=== PATIENT | female | born 1940 | race Caucasian/White ===

== ENCOUNTER 2023-08-06 13:47 | Outpatient (OUT) | payer MEDICARE, OTHER, SELFPAY ==
--- NOTE | 2023-08-06 13:58 | XR_ITS ---
The [address] [address] Patient Name: DIANA PLASCENCIA MRN: [id number] date: 1940 Sex: F Assigned Patient Location: LAB Current Patient Location: Accession/Order Number: [id number] Exam Date: 08/06/2023 14:05 Report Date: 08/07/2023 07:59 At the request of: SHAIKH BEN Procedure: XR pelvis min 3V PROCEDURE: XR pelvis min 3V COMPARISON: None. HISTORY: Pelvic Pain In Female R10.2 FINDINGS: BONES:No acute fracture or dislocation. Mild bilateral hip osteoarthropathy. Sclerosis of the pubic symphysis SOFT TISSUES:Negative. No visible soft tissue swelling. EFFUSION:None visible. OTHER: Multiple pelvic calcifications, vascular phleboliths are favored. 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
== END 2023-08-06 13:48 | disposition home or self-care (01) ==
LOC: LAB 13:51
PROVIDERS: PCP Family Medicine; Visit Provider Internal Medicine
DX: R10.2 Pelvic and perineal pain (principal)
CPT/HCPCS: 72190

== ENCOUNTER 2024-08-06 12:45 | Outpatient (OUT) | payer MEDICARE, OTHER, SELFPAY ==
--- OUTSIDE RECORDS SUMMARY | 2024-08-06 12:58 | XMS_ITS | CCD ---
Author Organization [facility] Care Team Providers Care Principal Planner Name Role Phone Regino Martinez Primary Care Provider CRYSTAL, ISAK A Admitting Unavailable NADERER, ISAK A Attending Unavailable NADERER, ISAK A Primary Care Unavailable NADERER, ISAK A Consulting Unavailable NADERER, ISAK A Admitting Unavailable NADERER, ISAK A Attending Unavailable NADERER, ISAK A Primary Care Unavailable NADERER, ISAK A Consulting Unavailable NADERER, ISAK A Admitting Unavailable NADERER, ISAK A Attending Unavailable NADERER, ISAK A Primary Care Unavailable NADERER, ISAK A Consulting Unavailable NADERER, ISAK A Admitting Unavailable NADERER, ISAK A Attending Unavailable NADERER, ISAK A Primary Care Unavailable NADERER, ISAK A Consulting Unavailable NADERER, ISAK A Admitting Unavailable NADERER, ISAK A Attending Unavailable NADERER, ISAK A Primary Care Unavailable DR GILL LIRA Consulting Unavailable NADERER, ISAK A Consulting Unavailable MD Francheska Jean Attending Provider MD Isak Rojas Primary Care Provider [phone] MD Francheska Jean Primary Care Provider Jacinta Gillespie Unavailable Shaikh Jean Attending Unavailable Isak Rojas Primary Care Unavailable Shaikh Jean Admitting Unavailable Shaikh Jean Attending Unavailable Shaikh Jean Admitting Unavailable Shaikh Jean Primary Care Unavailable Naddennis, Isak Keyanna Primary Care Provider Russ Schmitt MD Unavailable REDD OBANDO Attending Unavailable ERWIN MCLEOD Attending Unavailable NADERER, ISAK Referring Unavailable NADERER, ISAK Primary Care Unavailable NADERER, ISAK Primary Care Unavailable YEN LINK Attending Unavailable ANDREA VAZQUEZ Admitting Unavailable VAZQUEZ GARIBAY Consulting Unavailable KARCHNER, MAXIMILIAN Small Attending Unavailable KARCHMAXIMILIAN ESCALANTE Referring Unavailable NADERER, ISAK Primary Care Unavailable MAYRA ELIZABETH Attending Unavailable MAYRA ELIZABETH Referring Unavailable NADERER, ISAK Primary Care Unavailable KROTZER, THANG D Referring Unavailable NADERER, ISAK Primary Care Unavailable KROTZER, THANG D Referring Unavailable NADERER, ISAK Primary Care Unavailable KROTZER, THANG D Referring Unavailable NADERER, ISAK Primary Care Unavailable KROTZER, THANG D Referring Unavailable NADERER, ISAK Primary Care Unavailable NADERER, ISAK Primary Care Unavailable YEN LINK Attending Unavailable CLARKECHBORIS, MAXIMILIAN Small Attending Unavailable KARCHNER, MAXIMILIAN D Referring Unavailable NADERER, ISAK Primary Care Unavailable NADERER, ISAK Attending Unavailable NADERER, ISAK Attending Unavailable Naderer Isak HAMILTON Primary Care Provider Allergies Allergy Classification Reported Allergen(s) Allergy Type Date of Onset Reaction(s) Facility (8 sources) Codeine; Translations: [CODEINE] Drug Allergy 7 GI Upset, Nausea Only [facility] (6 sources) Iodine Drug Allergy 7 [facility] (1 source) Codeine Drug Allergy 6 [facility] Repository (2 sources) Adhesive Tape; Translations: [adhesive tape] Allergy to substance 3 [facility] (4 sources) Adhesive agent; Translations: [adhesive] Drug allergy 3 [facility] Repository (1 source) Codeine Drug Allergy 3 [facility] Repository (1 source) Iodine Drug Allergy 3 [facility] Repository (2 sources) Codeine; Translations: [CODEINE SULFATE] Drug Allergy 7 [facility] Repository (2 sources) IODINE AND IODIDE CONTAINING PRODUCTS; Translations: [IODINE AND IODIDE CONTAINING PRODUCTS] Propensity to adverse reactions to food (disorder) 7 [facility] Repository (1 source) Lidocaine Drug Allergy 3 [facility] Medications Current Medications Medication Drug Class(es) Dates Sig (Normalized) Sig (Original) acetaminophen 325 mg oral tablet (3 sources) Start: 12-18-2022 take 2 tablets by mouth every six hours as needed acetaminophen (Tylenol) 325 MG tablet Take 650 mg by mouth every 6 (six) hours if needed. 12/18/2022 Active End: 08-07-2022 take 1 tablet by mouth once daily acetaminophen (TYLENOL) 500 mg tablet Take 500 mg by mouth once daily. 0 08/07/2022 Discontinued (Changing Therapy/Dosage Form) Comment on above: Take 500 mg by mouth once daily. acetaminophen 325 mg / butalbital 50 mg / caffeine 40 mg oral tablet (1 source) Barbiturate, Central Nervous System Stimulant, Methylxanthine Start : 06-29 take 1 tablet by mouth four times daily as needed butalbital-acetaminophen -caffeine 50-325-40 MG tablet Indications: Migraine without aura and without status migrainosus, not intractable (CMS/HCC) Take 1 tablet by mouth 4 (four) times a day as needed for migraine 30 tablet 1 06/29/2024 Active alendronic acid 70 mg oral tablet (1 source) Bisphosphonate alendronate (Fos amax) 70 MG tablet 1 tablet 30 minutes before the first food, beverage or medicine of the day with plain water Orally once a week for 90 days Active Qcnosiqji-Tvjwamtakme-Kri D (Osteo Bi-Flex One Per Day) tablet (1 source) Boswellia-Glucos amine-Vi t D (Osteo Bi-Flex One Per Day) tablet Take by mouth. Active hydroCHLOROthiazide 25 mg oral tablet (4 sources) Thiazide Diuretic End: 08-07 take 1 tablet by mouth in the morning hydroCHLOROthiazide (HYDRODiuril) 25 MG tablet Take 1 tablet by mouth in the morning. Active Comment on above: Take 25 mg by mouth once daily. ibuprofen 200 mg oral tablet (1 source) Nonsteroidal Anti-inflammatory Drug ibuprofen (Advil) 20 0 MG tablet every 6 (six) hours. Active iv contrast (will be provided with radiology test) (1 source) Start : 12-03 End: 12-04 iv contrast (will be provided with radiology test) Indications: Unruptured cerebral aneurysm MRA Brain Inject, intravenously, once for 1 dose. No IV access, insert saline lock prior to the beginning of sedation, infusion, injection of imaging exam. Discontinue saline lock post exam. If Pt. has a central line or IVAD, may access for administration according to line specific nursing protocol. Once exam is complete flush line and de-access according to line specific nursing protocol in the MR contrast administration guidelines link. 1 Each 0 12/03/2023 12/04/2023 Active Comment on above: MRA Brain Inject, in travenously, once for 1 dose. No IV access, insert saline lock prior to the beginning of sedation, infusion, injection of imaging exam. Discontinue saline lock post exam. If Pt. has a central line or IVAD, may access for administration according to line specific nursing protocol. Once exam is complete flush line and de-access according to line specific nursing protocol in the MR contrast administration guidelines link. levothyroxine sodium 0.1 mg oral tablet (7 sources) l-Thyroxine Start : 05-18 End: 07-28 take 1 tablet by mouth once daily levothyroxine (Synthroid, Levoxyl) 100 MCG tablet Indications: Adult hypothyroidism (CMS/HCC) TAKE ONE TABLET BY MOUTH DAILY 90 tablet 3 07/28/2024 Active levothyroxine (S YNTHROID) 125 mcg tablet Take 100 mcg by mouth daily before breakfast. 0 Active Levothyroxine So dium 125 MCG Oral for 90 Active Comment on above: Take 125 mcg by mout h daily before breakfast. Take 100 mcg by mout h daily before breakfast. losartan potassium 25 mg oral tablet (5 sources) Angiotensin 2 Receptor Mora Start: 02-18-2024 End: 02-17-2025 take 1 tablet by mouth once daily losartan (Cozaar) 25 MG tablet Indications: Essential hypertension, benign (CMS/HCC) Take 1 tablet (25 mg) by mouth Daily 90 tablet 3 02/18/2024 02/17/2025 Active losartan (COZAAR ) 50 mg tablet Take 25 mg by mouth once daily. 0 Active take 1 tablet by mouth once milly y losartan (COZAAR) 50 mg tablet Take 50 mg by mouth once daily. 0 Active Comment on above: Take 50 mg by mouth once daily. Take 25 mg by mouth once daily. meclizine hydrochloride 12.5 mg oral tablet (3 sources) Antiemetic End: 2 take 1 tablet by mouth three times daily as needed meclizine (Antivert) 12.5 MG tablet Take 12.5 mg by mouth 3 (three) times a day as needed. Active Comment on above: Take 12.5 mg by mout h as needed. naproxen sodium 220 mg oral tablet (3 sources) Nonsteroidal Anti-inflammatory Drug take 1 tablet by mouth every twelve hours Aleve 220 MG 1 tablet as needed Orally every 12 hrs Active End: 08-07-2022 take 1 tablet by mouth once daily naproxen sodium (ANAPROX) 220 mg tablet Take 220 mg by mouth once daily. 0 08/07/2022 Discontinued (Changing Therapy/Dosage Form) Comment on above: Take 220 mg by mouth once daily. nitrofurantoin, macrocrystals 25 mg / nitrofurantoin, monohydrate 75 mg oral capsule (1 source) Nitrofuran Antibacterial Start: 12-13-19 23 nitrofurantoin, macrocrystal-monoh ydrate, (Macrobid) 100 MG capsule 12/12/2022 Active omeprazole 10 mg delayed release oral capsule (3 sources) Proton Pump Inhibitor take 2 capsules by mouth every twenty-four hours Omeprazole 10 MG 2 capsules Orally Once a day Active End: 08-07-2022 take 1 capsule by mouth once daily omeprazole (PRILOSEC) 20 mg capsule Take 20 mg by mouth once daily. 0 08/07/2022 Discontinued (Changing Therapy/Dosage Form) Comment on above: Take 20 mg by mouth once daily. Osteo Bi-Flex Adv Joint Shield (1 source) Osteo Bi-Flex Ad v Joint Shield Active pantoprazole 40 mg delayed release oral tablet (5 sources) Proton Pump Inhibitor Start: 07-28-20 24 take 1 tablet by mouth once daily pantoprazole (ProtoNix) 40 MG EC tablet Indications: Gastroesophageal reflux disease without esophagitis TAKE ONE TABLET BY MOUTH DAILY 90 tablet 3 07/28/2024 Active Start: 12-23-2021 End: 07-28-2024 take 1 tablet by mouth once daily pantoprazole DR (PROTONIX) 40 mg tablet Take 1 tablet by mouth once daily. 0 12/23/2021 Active Comment on above: Take 1 tablet by junaid th once daily. 24 hr propranolol hydrochloride 60 mg extended release oral capsule (4 sources) beta-Adrenergic Mora proprano lol LA (Inderal LA) 60 MG 24 hr capsule 1 capsule 1 (one) time each day at the same time. Active Propranolol HCl ER 80 MG Oral for 90 Active End: 08-07-2022 take 1 tablet by mouth once daily propranolol (INDERAL) 80 mg tablet Take 80 mg by mouth once daily. Extended release 0 08/07/2022 Discontinued (Changing Therapy/Dosage Form) Comment on above: Take 80 mg by mouth once daily. Extended release tolterodine tartrate 2 mg oral tablet (4 sources) Cholinergic Muscarinic Antagonist tolterodine (Detrol) 2 MG tablet every 12 (twelve) hours. Active End: 08-07-2022 Tolterodine Tartrate 2 MG Or al for 90 Active Comment on above: Take 2 mg by mouth t wice daily. topiramate 50 mg oral tablet (4 sources) Start: 05-06-2024 take 1 tablet by mouth in the morning topiramate 50 MG tablet Indications: Migraine without aura and with status migrainosus, not intractable (CMS/HCC) Take 50 mg by mouth in the morning and 50 mg before bedtime. 60 tablet 2 05/06/2024 Active Start: 07-17-2022 topiramate (TO PAMAX) 50 mg tablet ZOLMitriptan 5 mg oral tablet (6 sources) Serotonin-1b and Serotonin-1d Receptor Agonist take 1 tablet by mouth every twenty-four hours as needed ZOLMitriptan (Zomig) 5 MG tablet TAKE ONE TABLET BY MOUTH AT ONSET OF HEADACHE NEEDED ; MAX OF TWO PER 24 HOURS. Active ZOLMitriptan prn Active Comment on above: Take 5 mg by mouth a s needed. Completed/Discontinued Medications Medication Drug Class(es) Dates Sig (Normalized) Sig (Original) [id number] 60 actuat albuterol 0.09 mg/actuat metered dose inhaler (1 source) beta2-Adrenergic Agonist Start: 07-15-2023 take 2 puff(s) by inhalation four times daily as needed Albuterol Sulfate HFA 108 (90 Base) MCG/ACT 2 puffs Inhalation 4 times a day prn Jul, Not-Taking/PRN aspirin 81 mg chewable tablet (5 sources) Platelet Aggregation Inhibitor, Nonsteroidal Anti-inflammatory Drug take 1 tablet by mouth once daily aspirin 81 mg chewable tablet Take 81 mg by mouth once daily. 0 Active Baby Aspirin Act lali Comment on above: Take 81 mg by mouth once daily. aspirin 325 mg / butalbital 50 mg / caffeine 40 mg oral capsule (3 sources) Platelet Aggregation Inhibitor, Barbiturate, Nonsteroidal Anti-inflammatory Drug, Central Nervous System Stimulant, Methylxanthine take 1 capsule by mouth every four hours as needed zwsaobk-oeacisfw-r utalbital (FIORINAL) capsule Take 1 capsule by mouth every 4 hours as needed. 0 Active Comment on above: Take 1 capsule by mo [facility] every 4 hours as needed. Chondroitin Sulfates / Glucosamine (1 source) Glucosamine Chondroitin MSM - Orally Not-Taking/PRN esomeprazole 20 mg delayed release oral capsule (1 source) Proton Pump Inhibitor take 1 capsule by mouth every twenty-four hours NexIUM 20 MG 1 capsule Orally Once a day Not-Taking/PRN GLUCOSAMINE/CHONDR PAUL A SOD (OSTEO BI-FLEX ORAL) (4 sources) GLUCOSAMINE/OLEG DR PAUL A SOD (OSTEO BI-FLEX ORAL) Take by mouth. 0 Active Comment on above: Take by mouth. methylPREDNISolone 4 mg oral tablet (1 source) Corticosteroid Medrol 4 MG as directed Orally As Directed for 6 days Not-Taking/PRN Multi Complete - (1 source) Multi Complete - Orally Not-Taking/PRN Multivitamin preparation (2 sources) End: 022 MULTIVITAMIN (MULTIPLE VITAMIN ORAL) Take by mouth once daily. 0 08/07/2022 Discontinued (Changing Therapy/Dosage Form) MULTIVITAMIN (MU LTIPLE VITAMIN ORAL) Take by mouth once daily. 0 Active Comment on above: Take by mouth once d aily. sulfamethoxazole 800 mg / trimethoprim 160 mg oral tablet (2 sources) Dihydrofolate Reductase Inhibitor Antibacterial, Sulfonamide Antimicrobial End: 08-07-20 22 take 1 tablet by mouth twice daily sulfamethoxazole-tr imethoprim (BACTRIM DS,SEPTRA DS) 800-160 mg per tablet Take 1 tablet by mouth twice daily. 0 08/07/2022 Discontinued (Course of therapy completed) Comment on above: Take 1 tablet by junaid twice daily. Problems Active Problems Problem Classification Problem Date Documented Da te Episodic/Chronic Abdominal pain (1 source) Pelvic and perineal pain; Translations: [Pelvic and perineal pain] Onset: 3 Episodic Cardiac dysrhythmias (1 source) Paroxysmal supraventricular tachycardia; Translations: [Paroxysmal supraventricular tachycardia] Onset: 4 12-17-2023 Chronic Conditions associated with dizziness or vertigo (1 source) Dizziness Onset: 4 Episodic E Codes: Fall (1 source) Fall Onset: 4 Esophageal disorders (4 sources) Gastroesophageal reflux disease; Translations: [Gastro-esophageal reflux disease without esophagitis] Onset: 4 07-28-2024 Chronic Essential hypertension (5 sources) Essential (primary) hypertension; Translations: [Benign essential hypertension] Onset: 2 Chronic Headache; including migraine (1 source) Migraine without aura, not refractory ; Translations: [Migraine without aura, not intractable, with status migrainosus] Onset: 4 12-17-2023 Chronic Malaise and fatigue (2 sources) Fatigue; Translations: [Weakness] Onset: 4 Episodic Nausea and vomiting (4 sources) Vomiting, unspecified; Translations: [VOMITING UNSPECIFIED] Onset: 3 Episodic Occlusion or stenosis of precerebral arteries (1 source) Cerebrovascular disease; Translations: [Occlusion and stenosis of basilar artery] Chronic Osteoarthritis (1 source) Lower limb joint arthritis; Translations: [Bilateral primary osteoarthritis of knee] Onset: 4 12-17-2023 Chronic Osteoporosis (1 source) Senile osteoporosis; Translations: [Age-related osteoporosis without current pathological fracture] Onset: 4 12-17-2023 Chronic Other aftercare (1 source) Other board certified orthodontist (current) drug therapy; Translations: [OTH CONTINUOUS MINING 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 MINER CURRENT DRUG THERAPY] Onset: 3 Episodic Other and ill-defined cerebrovascular disease (3 sources) Cerebral arterial aneurysm; Translations: [Cerebral aneurysm, nonruptured] Chronic Other ear and sense organ disorders (1 source) Impacted cerumen, right ear Episodic Other gastrointestinal disorders (1 source) Dysphagia; Translations: [Dysphagia, unspecified] Episodic Other nutritional; endocrine; and metabolic disorders (1 source) Obese class II; Translations: [Body mass index (BMI) 35.0-35.9, adult] Chronic Other nutritional; endocrine; and metabolic disorders (1 source) Obese class I; Translations: [Body mass index (BMI) 34.0-34.9, adult] Chronic Other screening for suspected conditions (not mental disorders or infectious disease) (5 sources) Other specified abnormal findings of blood chemistry; Translations: [OTH SPEC ABNORMAL FINDINGS BLD CHEM] Onset: 3 Episodic Other skin disorders (1 source) Scar conditions and fibrosis of skin; Translations: [Scar conditions and fibrosis of skin] Episodic Spondylosis; intervertebral disc disorders; other back problems (1 source) Degeneration of lumbar intervertebral disc; Translations: [DDD (degenerative disc disease), lumbar] Onset: 4 12-17-2023 Chronic Thyroid disorders (3 sources) Hypothyroidism, unspecified; Translations: [Hypothyroidism] Onset: 2 07-28-2024 Chronic Unclassified (1 source) Encounter for checking and testing of cardiac pacemaker pulse generator [battery]; Translations: [Encounter for checking and testing of cardiac pacemaker pulse generator [battery]] Onset: 3 Unclassified (1 source) Weakness - Generalized Onset: 4 Unclassified (1 source) ill Onset: 4 Urinary tract infections (5 sources) Urinary tract infection, site not specified; Translations: [UTI SITE NOT SPECIFIED] Onset: 3 Episodic Viral infection (1 source) COVID-19; Translations: [COVID-19] Onset: 4 Past or Other Problems Problem Classification Problem Date Documented Date Episodic/Chronic Biliary tract disease (2 sources) Calculus of gallbladder without cholecystitis without obstruction; Translations: [Biliary calculus] Onset: 02-16-2023 12-17-2023 Episodic Diabetes mellitus without complication (2 sources) Prediabetes; Translations: [Prediabetes] Onset: 07-19-2022 12-17-2023 Episodic E Codes: Fall (1 source) Unspecified fall, initial encounter; Translations: [Unspecified fall, initial encounter] Onset: 12-08-2023 Episodic Other fractures (1 source) Wedge compression fracture of second lumbar vertebra, initial encounter for closed fracture; Translations: [Wedge compression fracture of second lumbar vertebra, initial encounter for closed fracture] Onset: 12-09-2023 Episodic Spondylosis; intervertebral disc disorders; other back problems (1 source) Backache Onset: 12-08-2023 Episodic Syncope (4 sources) Syncope and collapse; Translations: [SYNCOPE AND COLLAPSE] Onset: 07-03-2022 Episodic Results Test Name Value Interpretation Reference Range Facility BLOOD CULTUREon 06-03-2024 Bacteria identified Aer cx Nom (Bld) SPECIMEN NOTES RAC CULTURE RESULTS NO GROWTH 5 DAYS Normal [facility] Bacteria identified Aer cx Nom (Bld) SPECIMEN NOTES RAC CULTURE RESULTS NO GROWTH 5 DAYS Normal [facility] CBC AND AUTO DIFFon 06-03-20 24 ABSOLUTE BASOPHIL 0.0 X10E9/L Normal 0.0-0.2 [facility] Comment on above: Performed By: #### C XI WILSON, , 01709-4 #### [facility] ([id number]) [address] [place] [address] 13024 ABSOLUTE NEUTROPHIL 5.7 X10E9/L Normal 1.5-6.6 [facility] Comment on above: Performed By: #### C KATIE CMP, , 79911-1 #### [facility] ([id number]) [address] [place] [address] 78728 Basophils/100 WBC (Bld) 0.6 % Normal [facility] Comment on above: Performed By: #### Cathy WILSON CMP, , 41423-0 #### [facility] ([id number]) [address] [place] [address] 53003 Eosinophils (Bld) [#/Vol] 0.1 10*3/uL Normal 0.0-0.[address] [facility] Comment on above: Performed By: #### C BCA CMP, , 20722-5 #### [facility] ([id number]) [address] [place] [address] 05431 Eosinophils/100 WBC (Bld) 1.0 % Normal [facility] Comment on above: Performed By: #### C BCA CMP, , 66045-9 #### [facility] ([id number]) [address] [place] [address] 04094 Erythrocyte distribution width (RBC) [Ratio] 15.2 % High 11.5-15.[address] [facility] Comment on above: Performed By: #### C BCA, CMP, , 91995-1 #### [facility] ([id number]) [address] [place] [address] 64605 Hematocrit (Bld) [Volume fraction] 35.1 % Normal 35-[address] [facility] Comment on above: Performed By: #### C KATIE, CMP, , 65300-3 #### [facility] ([id number]) [address] [place] [address] 77524 Hemoglobin (Bld) [Mass/Vol] 12.0 g/dL Normal 11.7-15.[address] [facility] Comment on above: Performed By: #### C BCA, CMP, , 54385-5 #### [facility] ([id number]) [address] [place] [address] 50929 Lymphocytes (Bld) [#/Vol] 1.4 10*3/uL Normal 1.0-3.[address] [facility] Comment on above: Performed By: #### C KATIE, CMP, , 31376-8 #### [facility] ([id number]) [address] [place] [address] 06415 Lymphocytes/100 WBC (Bld) 18.0 % Normal [facility] Comment on above: Performed By: #### C BCA, CMP, , 13326-3 #### [facility] ([id number]) [address] [place] [address] 35357 MCH (RBC) [Entitic mass] 32.5 pg Normal 27-[address] [facility] Comment on above: Performed By: #### C KATIE, CMP, , 30046-0 #### [facility] ([id number]) [address] [place] [address] 94007 MCHC (RBC) [Mass/Vol] 34.3 g/dL Normal 32-[address] [facility] Comment on above: Performed By: #### C BCA, CMP, , 26221-6 #### [facility] ([id number]) [address] [place] [address] 60639 MCV (RBC) [Entitic vol] 95 fL Normal 80-[address] [facility] Comment on above: Performed By: #### C BCA, CMP, , 11295-8 #### [facility] ([id number]) [address] [place] [address] 42235 Monocytes (Bld) [#/Vol] 0.4 10*3/uL Normal 0-0.[address] [facility] Comment on above: Performed By: #### C BCA, CMP, , 52961-6 #### [facility] ([id number]) [address] [place] [address] 56445 Monocytes/100 WBC (Bld) 5.1 % Normal [facility] Comment on above: Performed By: #### C BCA, CMP, , 66745-6 #### [facility] ([id number]) [address] [place] [address] 43919 Neutrophils/100 WBC (Bld) 75.3 % Normal [facility] Comment on above: Performed By: #### C BCA, CMP, , 09650-8 #### [facility] ([id number]) [address] [place] [address] 16270 Platelet mean volume (Bld) [Entitic vol] 7.8 fL Normal 7-[address] [facility] Comment on above: Performed By: #### C BCA, CMP, , 53758-9 #### [facility] ([id number]) [address] [place] [address] 99366 Platelets (Bld) [#/Vol] 209 10*3/uL Normal 150-[address] [facility] Comment on above: Performed By: #### C BCA, CMP, , 88302-3 #### [facility] ([id number]) [address] [place] [address] 86045 RBC COUNT 3.70 X10E12/L Low 3.80-5.[address] [facility] Comment on above: Performed By: #### C BCA, CMP, , 73976-5 #### [facility] ([id number]) [address] [place] [address] 91047 WBC (Bld) [#/Vol] 7.5 10*3/uL Normal 4.0-11.0 [facility] Comment on above: Performed By: #### C BCA, CMP, , 43002-1 #### [facility] ([id number]) [address] [place] [address] 61472 COMPREHENSIVE METABOLIC PANE Jarrod 06-03-2024 Albumin [Mass/Vol] 3.9 g/dL Normal 3.2-5.3 [facility] Comment on above: Performed By: #### C BCA, CMP, , 59199-7 #### [facility] ([id number]) [address] [place] [address] 16316 ALP [Catalytic activity/Vol] 118 U/L Normal 39-[address] [facility] Comment on above: Performed By: #### C BCA, CMP, , 51342-4 #### [facility] ([id number]) [address] [place] [address] 98566 ALT [Catalytic activity/Vol] 12 U/L Normal 0-[address] [facility] Comment on above: Performed By: #### C BCA, CMP, , 08681-5 #### [facility] ([id number]) [address] [place] [address] 20434 Anion gap [Moles/Vol] 6 mmol/L Normal 5-[address] [facility] Comment on above: Performed By: #### C BCA, CMP, , 44499-2 #### [facility] ([id number]) [address] [place] [address] [place] [address] AST [Catalytic activity/Vol] 16 U/L Normal 0-[address] [facility] Comment on above: Performed By: #### C BCA, CMP, , 91762-0 #### [facility] ([id number]) [address] [place] [address] 92283 Bilirubin [Mass/Vol] 0.6 mg/dL Normal 0.3-1.2 [facility] Comment on above: Performed By: #### C BCA, CMP, , 25262-2 #### [facility] ([id number]) [address] [place] [address] 58974 Calcium [Mass/Vol] 9.0 mg/dL Normal 8.5-10.5 [facility] Comment on above: Performed By: #### C BCA, CMP, , 19338-4 #### [facility] ([id number]) [address] [place] [address] [place] [address] Chloride [Moles/Vol] 108 mmol/L Normal 98-109 [facility] Comment on above: Performed By: #### C BCA, CMP, , 62827-3 #### [facility] ([id number]) [address] [place] [address] 37598 CO2 [Moles/Vol] 22 mmol/L Normal 22-[address] [facility] Comment on above: Performed By: #### C KATIE, CMP, , 37969-7 #### [facility] ([id number]) [address] [place] [address] 86473 Creatinine [Mass/Vol] 1.26 mg/dL High 0.40-1.[address] [facility] Comment on above: Result Comment: METH OD TRACEABLE TO IDMS STANDARD Performed By: #### C KATIE CMP, , 15083-5 #### [facility] ([id number]) [address] [place] [address] 37821 GFR/1.73 sq M.predicted among non-blacks MDRD (S/P/Bld) [Vol rate/Area] 42 mL/min/{1.73_m2} Low >[address] [facility] Comment on above: Result Comment: Reported eGFR is based on the CKD-EPI 2020 equation that does not use a race coefficient. Performed By: #### C BCA, CMP, , 62478-1 #### [facility] ([id number]) [address] [place] [address] 17136 Glucose [Mass/Vol] 105 mg/dL High 65-99 [facility] Comment on above: Performed By: #### C KATIE CMP, , 34834-0 #### [facility] ([id number]) [address] [place] [address] 72734 Potassium [Moles/Vol] 4.2 mmol/L Normal 3.5-5.[address] [facility] Comment on above: Performed By: #### C BCA, CMP, , 90549-0 #### [facility] ([id number]) [address] [place] [address] 10845 Protein [Mass/Vol] 6.8 g/dL Normal 6.0-8.0 [facility] Comment on above: Performed By: #### C BCA, CMP, , #### [facility] ([id number]) [address] [place] [address] Sodium [Moles/Vol] 136 mmol/L Normal 134-146 [facility] Comment on above: Performed By: #### C KATIE XI, , 80936-3 #### [facility] ([id number]) [address] [place] [address] 00851 Urea nitrogen [Mass/Vol] 33 mg/dL High 5-[address] [facility] Comment on above: Performed By: #### C XI WILSON, , 28792-6 #### [facility] ([id number]) [address] [place] [address] 34825 Lactate (P lisset) [Moles/Vol]o n 06-03-2024 LACTATE W/REFLEX 0.9 mmol/L Normal 0.4-2.0 [facility] Comment on above: Result Comment: Result did not trigger repeat Lactate, re-order if needed. Performed By: #### C XI WILSON, , 79505-7 #### [facility] ([id number]) [address] [place] [address] 53395 MAGNESIUMon 06-03-2024 Magnesium [Mass/Vol] 2.0 mg/dL Normal 1.8-2.6 [facility] Comment on above: Performed By: #### C KATIE, XI, , 55012-1 #### [facility] ([id number]) [address] [place] [address] 77443 SARS/FLU A+B/RSV by NAAT/Mol ecularon 06-03-2024 SARS/FLU A+B/RSV by NAAT/Molecular FLU A PCR Negative (qualifier value) FLU B PCR Negative (qualifier value) RSV by PCR Negative (qualifier value) SARS CoV 2 Not detected (qualifier value) NOTE The Xpert Xpress SARS-CoV-2/Flu/RSV Plus test is a rapid, multiplexed real-time RT-PCR test intended for the simultaneous qualitative detection and differentiation of SARS-CoV-2, influenza A, influenza B and respiratory syncytial virus (RSV) viral RNA from individuals suspected of respiratory viral infection consistent with COVID-19 by their healthcare provider. This test has not been validated in asymptomatic patients. The Xpert Xpress SARS-CoV-2 test is intended for use by qualified and trained operators who are performing tests using either [employer] or [employer] systems and is limited to laboratories that meet the CLIA requirements to perform high and moderate complexity tests. The Xpert Xpress SARS-CoV-2/Flu/RSV Plus is only for use under the Food and Drug Administration's Emergency Use Authorization. Results are for the simultaneous detection and differentiation of SARS-CoV-2, influenza A, influenza B and RSV nucleic acids in clinical specimens. SARS-CoV-2, influenza A, influenza B and RSV RNA identified by this test are generally detectable in upper respiratory samples during the acute phase of infection. Positive results are indicative of the presence of the identified virus, but do not rule out bacterial infection or co-infection with other pathogens not detected by this test. Clinical correlation with patient history and other diagnostic information is necessary to determine patient infection status. The agent detected may not be the definite cause of disease. Negative results do not preclude SARS-CoV-2, influenza A, influenza B and RSV infection and should not be used as the sole basis for treatment or other patient management decisions. Negative results must be combined with clinical observations, patient history and epidemiological information. An Invalid result may occur with specimen-associated inhibition unable to be resolved with specimen repeat. Fact Sheet for Healthcare Providers: https://www.fda.gov/me lindsay/284100/download Fact Sheet for Patients: https://www.fda.gov/me lindsay/851970/download Normal [facility] Comment on above: Performed By: #### C XI WILSON, 78938-0, 29789-6 #### [facility] ([id number]) [address] [place] [address], [place] [address] Troponin I.cardiac High sens itivity method [Mass/Vol]on 06-03-2024 1 HOUR TROP I, HIGH SENSITIVITY 3 ng/L Normal <[address] [facility] Comment on above: Performed By: #### C XI WILSON, , 70915-4 #### [facility] ([id number]) [address] [place] [address] 02440 TROPONIN I, HIGH SENSITIVITY 3 ng/L Normal <[address] [facility] Comment on above: Performed By: #### C BCA, CMP, 50414-6, 02070-4 #### [facility] ([id number]) [address] [place] [address] 49284 URINE CULTUREon 06-03-2024 Bacteria identified Cx Nom (U) CULTURE RESULTS <10,000 ORGANISMS/ML NORMAL URO GENITAL JANELL Normal [facility] Comment on above: Performed By: #### C BCA, CMP, , 98197-5 #### [facility] ([id number]) [address] [place] [address] 37238 URN MACROSCOPIC NURon 2023 BILIRUBIN GAURAV Negative Normal NEG [facility] Comment on above: Performed By: #### C BCA, CMP, , 09793-6 #### [facility] ([id number]) [address] [place] [address] 36165 BLOOD/HGB GAURAV Negative Normal NEG [facility] Comment on above: Performed By: #### C BCA, CMP, 31109-7, 46602-1 #### [facility] ([id number]) [address] [place] [address] [place] [address] GLUCOSE GAURAV Negative Normal NEG [facility] Comment on above: Performed By: #### C BCA, CMP, 88876-2, 53466-5 #### [facility] ([id number]) [address] [place] [address] [place] [address] KETONES GAURAV Negative Normal NEG [facility] Comment on above: Performed By: #### C BCA, CMP, 72780-7, 21492-7 #### [facility] ([id number]) [address] [place] [address] 49875 LEUKOCYTE ESTERASE GAURAV Trace Abnormal NEG [facility] Comment on above: Performed By: #### C KATIE CMP, , 55183-0 #### [facility] ([id number]) [address] [place] [address] 88268 NITRITE GAURAV Negative Normal NEG [facility] Comment on above: Performed By: #### C KATIE, CMP, , 30410-5 #### [facility] ([id number]) [address] [place] [address] 68585 PH GAURAV 6.0 Normal 5.0-8.[address] [facility] Comment on above: Performed By: #### C KATIE CMP, , 09594-6 #### [facility] ([id number]) [address] [place] [address] 92488 PROTEIN GAURAV Negative Normal NEG [facility] Comment on above: Performed By: #### C KATIE, CMP, , 88580-7 #### [facility] ([id number]) [address] [place] [address] 02733 SPECIFIC GRAVITY GAURAV 1.015 Normal 1.003-1.035 [facility] Comment on above: Performed By: #### C KATIE CMP, , 78392-0 #### [facility] ([id number]) [address] [place] [address] 57274 UROBILINOGEN GAURAV 0.2 eu/dL Normal <1.1 [facility] Comment on above: Performed By: #### C KATIE, CMP, , 93961-8 #### [facility] ([id number]) [address] [place] [address] 19499 XR CHEST 1 VWon 06-03-2024 XR CHEST 1 VW XR CHEST 1 VW Single view chest History: Difficulty breathing, shortness of breath Comparison: X-ray 12/08/2023 Findings: Single portable view of the chest. Cardiomediastinal silhouette and pulmonary vasculature are within normal limits. Lungs and pleural space are clear. There is no pleural effusion or pneumothorax. Left approach dual lead pacemaker, leads unchanged positioning. Impression: No acute cardiopulmonary process. Finalized by David Callaway on 06/03/2024 2:10 PM Normal [facility] DIANA FRANCO ([id number]) 1940 F Date Time Provider Department 01/06/24 CASSIDY MELENDREZ [facility] During your visit today, we recorded the following information about you: Angelique Jones RN 01/06/2024 4:56 PM Signed Called pt about f/up and she asked that her daughter be called. Spoke with daughter Virgil. She states they have imaging done at [facility] near them and asked if order can be mailed to pt's address. Offered a VV for f/up after imaging and she will try to figure that out to save a trip to [place]. Address verified. Provided her with office number for questions and scheduling number to call after MRA is completed. She appreciated the follow-up. Will mail order tomorrow 01/06. Angelique Jones RN Allergies As of Date: 01/06/2024 Noted Allergy Reaction CODEINE 06/03/2017 8 - GI Upset IODINE 06/03/2017 2 - Rash Date Reviewed: 08/07/2022 Reviewed by: Gabrielle Ram MA - Fully Assessed Reason for Visit: Follow Up [171] Prescriptions as of 01/06/2024 - topiramate (TOPAMAX) 50 mg tablet - pantoprazole DR (PROTONIX) 40 mg tablet Take 1 tablet by mouth once daily. - ttzpkby-iaqplcfb-avhnu bital (FIORINAL) capsule Take 1 capsule by mouth every 4 hours as needed. - aspirin 81 mg chewable tablet Take 81 mg by mouth once daily. - losartan (COZAAR) 50 mg tablet Take 25 mg by mouth once daily. - levothyroxine (SYNTHROID) 125 mcg tablet Take 100 mcg by mouth daily before breakfast. - ZOLMitriptan (ZOMIG) 5 mg tablet Take 5 mg by mouth as needed. - GLUCOSAMINE/CHONDR PAUL A SOD (OSTEO BI-FLEX ORAL) Take by mouth. Problem List As Of Date: 01/06/2024 (None) Encounter Status:Closed by ANGELIQUE JONES on 01/06/24 Normal [facility] CBC AND AUTO DIFFon 12-09-19 24 ABSOLUTE BASOPHIL 0.0 X10E9/L Normal 0.0-0.2 [facility] Comment on above: Performed By: #### C KATIE [facility], , 18822-3 #### [facility] ([id number]) [address] [place] [address] 99163 ABSOLUTE NEUTROPHIL 8.6 X10E9/L High 1.5-6.6 [facility] Comment on above: Performed By: #### Cathy WILSON [facility], , 18701-0 #### [facility] ([id number]) [address] [place] [address] 07982 Basophils/100 WBC (Bld) 0.4 % Normal [facility] Comment on above: Performed By: #### Cathy WILSON CMP, , 21742-6 #### [facility] ([id number]) [address] [place] [address] 79401 Eosinophils (Bld) [#/Vol] 0.0 10*3/uL Normal 0.0-0.[address] [facility] Comment on above: Performed By: #### Cathy WILSON CMP, , 23056-8 #### [facility] ([id number]) [address] [place] [address] 70592 Eosinophils/100 WBC (Bld) 0.1 % Normal [facility] Comment on above: Performed By: #### C KATIE, CMP, , 33585-0 #### [facility] ([id number]) [address] [place] [address] 03757 Erythrocyte distribution width (RBC) [Ratio] 14.6 % Normal 11.5-15.[address] [facility] Comment on above: Performed By: #### C KATIE, CMP, , #### [facility] ([id number]) [address] [place] [address] 30306 Hematocrit (Bld) [Volume fraction] 36.6 % Normal 35-[address] [facility] Comment on above: Performed By: #### Cathy WILSON, CMP, , 23611-1 #### [facility] ([id number]) [address] [place] [address] 52196 Hemoglobin (Bld) [Mass/Vol] 12.5 g/dL Normal 11.7-15.[address] [facility] Comment on above: Performed By: #### Cathy WILSON, CMP, , 49775-1 #### [facility] ([id number]) [address] [place] [address] 98933 Lymphocytes (Bld) [#/Vol] 0.8 10*3/uL Low 1.0-3.[address] [facility] Comment on above: Performed By: #### Cathy BCA, CMP, , 90034-3 #### [facility] ([id number]) [address] [place] [address] 70654 Lymphocytes/100 WBC (Bld) 7.9 % Normal [facility] Comment on above: Performed By: #### Cathy WILSON, CMP, , 96165-7 #### [facility] ([id number]) [address] [place] [address] 38013 MCH (RBC) [Entitic mass] 32.5 pg Normal 27-[address] [facility] Comment on above: Performed By: #### C BCA, CMP, , 60217-6 #### [facility] ([id number]) [address] [place] [address] 67052 MCHC (RBC) [Mass/Vol] 34.3 g/dL Normal 32-[address] [facility] Comment on above: Performed By: #### C BCA, CMP, , 50356-5 #### [facility] ([id number]) [address] [place] [address] 23625 MCV (RBC) [Entitic vol] 95 fL Normal 80-[address] [facility] Comment on above: Performed By: #### C KATIE, CMP, , 15310-6 #### [facility] ([id number]) [address] [place] [address] 14961 Monocytes (Bld) [#/Vol] 0.8 10*3/uL Normal 0-0.[address] [facility] Comment on above: Performed By: #### C BCA, CMP, , 51901-0 #### [facility] ([id number]) [address] [place] [address] 01090 Monocytes/100 WBC (Bld) 7.5 % Normal [facility] Comment on above: Performed By: #### C BCA, CMP, , 78050-8 #### [facility] ([id number]) [address] [place] [address] 82651 Neutrophils/100 WBC (Bld) 84.1 % Normal [facility] Comment on above: Performed By: #### C BCA, CMP, , 74629-8 #### [facility] ([id number]) [address] [place] [address] 14756 Platelet mean volume (Bld) [Entitic vol] 8.3 fL Normal 7-[address] [facility] Comment on above: Performed By: #### C BCA, CMP, , 67750-5 #### [facility] ([id number]) [address] [place] [address] 09785 Platelets (Bld) [#/Vol] 178 10*3/uL Normal 150-[address] [facility] Comment on above: Performed By: #### C BCA, CMP, , 14997-6 #### [facility] ([id number]) [address] [place] [address] 67341 RBC COUNT 3.86 X10E12/L Normal 3.80-5.[address] [facility] Comment on above: Performed By: #### C BCA, CMP, , 08187-2 #### [facility] ([id number]) [address] [place] [address] 52212 WBC (Bld) [#/Vol] 10.2 10*3/uL Normal 4.0-11.0 [facility] Comment on above: Performed By: #### C BCA, CMP, , 72231-6 #### [facility] ([id number]) [address] [place] [address] 82486 COMPREHENSIVE METABOLIC PANE Jarrod 12-09-2023 Albumin [Mass/Vol] 3.9 g/dL Normal 3.2-5.3 [facility] Comment on above: Performed By: #### C MP, , CBCA #### [facility] ([id number]) [address] [place] [address] 88201 ALP [Catalytic activity/Vol] 114 U/L Normal 39-[address] [facility] Comment on above: Performed By: #### C MP, , CBCA #### [facility] ([id number]) [address] [place] [address] 36678 ALT [Catalytic activity/Vol] 20 U/L Normal 0-[address] [facility] Comment on above: Performed By: #### C NOEMY, , CBCA #### [facility] ([id number]) [address] [place] [address] 29500 Anion gap [Moles/Vol] 10 mmol/L Normal 5-[address] [facility] Comment on above: Performed By: #### Cathy SALGUERO, , CBCA #### [facility] ([id number]) [address] [place] [address] 28052 AST [Catalytic activity/Vol] 22 U/L Normal 0-[address] [facility] Comment on above: Performed By: #### C NOEMY, , CBCA #### [facility] ([id number]) [address] [place] [address] 16489 Bilirubin [Mass/Vol] 0.8 mg/dL Normal 0.3-1.2 [facility] Comment on above: Performed By: #### Cathy SALGUERO, , CBCA #### [facility] ([id number]) [address] [place] [address] 25731 Calcium [Mass/Vol] 9.0 mg/dL Normal 8.5-10.5 [facility] Comment on above: Performed By: #### Cathy SALGUERO, , CBCA #### [facility] ([id number]) [address] [place] [address] 91266 Chloride [Moles/Vol] 108 mmol/L Normal 98-109 [facility] Comment on above: Performed By: #### Cathy SALGUERO, , CBCA #### [facility] ([id number]) [address] [place] [address] 16846 CO2 [Moles/Vol] 18 mmol/L Low 22-[address] [facility] Comment on above: Performed By: #### C NOEMY, , CBCA #### [facility] ([id number]) [address] [place] [address] 19380 Creatinine [Mass/Vol] 0.90 mg/dL Normal 0.40-1.[address] [facility] Comment on above: Result Comment: METH OD TRACEABLE TO IDMS STANDARD Performed By: #### C NOEMY, , CBCA #### [facility] ([id number]) [address] [place] [address] 33620 GFR/1.73 sq M.predicted among non-blacks MDRD (S/P/Bld) [Vol rate/Area] 63 mL/min/{1.73_m2} Normal >[address] [facility] Comment on above: Result Comment: Reported eGFR is based on the CKD-EPI 2020 equation that does not use a race coefficient. Performed By: #### C NOEMY, , CBCA #### [facility] ([id number]) [address] [place] [address] 96396 Glucose [Mass/Vol] 109 mg/dL High 65-99 [facility] Comment on above: Performed By: #### C NOEMY, , CBCA #### [facility] ([id number]) [address] [place] [address] 63676 Potassium [Moles/Vol] 3.8 mmol/L Normal 3.5-5.[address] [facility] Comment on above: Performed By: #### C NOEMY, , CBCA #### [facility] ([id number]) [address] [place] [address] 96536 Protein [Mass/Vol] 6.7 g/dL Normal 6.0-8.0 [facility] Comment on above: Performed By: #### C NOEMY, , CBCA #### [facility] ([id number]) [address] [place] [address] [place] [address] Sodium [Moles/Vol] 136 mmol/L Normal 134-146 [facility] Comment on above: Performed By: #### C MP, 16418-5, CBCA #### [facility] ([id number]) [address] [place] [address] Urea nitrogen [Mass/Vol] 25 mg/dL Normal 5-[address] [facility] Comment on above: Performed By: #### [place], 50363-1, CBCA #### [facility] ([id number]) [address] [place] [address] MAGNESIUMon 12-09-2023 Magnesium [Mass/Vol] 2.0 mg/dL Normal 1.8-2.6 [facility] Comment on above: Performed By: #### C NOEMY, 19176-9, CBCA #### [facility] ([id number]) [address] [place] [address] 17384 MR LUMBAR SPINE WO CONTon MR LUMBAR SPINE WO CONT MR LUMBAR SPINE WO CONT History: Compression fracture, lumbar Exam/Technique: Multiplanar multisequence images of the lumbar spine obtained without IV dye. Comparison: Lumber spine x-ray 12/08/2023 Findings: There is anterior wedging with 50% loss of vertebral body height at L2 with no gross bone marrow edema. Findings are consistent with remote traumatic injury. There are yellow marrow replacement changes. The remaining vertebral body heights are well-preserved. Conus medullaris is of adequate configuration with the tip at L1-L2 level. At T10-T11 and T11-T12, intervertebral discs are grossly preserved. There is no significant spinal canal stenosis or neural foraminal narrowing. There is 5 mm retrolisthesis of T12 on L1 with mild disc bulge. There is no significant spinal canal stenosis. There is mild bilateral neural foraminal narrowing. At L1-L2, intervertebral disc is grossly preserved. There is no significant spinal canal stenosis and no gross neural foraminal narrowing At L2-L3, intervertebral disc is grossly preserved. There is no spinal canal stenosis or neural foraminal narrowing. At L3-L4, there is mild degree of diffuse disc bulge mildly effacing the ventral nerve roots and lateral recess with mild bilateral neural foraminal narrowing. There is mild bilateral facet joint disease. At L4-L5, there are moderate disc degenerative disease changes with mild loss of disc height. There is no significant spinal canal stenosis. Neuroforamina are grossly patent. At L5-S1, there is moderate degenerative disc disease with bilateral foraminal disc protrusion. There is moderate to severe left-sided neural foraminal narrowing and mild right-sided neural foraminal narrowing. Paravertebral soft tissues grossly unremarkable. There is 3.4 cm exophytic cyst at the upper pole of the right kidney with signal intensity favoring simple cyst. IMPRESSION: There is remote compression fracture at L2. Although, it demonstrate the interval prominence in the degree of vertebral body height loss compared to 12/14/2022 CT lumbar spine, there is no gross bone marrow edema to support acute or subacute disease process. There are moderate degenerative disc disease changes at L4-L5 with significant loss of disc height. There are bilateral foraminal disc protrusion at L5-S1 with moderate to severe left-sided neural foraminal narrowing and mild right-sided neural foraminal narrowing Finalized by Leonie Wilde MD on 12/09/2023 1:00 PM [address] [facility] CBC AND AUTO DIFFon 12-08-19 24 ABSOLUTE BASOPHIL 0.1 X10E9/L Normal 0.0-0.2 [facility] Comment on above: Performed By: #### C XI WILSON, 42127-1, 11955-3 #### [facility] ([id number]) [address] [place] [address] 53917 ABSOLUTE NEUTROPHIL 10.1 X10E9/L High 1.5-6.6 [facility] Comment on above: Performed By: #### C XI WILSON, 53351-1, 97556-4 #### [facility] ([id number]) [address] [place] [address] 89085 Basophils/100 WBC (Bld) 0.5 % Normal [facility] Comment on above: Performed By: #### C XI WILSON, , 97438-6 #### [facility] ([id number]) [address] [place] [address] 27681 Eosinophils (Bld) [#/Vol] 0.0 10*3/uL Normal 0.0-0.[address] [facility] Comment on above: Performed By: #### C BCA, CMP, , 19075-7 #### [facility] ([id number]) [address] [place] [address] 25690 Eosinophils/100 WBC (Bld) 0.1 % Normal [facility] Comment on above: Performed By: #### C BCA, CMP, , 01340-5 #### [facility] ([id number]) [address] [place] [address] 06239 Erythrocyte distribution width (RBC) [Ratio] 14.0 % Normal 11.5-15.[address] [facility] Comment on above: Performed By: #### C BCA, CMP, , 36713-9 #### [facility] ([id number]) [address] [place] [address] 07881 Hematocrit (Bld) [Volume fraction] 37.9 % Normal 35-[address] [facility] Comment on above: Performed By: #### C BCA, CMP, , 16548-2 #### [facility] ([id number]) [address] [place] [address] 88405 Hemoglobin (Bld) [Mass/Vol] 12.7 g/dL Normal 11.7-15.[address] [facility] Comment on above: Performed By: #### C BCA, CMP, , 94826-6 #### [facility] ([id number]) [address] [place] [address] 97897 Lymphocytes (Bld) [#/Vol] 0.6 10*3/uL Low 1.0-3.[address] [facility] Comment on above: Performed By: #### C KATIE, CMP, , 60697-3 #### [facility] ([id number]) [address] [place] [address] 09565 Lymphocytes/100 WBC (Bld) 5.2 % Normal [facility] Comment on above: Performed By: #### Cathy WILSON, CMP, , #### [facility] ([id number]) [address] [place] [address] 09803 MCH (RBC) [Entitic mass] 31.8 pg Normal 27-[address] [facility] Comment on above: Performed By: #### Cathy WILSON, CMP, , 86502-9 #### [facility] ([id number]) [address] [place] [address] 39621 MCHC (RBC) [Mass/Vol] 33.6 g/dL Normal 32-[address] [facility] Comment on above: Performed By: #### C KATIE, CMP, , 51636-9 #### [facility] ([id number]) [address] [place] [address] 87785 MCV (RBC) [Entitic vol] 95 fL Normal 80-[address] [facility] Comment on above: Performed By: #### Cathy WILSON, CMP, , 71278-6 #### [facility] ([id number]) [address] [place] [address] 77815 Monocytes (Bld) [#/Vol] 0.8 10*3/uL Normal 0-0.[address] [facility] Comment on above: Performed By: #### Cathy BCA, CMP, , 68655-2 #### [facility] ([id number]) [address] [place] [address] 87984 Monocytes/100 WBC (Bld) 6.5 % Normal [facility] Comment on above: Performed By: #### C KATIE, CMP, , 79851-5 #### [facility] ([id number]) [address] [place] [address] 84654 Neutrophils/100 WBC (Bld) 87.7 % Normal [facility] Comment on above: Performed By: #### C BCA, CMP, , 39964-7 #### [facility] ([id number]) [address] [place] [address] 52894 Platelet mean volume (Bld) [Entitic vol] 8.0 fL Normal 7-[address] [facility] Comment on above: Performed By: #### C BCA, CMP, , 85705-8 #### [facility] ([id number]) [address] [place] [address] 21014 Platelets (Bld) [#/Vol] 183 10*3/uL Normal 150-[address] [facility] Comment on above: Performed By: #### C BCA, CMP, , 30675-2 #### [facility] ([id number]) [address] [place] [address] 08464 RBC COUNT 4.00 X10E12/L Normal 3.80-5.[address] [facility] Comment on above: Performed By: #### C BCA, CMP, , 22035-5 #### [facility] ([id number]) [address] [place] [address] 57985 WBC (Bld) [#/Vol] 11.5 10*3/uL High 4.0-11.0 [facility] Comment on above: Performed By: #### C BCA, CMP, , 46658-2 #### [facility] ([id number]) [address] [place] [address] 05897 COMPREHENSIVE METABOLIC PANE Jarrod 12-08-2023 Albumin [Mass/Vol] 4.1 g/dL Normal 3.2-5.3 [facility] Comment on above: Performed By: #### C BCA, CMP, , 48127-9 #### [facility] ([id number]) [address] [place] [address] 98723 ALP [Catalytic activity/Vol] 128 U/L Normal 39-[address] [facility] Comment on above: Performed By: #### C BCA, CMP, , 34297-8 #### [facility] ([id number]) [address] [place] [address] 96846 ALT [Catalytic activity/Vol] 22 U/L Normal 0-[address] [facility] Comment on above: Performed By: #### C BCA, CMP, , 06250-4 #### [facility] ([id number]) [address] [place] [address] 75916 Anion gap [Moles/Vol] 9 mmol/L Normal 5-[address] [facility] Comment on above: Performed By: #### C BCA, CMP, , 69055-0 #### [facility] ([id number]) [address] [place] [address] 00849 AST [Catalytic activity/Vol] 26 U/L Normal 0-[address] [facility] Comment on above: Performed By: #### C BCA, CMP, , 16528-3 #### [facility] ([id number]) [address] [place] [address] 36523 Bilirubin [Mass/Vol] 0.9 mg/dL Normal 0.3-1.2 [facility] Comment on above: Performed By: #### C BCA, CMP, , 82449-8 #### [facility] ([id number]) [address] [place] [address] 90997 Calcium [Mass/Vol] 9.2 mg/dL Normal 8.5-10.5 [facility] Comment on above: Performed By: #### C XI WILSON, , 67999-8 #### [facility] ([id number]) [address] [place] [address] 25728 Chloride [Moles/Vol] 107 mmol/L Normal 98-109 [facility] Comment on above: Performed By: #### C XI WILSON, , #### [facility] ([id number]) [address] [place] [address] 29006 CO2 [Moles/Vol] 19 mmol/L Low 22-[address] [facility] Comment on above: Performed By: #### C XI WILSON, , 35716-4 #### [facility] ([id number]) [address] [place] [address] 88009 Creatinine [Mass/Vol] 0.96 mg/dL Normal 0.40-1.[address] [facility] Comment on above: Result Comment: METH OD TRACEABLE TO IDMS STANDARD Performed By: #### C XI WILSON, , 90648-0 #### [facility] ([id number]) [address] [place] [address] 79734 GFR/1.73 sq M.predicted among non-blacks MDRD (S/P/Bld) [Vol rate/Area] 59 mL/min/{1.73_m2} Low >[address] [facility] Comment on above: Result Comment: Reported eGFR is based on the CKD-EPI 1 equation that does not use a race coefficient. Performed By: #### C XI WILSON, , 28193-0 #### [facility] ([id number]) [address] [place] [address] 98201 Glucose [Mass/Vol] 121 mg/dL High 65-99 [facility] Comment on above: Performed By: #### C BCA CMP, , #### [facility] ([id number]) [address] [place] [address] 59070 Potassium [Moles/Vol] 4.1 mmol/L Normal 3.5-5.[address] [facility] Comment on above: Performed By: #### C BCA, CMP, , 28318-6 #### [facility] ([id number]) [address] [place] [address] 90505 Protein [Mass/Vol] 7.1 g/dL Normal 6.0-8.0 [facility] Comment on above: Performed By: #### C KATIE, CMP, , 43727-6 #### [facility] ([id number]) [address] [place] [address] 49180 Sodium [Moles/Vol] 135 mmol/L Normal 134-146 [facility] Comment on above: Performed By: #### C BCA, CMP, , 45532-3 #### [facility] ([id number]) [address] [place] [address] 49173 Urea nitrogen [Mass/Vol] 24 mg/dL Normal 5-[address] [facility] Comment on above: Performed By: #### C BCA, CMP, , 73664-6 #### [facility] ([id number]) [address] [place] [address] 24543 MAGNESIUMon 12-08-2023 Magnesium [Mass/Vol] 2.0 mg/dL Normal 1.8-2.6 [facility] Comment on above: Performed By: #### C BCA, CMP, , 64381-9 #### [facility] ([id number]) [address] [place] [address] 33712 SARS/FLU A+B/RSV by NAAT/Mol ecularon 12-08-2023 SARS/FLU A+B/RSV by NAAT/Molecular FLU A PCR Negative (qualifier value) FLU B PCR Negative (qualifier value) RSV by PCR Negative (qualifier value) SARS CoV 2 Detected (qualifier value) NOTE The Xpert Xpress SARS-CoV-2/Flu/RSV Plus test is a rapid, multiplexed real-time RT-PCR test intended for the simultaneous qualitative detection and differentiation of SARS-CoV-2, influenza A, influenza B and respiratory syncytial virus (RSV) viral RNA from individuals suspected of respiratory viral infection consistent with COVID-19 by their healthcare provider. This test has not been validated in asymptomatic patients. The Xpert Xpress SARS-CoV-2 test is intended for use by qualified and trained operators who are performing tests using either [employer] or [employer] systems and is limited to laboratories that meet the CLIA requirements to perform high and moderate complexity tests. The Xpert Xpress SARS-CoV-2/Flu/RSV Plus is only for use under the Food and Drug Administration's Emergency Use Authorization. Results are for the simultaneous detection and differentiation of SARS-CoV-2, influenza A, influenza B and RSV nucleic acids in clinical specimens. SARS-CoV-2, influenza A, influenza B and RSV RNA identified by this test are generally detectable in upper respiratory samples during the acute phase of infection. Positive results are indicative of the presence of the identified virus, but do not rule out bacterial infection or co-infection with other pathogens not detected by this test. Clinical correlation with patient history and other diagnostic information is necessary to determine patient infection status. The agent detected may not be the definite cause of disease. Negative results do not preclude SARS-CoV-2, influenza A, influenza B and RSV infection and should not be used as the sole basis for treatment or other patient management decisions. Negative results must be combined with clinical observations, patient history and epidemiological information. An Invalid result may occur with specimen-associated inhibition unable to be resolved with specimen repeat. Fact Sheet for Healthcare Providers: https://www.fda.gov/me lindsay/823454/download Fact Sheet for Patients: https://www.fda.gov/me lindsay/457595/download Normal [facility] Comment on above: Performed By: #### C OVFLR #### [facility] ([id number]) [address] [place] [address], [place] [address] TROPONIN Ion 12-08-2023 Troponin I.cardiac [Mass/Vol] ng/mL Normal 0.00-0.[address] [facility] Comment on above: Performed By: #### C BCA, [facility], 50459-9, 04215-3 #### [facility] ([id number]) [address] [facility], [place] [address] XR CHEST 1 VWon 12-08-2023 XR CHEST 1 VW XR CHEST 1 VW Portable chest: HISTORY: Cough. Single view of the chest was obtained. Cardiac and mediastinal contours are unchanged. There is no pneumothorax. No focal consolidation or effusion. Pulmonary vasculature appears stable. IMPRESSION: No significant change. Finalized by Cleve Francis MD on 12/08/2023 9:04 PM Normal [facility] XR PELVIS 1 OR 2 VWSon 12-07 XR PELVIS 1 OR 2 VWS XR PELVIS 1 OR 2 VW S HISTORY: An 83-year-old female with the history of the fever and weakness. Fall. Complaining of the hip pain. TECHNIQUE: Pelvis AP view: One view COMPARISON: Comparison is made with the AP view of pelvis of 12/12/2022. FINDINGS: There is no evidence of fracture, dislocation or acute bony pathology. There are degenerative changes in the lower lumbar spine. Both sacroiliac joints are intact. Both ischio-pubic rami are intact. Both hip joints are intact with osteoarthritis in symmetrical fashion. There is no evidence of osteolytic or osteoblastic bony destructive pathology. IMPRESSION: * No evidence of fracture, bony destruction or acute bony pathology. 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 * Degenerative changes in the lower lumbar spine. Finalized by Beto Zuniga MD on 12/08/2023 9:03 PM Normal [facility] XR SPINE LUMBAR 2 OR 3 VWSon 12-08-2023 XR SPINE LUMBAR 2 OR 3 VWS XR SPINE LUMBAR 2 OR 3 VWS CLINICAL INFORMATION: fall pain TECHNIQUE: XR SPINE LUMBAR 2 OR 3 VWS 3 views the lumbar spine were obtained. There is age indeterminate L2 compression deformity. This appears new in comparison with 12/14/2022. Lower lumbar degenerative changes appreciated with disc space narrowing primarily at L4-5 and L5-S1. Sacral alar appear intact. IMPRESSION: Age indeterminate L2 compression deformity. Finalized by Cleve Francis MD on 12/08/2023 9:03 PM Normal [facility] MR head/brain wo conon 09-18 MR head/brain wo con [facility] [place] [address] [place] [address] MRI Report Signed Patient: Diana Franco I MR#: [id number] : 1940 Acct:[id number] Age/Sex: 83 / F ADM Date: 09/18/23 Loc: MR Room: Type: [facility] Attending Dr: Shaikh Miranda [place] Copies to: Shaikh Miranda MD Ordering Provider: Shaikh Miranda MD Date of Service: 09/18/23 MR/MR head/brain wo con: R09.89 MR head/brain wo con 09/18/2023 7:25 AM SIGN AND SYMPTOMS: Speech and gait difficulties, possible CVA PROTOCOL: Multiplanar multisequence MR images of the brain were obtained without IV contrast. COMPARISON: None. FINDINGS: Extra axial spaces: There is diffuse age-related cortical atrophy. Hemorrhage: None. Ventricular system: Within normal limits. Basal cisterns: Within normal limits and not effaced. Cerebral parenchyma: Periventricular and subcortical white matter T2 and T2 FLAIR hyperintense signal is noted consistent with chronic microvascular ischemic change. Midline shift: None.. Cerebellum: Within normal limits. 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 OTHER: Calvarium: Normal marrow signal. 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 Visualized Paranasal sinuses: Within normal limits. Visualized Orbits: Within normal limits. Visualized upper cervical spine: Within normal limits. Sella and skull base: Within normal limits. MR/MR head/brain wo con IMPRESSION: No acute intracranial pathology. Chronic microvascular ischemic changes noted. There is diffuse age-related cortical atrophy. 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 This is of uncertain clinical significance. Impression dictated by: Cholo Casitllo M.D.09/18/2023 11:24 AM Dictation Location: RADIO-PC-12 Transcribed By: [facility] 09/18/231123 Dictated By: Cholo Castillo II, MD 09/18/231119 Signed By: 09/18/23 112 [facility] XR pelvis 1-2Von 09-18-2023 XR pelvis 1-2V [facility] Main [place] [id number] XRay Report Signed Patient: Diana Franco I MR#: [id number] : 1940 Acct:[id number] Age/Sex: 83 / F ADM Date: 09/18/23 Loc: Room: Type: [facility] Attending Dr: Shaikh Miranda [place] Copies to: Shaikh Miranda MD Ordering Provider: Shaikh Miranda MD Date of Service: 09/18/23 XR/XR pelvis 1-2V: PELVIC PAIN Pelvis 3 views CLINICAL HISTORY: Pelvic pain. COMPARISON: None No acute bony process. Degenerative changes involving the visualized lower lumbar spine, SI joints and pubic symphysis. Mild degenerative changes of both hips. XR/XR pelvis 1-2V IMPRESSION: NO ACUTE BONY FINDINGS. Impression dictated by: Ernst Damian Jr., D.OCarolyn09/18/2023 3:15 PM Dictation Location: RADIO-PC-08 Transcribed By: [facility] 09/18/231514 Dictated By: Ernst Damian Jr, DO 09/18/231513 Signed By: 09/18/23 1515 [facility] XR chest 2V*on 08-16-2023 XR chest 2V* [facility] Main [address] [address] XRay Report Signed Patient: Lacey Franco I MR#: [id number] : 1940 Acct:[id number] Age/Sex: 82 / F ADM Date: 08/16/23 Loc: [facility] Room: Type: [facility] Attending Dr: Shaikh Miranda [place] Copies to: Shaikh Miranda MD Ordering Provider: Shaikh Miranda MD Date of Service: 08/16/23 XR/XR chest 2V*: Z45.010 Plain film chest 2 view HISTORY: Pacemaker check COMPARISON: None FINDINGS: SUPPORT DEVICES: None POSTSURGICAL CHANGES: Cardiac device intact. HEART: Within normal limits PULMONARY JUAN: Within normal limits MEDIASTINUM: Tortuous thoracic aorta. LUNGS AND PLEURA: No acute lung process, pleural effusion or pneumothorax identified. BONY STRUCTURES: Thoracic spondylosis. ADDITIONAL FINDINGS None XR/XR chest 2V* IMPRESSION: No acute process. Intact cardiac device. Impression dictated by: Yunier Ibanez M.D.08/16/2023 5:18 PM Dictation Location: [place] [address] Transcribed By: [facility] 08/16/231717 Dictated By: Yunier Ibanez DO 08/16/231716 Signed By: 08/16/231717 [facility] US SINGLE QUAD RT UPPERon US SINGLE QUAD RT UPPER EXAMINATION: US SINGLE QUAD RT UPPER HISTORY: Blood chemistry abnormal ; elevated liver function test COMPARISON: No relevant comparison available. TECHNIQUE: Transabdominal evaluation of the right upper quadrant. FINDINGS: LIVER: Normal size and echotexture. Color Doppler demonstrates patent hepatic veins. PORTAL VEIN: Duplex Doppler demonstrates normal hepatopetal flow pattern with flow velocity averaging 34 cm/s. GALLBLADDER: 3.7 cm stone within gallbladder fundus. No abnormal wall thickening of the gallbladder or free fluid. Positive sonographic Ramires's sign. BILIARY: No abnormal duct dilation. PANCREASE: No visible mass, abnormal atrophy, or duct dilation. KIDNEY: No hydronephrosis. Benign-appearing 2.5 cm cyst projecting from superior pole. No visible mass or stones. Size: 9.3 x 4.9 x 4.0 cm IMPRESSION: 1. Cholelithiasis and positive sonographic Ramires's sign. However, no wall thickening or free fluid to correspond to acute cholecystitis. 2. Unremarkable liver. Electronically authenticated by: GILL LIRA Date: 2023-02-13 09:45 Normal [facility] HEPATITIS PANEL, ACUTEon HBsAg Screen Negative Normal Negative [facility] Comment on above: Performed By: #### H EPACUT #### [facility] [address] [place] [address] Dr. Danitza Cramer HCV AB Non-Reactive Normal Non Reactive [facility] Comment on above: Performed By: #### H EPACUT #### [facility] [address] [place] [address] Dr. Danitza Cramer Hep A Ab, IgM Negative Normal Negative [facility] Comment on above: Performed By: #### H EPACUT #### [facility] [address] [place] [address] Dr. Danitza Cramer Hep B Core Ab, IgM Negative Normal Negative [facility] Comment on above: Performed By: #### H EPACUT #### [facility] [address] [place] [address] Dr. Danitza Cramer Interpretation: Comment Normal [facility] Comment on above: Result Comment: Not infected with HCV unless early or acute infection is suspected (which may be delayed in an immunocompromised individual), or other evidence exists to indicate HCV infection. Performed By: #### H EPACUT #### [facility] [address] [place] [address] Dr. Danitza Cramer CBC AUTO DIFFon 01-22-2023 BASO # 0.1 103/ul Normal 0.0-0.1 [facility] Comment on above: Performed By: #### C BC #### [facility] [address] [place] [address] Dr. Danitza Cramer Basophils/100 WBC (Bld) 0.6 % Normal 0.2-2.0 [facility] Comment on above: Performed By: #### C BC #### [facility] [address] [place] [address] Dr. Danitza Crmaer EO # 0.1 103/ul Normal 0.0-0.7 [facility] Comment on above: Performed By: #### C BC #### [facility] [address] [place] [address] Dr. Danitza Cramer Eosinophils/100 WBC (Bld) 1.0 % Normal 0.9-7.0 [facility] Comment on above: Performed By: #### C BC #### [facility] [address] [place] [address] Dr. Danitza Cramer Erythrocyte distribution width (RBC) [Ratio] 15.0 % Normal 11.0-15.0 [facility] Comment on above: Performed By: #### C BC #### [facility] [address] [place] [address] Dr. Danitza Cramer Hematocrit (Bld) [Volume fraction] 41.0 % Normal 36.0-48.0 [facility] Comment on above: Performed By: #### C BC #### [facility] [address] [place] [address] Dr. Danitza Cramer Hemoglobin (Bld) [Mass/Vol] 13.2 g/dL Normal 12.0-16.0 [facility] Comment on above: Performed By: #### C BC #### [facility] [address] [place] [address] Dr. Danitza Cramer IG # 0.04 10e3/ul Critically high 0.00-0.03 [facility] Comment on above: Performed By: #### C BC #### [facility] [address] [place] [address] Dr. Danitza Cramer IG % 0.5 % Normal 0.0-0.5 [facility] Comment on above: Performed By: #### C BC #### [facility] [address] [place] [address] Dr. Danitza Cramer LYMPH # 1.1 103/ul Critically low 1.2-3.8 [facility] Comment on above: Performed By: #### C BC #### [facility] [address] [place] [address] Dr. Danitza Cramer Lymphocytes/100 WBC (Bld) 14.7 % Critically low 20.5-60.0 [facility] Comment on above: Performed By: #### C BC #### [facility] [address] [place] [address] Dr. Danitza Cramer MANUAL DIFF REQ NO Normal [facility] Comment on above: Performed By: #### C BC #### [facility] [address] [place] [address] Dr. Danitza Cramer MCH (RBC) [Entitic mass] 30.8 pg Normal 26.7-34.0 [facility] Comment on above: Performed By: #### C BC #### [facility] [address] [place] [address] Dr. Danitza Cramer MCHC (RBC) [Mass/Vol] 32.2 g/dL Normal 29.9-35.2 [facility] Comment on above: Performed By: #### C BC #### [facility] [address] [place] [address] Dr. Danitza Cramer MCV (RBC) [Entitic vol] 95.6 fL Normal 81.0-99.0 [facility] Comment on above: Performed By: #### C BC #### [facility] [address] [place] [address] Dr. Danitza Cramer MONO # 0.5 103/ul Normal 0.3-0.8 [facility] Comment on above: Performed By: #### C BC #### [facility] [facility] [address] [place] [address] Dr. Danitza Cramer Monocytes/100 WBC (Bld) 5.8 % Normal 1.7-12.0 [facility] Comment on above: Performed By: #### C BC #### [facility] [address] [place] [address] Dr. Danitza Cramer NEUT # 6.0 103/ul Normal 1.4-6.5 [facility] Comment on above: Performed By: #### C BC #### [facility] [address] [place] [address] Dr. Danitza Cramer Neutrophils/100 WBC (Bld) 77.4 % Critically high 43.0-75.0 [facility] Comment on above: Performed By: #### C BC #### [facility] [address] [place] [address] Dr. Danitza Cramer Platelet mean volume (Bld) [Entitic vol] 9.7 fL Normal 9.5-13.5 [facility] Comment on above: Performed By: #### C BC #### [facility] [address] [place] [address] Dr. Danitza Cramer PLT 231 103/ul Normal 150-450 [facility] Comment on above: Performed By: #### C BC #### [facility] [address] [address] [address] Danitza Cramer RBC 4.29 106/ul Normal 4.20-5.40 [facility] Comment on above: Performed By: #### C BC #### [facility] [address] [place] [address] Dr. Danitza Cramer WBC 7.7 103/ul Normal 4.0-11.0 [facility] Comment on above: Performed By: #### C BC #### [facility] [address] [place] [address] Dr. Danitza Cramer LIVER PROFILEon 01-22-2023 Albumin [Mass/Vol] 4.0 g/dL Normal 3.4-5.0 [facility] Comment on above: Performed By: #### L SHAJI BMP #### [facility] [address] [place] [address] Dr. Danitza Cramer Albumin/Globulin [Mass ratio] 1.1 {ratio} Normal [facility] Comment on above: Performed By: #### L SHAJI, BMP #### [facility] [address] [place] [address] Dr. Danitza Cramer ALP [Catalytic activity/Vol] 162 U/L Critically high 46-116 [facility] Comment on above: Performed By: #### L IVARIN, BMP #### [facility] [address] [place] [address] Dr. Danitza Cramer ALT [Catalytic activity/Vol] 16 U/L Normal 14-59 [facility] Comment on above: Performed By: #### L IVER, BMP #### [facility] [address] [place] [address] Dr. Danitza Cramer AST [Catalytic activity/Vol] 11 U/L Critically low 15-37 [facility] Comment on above: Performed By: #### L IVER, BMP #### [facility] [address] [place] [address] Dr. Danitza WRIGHTI, CONJUGATED 0.2 mg/dL Normal 0.0-0.[address] [facility] Comment on above: Performed By: #### L IVER, BMP #### [facility] [address] [place] [address] Dr. Danitza Cramer Bilirubin [Mass/Vol] 0.6 mg/dL Normal 0.2-1.0 [facility] Comment on above: Performed By: #### L IVER, BMP #### [facility] [address] [place] [address] Dr. Danitza Cramer Globulin (S) [Mass/Vol] 3.6 g/dL Normal [facility] Comment on above: Performed By: #### L IVER, BMP #### [facility] [address] [place] [address] Dr. Danitza Cramer Protein [Mass/Vol] 7.6 g/dL Normal 6.4-8.2 [facility] Comment on above: Performed By: #### L IVER, BMP #### [facility] [address] [place] [address] Dr. Danitza Cramer PROF CHEM 8 (BAS METB)on Anion gap [Moles/Vol] 14.2 mmol/L Normal [facility] Comment on above: Performed By: #### L IVER, BMP #### [facility] [address] [place] [address] Dr. Danitza Cramer Calcium [Mass/Vol] 9.5 mg/dL Normal 8.5-10.1 [facility] Comment on above: Performed By: #### L IVER, BMP #### [facility] [address] [place] [address] Dr. Danitza Cramer Chloride [Moles/Vol] 109 mmol/L Critically high 98-107 [facility] Comment on above: Performed By: #### L IVER, BMP #### [facility] [address] [place] [address] Dr. Danitza Cramer CO2 [Moles/Vol] 24.0 mmol/L Normal 21.0-32.[address] [facility] Comment on above: Performed By: #### L SHAJI, BMP #### [facility] [address] [address] [address] Danitza Cramer Creatinine [Mass/Vol] 1.03 mg/dL Critically high 0.55-1.02 [facility] Comment on above: Performed By: #### Lizet GIRARD, BMP #### [facility] [address] [address] [address] Danitza Cramer EGFR-AF WELSH >60 Normal >=[address] [facility] Comment on above: Performed By: #### L SHAJI, BMP #### [facility] [address] [place] [address] Dr. Danitza Cramer EGFR-NON AF WELSH 51 mL/min/1.73m2 Critically low >=60 [facility] Comment on above: Performed By: #### Lizet GIRARD, BMP #### [facility] [address] [place] [address] Dr. Danitza Cramer Glucose [Mass/Vol] 105 mg/dL Normal 74-106 [facility] Comment on above: Performed By: #### Lizet GIRARD, BMP #### [facility] [address] [place] [address] Dr. Danitza Cramer Potassium [Moles/Vol] 4.2 mmol/L Normal 3.5-5.1 [facility] Comment on above: Performed By: #### Lizet GIRARD, BMP #### [facility] [address] [place] [address] Dr. Daintza Cramer Sodium [Moles/Vol] 143 mmol/L Normal 136-145 [facility] Comment on above: Performed By: #### L SHAJI, BMP #### [facility] [address] [address] [address] Danitza Cramer Urea nitrogen [Mass/Vol] 25.0 mg/dL Critically high 7.0-18.0 [facility] Comment on above: Performed By: #### L SHAJI, BMP #### [facility] [address] [place] [address] Dr. Danitza Cramer Urea nitrogen/Creatinine [Mass ratio] 24.3 mg/mg Normal [facility] Comment on above: Performed By: #### L SHAJI, BMP #### [facility] [address] [place] [address] Dr. Danitza Cramer CULTURE URINEon 11-14-2022 CULTURE URINE Culture Observations : LIGHT GROWTH OF MIXED GENITAL JANELL. NO POTENTIAL PATHOGENS SEEN. Normal [facility] Comment on above: Performed By: #### U RCX #### [facility] [address] [place] [address] Dr. Danitza Cramer UA RANDOM W/MICROSCOPICon BACTERIA NONE SEEN Normal NONE SEEN [facility] Comment on above: Performed By: #### F T4 #### [facility] [address] [place] [address] Dr. Danitza Cramer Bilirubin Ql (U) Negative Normal NEGATIVE [facility] Comment on above: Performed By: #### F T4 #### [facility] [address] [place] [address] Dr. Danitza Cramer CAST NONE SEEN Normal NONE SEEN [facility] Comment on above: Performed By: #### F T4 #### [facility] [address] [place] [address] Dr. Danitza Cramer Clarity (U) CLEAR Normal CLEAR [facility] Comment on above: Performed By: #### F T4 #### [facility] [address] [place] [address] Dr. Danitza Cramer Color (U) YELLOW Normal YELLOW [facility] Comment on above: Performed By: #### F T4 #### [facility] [address] [place] [address] Dr. Danitza Cramer Crystals LM Nom (Urine sed) NONE SEEN Normal NONE SEEN [facility] Comment on above: Performed By: #### F T4 #### [facility] [address] [place] [address] Dr. Danitza rCamer Epithelial cells LM Ql (Urine sed) NONE SEEN Normal NONE SEEN /RARE [facility] Comment on above: Performed By: #### F T4 #### [facility] [address] [place] [address] Dr. Danitza Cramer Glucose Ql (U) Negative Normal NEGATIVE [facility] Comment on above: Performed By: #### F T4 #### [facility] [address] [place] [address] Dr. Daintza Cramer Hemoglobin Ql (U) Negative Normal NEGATIVE [facility] Comment on above: Performed By: #### F T4 #### [facility] [address] [address] [address] Danitza Cramer Ketones Ql (U) Negative Normal NEGATIVE [facility] Comment on above: Performed By: #### F T4 #### [facility] [address] [place] [address] Dr. Danitza Cramer LEUKOCYTES SMALL Abnormal NEGATIVE [facility] Comment on above: Performed By: #### F T4 #### [facility] [address] [place] [address] Dr. Danitza Cramer MUCOUS NONE SEEN Normal NONE SEEN [facility] Comment on above: Performed By: #### F T4 #### [facility] [address] [place] [address] Dr. Danitza Cramer Nitrite Ql (U) Negative Normal NEGATIVE [facility] Comment on above: Performed By: #### F T4 #### [facility] [address] [place] [address] Dr. Danitza Cramer pH (U) 6.0 [pH] Normal 5-9 [facility] Comment on above: Performed By: #### F T4 #### [facility] [address] [place] [address] Dr. Danitza Cramer RBC 0-2 Normal 0-2 [facility] Comment on above: Performed By: #### F T4 #### [facility] [address] [place] [address] Dr. Danitza Cramer SPEC GRAVITY 1.020 Normal 1.005-<=1.025 [facility] Comment on above: Performed By: #### F T4 #### [facility] [address] [place] [address] Dr. Danitza Cramer UA PROTEIN Negative Normal NEGATIVE/ TRACE [facility] Comment on above: Performed By: #### F T4 #### [facility] [address] [place] [address] Dr. Danitza Cramer Urobilinogen Qn (U) 0.2 {Mykel'U}/dL Normal 0.2 - 1. 0 [facility] Comment on above: Performed By: #### F T4 #### [facility] [address] [place] [address] Dr. Danitza Carmer WBC 0-2 Abnormal NONE SEEN [facility] Comment on above: Performed By: #### F T4 #### [facility] [address] [place] [address] Dr. Danitza Cramer CBC AUTO DIFFon 07-17-2022 BASO # 0.0 103/ul Normal 0.0-0.1 [facility] Comment on above: Performed By: #### C BC #### [facility] [address] [place] [address] Dr. Danitza Cramer Basophils/100 WBC (Bld) 0.6 % Normal 0.2-2.0 [facility] Comment on above: Performed By: #### C BC #### [facility] [address] [place] [address] Dr. Danitza Cramer EO # 0.1 103/ul Normal 0.0-0.7 [facility] Comment on above: Performed By: #### C BC #### [facility] [address] [place] [address] Dr. Danitza Cramer Eosinophils/100 WBC (Bld) 1.3 % Normal 0.9-7.0 [facility] Comment on above: Performed By: #### C BC #### [facility] [address] [place] [address] Dr. Danitza Cramer Erythrocyte distribution width (RBC) [Ratio] 13.9 % Normal 11.0-15.0 [facility] Comment on above: Performed By: #### C BC #### [facility] [address] [place] [address] Dr. Danitza Cramer Hematocrit (Bld) [Volume fraction] 40.4 % Normal 36.0-48.0 [facility] Comment on above: Performed By: #### C BC #### [facility] [address] [address] [address] Danitza Cramer Hemoglobin (Bld) [Mass/Vol] 12.8 g/dL Normal 12.0-16.0 [facility] Comment on above: Performed By: #### C BC #### [facility] [address] [place] [address] Dr. Danitza Cramer IG # 0.04 10e3/ul Critically high 0.00-0.03 [facility] Comment on above: Performed By: #### C BC #### [facility] [address] [place] [address] Dr. Danitza Cramer IG % 0.6 % Critically high 0.0-0.5 [facility] Comment on above: Performed By: #### C BC #### [facility] [address] [place] [address] Dr. Danitza Cramer LYMPH # 1.0 103/ul Critically low 1.2-3.8 [facility] Comment on above: Performed By: #### C BC #### [facility] [address] [place] [address] Dr. Danitza Cramer Lymphocytes/100 WBC (Bld) 14.4 % Critically low 20.5-60.0 [facility] Comment on above: Performed By: #### C BC #### [facility] [address] [place] [address] Dr. Danitza Cramer MANUAL DIFF REQ NO Normal [facility] Comment on above: Performed By: #### C BC #### [facility] [address] [place] [address] Dr. Danitza Cramer MCH (RBC) [Entitic mass] 29.9 pg Normal 26.7-34.0 [facility] Comment on above: Performed By: #### C BC #### [facility] [address] [place] [address] Dr. Danitza Cramer MCHC (RBC) [Mass/Vol] 31.7 g/dL Normal 29.9-35.2 [facility] Comment on above: Performed By: #### C BC #### [facility] [address] [address] [address] Danitza Cramer MCV (RBC) [Entitic vol] 94.4 fL Normal 81.0-99.0 [facility] Comment on above: Performed By: #### C BC #### [facility] [address] [address] [address] Danitza Cramer MONO # 0.5 103/ul Normal 0.3-0.8 [facility] Comment on above: Performed By: #### C BC #### [facility] [address] [address] [address] Danitza Cramer Monocytes/100 WBC (Bld) 6.8 % Normal 1.7-12.0 [facility] Comment on above: Performed By: #### C BC #### [facility] [address] [address] [address] Danitza Cramer NEUT # 5.4 103/ul Normal 1.4-6.5 [facility] Comment on above: Performed By: #### C BC #### [facility] [address] [address] [address] Danitza Cramer Neutrophils/100 WBC (Bld) 76.3 % Critically high 43.0-75.0 [facility] Comment on above: Performed By: #### C BC #### [facility] [address] [address] [address] Danitza Cramer Platelet mean volume (Bld) [Entitic vol] 10.9 fL Normal 9.5-13.5 [facility] Comment on above: Performed By: #### C BC #### [facility] [address] [address] [address] Danitza Cramer PLT 260 103/ul Normal 150-450 [facility] Comment on above: Performed By: #### C BC #### [facility] [address] [address] [address] Danitza Cramer RBC 4.28 106/ul Normal 4.20-5.40 [facility] Comment on above: Performed By: #### C BC #### [facility] [address] [address] [address] Danitza Cramer WBC 7.1 103/ul Normal 4.0-11.0 [facility] Comment on above: Performed By: #### C BC #### [facility] [address] [place] [address] Dr. Danitza Cramer FREE T3on 07-17-2022 FREE T3 2.21 pg/mlL Normal 2.18-3.98 [facility] Comment on above: Performed By: #### F T4 #### [facility] [address] [place] [address] Dr. Danitza Cramer FREE T4on 07-17-2022 Free T4 [Mass/Vol] 1.67 ng/dL Critically high 0.76-1.46 [facility] Comment on above: Performed By: #### F T4 #### [facility] [address] [place] [address] Dr. Danitza Cramer GLYCOHEMOGLOBIN A1Con 2021 ADA RECOMMENDATION SEE BELOW Normal [facility] Comment on above: Result Comment: ADA RECOMMENDED LIMIT 4.0 - 6.0 ADA THERAPEUTIC TARGET < 7.0 ACTION SUGGESTED > 7.0 Performed By: #### A 1C #### [facility] [address] [place] [address] Dr. Danitza Cramer Glucose [Mass/Vol] 111 mg/dL Normal [facility] Comment on above: Performed By: #### A 1C #### [facility] [address] [place] [address] Dr. Danitza Cramer HbA1c (Bld) [Mass fraction] 5.5 % Normal 4.5-6.2 [facility] Comment on above: Performed By: #### A 1C #### [facility] [address] [place] [address] Dr. Danitza Cramer PROF CHEM 8 (BAS METB)on Anion gap [Moles/Vol] 16.8 mmol/L Normal [facility] Comment on above: Performed By: #### F T3, TSH, BMP #### [facility] [address] [address] [address] Danitza Cramer Calcium [Mass/Vol] 9.2 mg/dL Normal 8.5-10.1 [facility] Comment on above: Performed By: #### F T3, TSH, BMP #### [facility] [address] [address] [address] Danitza Cramer Chloride [Moles/Vol] 106 mmol/L Normal 98-107 [facility] Comment on above: Performed By: #### F T3, TSH, BMP #### [facility] [address] [place] [address] Dr. Danitza Cramer CO2 [Moles/Vol] 21.4 mmol/L Normal 21.0-32.0 [facility] Comment on above: Performed By: #### F T3, TSH, BMP #### [facility] [address] [place] [address] Dr. Danitza Cramer Creatinine [Mass/Vol] 1.13 mg/dL Critically high 0.55-1.02 [facility] Comment on above: Performed By: #### F T3, TSH, BMP #### [facility] [address] [place] [address] Dr. Danitza Cramer EGFR-AF WELSH 56 mL/min/1.73m2 Critically low >=60 [facility] Comment on above: Performed By: #### F T3, TSH, BMP #### [facility] [address] [place] [address] Dr. Danitza Cramer EGFR-NON AF WELSH 46 mL/min/1.73m2 Critically low >=60 [facility] Comment on above: Performed By: #### F T3, TSH, BMP #### [facility] [address] [place] [address] Dr. Danitza Cramer Glucose [Mass/Vol] 114 mg/dL Critically high 74-106 [facility] Comment on above: Performed By: #### F T3, TSH, BMP #### [facility] [address] [place] [address] Dr. Danitza Cramer Potassium [Moles/Vol] 4.2 mmol/L Normal 3.5-5.1 [facility] Comment on above: Performed By: #### F T3, TSH, BMP #### [facility] [address] [address] [address] Danitza Cramer Sodium [Moles/Vol] 140 mmol/L Normal 136-145 [facility] Comment on above: Performed By: #### F T3, TSH, BMP #### [facility] [address] [address] [address] Danitza Cramer Urea nitrogen [Mass/Vol] 25.0 mg/dL Critically high 7.0-18.0 [facility] Comment on above: Performed By: #### F T3, TSH, BMP #### [facility] [address] [address] [address] Danitza Cramer Urea nitrogen/Creatinine [Mass ratio] 22.1 mg/mg Normal [facility] Comment on above: Performed By: #### F T3, TSH, BMP #### [facility] [address] [address] [address] Danitza Cramer TSHon 07-17-2022 TSH 0.058 uIU/mL Critically low 0.358-3.740 [facility] Comment on above: Performed By: #### F T4 #### [facility] [address] [address] [address] Danitza Cramer Vital Signs Date Time Vital Sign Value Performing Clinician Facility 09-27-2023 17:05-0500 Body height 153.67 cm Jacinta Gillespie Other [facility] Other 09-27-2023 17:05-0500 Body mass index (BMI) [Ratio] 28.81 kg/m2 Jacinta Gillespie Other [facility] Other 09-27-2023 17:05-0500 Body temperature 98.6 [degF] Jacinta Gillespie Other [facility] Other 09-27-2023 17:05-0500 Body weight 68.04 kg Jacinta Gillespie Other [facility] Other 09-27-2023 17:05-0500 Respiratory rate 18 /min Jacinta Gillespie Other [facility] Other 09-27-2023 17:05-0500 SaO2% (BldA) [Mass fraction] 98 % Jacinta Gillespie Other [facility] Other 08-07-2022 14:14-0400 Body height 157.4 cm Van [facility]ert [facility] Work Phone: [facility] 08-07-2022 14:14-0400 Body temperature 97.2 [degF] [facility] F[facility]ert [facility] Work Phone: [facility] 08-07-2022 14:14-0400 Body weight 77.11 kg Van Fagert [facility] Work Phone: [facility] 08-07-2022 14:14-0400 Diastolic blood pressure 82 mm[Hg] Van Fagert [facility] Work Phone: [facility] 08-07-2022 14:14-0400 Heart rate 78 /min Van Fagert [facility] Work Phone: [facility] 08-07-2022 14:14-0400 Respiratory rate 14 /min Van Fagert [facility] Work Phone: [facility] 08-07-2022 14:14-0400 SaO2% (BldA) [Mass fraction] 100 % Van Fagert [facility] Work Phone: [facility] 08-07-2022 14:14-0400 Systolic blood pressure 136 mm[Hg] Van Fagert [facility] Work Phone: [facility] Encounters Encounter Date Encounter Type Care Provider Facility Start: 07-28-2024 End: 07-28-2024 Refill Isak Rojas MD Work Phone: [facility] Comment on above: Adult hypothyroidism (CMS/HCC) (Primary Dx); Gastroesophageal reflux disease without esophagitis Start: 06-09-2024 End: 06-09-2024 ambulatory ISAK ARREDONDOERER Not Available Start: 06-03-2024 End: 06-04-2024 Emergency department patient visit MAXIMILIAN [facility] Start: 03-11-2024 End: 03-11-2024 ambulatory ERWIN Gu [facility] Start: 03-10-2024 End: 04-06-[address] [facility] Start: 02-05-2024 End: 03-07-[address] [facility] Start: 01-06-2024 Telephone encounter Cassidy Melendrez MD Work Phone: [facility] Comment on above: Follow Up Start: 01-06-2024 End: 02-05-[address] [facility] Start: 12-17-2023 End: 12-17-2023 ambulatory ISAK CHRISTIANSONR Not Available Start: 12-10-2023 End: 01-06-[address] [facility] Start: 12-09-2023 End: 12-10-2023 ambulatory MAYRA Hinds [facility] Start: 12-08-2023 End: 12-10-2023 Emergency department patient visit [place] [facility] Start: 12-08-2023 End: 12-09-2023 ambulatory ISAK ROJAS [facility] Start: 12-03-2023 Patient Update Koby Juarez APR, N.CNP Work Phone: [facility] Comment on above: Orders Start: 09-27-2023 End: 09-27-2023 ambulatory Jacinta Gillespie Other [place] Other Start: 09-27-2023 Office outpatient vi sit 15 minutes Jacinta Gillespie [facility] [place] Start: 09-18-2023 End: 09-18-2023 ambulatory Shaikh Miranda Facility:[facility] Start: 09-18-2023 End: 09-18-2023 ambulatory MD Isak Rojas Work Phone: [facility] Work Phone: Start: 09-18-2023 End: 09-18-2023 Patient encounter procedure MD Isak Rojas Work Phone: [facility] [place] Work Phone: Start: 08-16-2023 End: 08-16-2023 ambulatory Shaikh Miranda Facility:[facility] Start: 08-16-2023 End: 08-16-2023 ambulatory MD Isak Rojas Work Phone: [facility] Work Phone: Start: 08-16-2023 End: 08-16-2023 Patient encounter procedure MD Isak Rojas Work Phone: [facility]-Pacemaker Check Start: 02-13-2023 End: 02-14-2023 ambulatory ISAK A NADERER Facility:[facility] Start: 01-22-2023 End: 01-23-2023 ambulatory ISAK A NADERER Facility:[facility] Start: 11-14-2022 End: 11-15-2022 ambulatory ISAK A NADERER Facility:[facility] Start: 08-23-2022 End: 08-23-2022 ambulatory [facility] Start: 08-07-2022 End: 08-07-2022 Patient encounter procedure Koby Juarez APRN.CNP Work Phone: [facility] Comment on above: Vertebrobasilar doli choectasia (Primary Dx); Unruptured cerebral aneurysm Start: 07-27-2022 Telephone encounter Cassidy Melendrez MD Work Phone: [facility] Comment on above: Appointment [place] led Start: 07-17-2022 End: 07-18-2022 ambulatory ISAK A NADERER Facility:[facility] Start: 07-03-2022 End: 07-04-2022 ambulatory ISAK A NADERER Facility:[facility] Procedures Date Procedure Procedure Detail Performing Clinician Start: 03-11-2024 Follow-up visit Follow-up ERWIN MCLEOD Start: 09-18-2023 MRI of head MD Isak gomes Work Phone: Start: 09-18-2023 Pelvis X-ray MD Isak gomes Work Phone: Start: 08-16-2023 Plain chest X-ray MD Pedro Rojas Work Phone: Plan of Treatment Date Care Activity Detail Author Start: 05-28-2025 Diabetes Screening Diabetes Screenin g [facility] Start: 12-22-2024 DIABETES SCREEN DIABETES SCREEN [facility] Start: 06-07-2024 Influenza vaccination [facility] Start: 10-07-2023 Advance Directive Discussion Advance Directive Discussion [facility] Start: 10-07-2023 Depression Assessment Depression Ass essment [facility] Start: 06-07-2023 Covid-19 Vaccine () Covid-19 Vaccine () [facility] Start: 06-07-2023 Influenza vaccination Influenza Vacc ine (#1) [facility] Start: 09-28-2022 Urine microalbumin profile DTaP,Tdap,Td Vaccine (2 - Td or Tdap) [facility] Start: 06-07-2022 Influenza vaccination INFLUENZA (#1) [facility] Start: 10-07-2021 ADVANCE DIRECTIVE DISCUSSION ADVANCE DIRECTIVE DISCUSSION [facility] Start: 10-07-2021 DEPRESSION ASSESSMENT DEPRESSION ASS ESSMENT [facility] Start: 09-23-2021 COVID-19 VACCINE (4 - Booster for Pfizer series) COVID-19 VACCINE (4 - Booster for Pfizer series) [facility] Start: 2005 BONE DENSITY BONE DENSITY [facility] Start: 2005 PNEUMOCOCCAL: 65+ (1 - PCV) PNEUMOCOCCAL: 65+ (1 - PCV) [facility] Start: 2005 Screening for osteoporosis Bone Density Screening [facility] Start: 2000 RSV Vaccine (1 - 1-d ose 60+ series) RSV Vaccine (1 - 1-dose 60+ series) [facility] Start: 1990 SHINGRIX VACCINE (1 of 2) SHINGRIX VACCINE (1 of 2) [facility] Start: 1985 DIABETES SCREEN DIABETES SCREEN [facility] Start: 1959 Urine microalbumin profile DTAP,TDAP,TD (1 - Tdap) [facility] Start: 03-13-1941 COVID-19 VACCINE (#1) COVID-19 VACCI NE (#1) [facility] Start: 1940 Medicare Annual Well ness (AWV) Medicare Annual Wellness (AWV) [facility] End: 01-01-2025 MRA Head vessels WO and W contrast IV MRA BRAIN WO/W IVCON Radiology Routine Unruptured cerebral aneurysm Nonruptured cerebral aneurysm 1 Occurrences starting 12/03/2023 until 01/01/2025 [facility] Work Phone: Comment on above: 1 Occurrences starti ng 12/03/2023 until 01/01/2025 [facility] Immunizations Immunization Date Immunization Notes Care Provider Fa cili 06-22-2023 influenza virus vacc ine, unspecified formulation Isak Rojas MD Work Phone: [facility] 09-20-2021 influenza virus vacc ine, unspecified formulation Koby Juarez APRN.CNP Work Phone: [facility] Payers Date Payer Category Payer Medicare [id number] 2023 Self-pay 2021 Private Health Insurance [employer] [id number] 2021 Unknown MMO MMO MEDICARE SUPPLEMENT [id number] 2021-Present [phone] [address] [place] [address] Indemnity [id number] 2005 Medicare [id number] 1959 Medicare [id number] 1959 Unknown [id number] 1940 Unknown [id number] 2.16.840.1.903698.3.579.2. 593 1940 Unknown [id number] 2.16.840.1.689583.3.579.2. 593 1940 Unknown [id number] 2.16.840.1.552830.3.579.2. 593 1940 Unknown [id number] 2.16.840.1.176601.3.579.2. 593 1940 Unknown [id number] 2.16.840.1.938174.3.579.2. 593 1940 Unknown [id number] 2.16.840.1.631733.3.579.2. 1286 1940 Unknown [id number] 2.16.840.1.716843.3.579.2. 1286 1940 Unknown [id number] 2.16.840.1.192891.3.579.2. 1286 1940 Unknown [id number] 2.16.840.1.535864.3.579.2. 1286 1940 Unknown [id number] 2.16.840.1.982443.3.579.2. 1286 1940 Unknown [id number] 2.16.840.1.816519.3.579.2. 1286 1940 Unknown [id number] 2.16.840.1.196920.3.579.2. 1286 1940 Unknown [id number] 2.16.840.1.753628.3.579.2. 1286 1940 Unknown [id number] 2.16.840.1.920500.3.579.2. 1286 1940 Unknown [id number] 2.16.840.1.202249.3.579.2. 1286 1940 Unknown [id number] 2.16.840.1.013819.3.579.2. 1286 1940 Unknown [id number] 2.16.840.1.809283.3.579.2. 1286 1940 Unknown [id number] 2.16.840.1.265165.3.579.2. 1259 1940 Unknown [id number] 2.16.840.1.653316.3.579.2. 1259 Private Health Insurance [facility] [facility] [id number] Unknown [id number] 2.16.840.1.906003.3.579.2. 531 Unknown [id number] 2.16.840.1.632322.3.579.2. 531 Social History Date Type Detail Facility Start: 02-24-2018 End: 05-21-2023 Tobacco smoking status NVIS Never smoked tobacco [facility] Start: 02-24-2018 End: 05-21-2023 Tobacco use and exposure Smokeless tobacco non-user [facility] Start: 1940 Sex Assigned At Not on file [facility] Start: 08-13-2022 Alcohol intake Ex-drinker (finding) [facility] Start: 07-28-2022 End: 08-07-2022 Exposure to SARS-CoV-2 (event) Not sure [facility] Start: 1940 Sex Assigned At Female F [facility] Start: 08-13-2022 End: 06-09-2024 Sex Assigned At [facility] Start: 08-13-2022 End: 06-09-2024 History of Social function [facility] Adult Depression Screening Assessment 2 [facility] Start: 06-09-2024 Alcoholic beverage intake Current drinker of alcohol (finding) [facility] Start: 05-17-2023 Alcohol Comment Alcohol: 1 or 2 drinks on a typical day/monthly or less Caffeine: 2-3 cups/day [facility] Healthcare Note 01-06-2024 Telephone Encounter - Angelique Jones RN - 01/06/2024 4:50 PM EDT Note Date & Type Note Facility 01-06-2024 Miscellaneous Notes Formattin g of this note might be different from the original. Called pt about f/up and she asked that her daughter be called. Spoke with daughter Virgil. She states they have imaging done at [facility] near them and asked if order can be mailed to pt's address. Offered a VV for f/up after imaging and she will try to figure that out to save a trip to [place]. Address verified. Provided her with office number for questions and scheduling number to call after MRA is completed. She appreciated the follow-up. Will mail order tomorrow 01/06. Angelique Jones RN documented in this encounter [facility] Evaluation note 09-27-2023 Note Date & Type Note Facility 09-27-2023 Evaluation note Encounter Date Diagnosis Assessment Notes Sep, Right ear impacted cerumen (ICD-10 - H61.21) Drink plenty fluids, get plenty of rest. Continue home medications as prescribed. Follow-up with your family physician for any further concerns [facility] Other Instructions 08-07-2022 Patient Instructions Note Date & Type Note Facility 08-07-2022 Instructions Koby Juarez APRN.CNP - 08/07/2022 3:00 PM EDT Follow-up appointment due July 2024. Our office will contact you 6-8 weeks prior to schedule. If you do not hear from us, please call [phone] or send a My Chart message to connect with one of our caregivers. Goal blood pressure is less than 140/90. Notify your PCP with any elevated blood pressure readings. 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 We recommend a low-dose beta-mora (ie propranolol) to reduce pulsations from the basilar artery on your brainstem - this may be making your symptoms worse. Please discuss with your see wheeler to decide if this is safe for someone with a low heart rate. Call 911 right away if you or someone else has any of these stroke symptoms: Sudden numbness or weakness in the face, arm, or leg, especially on one side of the body. Sudden confusion, trouble speaking, or difficulty understanding speech. Sudden trouble seeing in one or both eyes. Sudden trouble walking, dizziness, loss of balance, or lack of coordination. Sudden severe headache with no known cause. 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 PCP: Regino Martinez MD Collaborating Physician: Cassidy Melendrez MD Referring Provider: Isak Rojas MD Reason for visit: Unruptured aneurysm and Other (see comment) (vertebrobasilar dolichoectasia) History of Event: 81 yof with PMH HTN, hypothyroidism, vertebrobasilar dolichoectasia, and unruptured 3mm left A2/A3 junction aneurysm who was recently admitted for symptomatic bradycardia. Propranolol was held and imaging was obtained, which confirmed tortuous left vertebral artery and concern for enlarging CSF space vs arachnoid cyst. She was advised to follow-up with cerebrovascular center for continued care. She is here for follow-up and to revew results of imaging. Vertebrobasilar dolichoectasia first identified in 2017 when patient fell and developed facial swelling and asymmetry. Family took her to ED due to concern for stroke, symptoms were attributed to her fall. Facial symptoms improved but she has persistent symptoms of slurred speech, gait imbalance, double vision (since childhood), and occaisonally difficulty with swallowing. Dr. Melendrez recommended continuation of aspirin 81mg, B-mora to reduce pulsation effect of the dolichoectatic segment on the brainstem, and serial imaging to monitor vertebrobasilar dolichoectasia. Interval History: - KAILA 02/24/[address] Melendrez. - Since admission to OSH, feels speech is worse, coordination is worse, headaches worse. - Denies worsening dysphagia, dizziness, or hemibody weakness/numbness/tingling. - No falls. - Plans to have loop recorder implanted on Saturday. - Trying to get enrolled in PT. - Treated for HTN, medications currently being titrated. BP today 136/82. Monitoring BP TID for the last month with ~10 readings > 140, max 170. - No AP/AC use. - Accompanied by daughter. Handedness: right-handed Hypertension Y Coronary Artery Disease N Diabetes N Obesity NA Dyslipidemia N Tobacco Use (Please Update Smoking History) NA Stroke NA Intracranial Aneurysm N Past Medical History: There is no problem list on file for this patient. No past surgical history on file. Allergies: Codeine and Iodine Medications: Current Outpatient Medications Medication Sig topiramate (TOPAMAX) [address] (PROTONIX) 40 mg tablet Take 1 tablet by mouth once daily. hnonqzi-kthvkmek-kvtxqalgzo (FIORINAL) capsule Take 1 capsule by mouth every 4 hours as needed. losartan (COZAAR) 50 mg tablet Take 25 mg by mouth once daily. levothyroxine (SYNTHROID) 125 mcg tablet Take 100 mcg by mouth daily before breakfast. ZOLMitriptan (ZOMIG) 5 mg tablet Take 5 mg by mouth as needed. GLUCOSAMINE/CHONDR PAUL A SOD (OSTEO BI-FLEX ORAL) Take by mouth. aspirin 81 mg chewable tablet Take 81 mg by mouth once daily. (Patient not taking: Reported on 08/07/2022) propranolol (INDERAL) 80 mg tablet Take 80 mg by mouth once daily. Extended release (Patient not taking: Reported on 08/07/2022) hydroCHLOROthiazide (HYDRODIURIL, ESIDRIX) 25 mg tablet Take 25 mg by mouth once daily. (Patient not taking: Reported on 08/07/2022) tolterodine (DETROL) 2 mg tablet Take 2 mg by mouth twice daily. (Patient not taking: Reported on 08/07/2022) omeprazole (PRILOSEC) 20 mg capsule Take 20 mg by mouth once daily. (Patient not taking: Reported on 08/07/2022) MULTIVITAMIN (MULTIPLE VITAMIN ORAL) Take by mouth once daily. (Patient not taking: Reported on 08/07/2022) acetaminophen (TYLENOL) 500 mg tablet Take 500 mg by mouth once daily. (Patient not taking: Reported on 08/07/2022) naproxen sodium (ANAPROX) 220 mg tablet Take 220 mg by mouth once daily. (Patient not taking: Reported on 08/07/2022) meclizine (ANTIVERT) 12.5 mg tab Take 12.5 mg by mouth as needed. (Patient not taking: Reported on 08/07/2022) sulfamethoxazole-trimethoprim (BACTRIM DS,SEPTRA DS) 800-160 mg per tablet Take 1 tablet by mouth twice daily. (Patient not taking: Reported on 08/07/2022) No current facility-administered medications for this visit. Social History Tobacco Use Smoking status: Never Smokeless tobacco: Never Lives alone, daughter lives next door. Review of Systems Constitutional: Positive for fatigue. HENT: Positive for trouble swallowing. Eyes: Positive for double vision. Respiratory: Negative. Cardiovascular: Negative. Gastrointestinal: Negative. Hematologic/Lymphatic: Negative. Musculoskeletal: Positive for arthralgias. Skin: Negative. Neurological: Positive for aphasia, headaches, slurred speech and weakness. Negative for dizziness. In addition to HPI Patient Entered Questionnaires PROMIS/NeuroQoL Score Percentiles Physical Health 08/07/2022 Physical Function Percentile 18* Sleep Percentile 34 Fatigue Percentile 31 Pain Interference Percentile 12 PROMIS SOCIAL ROLE SCORE 08/07/2022 Social Role Satisfaction Percentile 50 Mental Health 08/07/2022 NeuroQol Cognitive Function Percentile 7 General Self-Efficacy Percentile 14 PROMIS Global Health Scale 08/07/2022 Physical Health Percentile 10 Mental Health Percentile 9 Percentiles provide an indication of how a patient's score ranks in relation to the [place] general population. > 31st percentile is within normal limits or better * < 31st percentile is at least SD worse than population, which may be clinically relevant < 16th percentile is at least 1 SD worse than population and warrants attention Depression Screening: PHQ-9 06/03/2017 06/24/2017 08/07/2022 Score 15 14 10 Self-Harm Response Not at all Not at all 0 PHQ-9 Scores: PHQ-9 Self-Harm (Item 9) Response: 0 - 9 No to Mild depression 0 - Not at all 10 - 14 Moderate depression 1 - Several Days > 15 Severe depression 2 - More than half the days 3 - Nearly every day PHYSICAL EXAMINATION BP 136/82 (BP Site: Left Arm, BP Position: Sitting, BP Cuff Size: Large Adult) Pulse 78 Temp 36.2 C (97.2 F) (Temporal) Resp 14 Ht 157.4 cm (5' 1.97 ) Wt 77.1 kg (170 lb) SpO2 100% BMI 31.12 kg/m General: Well-developed, well-nourished, in no acute distress. HEENT: Normocephalic, atraumatic. Sclerae anicteric. Lungs: Respirations even and unlabored, on room air. Extremities: No edema, cyanosis, or clubbing. Skin: No rash or ecchymoses. Neurological: Awake, alert, oriented to person, place, and time. Speech fluent, dysarthric. Good attention and insight into illness. Cranial Nerves: PERRL, extraocular movements intact without nystagmus. Facial sensation and movements normal and symmetric. Tongue midline. Shoulder shrug symmetric. Motor: Normal bulk and tone. Strength 5/5 throughout, pain limited right hip flexion. No pronator drift or tremor. Sensation: Grossly intact light touch. Coordination: Sqdztn-se-xqhz and kxcd-gx-mphs without dysmetria bilaterally. Gait: Arrives to office via wheelchair. IMAGING MRI head w/wo (12/21/2021): The left vertebral artery is tortuous and causes severe mass effect on the ryann and medulla. There is a large CSF space anterior to this region. There is reported history of a cyst, presumably arachnoid cyst, in this region. There appear to be vessels traversing this region which would favor an enlarged CSF space rather than arachnoid cyst. Clinical correlation. Comparison to the prior studies would be helpful. Can consider neurosurgical follow-up as indicated. MRI brain w/wo (05/29/2017): Patient demonstrates unchanged appearance to the cystic space in the prepontine and premedullary area of the posterior fossa. This does efface and compresses the brainstem. There is an adjacent tortuous posterior vascular structure consistent with dolichocephaly of the vertebral basilar system. The cystic mass is consistent with presence of a likely an arachnoid cyst. There is no evidence of restricted diffusion. DSA (03/20/2017): This study confirms presence of vertebrobasilar dolichoectatic changes. Similar fusiform aneurysmal dilatation was also noted involving bilateral, proximal cervical internal carotid arteries. Incidental note of small, broad neck 2 millimeter distal left RADHA saccular aneurysm was also made. MRI brain w/wo (01/16/2017): CSF signal structure identified anterior to the midbrain demonstrating posterior displacement of the midbrain with attenuation and narrowing at this level. There is marked fusiform dilatation or dolichoectasia of the vertebrobasilar system and involving the left vertebral artery and proximal basilar artery as above. 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 Recommend neurosurgical consultation. T2/FLAIR signal abnormalities are identified within the periventricular white matter, likely the sequela of chronic microvascular ischemia. Other findings and more details are noted as above. LABS No recent lipid panel or A1C in [facility] or Care Everywhere, last 05/2016. IMPRESSION 81 yof with PMH HTN, hypothyroidism, vertebrobasilar dolichoectasia, and unruptured 3mm left A2/A3 junction aneurysm who was recently admitted for symptomatic bradycardia for which propranolol was held, returns for follow-up due to worsening slurred speech, coordination, and headache. 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 - recommend B-mora to reduce pulsation effect of the dolichoectatic segment on the brainstem. Defer to cardiology as loop recorder planned. - recommend ASA 81m to prevent cerebrovascular event. - BP ~controlled, goal < 140/90. Appreciate PCP/cardiology management. - continue PT. - follow-up in 2 years to monitor condition and repeat MRA, reasonable to follow-up PRN given patient's age and stability of aneurysm/dolichoectasia. - reviewed S/S warranting emergent neurologic care. All questions/concerns addressed and patient is agreeable to this plan. I spent a total of 35 minutes on the date of the service which included preparing to see the patient, cvqo-yn-nder patient care, completing clinical documentation, obtaining and/or reviewing separately obtained history, performing a medically appropriate examination, counseling and educating the patient/family/caregiver, communicating with other HCPs (not separately reported), independently interpreting results (not separately reported), communicating results to the patient/family/caregiver, and care coordination (not separately reported). SIGNATURE Koby Juarez APRN.CNP August 07, 2022 documented in this encounter [facility] Note 07-27-2022 Telephone Encounter - Lia Noble ADM - 07/27/2022 4:32 PM EDT Note Date & Type Note Facility 07-27-2022 Miscellaneous Notes Formattin g of this note might be different from the original. 1st attempt: Spoke with patient and notified that our new policy for any follow up patients is they are to see ELIGIO/PNEUMATIC SYSTEMS OPERATOR instead of provider, unless absolutely necessary. Patient verified understanding that 08/07 appt would be cancelled with Dr. Melendrez. She encouraged me to call daughter, Radha instead to reschedule per her availability--rescheduled on Aug 07 with Koby at 2pm. Gave our direct office number if any future questions~ Notified Dr. Melendrez Aug 07 appointment would be cancelled too. Verifying with Carla if that needs kept for CS prior to cancelling~ Updated patient's insurance on file as well since that was coming up rejected: Medicare A&B [id number] MMO MEDICARE SUPPLEMENT Verified #'s are correct, supplement insurance name just needs updated. [id number] Group#: [id number] documented in this encounter [facility] Evaluation note Note Date & Type Note Facility Evaluation note Diagnosis Vertebrobasilar dolichoectasia- Primary Occlusion and stenosis of basilar artery without mention of cerebral infarction Unruptured cerebral aneurysm Cerebral aneurysm, nonruptured documented in this encounter [facility] Evaluation note Note Date & Type Note Facility Evaluation note No assessment information availa [facility] Work Phone: Evaluation note Note Date & Type Note Facility Evaluation note Diagnosis Unruptured cerebral aneurysm- Primary Cerebral aneurysm, nonruptured Nonruptured cerebral aneurysm Cerebral aneurysm, nonruptured documented in this encounter [facility] Evaluation note Note Date & Type Note Facility Evaluation note Diagnosis Essential hypertension, benign (CMS/HCC)- Primary Essential hypertension, benign DDD (degenerative disc disease), lumbar Degeneration of lumbar or lumbosacral intervertebral disc Migraine without aura and with status migrainosus, not intractable (CMS/HCC) Osteoarthritis of lower legs, bilateral Gastroesophageal reflux disease without esophagitis Esophageal reflux Sick sinus syndrome (I49.5) Sinoatrial node dysfunction Essential hypertension, benign (CMS/HCC)- Primary Essential hypertension, benign DDD (degenerative disc disease), lumbar Degeneration of lumbar or lumbosacral intervertebral disc Osteoarthritis of lower legs, bilateral Migraine without aura and with status migrainosus, not intractable (CMS/HCC) Adult hypothyroidism (CMS/HCC)- Primary Unspecified hypothyroidism Gastroesophageal reflux disease without esophagitis Esophageal reflux documented in this encounter [facility] History general Narrative - Reported Note Date & Type Note Facility History general Narrative - Reported Type Medical History HTN Surgical History knee replacement - Surgical History tubal ligation 1971 Surgical History eye lid lift bilateral 2011 Surgical History nose surgery 2012 Surgical History knee replacement 2014 Surgical History torn retina bilateral 2015 Hospitalization History see above [facility] Other Summary Purpose Family History No Family History Records FoundNo Family History Records FoundNo Family History Records FoundNo Family History Records FoundNo Family History Records FoundNo Family History Records FoundNo Family History Records Found Advance Directives Advance Directive Response Recorded Date/ Time Advance Directives No August 13, 2023 3:54pm Documents on File Type Date Recorded 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 Advance Directives and Living Will 01/12/2019 2019-01-12 Living Wi ll Advance Directives and Living Will 01/12/2019 2019-01-12 durable P OA Chief Complaint and Reason for Visit Chief Complaint I63.50 Z45.010 Chief Complaint I63.50 Z45.010 r09.89 Reason for Referral Specialty Diagnoses / Procedures Referred By Rupa t Referred To Contact [facility] Diagnoses Unruptured cerebral aneurysm Nonruptured cerebral aneurysm Procedures MRA BRAIN WO/W IVCON MRA; HEAD W & WO CONTRAST Mira Suarez, DIRECTOR OF [facility].BOOK OR SCRIPT EDITOR [address] [place] [address] [place] [id number] Referral ID Status Reason Start Date Expiration Date Visits Requested Visits Authorized [id number] Pending Review Auto-Generat ed Referral 12/03/2023 01/01/2025 1 1 Additional Source Comments Source Comments (unrecognize d section and content) In the event this informatio n is protected by the Federal Confidentiality of Alcohol and Drug Abuse Patient Records regulations: The Federal rules restrict any use of the information to criminally investigate or prosecute any alcohol or drug abuse patient.[facility] the event this information is protected by the Federal Confidentiality of Alcohol and Drug Abuse Patient Records regulations: The Federal rules restrict any use of the information to criminally investigate or prosecute any alcohol or drug abuse patient.[facility] the event this information is protected by the Federal Confidentiality of Alcohol and Drug Abuse Patient Records regulations: The Federal rules restrict any use of the information to criminally investigate or prosecute any alcohol or drug abuse patient.[facility] System[facility] the event this information is protected by the Federal Confidentiality of Alcohol and Drug Abuse Patient Records regulations: The Federal rules restrict any use of the information to criminally investigate or prosecute any alcohol or drug abuse patient.[facility] Reason for Visit (unrecogniz ed section and content) Reason Comments Appointment Rescheduled Reason Comments Established Patient Follow-Up Reason Comments Orders Reason Comments Follow Up Reason Comments Med Refill Care Teams (unrecognized sec tion and content) Principal Planner Relationship Specialty Start Date End Date Regino Martinez PCP - General Family Medicine 05/16/17 Principal Planner Relationship Specialty Start Date End Date Regino Martinez PCP - General Family Medicine 05/16/17 08/12/22 Team Status: Active Member Role Status Dates Isak Rojas MD Primary Care Provider Active Team Status: Inactive Member Role Status Dates Shaikh Miranda MD Attending Provider Active Isak Rojas MD Primary Care Provider Active Team Status: Active Member Role Status Dates Shaikh Miranda MD Primary Care Provider Active Team Status: Inactive Member Role Status Dates Shaikh Miranda MD Primary Care Provider, Attending Pr ovider Active Principal Planner Relationship Specialty Start Date End Date Isak Rojas PCP - General Family Medicine 08/13/22 Russ Schmitt MD [address] [place] [id number] Cardiology 08/13/22 Principal Planner Relationship Specialty Start Date End Date Isak Rojas PCP - General Family Medicine 08/13/22 Russ Schmitt MD [address] [place] [phone] Cardiology 08/13/22 Principal Planner Relationship Specialty Start Date End Date Isak Rojas MD [address] [place] [phone] PCP - General Family Medicine 11/11/23 INFORMATION SOURCE (unrecogn ized section and content) DATE CREATED AUTHOR 02/17/2023 [facility] DATE CREATED AUTHOR AUTHOR'S ORGANIZ ATION 11/15/2023 [facility] DATE CREATED AUTHOR AUTHOR'S ORGANIZ ATION 01/07/2024 [facility] DATE CREATED AUTHOR AUTHOR'S ORGANIZ ATION 02/20/2024 [facility] DATE CREATED AUTHOR AUTHOR'S ORGANIZ ATION 03/13/2024 [facility] DATE CREATED AUTHOR AUTHOR'S ORGANIZ ATION 06/08/2024 [facility] DATE CREATED AUTHOR AUTHOR'S ORGANIZ ATION 06/10/2024 [facility] EPIC Goals (unrecognized section and content) Goals may be documented in a n alternate sectionGoals may be documented in an alternate sectionNo Information FOR RECORDS PERTAINING TO PATIENTS WHO ARE OR HAVE BEEN ENROLLED IN A CHEMICAL DEPENDENCY/SUBSTANCEABUSE PROGRAM, SOME INFORMATION MAY BE OMITTED. This clinical summary was aggregated from multiple sources. Caution should be exercised in using it in the provision of clinical care. This summary normalizes information from multiple sources, and as a consequence, information in this document may materially change the coding, format and clinical context of patient data. In addition, data may be omitted in some cases. CLINICAL DECISIONS SHOULD BE BASED ON THE PRIMARY CLINICAL RECORDS. [employer] provides no warranty or guarantee of the accuracy or completeness of information in this document.
--- NOTE | 2024-08-06 13:08 | XR_ITS ---
[place] [id number] Patient Name: DIANA PLASCENCIA MRN: [id number] date: 1940 Sex: F Assigned Patient Location: LAB Current Patient Location: Accession/Order Number: [id number] Exam Date: 08/06/2024 13:15 Report Date: 08/08/2024 06:49 At the request of: RUFINA ROJAS Procedure: XR shoulder RT min 2V PROCEDURE: XR humerus RT, XR shoulder RT min 2V HISTORY: Chronic Right Shoulder Pain COMPARISON: XR shoulder right 09/28/2012 FINDINGS: BONES:Moderate-marked narrowing of the acromioclavicular joint with small undersurface osteophytes. Small degenerative ossified along the inferior articular margin of the humeral head, low riding humeral head, and suspected joint space narrowing. Narrowing. SOFT TISSUES:No visible soft tissue swelling. EFFUSION:None visible. OTHER: Negative. XR/XR shoulder RT min 2V IMPRESSION: 1. Moderate degenerative changes of the acromioclavicular joints and mild-moderate degenerative changes of the glenohumeral joint. 2. No acute bone abnormality. Electronically authenticated by: GILL LIRA Date: 08/08/2024 06:49
--- NOTE | 2024-08-06 13:08 | XR_ITS ---
[place] [id number] Patient Name: DIANA PLASCENCIA MRN: [id number] date: 1940 Sex: F Assigned Patient Location: LAB Current Patient Location: Accession/Order Number: [id number] Exam Date: 08/06/2024 13:15 Report Date: 08/08/2024 06:49 At the request of: RUFINA ROJAS Procedure: XR humerus RT PROCEDURE: XR humerus RT, XR shoulder RT min 2V HISTORY: Chronic Right Shoulder Pain COMPARISON: XR shoulder right 09/28/2012 FINDINGS: BONES:Moderate-marked narrowing of the acromioclavicular joint with small undersurface osteophytes. Small degenerative ossified along the inferior articular margin of the humeral head, low riding humeral head, and suspected joint space narrowing. Narrowing. SOFT TISSUES:No visible soft tissue swelling. EFFUSION:None visible. OTHER: Negative. XR/XR humerus RT IMPRESSION: 1. Moderate degenerative changes of the acromioclavicular joints and mild-moderate degenerative changes of the glenohumeral joint. 2. No acute bone abnormality. Electronically authenticated by: GILL LIRA Date: 08/08/2024 06:49
[2024-08-06 13:14] LABS: Basophils Percent Auto 0.5 % (0.2-2.0); Eosinophils Absolute Auto 0.1 10^3/uL (0.0-0.7); Eosinophils Percent Auto 1.6 % (0.9-7.0); Hematocrit 39.6 % (36.0-48.0); Hemoglobin 12.9 g/dL (12.0-16.0); Immature Granulocytes Abs Auto 0.05 10^3/uL (0.00-0.03); Immature Granulocytes Pct Auto 0.6 % (0.0-0.5); Lymphocytes Absolute Auto 1.8 10^3/uL (1.2-3.8); Lymphocytes Percent Auto 22.2 % (20.5-60.0); Mean Corpuscular HGB Conc 32.6 g/dL (29.9-35.2); Mean Corpuscular Hemoglobin 32.1 pg (26.7-34.0); Mean Corpuscular Volume 98.5 fL (81.0-99.0); Mean Platelet Volume 9.6 fL (9.5-13.5); Monocytes Absolute Auto 0.5 10^3/uL (0.3-0.8); Monocytes Percent Auto 6.1 % (1.7-12.0); Neutrophils Absolute Auto 5.7 10^3/uL (1.4-6.5); Platelet Count 207 10^3/uL (150-450); Red Blood Count 4.02 10^6/uL (4.20-5.40); Red Cell Distribution Width 13.3 % (11.0-15.0); White Blood Count 8.3 10^3/uL (4.0-11.0)
[2024-08-06 13:36] LABS: Estimated Average Glucose 94 mg/dL; Glycohemoglobin A1C 4.9 % (4.5-6.2)
[2024-08-06 13:39] LABS: Free T4 0.99 ng/dL (0.76-1.46)
[2024-08-06 13:43] LABS: Alanine Aminotransferase 16 U/L (14-59); Albumin Globulin Ratio 1.1; Albumin Level 3.7 g/dL (3.4-5.0); Alkaline Phosphatase 152 U/L (46-116); Anion Gap 14.3; Aspartate Amino Transferase 10 U/L (15-37); BUN Creatinine Ratio 20.1; Bilirubin Direct 0.1 mg/dL (0.0-0.2); Bilirubin Total 0.4 mg/dL (0.2-1.0); Calcium 8.9 mg/dL (8.5-10.1); Carbon Dioxide 25.3 mmol/L (21.0-32.0); Chloride 109 mmol/L (98-107); Chol HDL Ratio 4.5; Cholesterol 218 mg/dL (<=200); Estimated GFR (African America 42 (>=60 mL/min/1.73m^2); Estimated GFR (Non-African Ame 35 (>=60 mL/min/1.73m^2); Globulin 3.5 g/dL; Glucose 119 mg/dL (74-106); HDL Cholesterol 48 mg/dL (40-60); Potassium 3.6 mmol/L (3.5-5.1); Sodium 145 mmol/L (136-145); Thyroid Stimulating Hormone 2.474 uIU/mL (0.358-3.740); Total Protein 7.2 g/dL (6.4-8.2); Triglycerides 250 mg/dL (<=150)
== END 2024-08-06 12:46 | disposition home or self-care (01) ==
LOC: LAB 12:48
PROVIDERS: PCP Family Medicine; Visit Provider Family Medicine
DX: M25.511 Pain in right shoulder (principal); G89.29 Other chronic pain; R73.03 Prediabetes; I10 Essential (primary) hypertension; Z79.899 Other long term (current) drug therapy; E66.811 Obesity, class 1; Z68.30 Body mass index [BMI] 30.0-30.9, adult; E03.9 Hypothyroidism, unspecified
CPT/HCPCS: 36415; 73030; 73060; 80048; 80061; 80076; 83036; 84439; 84443; 85025

== ENCOUNTER 2024-09-28 19:06 | Observation (INO) | payer MEDICARE, OTHER, SELFPAY ==
[2024-09-28 19:11] VITALS: BP 144/92; PULSE 67; TEMP 36.7; O2SAT 100; BMI 28.9
--- OUTSIDE RECORDS SUMMARY | 2024-09-28 19:13 | XMS_ITS | CCD ---
Author Organization [facility] Care Team Providers Care [employer] Superintendent Name Role Phone Regino Martinez Primary Care [...] Provider MD Isak Rojas Primary Care Provider [phone] MD Francheska Jean Primary Care Provider Jacinta Gillespie Unavailable Shaikh Jean Attending Unavailable Isak Rojas Primary Care Unavailable Shaikh Jean Admitting Unavailable Shaikh Jean Attending Unavailable Shaikh Jean Admitting Unavailable Shaikh Jean Primary Care Unavailable Naddennis, Isak Keyanna Primary Care Provider [phone] Russ Schmitt MD Unavailable REDD OBANDO Attending Unavailable ERWIN MCLEOD Attending Unavailable NADERER, ISAK Referring Unavailable NADERER, ISAK Primary Care Unavailable NADERER, ISAK Primary Care Unavailable YEN LINK Attending Unavailable ANDREA VAZQUEZ Admitting Unavailable VAZQUEZ GARIBAY Consulting Unavailable KARCHNER, MAXIMILIAN Staci Attending Unavailable KARCHBORIS, MAXIMILIAN Staci Referring Unavailable NADERER, ISAK Primary Care Unavailable [...] Primary Care Unavailable YEN LINK Attending Unavailable KARCHNER, MAXIMILIAN D Attending Unavailable KARCHNER, MAXIMILIAN D Referring Unavailable NADERER, ISAK Primary Care Unavailable Isak Rojas MD Primary Care Provider MEGHANR, ISAK Attending Unavailable NADERER, ISAK Attending Unavailable NADERER, ISAK Attending Unavailable Allergies Allergy Classification Reported Allergen(s) Allergy Type Date of Onset Reaction(s) Facility (16 sources) Codeine; Translations: [CODEINE] Drug Allergy 7 GI Upset, Nausea Only [facility] (14 sources) Iodine Drug Allergy 7 [facility] (1 source) Codeine Drug Allergy 6 [facility] Repository (2 sources) Adhesive Tape; Translations: [adhesive tape] Allergy to substance 3 [facility] (4 sources) Adhesive agent; Translations: [adhesive] Drug allergy [address] [facility] Repository (1 source) Codeine Drug Allergy 3 [facility] Repository (1 source) Iodine Drug Allergy 3 [facility] Repository (2 sources) Codeine; Translations: [CODEINE SULFATE] Drug Allergy 7 [facility] Repository (2 sources) IODINE AND IODIDE CONTAINING PRODUCTS; Translations: [IODINE AND IODIDE CONTAINING PRODUCTS] Propensity to adverse reactions to food (disorder) 7 [facility]ository (9 sources) Lidocaine Drug Allergy 3 [facility] Medications Current Medications Medication Drug Class(es) Dates Sig (Normalized) Sig (Original) acetaminophen 325 mg oral tablet (11 sources) Start: 12-18-2022 take 2 tablets by [...] mg / caffeine 40 mg oral tablet (6 sources) Barbiturate, Central Nervous System Stimulant, Methylxanthine Start: 06-29-20 take 1 tablet by mouth four times daily as needed butalbital-acetamin ophen-caffeine 50-325-40 MG tablet Indications: Migraine without aura and without status migrainosus, not intractable (CMS/HCC) Take 1 tablet by mouth 4 (four) times a day as needed for migraine 30 tablet 1 06/29/2024 Active alendronic acid 70 mg oral tablet (11 sources) Bisphosphonate Start: 08-06-20 take 1 tablet by mouth in the morning alendronate (Fosamax) 70 MG tablet Indications: Age-related osteoporosis without current pathological fracture (CMS/HCC) Take 1 tablet (70 mg) by mouth every 7 (seven) days Take in the morning with a full glass of water, on an empty stomach, and do not take anything else by mouth or lie down for the next 30 min. 12 tablet 3 08/06/2024 Active Start: 08-06-2024 take 1 tablet by junaid th in the morning alendronate (Fosamax) 70 MG tablet Indications: Age-related osteoporosis without current pathological fracture (CMS/HCC) Take 1 tablet (70 mg) by mouth every 7 (seven) days Take in the morning with a full glass of water, on an empty stomach, and do not take anything else by mouth or lie down for the next 30 min. 12 tablet 3 08/06/2024 Active Start: 08-06-2024 take 1 tablet by junaid th in the morning alendronate (Fosamax) 70 MG tablet Indications: Age-related osteoporosis without current pathological fracture (CMS/HCC) Take 1 tablet (70 mg) by mouth every 7 (seven) days Take in the morning with a full glass of water, on an empty stomach, and do not take anything else by mouth or lie down for the next 30 min. 12 tablet 3 08/06/2024 Active End: 08-06-2024 alendronate (Fosamax) 70 MG tablet 1 tablet 30 minutes before the first food, beverage or medicine of the day with plain water Orally once a week for 90 days 08/06/2024 Discontinued (Reorder) aspirin 81 mg delayed release oral tablet (8 sources) Platelet Aggregation Inhibitor, Nonsteroidal Anti-inflammatory Drug take 1 tablet by mouth once daily aspirin 81 MG EC tablet Take 81 mg by mouth Daily Active take 1 tablet by mouth once milly y aspirin 81 mg chewable tablet Take 81 mg by mouth once daily. 0 Active Baby Aspirin Act lali Comment on above: Take 81 mg by mouth once daily. Boswellia-Glucosamine- Vit D (Osteo Bi-Flex One Per Day) tablet (8 sources) End: 08-06-2024 Pcgjncths-Ioqylbixxhv-Tee D (Osteo Bi-Flex One Per Day) tablet Take by mouth. 08/06/2024 Discontinued Boswellia-Glucos amine-Vit D (Osteo Bi-Flex One Per Day) tablet Take by mouth. Active hydroCHLOROthiazide 25 mg oral tablet (11 sources) Thiazide Diuretic End: 08-06-2024 take 1 tablet by mouth in the morning hydroCHLOROthiazide (HYDRODiuril) 25 MG tablet Take 1 tablet by mouth in the morning. 08/06/2024 Discontinued Comment on above: Take 25 mg by mouth once daily. ibuprofen 200 mg oral tablet (8 sources) Nonsteroidal Anti-inflammatory Drug End: 08-06-2024 ibuprofen (Advil) 200 MG tablet every 6 (six) hours. 08/06/2024 Discontinued iv contrast (will be provided with radiology test) (1 source) Start: 12-03-2023 End: 12-04-2023 iv contrast (will be provided with radiology [...] link. levothyroxine sodium 0.1 mg oral tablet (15 sources) l-Thyroxine Start: 05-18-2023 End: 07-28-2024 take 1 tablet by mouth [...] breakfast. losartan potassium 25 mg oral tablet (13 sources) Angiotensin 2 Receptor Michelle Start: 02-18-2024 End: 02-17-2025 take 1 tablet [...] daily. meclizine hydrochloride 12.5 mg oral tablet (10 sources) Antiemetic End: 08-06-20 take 1 tablet by mouth three times daily as needed meclizine (Antivert) 12.5 MG tablet Take 12.5 mg by mouth 3 (three) times a day as needed. 08/06/2024 Discontinued Comment on above: Take 12.5 mg by [...] / nitrofurantoin, monohydrate 75 mg oral capsule (8 sources) Nitrofuran Antibacterial Start: 12-13-19 End: 08-06-20 24 nitrofurantoin, macrocrystal-monohy drate, (Macrobid) 100 MG capsule 12/12/2022 08/06/2024 Discontinued omeprazole 10 mg delayed release oral capsule [...] pantoprazole 40 mg delayed release oral tablet (13 sources) Proton Pump Inhibitor Start: 12-24-19 End: 07-28-20 24 take 1 tablet by mouth once daily pantoprazole (ProtoNix) 40 MG EC tablet Indications: Gastroesophageal reflux disease without esophagitis TAKE ONE TABLET BY MOUTH DAILY 90 tablet 3 07/28/2024 Active Comment on above: Take 1 tablet by junaid th once daily. 24 hr propranolol hydrochloride 60 mg extended release oral capsule (11 sources) beta-Adrenergic Michelle End: 08-06-20 24 propranolol LA (Inderal LA) 60 MG 24 hr capsule 1 capsule 1 (one) time each day at the same time. 08/06/2024 Discontinued Propranolol HCl ER 80 MG Oral for 90 Active End: 08-07-2022 take 1 tablet by mouth once daily propranolol (INDERAL) 80 mg tablet Take 80 mg by mouth once daily. Extended release 0 08/07/2022 Discontinued (Changing Therapy/Dosage Form) Comment on above: Take 80 mg by mouth once daily. Extended release tolterodine tartrate 2 mg oral tablet (11 sources) Cholinergic Muscarinic Antagonist End: 08-06-2024 tolterodine (Detrol) 2 MG tablet every 12 (twelve) hours. 08/06/2024 Discontinued End: 08-07-2022 Tolterodine Tartrate 2 MG Or al for 90 Active Comment on above: Take 2 mg by mouth t wice daily. topiramate 50 mg oral tablet (12 sources) Start: 07-30-2024 take 1 tablet by mouth in the morning topiramate 50 MG tablet Indications: Migraine without aura and with status migrainosus, not intractable (CMS/HCC) Take 50 mg by mouth in the morning and 50 mg before bedtime. 60 tablet 2 07/30/2024 Active Start: 05-06-2024 take 1 tablet by junaid th in the morning topiramate 50 MG tablet Indications: Migraine without aura and with status migrainosus, not intractable (CMS/HCC) Take 50 mg by mouth in the morning and 50 mg before bedtime. 60 tablet 2 05/06/2024 Active Start: 07-17-2022 topiramate (TO PAMAX) 50 mg tablet ZOLMitriptan 5 mg oral tablet (13 sources) Serotonin-1b and Serotonin-1d Receptor Agonist End: 08-06-2024 take 1 tablet by mouth every twenty-four hours as needed ZOLMitriptan (Zomig) 5 MG tablet TAKE ONE TABLET BY MOUTH AT ONSET OF HEADACHE NEEDED ; MAX OF TWO PER 24 HOURS. 08/06/2024 Discontinued ZOLMitriptan prn Active Comment on above: Take 5 mg by mouth a s needed. Completed/Discontinued Medications Medication Drug Class(es) Dates Sig (Normalized) Sig (Original) [id number] 60 actuat albuterol 0.09 mg/actuat metered dose inhaler (1 source) beta2-Adrenergic Agonist Start: 07-15-2023 take 2 puff(s) by inhalation four times daily as needed Albuterol Sulfate HFA 108 (90 Base) MCG/ACT 2 puffs Inhalation 4 times a day prn Jul, Not-Taking/PRN aspirin 325 mg / butalbital 50 mg / caffeine 40 mg oral capsule (3 sources) Platelet Aggregation Inhibitor, Barbiturate, Nonsteroidal Anti-inflammatory Drug, Central Nervous System Stimulant, Methylxanthine take 1 capsule by mouth every four hours as needed aspirin-caffeine -butalbital (FIORINAL) capsule Take 1 capsule by mouth every 4 hours as needed. 0 Active Comment on above: Take 1 capsule by mo ut every 4 hours as needed. Chondroitin Sulfates [...] Orally Not-Taking/PRN Multivitamin preparation (2 sources) End: 08-07-2022 MULTIVITAMIN (MULTIPLE VITAMIN ORAL) Take by mouth once daily. 0 08/07/2022 Discontinued (Changing Therapy/Dosage Form) MULTIVITAMIN (MU LTIPLE VITAMIN ORAL) Take by mouth once daily. 0 Active Comment on above: Take by mouth once d aily. sulfamethoxazole 800 mg / trimethoprim 160 mg oral tablet (2 sources) Dihydrofolate Reductase Inhibitor Antibacterial, Sulfonamide Antimicrobial End: 08-07-20 take 1 tablet by mouth twice daily sulfamethoxazole-tr imethoprim (BACTRIM DS,SEPTRA DS) 800-160 mg per tablet Take 1 tablet by mouth twice daily. 0 08/07/2022 Discontinued (Course of therapy completed) Comment on above: Take 1 tablet by junaid th twice daily. Problems Active Problems Problem Classification Problem Date Documented Da te Episodic/Chronic Abdominal pain (1 source) Pelvic and perineal pain; Translations: [Pelvic and perineal pain] Onset: 3 Episodic Cardiac dysrhythmias (9 sources) Paroxysmal supraventricular tachycardia; Translations: [Paroxysmal supraventricular tachycardia] Onset: 4 12-17-2023 Chronic Conditions associated with dizziness or vertigo (1 source) Dizziness Onset: 4 Episodic E Codes: Fall (1 source) Fall Onset: 4 Esophageal disorders (12 sources) Gastroesophageal reflux disease; Translations: [Gastro-esophageal reflux disease without esophagitis] Onset: 4 07-28-2024 Chronic Essential hypertension (17 sources) Essential (primary) hypertension; Translations: [Benign essential hypertension] Onset: 2 Chronic Headache; including migraine (12 sources) Migraine without aura, not refractory ; Translations: [Migraine without aura, not intractable, with status migrainosus] Onset: 4 12-17-2023 Chronic Immunizations and screening for infectious disease (2 sources) Needs influenza immunization; Translations: [Encounter for immunization] 08-06-2024 Episodic Malaise and fatigue (2 sources) Fatigue; Translations: [Weakness] Onset: 4 Episodic Nausea and vomiting (4 sources) Vomiting, unspecified; Translations: [VOMITING UNSPECIFIED] Onset: 3 Episodic Occlusion or stenosis of precerebral arteries (1 source) Cerebrovascular disease; Translations: [Occlusion and stenosis of basilar artery] Chronic Osteoarthritis (11 sources) Lower limb joint arthritis; Translations: [Bilateral primary osteoarthritis of knee] Onset: 4 12-17-2023 Chronic Osteoporosis (11 sources) Senile osteoporosis; Translations: [Age-related osteoporosis without current pathological fracture] Onset: 4 12-17-2023 Chronic Other aftercare (1 source) 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; Translations: [OTH INGOT SUPERVISOR CURRENT DRUG THERAPY] Onset: 3 Episodic Other aftercare (5 sources) Long-term current use of drug therapy; Translations: [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] Onset: 4 08-06-2024 Episodic Other and ill-defined cerebrovascular disease (3 sources) Cerebral arterial aneurysm; Translations: [Cerebral aneurysm, nonruptured] Chronic Other ear and sense organ disorders (1 source) Impacted cerumen, right ear Episodic Other gastrointestinal disorders (1 source) Dysphagia; Translations: [Dysphagia, unspecified] Episodic Other non-traumatic joint disorders (4 sources) Chronic pain of right upper limb; Translations: [Pain in right shoulder] Onset: 4 07-30-2024 Episodic Other nutritional; endocrine; and metabolic disorders (1 source) Obese class II; Translations: [Body mass index (BMI) 35.0-35.9, adult] Chronic Other nutritional; endocrine; and metabolic disorders (1 source) Obese class I; Translations: [Body mass index (BMI) 34.0-34.9, adult] Chronic Other nutritional; endocrine; and metabolic disorders (5 sources) Obesity caused by energy imbalance; Translations: [Class 1 obesity due to excess calories with serious comorbidity and body mass index (BMI) of 30.0 to 30.9 in adult] Onset: 4 08-06-2024 Chronic Other screening for suspected conditions (not mental disorders or infectious disease) (5 sources) Other specified abnormal findings of blood chemistry; Translations: [OTH SPEC ABNORMAL FINDINGS BLD CHEM] Onset: 3 Episodic Other skin disorders (1 source) Scar conditions and fibrosis of skin; Translations: [Scar conditions and fibrosis of skin] Episodic Spondylosis; intervertebral disc disorders; other back problems (11 sources) Degeneration of lumbar intervertebral disc; Translations: [DDD (degenerative disc disease), lumbar] Onset: 4 12-17-2023 Chronic Thyroid disorders (13 sources) Hypothyroidism, unspecified; Translations: [Hypothyroidism] Onset: 2 [...] Date Documented Date Episodic/Chronic Biliary tract disease (10 sources) Calculus of gallbladder without cholecystitis without obstruction; Translations: [Biliary calculus] Onset: 02-16-2023 12-17-2023 Episodic Diabetes mellitus without complication (12 sources) Prediabetes; Translations: [Prediabetes] Onset: 07-19-2022 12-17-2023 Episodic E Codes: Fall (1 source) Unspecified fall, initial encounter; Translations: [Unspecified fall, initial encounter] Onset: 12-08-2023 Episodic Mood disorders (3 sources) Mood disorders Onset: 08-06-2024 08-06-2024 Other fractures (1 source) Wedge compression fracture [...] Test Name Value Interpretation Reference Range Facility ALL CBC WITH AUTO DIFFon BASOPHILS ABSOLUTE AUTO 0 [facility] Basophils/100 WBC (Bld) 0.5 % 0.2 - 2.0 % [facility] Eosinophils/100 WBC (Bld) 1.6 % 0.9 - 7.0 % [facility] Erythrocyte distribution width (RBC) [Ratio] 13.3 % 11.0 - 15.0 % [facility] Hematocrit (Bld) [Volume fraction] 39.6 % 36.0 - 48.0 % [facility] Hemoglobin (Bld) [Mass/Vol] 12.9 g/dL 12.0 - 16.0 g/dL [facility] IMMATURE GRANULOCYTES ABS AUTO 0.05 High [facility] Immature granulocytes/100 WBC (Bld) 0.6 % High 0.0 - 0.5 % [facility] Interpretation and review of laboratory results Abnormal [facility] LYMPHOCYTES ABSOLUTE AUTO 1.8 [facility] Lymphocytes/100 WBC (Bld) 22.2 % 20.5 - 60.0 % [facility] MCH (RBC) [Entitic mass] 32.1 pg 26.7 - 34.0 pg [facility] MCHC (RBC) [Mass/Vol] 32.6 g/dL 29.9 - 35.2 g/dL [facility] MCV (RBC) [Entitic vol] 98.5 fL 81.0 - 99.0 fL [facility] MONOCYTES ABSOLUTE AUTO 0.5 [facility] Monocytes/100 WBC (Bld) 6.1 % 1.7 - 12.0 % [facility] NEUTROPHILS ABSOLUTE AUTO 5.7 [facility] Neutrophils/100 WBC (Bld) 69 % 43.0 - 75.0 % [facility] Platelet mean volume (Bld) [Entitic vol] 9.6 fL 9.5 - 13.5 fL [facility] TBH EO # 0.1 [facility] TB PLT 207 [facility] RBC 4.02 Low [facility] WBC 8.3 [facility] BLOOD CULTUREon 06-03-2024 Bacteria identified Aer cx Nom (Bld) SPECIMEN NOTES RAC CULTURE RESULTS NO GROWTH 5 DAYS Normal [facility] Bacteria identified Aer cx Nom (Bld) SPECIMEN NOTES RAC CULTURE RESULTS NO GROWTH 5 DAYS Normal [facility] CBC AND AUTO DIFFon 06-03-20 ABSOLUTE BASOPHIL 0.0 X10E9/L Normal 0.0-0.2 [facility] Comment on above: Performed By: #### C BCA, CMP, , 47421-8 #### [facility] ([id number]) [address] [place] [address] 55040 ABSOLUTE NEUTROPHIL 5.7 X10E9/L Normal 1.5-6.6 [facility] Comment on above: Performed By: #### C BCA, CMP, , 01315-9 #### [facility] ([id number]) [address] [place] [address] 08654 Basophils/100 WBC (Bld) 0.6 % Normal [facility] Comment on above: Performed By: #### C BCA, CMP, , 35517-9 #### [facility] ([id number]) [address] [place] [address] 37779 Eosinophils (Bld) [#/Vol] 0.1 10*3/uL Normal 0.0-0.4 [facility] Comment on above: Performed By: #### C KATIE, CMP, , 88498-7 #### [facility] ([id number]) [address] [place] [address] 09834 Eosinophils/100 WBC (Bld) 1.0 % Normal [facility] Comment on above: Performed By: #### C KATIE, CMP, , 80495-6 #### [facility] ([id number]) [address] [place] [address] 61238 Erythrocyte distribution width (RBC) [Ratio] 15.2 % High 11.5-15.0 [facility] Comment on above: Performed By: #### C KATIE, CMP, , 36043-9 #### [facility] ([id number]) [address] [place] [address] 82838 Hematocrit (Bld) [Volume fraction] 35.1 % Normal 35-47 [facility] Comment on above: Performed By: #### C KATIE, CMP, , 41570-2 #### [facility] ([id number]) [address] [place] [address] 90529 Hemoglobin (Bld) [Mass/Vol] 12.0 g/dL Normal 11.7-15.5 [facility] Comment on above: Performed By: #### C BCA, CMP, , 56318-3 #### [facility] ([id number]) [address] [place] [address] 09893 Lymphocytes (Bld) [#/Vol] 1.4 10*3/uL Normal 1.0-3.5 [facility] Comment on above: Performed By: #### C KATIE, CMP, , 93008-3 #### [facility] ([id number]) [address] [place] [address] 23312 Lymphocytes/100 WBC (Bld) 18.0 % Normal [facility] Comment on above: Performed By: #### C BCA, CMP, , 37179-8 #### [facility] ([id number]) [address] [place] [address] 95497 MCH (RBC) [Entitic mass] 32.5 pg Normal 27-34 [facility] Comment on above: Performed By: #### C BCA, CMP, , 72921-0 #### [facility] ([id number]) [address] [place] [address] 71730 MCHC (RBC) [Mass/Vol] 34.3 g/dL Normal 32-36 [facility] Comment on above: Performed By: #### C BCA, CMP, , 20816-4 #### [facility] ([id number]) [address] [place] [address] 22896 MCV (RBC) [Entitic vol] 95 fL Normal 80-100 [facility] Comment on above: Performed By: #### Cathy BCA, CMP, , 75085-9 #### [facility] ([id number]) [address] [place] [address] 09261 Monocytes (Bld) [#/Vol] 0.4 10*3/uL Normal 0-0.9 [facility] Comment on above: Performed By: #### C BCA, CMP, , 54750-5 #### [facility] ([id number]) [address] [place] [address] 22344 Monocytes/100 WBC (Bld) 5.1 % Normal [facility] Comment on above: Performed By: #### C BCA, CMP, , 62861-8 #### [facility] ([id number]) [address] [place] [address] 25414 Neutrophils/100 WBC (Bld) 75.3 % Normal [facility] Comment on above: Performed By: #### C BCA, CMP, , 87941-4 #### [facility] ([id number]) [address] [place] [address] 31723 Platelet mean volume (Bld) [Entitic vol] 7.8 fL Normal 7-12 [facility] Comment on above: Performed By: #### C BCA, CMP, , 56103-5 #### [facility] ([id number]) [address] [place] [address] 30773 Platelets (Bld) [#/Vol] 209 10*3/uL Normal 150-450 [facility] Comment on above: Performed By: #### C BCA, CMP, , 61619-7 #### [facility] ([id number]) [address] [place] [address] 82311 RBC COUNT 3.70 X10E12/L Low 3.80-5.20 [facility] Comment on above: Performed By: #### C BCA, CMP, , 88615-8 #### [facility] ([id number]) [address] [place] [address] 20959 WBC (Bld) [#/Vol] 7.5 10*3/uL Normal 4.0-11.0 [facility] Comment on above: Performed By: #### C BCA, CMP, , 85559-5 #### [facility] ([id number]) [address] [place] [address] 90150 COMPREHENSIVE METABOLIC PANE Jarrod 06-03-2024 Albumin [Mass/Vol] 3.9 g/dL Normal 3.2-5.3 [facility] Comment on above: Performed By: #### C BCA, CMP, , 07643-8 #### [facility] ([id number]) [address] [place] [address] 62897 ALP [Catalytic activity/Vol] 118 U/L Normal 39-130 [facility] Comment on above: Performed By: #### C BCA, CMP, , 16031-6 #### [facility] ([id number]) [address] [place] [address] 31826 ALT [Catalytic activity/Vol] 12 U/L Normal 0-31 [facility] Comment on above: Performed By: #### C BCA, CMP, , 25455-8 #### [facility] ([id number]) [address] [place] [address] 73580 Anion gap [Moles/Vol] 6 mmol/L Normal 5-15 [facility] Comment on above: Performed By: #### C BCA, CMP, , 01848-3 #### [facility] ([id number]) [address] [place] [address] 22293 AST [Catalytic activity/Vol] 16 U/L Normal 0-41 [facility] Comment on above: Performed By: #### C BCA, CMP, , 83495-8 #### [facility] ([id number]) [address] [place] [address] 20304 Bilirubin [Mass/Vol] 0.6 mg/dL Normal 0.3-1.2 [facility] Comment on above: Performed By: #### C BCA, CMP, , 76100-0 #### [facility] ([id number]) [address] [place] [address] 18718 Calcium [Mass/Vol] 9.0 mg/dL Normal 8.5-10.5 [facility] Comment on above: Performed By: #### C BCA, CMP, , 54510-9 #### [facility] ([id number]) [address] [place] [address] 85075 Chloride [Moles/Vol] 108 mmol/L Normal 98-109 [facility] Comment on above: Performed By: #### C XI WILSON, , 29476-1 #### [facility] ([id number]) [address] [place] [address] 31463 CO2 [Moles/Vol] 22 mmol/L Normal 22-32 [facility] Comment on above: Performed By: #### C XI WILSON, , 56475-7 #### [facility] ([id number]) [address] [place] [address] 40017 Creatinine [Mass/Vol] 1.26 mg/dL High 0.40-1.00 [facility] Comment on above: Result Comment: METH OD TRACEABLE TO IDMS STANDARD Performed By: #### C XI WILSON, , 79503-8 #### [facility] ([id number]) [address] [place] [address] 00870 GFR/1.73 sq M.predicted among non-blacks MDRD (S/P/Bld) [Vol rate/Area] 42 mL/min/{1.73_m2} Low >59 [facility] Comment on above: Result Comment: Reported eGFR is based on the CKD-EPI 2020 equation that does not use a race coefficient. Performed By: #### C XI WILSON, , 98447-0 #### [facility] ([id number]) [address] [place] [address] 03052 Glucose [Mass/Vol] 105 mg/dL High 65-99 [facility] Comment on above: Performed By: #### C XI WILSON, , 78546-5 #### [facility] ([id number]) [address] [place] [address] 27076 Potassium [Moles/Vol] 4.2 mmol/L Normal 3.5-5.0 [facility] Comment on above: Performed By: #### C BCA, CMP, , 49942-4 #### [facility] ([id number]) [address] [place] [address] 86194 Protein [Mass/Vol] 6.8 g/dL Normal 6.0-8.0 [facility] Comment on above: Performed By: #### C BCA, CMP, , 22211-9 #### [facility] ([id number]) [address] [place] [address] 50792 Sodium [Moles/Vol] 136 mmol/L Normal 134-146 [facility] Comment on above: Performed By: #### C BCA, CMP, , 67171-4 #### [facility] ([id number]) [address] [place] [address] 52576 Urea nitrogen [Mass/Vol] 33 mg/dL High 5-27 [facility] Comment on above: Performed By: #### C BCA, CMP, , 92000-8 #### [facility] ([id number]) [address] [place] [address] 31845 Lactate (P lisset) [Moles/Vol]o n 06-03-2024 LACTATE W/REFLEX 0.9 mmol/L Normal 0.4-2.0 [facility] Comment on above: Result Comment: Result did not trigger repeat Lactate, re-order if needed. Performed By: #### C BCA, CMP, , 71903-0 #### [facility] ([id number]) [address] [place] [address] 65601 MAGNESIUMon 06-03-2024 Magnesium [Mass/Vol] 2.0 mg/dL Normal 1.8-2.6 [facility] Comment on above: Performed By: #### C BCA, CMP, , 34416-8 #### [facility] ([id number]) [address] [facility], [place] [address] SARS/FLU A+B/RSV by NAAT/Mol ianon 06-03-2024 SARS/FLU A+B/RSV by NAAT/Molecular FLU A [...] operators who are performing tests using either [employer] or [employer] systems and is limited to laboratories that [...] repeat. Fact Sheet for Healthcare Providers: https://www.fda.gov/me lindsay/076209/download Fact Sheet for Patients: https://www.fda.gov/me lindsay/310551/download Normal [facility] Comment on above: Performed By: #### C BCA, CMP, , 24764-6 #### [facility] ([id number]) [address] [place] [address] 37133 Troponin I.cardiac High sens itivity method [Mass/Vol]on 06-03-2024 1 HOUR TROP I, HIGH SENSITIVITY 3 ng/L Normal <16 [facility] Comment on above: Performed By: #### C BCA, CMP, , 67415-4 #### [facility] ([id number]) [address] [place] [address] 51125 TROPONIN I, HIGH SENSITIVITY 3 ng/L Normal <16 [facility] Comment on above: Performed By: #### Cathy WILSON, CMP, , 17767-3 #### [facility] ([id number]) [address] [place] [address] 76688 URINE CULTUREon 06-03-2024 Bacteria identified Cx Nom (U) CULTURE RESULTS <10,000 ORGANISMS/ML NORMAL URO GENITAL JANELL Normal [facility] Comment on above: Performed By: #### C KATIE, CMP, , 22014-1 #### [facility] ([id number]) [address] [place] [address] 89533 URN MACROSCOPIC NURon 2023 BILIRUBIN GAURAV Negative Normal NEG [facility] Comment on above: Performed By: #### C BCA, CMP, , 97263-2 #### [facility] ([id number]) [address] [place] [address] 48042 BLOOD/HGB GAURAV Negative Normal NEG [facility] Comment on above: Performed By: #### C BCA, CMP, , 90592-3 #### [facility] ([id number]) [address] [place] [address] 92540 GLUCOSE GAURAV Negative Normal NEG [facility] Comment on above: Performed By: #### C BCA, CMP, , 02337-8 #### [facility] ([id number]) [address] [place] [address] 97034 KETONES GAURAV Negative Normal NEG [facility] Comment on above: Performed By: #### C BCA, CMP, , 63730-0 #### [facility] ([id number]) [address] [place] [address] 57829 LEUKOCYTE ESTERASE GAURAV Trace Abnormal NEG [facility] Comment on above: Performed By: #### C BCA, CMP, , 80650-4 #### [facility] ([id number]) [address] [place] [address] 72061 NITRITE GAURAV Negative Normal NEG [facility] Comment on above: Performed By: #### C BCA, CMP, , 43319-4 #### [facility] ([id number]) [address] [place] [address] 65086 PH GAURAV 6.0 Normal 5.0-8.5 [facility] Comment on above: Performed By: #### C BCA, CMP, , 72478-1 #### [facility] ([id number]) [address] [place] [address] 80272 PROTEIN GAURAV Negative Normal NEG [facility] Comment on above: Performed By: #### C BCA, CMP, , 88925-0 #### [facility] ([id number]) [address] [place] [address] 81456 SPECIFIC GRAVITY GAURAV 1.015 Normal 1.003-1.035 [facility] Comment on above: Performed By: #### C BCA, CMP, , 78740-7 #### [facility] ([id number]) [address] [place] [address] 30580 UROBILINOGEN GAURAV 0.2 eu/dL Normal <1.1 [facility] Comment on above: Performed By: #### C KATIE, [facility], 76201-2, 48096-6 #### [facility] ([id number]) [address] [facility], [place] [address] XR CHEST 1 VWon 06-03-2024 XR CHEST [...] David Callaway on 06/03/2024 2:10 PM Normal [facility] Mal 01-06-2024 [facility] DIANA FRANCO ([id number]) 1940 F Date Time Provider Department 01/06/24 WERNER MELENDREZ [facility] During your visit today, we recorded the following information about you: Angelique Jones RN 01/06/2024 4:56 PM Signed Called pt about f/up and she asked that her daughter be called. Spoke with daughter Virgil. She states they have imaging done at [facility] near them and asked if order can be mailed to pt's address. Offered a VV for f/up after imaging and she will try to figure that out to save a trip to [place]. Address verified. Provided her with office number for questions and scheduling number to call after MRA is completed. She appreciated the follow-up. Will mail order tomorrow 01/06. Angelique Guippone, RN Allergies As of Date: 01/06/2024 Noted Allergy Reaction CODEINE 06/03/2017 8 - GI Upset IODINE 06/03/2017 2 - Rash Date Reviewed: 08/07/2022 Reviewed by: Gabrielle Ram MA - Fully Assessed Reason for Visit: Follow Up [171] Prescriptions as of 01/06/2024 - topiramate (TOPAMAX) 50 mg tablet - pantoprazole DR (PROTONIX) 40 mg tablet Take 1 tablet by mouth once daily. - fdtabmc-hdlyqoxf-vxkep bital (FIORINAL) capsule Take 1 capsule by [...] Status:Closed by ANGELIQUE JONES on 01/06/24 Normal [facility] CBC AND AUTO DIFFon 12-09-19 24 ABSOLUTE BASOPHIL 0.0 X10E9/L Normal 0.0-0.2 [facility] Comment on above: Performed By: #### C KATIE CMP, , 46199-7 #### [facility] ([id number]) [address] [place] [address] 69267 ABSOLUTE NEUTROPHIL 8.6 X10E9/L High 1.5-6.6 [facility] Comment on above: Performed By: #### C KATIE CMP, , 91056-9 #### [facility] ([id number]) [address] [place] [address] 71927 Basophils/100 WBC (Bld) 0.4 % Normal [facility] Comment on above: Performed By: #### C KATIE CMP, , 66320-6 #### [facility] ([id number]) [address] [place] [address] 54537 Eosinophils (Bld) [#/Vol] 0.0 10*3/uL Normal 0.0-0.4 [facility] Comment on above: Performed By: #### C BCA, CMP, , 61777-8 #### [facility] ([id number]) [address] [place] [address] 20278 Eosinophils/100 WBC (Bld) 0.1 % Normal [facility] Comment on above: Performed By: #### C BCA, CMP, , 13401-0 #### [facility] ([id number]) [address] [place] [address] 64090 Erythrocyte distribution width (RBC) [Ratio] 14.6 % Normal 11.5-15.0 [facility] Comment on above: Performed By: #### C BCA, CMP, , 68602-8 #### [facility] ([id number]) [address] [place] [address] 03002 Hematocrit (Bld) [Volume fraction] 36.6 % Normal 35-47 [facility] Comment on above: Performed By: #### C BCA, CMP, , 65741-6 #### [facility] ([id number]) [address] [place] [address] 06441 Hemoglobin (Bld) [Mass/Vol] 12.5 g/dL Normal 11.7-15.5 [facility] Comment on above: Performed By: #### C BCA, CMP, , 13237-2 #### [facility] ([id number]) [address] [place] [address] 47566 Lymphocytes (Bld) [#/Vol] 0.8 10*3/uL Low 1.0-3.5 [facility] Comment on above: Performed By: #### C BCA, CMP, , 39234-9 #### [facility] ([id number]) [address] [place] [address] 65867 Lymphocytes/100 WBC (Bld) 7.9 % Normal [facility] Comment on above: Performed By: #### C BCA, CMP, , 65189-1 #### [facility] ([id number]) [address] [place] [address] 05420 MCH (RBC) [Entitic mass] 32.5 pg Normal 27-34 [facility] Comment on above: Performed By: #### C BCA, CMP, , 22619-9 #### [facility] ([id number]) [address] [place] [address] 83859 MCHC (RBC) [Mass/Vol] 34.3 g/dL Normal 32-36 [facility] Comment on above: Performed By: #### C BCA, CMP, , 73303-6 #### [facility] ([id number]) [address] [place] [address] 80576 MCV (RBC) [Entitic vol] 95 fL Normal 80-100 [facility] Comment on above: Performed By: #### C BCA, CMP, , 44178-1 #### [facility] ([id number]) [address] [place] [address] 53783 Monocytes (Bld) [#/Vol] 0.8 10*3/uL Normal 0-0.9 [facility] Comment on above: Performed By: #### C BCA, CMP, , 71129-4 #### [facility] ([id number]) [address] [place] [address] 40752 Monocytes/100 WBC (Bld) 7.5 % Normal [facility] Comment on above: Performed By: #### C BCA, CMP, , 81527-0 #### [facility] ([id number]) [address] [place] [address] 17780 Neutrophils/100 WBC (Bld) 84.1 % Normal [facility] Comment on above: Performed By: #### C BCA, CMP, , 89378-3 #### [facility] ([id number]) [address] [place] [address] 22005 Platelet mean volume (Bld) [Entitic vol] 8.3 fL Normal 7-12 [facility] Comment on above: Performed By: #### C KATIE, CMP, , 89476-8 #### [facility] ([id number]) [address] [place] [address] 21439 Platelets (Bld) [#/Vol] 178 10*3/uL Normal 150-450 [facility] Comment on above: Performed By: #### Cathy BCA, CMP, , 50351-3 #### [facility] ([id number]) [address] [place] [address] 09838 RBC COUNT 3.86 X10E12/L Normal 3.80-5.20 [facility] Comment on above: Performed By: #### Cathy WILSON, CMP, , 12683-5 #### [facility] ([id number]) [address] [place] [address] 42492 WBC (Bld) [#/Vol] 10.2 10*3/uL Normal 4.0-11.0 [facility] Comment on above: Performed By: #### Cathy BCA, CMP, , 16051-6 #### [facility] ([id number]) [address] [place] [address] 94798 COMPREHENSIVE METABOLIC PANE Jarrod 12-09-2023 Albumin [Mass/Vol] 3.9 g/dL Normal 3.2-5.3 [facility] Comment on above: Performed By: #### C NOEMY, , CBCA #### [facility] ([id number]) [address] [place] [address] 19073 ALP [Catalytic activity/Vol] 114 U/L Normal 39-130 [facility] Comment on above: Performed By: #### C NOEMY, , CBCA #### [facility] ([id number]) [address] [place] [address] 78372 ALT [Catalytic activity/Vol] 20 U/L Normal 0-31 [facility] Comment on above: Performed By: #### Cathy SALGUERO, , CBCA #### [facility] ([id number]) [address] [place] [address] 13089 Anion gap [Moles/Vol] 10 mmol/L Normal 5-15 [facility] Comment on above: Performed By: #### Cathy SALGUERO, , CBCA #### [facility] ([id number]) [address] [place] [address] 66008 AST [Catalytic activity/Vol] 22 U/L Normal 0-41 [facility] Comment on above: Performed By: #### Cathy SALGUERO, , CBCA #### [facility] ([id number]) [address] [place] [address] 25169 Bilirubin [Mass/Vol] 0.8 mg/dL Normal 0.3-1.2 [facility] Comment on above: Performed By: #### C NOEMY, , CBCA #### [facility] ([id number]) [address] [place] [address] 06681 Calcium [Mass/Vol] 9.0 mg/dL Normal 8.5-10.5 [facility] Comment on above: Performed By: #### Cathy SALGUERO, , CBCA #### [facility] ([id number]) [address] [place] [address] 72897 Chloride [Moles/Vol] 108 mmol/L Normal 98-109 [facility] Comment on above: Performed By: #### C NOEMY, , CBCA #### [facility] ([id number]) [address] [place] [address] 94459 CO2 [Moles/Vol] 18 mmol/L Low 22-32 [facility] Comment on above: Performed By: #### C NOEMY, , CBCA #### [facility] ([id number]) [address] [place] [address] 78206 Creatinine [Mass/Vol] 0.90 mg/dL Normal 0.40-1.00 [facility] Comment on above: Result Comment: METH OD TRACEABLE TO IDMS STANDARD Performed By: #### C NOEMY, , CBCA #### [facility] ([id number]) [address] [place] [address] 68394 GFR/1.73 sq M.predicted among non-blacks MDRD (S/P/Bld) [Vol rate/Area] 63 mL/min/{1.73_m2} Normal >59 [facility] Comment on above: Result Comment: Reported eGFR is based on the CKD-EPI 2020 equation that does not use a race coefficient. Performed By: #### C NOEMY, , CBCA #### [facility] ([id number]) [address] [place] [address] 84492 Glucose [Mass/Vol] 109 mg/dL High 65-99 [facility] Comment on above: Performed By: #### Cathy SALGUERO, , CBCA #### [facility] ([id number]) [address] [place] [address] 23509 Potassium [Moles/Vol] 3.8 mmol/L Normal 3.5-5.0 [facility] Comment on above: Performed By: #### C NOEMY, , CBCA #### [facility] ([id number]) [address] [place] [address] 73217 Protein [Mass/Vol] 6.7 g/dL Normal 6.0-8.0 [facility] Comment on above: Performed By: #### C NOEMY, , CBCA #### [facility] ([id number]) [address] [place] [address] 26121 Sodium [Moles/Vol] 136 mmol/L Normal 134-146 [facility] Comment on above: Performed By: #### C NOEMY, , CBCA #### [facility] ([id number]) [address] [place] [address] 60646 Urea nitrogen [Mass/Vol] 25 mg/dL Normal 5-27 [facility] Comment on above: Performed By: #### C NOEMY, , CBCA #### [facility] ([id number]) [address] [place] [address] 68427 MAGNESIUMon 12-09-2023 Magnesium [Mass/Vol] 2.0 mg/dL Normal 1.8-2.6 [facility] Comment on above: Performed By: #### C NOEMY, , CBCA #### [facility] ([id number]) [address] [place] [address] 88397 MR LUMBAR SPINE WO CONTon MR LUMBAR [...] Wilde MD on 12/09/2023 1:00 PM Normal [facility] CBC AND AUTO DIFFon 12-08-19 24 ABSOLUTE BASOPHIL 0.1 X10E9/L Normal 0.0-0.2 [facility] Comment on above: Performed By: #### C BCA, CMP, 50529-9, 89061-5 #### [facility] ([id number]) [address] [place] [address] [place] [address] ABSOLUTE NEUTROPHIL 10.1 X10E9/L High 1.5-6.6 [facility] Comment on above: Performed By: #### C BCA, CMP, , 47647-9 #### [facility] ([id number]) [address] [place] [address] 48009 Basophils/100 WBC (Bld) 0.5 % Normal [facility] Comment on above: Performed By: #### C BCA, CMP, , 89835-7 #### [facility] ([id number]) [address] [place] [address] 34515 Eosinophils (Bld) [#/Vol] 0.0 10*3/uL Normal 0.0-0.4 [facility] Comment on above: Performed By: #### C BCA, CMP, , #### [facility] ([id number]) [address] [place] [address] 67931 Eosinophils/100 WBC (Bld) 0.1 % Normal [facility] Comment on above: Performed By: #### Cathy BCA, CMP, , 13860-4 #### [facility] ([id number]) [address] [place] [address] 71244 Erythrocyte distribution width (RBC) [Ratio] 14.0 % Normal 11.5-15.0 [facility] Comment on above: Performed By: #### C BCA, CMP, , 53239-9 #### [facility] ([id number]) [address] [place] [address] 54894 Hematocrit (Bld) [Volume fraction] 37.9 % Normal 35-47 [facility] Comment on above: Performed By: #### C BCA, CMP, , 86455-4 #### [facility] ([id number]) [address] [place] [address] 99419 Hemoglobin (Bld) [Mass/Vol] 12.7 g/dL Normal 11.7-15.5 [facility] Comment on above: Performed By: #### C XI WILSON, , 94119-9 #### [facility] ([id number]) [address] [place] [address] 36738 Lymphocytes (Bld) [#/Vol] 0.6 10*3/uL Low 1.0-3.5 [facility] Comment on above: Performed By: #### Cathy WILSON CMP, , 49022-9 #### [facility] ([id number]) [address] [place] [address] 69709 Lymphocytes/100 WBC (Bld) 5.2 % Normal [facility] Comment on above: Performed By: #### Cathy WILSON CMP, , 35842-1 #### [facility] ([id number]) [address] [place] [address] 48918 MCH (RBC) [Entitic mass] 31.8 pg Normal 27-34 [facility] Comment on above: Performed By: #### Cathy WILSON CMP, , 11009-9 #### [facility] ([id number]) [address] [place] [address] 67301 MCHC (RBC) [Mass/Vol] 33.6 g/dL Normal 32-36 [facility] Comment on above: Performed By: #### Cathy WILSON CMP, , 86752-1 #### [facility] ([id number]) [address] [place] [address] 73045 MCV (RBC) [Entitic vol] 95 fL Normal 80-100 [facility] Comment on above: Performed By: #### Cathy WILSON CMP, , 76272-1 #### [facility] ([id number]) [address] [place] [address] 59317 Monocytes (Bld) [#/Vol] 0.8 10*3/uL Normal 0-0.9 [facility] Comment on above: Performed By: #### C BCA, CMP, , 84099-9 #### [facility] ([id number]) [address] [place] [address] 49562 Monocytes/100 WBC (Bld) 6.5 % Normal [facility] Comment on above: Performed By: #### C BCA, CMP, , 34762-8 #### [facility] ([id number]) [address] [place] [address] 36869 Neutrophils/100 WBC (Bld) 87.7 % Normal [facility] Comment on above: Performed By: #### Cathy BCA, CMP, , 66984-8 #### [facility] ([id number]) [address] [place] [address] 01980 Platelet mean volume (Bld) [Entitic vol] 8.0 fL Normal 7-12 [facility] Comment on above: Performed By: #### Cathy BCA, CMP, , 47439-3 #### [facility] ([id number]) [address] [place] [address] 07720 Platelets (Bld) [#/Vol] 183 10*3/uL Normal 150-450 [facility] Comment on above: Performed By: #### C BCA, CMP, , 20353-8 #### [facility] ([id number]) [address] [place] [address] 77478 RBC COUNT 4.00 X10E12/L Normal 3.80-5.20 [facility] Comment on above: Performed By: #### C BCA, CMP, , 92074-8 #### [facility] ([id number]) [address] [place] [address] 49613 WBC (Bld) [#/Vol] 11.5 10*3/uL High 4.0-11.0 [facility] Comment on above: Performed By: #### C BCA, CMP, , 57348-5 #### [facility] ([id number]) [address] [place] [address] 12880 COMPREHENSIVE METABOLIC PANE Jarrod 12-08-2023 Albumin [Mass/Vol] 4.1 g/dL Normal 3.2-5.3 [facility] Comment on above: Performed By: #### C BCA, CMP, , 20086-5 #### [facility] ([id number]) [address] [place] [address] 00032 ALP [Catalytic activity/Vol] 128 U/L Normal 39-130 [facility] Comment on above: Performed By: #### C BCA, CMP, , 82905-3 #### [facility] ([id number]) [address] [place] [address] 30459 ALT [Catalytic activity/Vol] 22 U/L Normal 0-31 [facility] Comment on above: Performed By: #### C BCA, CMP, , 18098-2 #### [facility] ([id number]) [address] [place] [address] 52401 Anion gap [Moles/Vol] 9 mmol/L Normal 5-15 [facility] Comment on above: Performed By: #### C BCA, CMP, , 35796-3 #### [facility] ([id number]) [address] [place] [address] 28235 AST [Catalytic activity/Vol] 26 U/L Normal 0-41 [facility] Comment on above: Performed By: #### C BCA, CMP, , 39215-9 #### [facility] ([id number]) [address] [place] [address] 92411 Bilirubin [Mass/Vol] 0.9 mg/dL Normal 0.3-1.2 [facility] Comment on above: Performed By: #### C BCA, CMP, , 95049-8 #### [facility] ([id number]) [address] [place] [address] 89634 Calcium [Mass/Vol] 9.2 mg/dL Normal 8.5-10.5 [facility] Comment on above: Performed By: #### C BCA, CMP, , 07361-0 #### [facility] ([id number]) [address] [place] [address] 04766 Chloride [Moles/Vol] 107 mmol/L Normal 98-109 [facility] Comment on above: Performed By: #### C BCA, CMP, , 34758-2 #### [facility] ([id number]) [address] [place] [address] 79293 CO2 [Moles/Vol] 19 mmol/L Low 22-32 [facility] Comment on above: Performed By: #### C BCA, CMP, , 84107-6 #### [facility] ([id number]) [address] [place] [address] 42054 Creatinine [Mass/Vol] 0.96 mg/dL Normal 0.40-1.00 [facility] Comment on above: Result Comment: METH OD TRACEABLE TO IDMS STANDARD Performed By: #### C BCA, CMP, , 30552-7 #### [facility] ([id number]) [address] [place] [address]36 GFR/1.73 sq M.predicted among non-blacks MDRD (S/P/Bld) [Vol rate/Area] 59 mL/min/{1.73_m2} Low >59 [facility] Comment on above: Result Comment: Reported eGFR is based on the CKD-EPI 2020 equation that does not use a race coefficient. Performed By: #### C XI WILSON, , 44238-2 #### [facility] ([id number]) [address] [place] [address] 51250 Glucose [Mass/Vol] 121 mg/dL High 65-99 [facility] Comment on above: Performed By: #### C XI WILSON, , 23432-1 #### [facility] ([id number]) [address] [place] [address] 18808 Potassium [Moles/Vol] 4.1 mmol/L Normal 3.5-5.0 [facility] Comment on above: Performed By: #### C XI WILSON, , 41131-2 #### [facility] ([id number]) [address] [place] [place] [address] Protein [Mass/Vol] 7.1 g/dL Normal 6.0-8.0 [facility] Comment on above: Performed By: #### C XI WIL[place], , [address]-7 #### [facility] ([id number]) [address] [place] [address] Sodium [Moles/Vol] 135 mmol/L Normal 134-146 [facility] Comment on above: Performed By: #### C XI WILSON, , 846[address]-6 #### [facility] ([id number]) [address] [place] [address] Urea nitrogen [Mass/Vol] 24 mg/dL Normal 5-27 [facility] Comment on above: Performed By: #### C XI [place], , [address]-9 #### [facility] ([id number]) [address] [place] [address] MAGNESIUMon 03-03-2024 Magnesium [Mass/Vol] 2.0 mg/dL Normal 1.8-2.6 [facility] Comment on above: Performed By: #### C KATIE, [facility], 10662-7, 66624-0 #### [facility] ([id number]) [address] [facility], [place] [address] SARS/FLU A+B/RSV by NAAT/Mol ecularon 12-08-2023 SARS/FLU [...] operators who are performing tests using either [employer] or [employer] systems and is limited to laboratories that [...] repeat. Fact Sheet for Healthcare Providers: https://www.fda.gov/me lindsay/198718/download Fact Sheet for Patients: https://www.fda.gov/wi lindsay/146434/download Normal [facility] Comment on above: Performed By: #### C OVFLR #### [facility] ([id number]) [address] [place] [address] TROPONIN Ion 12-08-2023 Troponin I.cardiac [Mass/Vol] ng/mL Normal 0.00-0.04 [facility] Comment on above: Performed By: #### C BCA, CMP, 88863-4, 21256-4 #### [facility] ([id number]) [address] [place] [address]110[address] XR CHEST 1 VWon 12-08-2023 XR CHEST 1 VW XR CHEST 1 VW Portable chest: HISTORY: Cough. Single view of the chest was obtained. Cardiac and mediastinal contours are unchanged. There is no pneumothorax. No focal consolidation or effusion. Pulmonary vasculature appears stable. IMPRESSION: No significant change. Finalized by Cleve Francis MD on 12/08/2023 9:04 PM Normal [facility] XR PELVIS 1 OR 2 VWSon 12-07 [...] Zuniga MD on 12/08/2023 9:03 PM Normal [facility] XR SPINE LUMBAR 2 OR 3 VWSon [...] Francis MD on 12/08/2023 9:03 PM Normal [facility] MR head/brain wo conon 09-18 MR head/brain wo con [facility] [place] [address] [place] [address] MRI Report Signed Patient: Diana Franco I MR#: [id number] : 1940 Acct:[id number] Age/Sex: 83 / F ADM Date: 09/18/23 Loc: MR Room: Type: [facility] Attending Dr: Shaikh Miranda [place] Copies to: [...] uncertain clinical significance. Impression dictated by: Cholo Castillo M.D.09/18/2023 11:24 AM Dictation Location: [facility]12 Transcribed By: [facility] 09/18/23 1124 Dictated By: Cholo Castillo II, MD 09/18/23 112 Signed By: 09/18/23 1124 Normal [facility] XR pelvis 1-2Von 09-18-2023 XR pelvis 1-2V [facility] [place] [address] XRay Report Signed Patient: Diana Franco I MR#: [id number] : 1940 Acct:[id number] Age/Sex: 83 / F ADM Date: 09/18/23 Loc: Room: Type: [facility] Attending Dr: Shaikh Miranda [place] Copies to: [...] Damian Jr., D.OCarolyn09/18/2023 3:15 PM Dictation Location: [facility]08 Transcribed By: [facility] 09/18/23 2815 Dictated By: Ernst Damian Jr, DO 09/18/23 1514 Signed By: 09/18/23 1515 [facility] XR chest 2V*on 08-16-2023 XR chest 2V* [facility] [place] [address] [place] [address] XRay Report Signed Patient: Lacey Franco I MR#: [id number] : 1940 Acct:[id number] Age/Sex: 82 / F ADM Date: 08/16/23 Loc: [facility] Room: Type: [facility] Attending Dr: Shaikh Miranda [place] Copies to: [...] Yunier Ibanez M.D.08/16/2023 5:18 PM Dictation Location: [place] [address] Transcribed By: [facility] 08/16/231717 Dictated By: Yunier Ibanez DO 08/16/231716 Signed By: 08/16/231717 [facility] US SINGLE QUAD RT UPPERon US SINGLE [...] GILL LIRA Date: 2023-02-13 09:45 Normal [facility] HEPATITIS PANEL, ACUTEon HBsAg Screen Negative Normal Negative [facility] Comment on above: Performed By: #### H EPACUT #### [facility] [address] [place] [address] Dr. Danitza Cramer HCV AB Non-Reactive Normal Non Reactive [facility] Comment on above: Performed By: #### H EPACUT #### [facility] [address] [address] [address] Danitza Cramer Hep A Ab, IgM Negative Normal Negative [facility] Comment on above: Performed By: #### H EPACUT #### [facility] [address] [address] [address] Danitza Cramer Hep B Core Ab, IgM Negative Normal Negative [facility] Comment on above: Performed By: #### H EPACUT #### [facility] [address] [address] [address] Danitza Cramer Interpretation: Comment Normal [facility] Comment on above: Result Comment: Not infected with HCV unless early or acute infection is suspected (which may be delayed in an immunocompromised individual), or other evidence exists to indicate HCV infection. Performed By: #### H EPACUT #### [facility] [address] [address] [address] Danitza Cramer CBC AUTO DIFFon 01-22-2023 BASO # 0.1 103/ul Normal 0.0-0.1 [facility] Comment on above: Performed By: #### C BC #### [facility] [address] [address] [address] Danitza Cramer Basophils/100 WBC (Bld) 0.6 % Normal 0.2-2.0 [facility] Comment on above: Performed By: #### C BC #### [facility] [address] [place] [address] Dr. Danitza Cramer EO # 0.1 103/ul Normal 0.0-0.7 [facility] Comment on above: Performed By: #### C BC #### [facility] [address] [place] [address] Dr. Danitza Cramer Eosinophils/100 WBC (Bld) 1.0 % Normal 0.9-7.0 [facility] Comment on above: Performed By: #### C BC #### [facility] [address] [place] [address] Dr. Danitza Cramer Erythrocyte distribution width (RBC) [Ratio] 15.0 % Normal 11.0-15.0 [facility] Comment on above: Performed By: #### C BC #### [facility] [address] [place] [address] Dr. Danitza Cramer Hematocrit (Bld) [Volume fraction] 41.0 % Normal 36.0-48.0 [facility] Comment on above: Performed By: #### C BC #### [facility] [address] [place] [address] Dr. Danitza Cramer Hemoglobin (Bld) [Mass/Vol] 13.2 g/dL Normal 12.0-16.0 [facility] Comment on above: Performed By: #### C BC #### [facility] [address] [place] [address] Dr. Danitza Cramer IG # 0.04 10e3/ul Critically high 0.00-0.03 [facility] Comment on above: Performed By: #### C BC #### [facility] [address] [place] [address] Dr. Danitza Cramer IG % 0.5 % Normal 0.0-0.5 [facility] Comment on above: Performed By: #### C BC #### [facility] [address] [place] [address] Dr. Danitza Cramer LYMPH # 1.1 103/ul Critically low 1.2-3.8 [facility] Comment on above: Performed By: #### C BC #### [facility] [address] [place] [address] Dr. Danitza Cramer Lymphocytes/100 WBC (Bld) 14.7 % Critically low 20.5-60.0 [facility] Comment on above: Performed By: #### C BC #### [facility] [address] [place] [address] Dr. Danitza Cramer MANUAL DIFF REQ NO Normal [facility] Comment on above: Performed By: #### C BC #### [facility] [address] [place] [address] Dr. Danitza Cramer MCH (RBC) [Entitic mass] 30.8 pg Normal 26.7-34.0 [facility] Comment on above: Performed By: #### C BC #### [facility] [address] [place] [address] Dr. Danitza Cramer MCHC (RBC) [Mass/Vol] 32.2 g/dL Normal 29.9-35.2 [facility] Comment on above: Performed By: #### C BC #### [facility] [address] [place] [address] Dr. Danitza Cramer MCV (RBC) [Entitic vol] 95.6 fL Normal 81.0-99.0 [facility] Comment on above: Performed By: #### C BC #### [facility] [address] [place] [address] Dr. Danitza Cramer MONO # 0.5 103/ul Normal 0.3-0.8 [facility] Comment on above: Performed By: #### C BC #### [facility] [address] [place] [address] Dr. Danitza Cramer Monocytes/100 WBC (Bld) 5.8 % Normal 1.7-12.0 [facility] Comment on above: Performed By: #### C BC #### [facility] [address] [place] [address] Dr. Danitza Cramer NEUT # 6.0 103/ul Normal 1.4-6.5 [facility] Comment on above: Performed By: #### C BC #### [facility] [address] [address] [address] Danitza Cramer Neutrophils/100 WBC (Bld) 77.4 % Critically high 43.0-75.0 [facility] Comment on above: Performed By: #### C BC #### [facility] [address] [address] [address] Danitza Cramer Platelet mean volume (Bld) [Entitic vol] 9.7 fL Normal 9.5-13.5 [facility] Comment on above: Performed By: #### C BC #### [facility] [address] [place] [address] Dr. Danitza Cramer PLT 231 103/ul Normal 150-450 [facility] Comment on above: Performed By: #### C BC #### [facility] [address] [place] [address] Dr. Danitza Cramer RBC 4.29 106/ul Normal 4.20-5.40 [facility] Comment on above: Performed By: #### C BC #### [facility] [address] [place] [address] Dr. Danitza Cramer WBC 7.7 103/ul Normal 4.0-11.0 [facility] Comment on above: Performed By: #### C BC #### [facility] [address] [place] [address] Dr. Danitza Cramer LIVER PROFILEon 01-22-2023 Albumin [Mass/Vol] 4.0 g/dL Normal 3.4-5.0 [facility] Comment on above: Performed By: #### L SHAJI BMP #### [facility] [address] [place] [address] Dr. Danitza Cramer Albumin/Globulin [Mass ratio] 1.1 {ratio} Normal [facility] Comment on above: Performed By: #### L SHAJI, BMP #### [facility] [address] [address] [address] Danitza Cramer ALP [Catalytic activity/Vol] 162 U/L Critically high 46-116 [facility] Comment on above: Performed By: #### L IVER, BMP #### [facility] [address] [address] [address] Danitza Cramer ALT [Catalytic activity/Vol] 16 U/L Normal 14-59 [facility] Comment on above: Performed By: #### L IVER, BMP #### [facility] [address] [address] [address] Danitza Cramer AST [Catalytic activity/Vol] 11 U/L Critically low 15-37 [facility] Comment on above: Performed By: #### L IVER, BMP #### [facility] [address] [place] [address] Dr. Danitza Cramer BILI, CONJUGATED 0.2 mg/dL Normal 0.0-0.2 [facility] Comment on above: Performed By: #### L IVER, BMP #### [facility] [address] [place] [address] Dr. Danitza Cramer Bilirubin [Mass/Vol] 0.6 mg/dL Normal 0.2-1.0 [facility] Comment on above: Performed By: #### L IVER, BMP #### [facility] [address] [address] [address] Danitza Cramer Globulin (S) [Mass/Vol] 3.6 g/dL Normal [facility] Comment on above: Performed By: #### L IVER, BMP #### [facility] [address] [address] [address] Danitza Cramer Protein [Mass/Vol] 7.6 g/dL Normal 6.4-8.2 [facility] Comment on above: Performed By: #### L IVER, BMP #### [facility] [address] [address] [address] Danitza Cramer PROF CHEM 8 (BAS METB)on Anion gap [Moles/Vol] 14.2 mmol/L Normal [facility] Comment on above: Performed By: #### L IVER, BMP #### [facility] [address] [place] [address] Dr. Danitza Cramer Calcium [Mass/Vol] 9.5 mg/dL Normal 8.5-10.1 [facility] Comment on above: Performed By: #### L SHAJI, BMP #### [facility] [address] [address] [address] Danitza Cramer Chloride [Moles/Vol] 109 mmol/L Critically high 98-107 [facility] Comment on above: Performed By: #### L SHAJI, BMP #### [facility] [address] [address] [address] Danitza Cramer CO2 [Moles/Vol] 24.0 mmol/L Normal 21.0-32.0 [facility] Comment on above: Performed By: #### Lizet GIRARD, BMP #### [facility] [address] [place] [address] Dr. Danitza Cramer Creatinine [Mass/Vol] 1.03 mg/dL Critically high 0.55-1.02 [facility] Comment on above: Performed By: #### Lizet GIRARD, BMP #### [facility] [address] [place] [address] Dr. Danitza Cramer EGFR-AF CHILEAN >60 Normal >=60 [facility] Comment on above: Performed By: #### Lizet GIRARD, BMP #### [facility] [address] [place] [address] Dr. Danitza Cramer EGFR-NON AF CHILEAN 51 mL/min/1.73m2 Critically low >=60 [facility] Comment on above: Performed By: #### Lizet GIRARD, BMP #### [facility] [address] [place] [address] Dr. Danitza Cramer Glucose [Mass/Vol] 105 mg/dL Normal 74-106 [facility] Comment on above: Performed By: #### L SHAJI, BMP #### [facility] [address] [place] [address] Dr. Danitza Cramer Potassium [Moles/Vol] 4.2 mmol/L Normal 3.5-5.1 [facility] Comment on above: Performed By: #### L SHAJI, BMP #### [facility] [address] [place] [address] Dr. Danitza Cramer Sodium [Moles/Vol] 143 mmol/L Normal 136-145 [facility] Comment on above: Performed By: #### L SHAJI, BMP #### [facility] [address] [place] [address] Dr. Danitza Cramer Urea nitrogen [Mass/Vol] 25.0 mg/dL Critically high 7.0-18.0 [facility] Comment on above: Performed By: #### L SHAJI, BMP #### [facility] [address] [place] [address] Dr. Danitza Cramer Urea nitrogen/Creatinine [Mass ratio] 24.3 mg/mg Normal [facility] Comment on above: Performed By: #### L SHAJI BMP #### [facility] [address] [place] [address] Dr. Danitza Cramer CULTURE URINEon 11-14-2022 CULTURE URINE Culture Observations : LIGHT GROWTH OF MIXED GENITAL JANELL. NO POTENTIAL PATHOGENS SEEN. Normal [facility] Comment on above: Performed By: #### U RCX #### [facility] [address] [place] [address] Dr. Danitza Cramer UA RANDOM W/MICROSCOPICon BACTERIA NONE SEEN Normal NONE SEEN [facility] Comment on above: Performed By: #### F T4 #### [facility] [address] [place] [address] Dr. Danitza Cramer Bilirubin Ql (U) Negative Normal NEGATIVE [facility] Comment on above: Performed By: #### F T4 #### [facility] [address] [place] [address] Dr. Danitza Cramer CAST NONE SEEN Normal NONE SEEN [facility] Comment on above: Performed By: #### F T4 #### [facility] [address] [place] [address] Dr. Danitza Cramer Clarity (U) CLEAR Normal CLEAR [facility] Comment on above: Performed By: #### F T4 #### [facility] [address] [place] [address] Dr. Danitza Cramer Color (U) YELLOW Normal YELLOW [facility] Comment on above: Performed By: #### F T4 #### [facility] [address] [place] [address] Dr. Danitza Cramer Crystals LM Nom (Urine sed) NONE SEEN Normal NONE SEEN [facility] Comment on above: Performed By: #### F T4 #### [facility] [address] [address] [address] Danitza Cramer Epithelial cells LM Ql (Urine sed) NONE SEEN Normal NONE SEEN /RARE [facility] Comment on above: Performed By: #### F T4 #### [facility] [address] [place] [address] Dr. Danitza Cramer Glucose Ql (U) Negative Normal NEGATIVE [facility] Comment on above: Performed By: #### F T4 #### [facility] [address] [place] [address] Dr. Danitza Cramer Hemoglobin Ql (U) Negative Normal NEGATIVE [facility] Comment on above: Performed By: #### F T4 #### [facility] [address] [place] [address] Dr. Danitza Cramer Ketones Ql (U) Negative Normal NEGATIVE [facility] Comment on above: Performed By: #### F T4 #### [facility] [address] [place] [address] Dr. Danitza Cramer LEUKOCYTES SMALL Abnormal NEGATIVE [facility] Comment on above: Performed By: #### F T4 #### [facility] [address] [place] [address] Dr. Danitza Cramer MUCOUS NONE SEEN Normal NONE SEEN [facility] Comment on above: Performed By: #### F T4 #### [facility] [address] [place] [address] Dr. Danitza Cramer Nitrite Ql (U) Negative Normal NEGATIVE [facility] Comment on above: Performed By: #### F T4 #### [facility] [address] [place] [address] Dr. Danitza Cramer pH (U) 6.0 [pH] Normal 5-9 [facility] Comment on above: Performed By: #### F T4 #### [facility] [address] [place] [address] Dr. Danitza Cramer RBC 0-2 Normal 0-2 [facility] Comment on above: Performed By: #### F T4 #### [facility] [address] [place] [address] Dr. Danitza Cramer SPEC GRAVITY 1.020 Normal 1.005-<=1.025 [facility] Comment on above: Performed By: #### F T4 #### [facility] [address] [place] [address] Dr. Danitza Cramer UA PROTEIN Negative Normal NEGATIVE/ TRACE [facility] Comment on above: Performed By: #### F T4 #### [facility] [address] [place] [address] Dr. Danitza Cramer Urobilinogen Qn (U) 0.2 {Mykel'U}/dL Normal 0.2 - 1. 0 [facility] Comment on above: Performed By: #### F T4 #### [facility] [address] [place] [address] Dr. Danitza Cramer WBC 0-2 Abnormal NONE SEEN [facility] Comment on above: Performed By: #### F T4 #### [facility] [address] [place] [address] Dr. Danitza Cramer CBC AUTO DIFFon 07-17-2022 BASO # 0.0 103/ul Normal 0.0-0.1 [facility] Comment on above: Performed By: #### C BC #### [facility] [address] [place] [address] Dr. Danitza Cramer Basophils/100 WBC (Bld) 0.6 % Normal 0.2-2.0 [facility] Comment on above: Performed By: #### C BC #### [facility] [address] [place] [address] Dr. Danitza Cramer EO # 0.1 103/ul Normal 0.0-0.7 [facility] Comment on above: Performed By: #### C BC #### [facility] [address] [place] [address] Dr. Danitza Cramer Eosinophils/100 WBC (Bld) 1.3 % Normal 0.9-7.0 [facility] Comment on above: Performed By: #### C BC #### [facility] [address] [address] [address] Danitza Cramer Erythrocyte distribution width (RBC) [Ratio] 13.9 % Normal 11.0-15.0 [facility] Comment on above: Performed By: #### C BC #### [facility] [address] [place] [address] Dr. Danitza Cramer Hematocrit (Bld) [Volume fraction] 40.4 % Normal 36.0-48.0 [facility] Comment on above: Performed By: #### C BC #### [facility] [address] [place] [address] Dr. Danitza Cramer Hemoglobin (Bld) [Mass/Vol] 12.8 g/dL Normal 12.0-16.0 [facility] Comment on above: Performed By: #### C BC #### [facility] [address] [place] [address] Dr. Danitza Cramer IG # 0.04 10e3/ul Critically high 0.00-0.03 [facility] Comment on above: Performed By: #### C BC #### [facility] [address] [place] [address] Dr. Danitza Cramer IG % 0.6 % Critically high 0.0-0.5 [facility] Comment on above: Performed By: #### C BC #### [facility] [address] [place] [address] Dr. Danitza Cramer LYMPH # 1.0 103/ul Critically low 1.2-3.8 [facility] Comment on above: Performed By: #### C BC #### [facility] [address] [place] [address] Dr. Danitza Cramer Lymphocytes/100 WBC (Bld) 14.4 % Critically low 20.5-60.0 [facility] Comment on above: Performed By: #### C BC #### [facility] [address] [place] [address] Dr. Danitza Cramer MANUAL DIFF REQ NO Normal [facility] Comment on above: Performed By: #### C BC #### [facility] [address] [address] [address] Danitza Cramer MCH (RBC) [Entitic mass] 29.9 pg Normal 26.7-34.0 [facility] Comment on above: Performed By: #### C BC #### [facility] [address] [place] [address] Dr. Danitza Cramer MCHC (RBC) [Mass/Vol] 31.7 g/dL Normal 29.9-35.2 [facility] Comment on above: Performed By: #### C BC #### [facility] [address] [place] [address] Dr. Danitza Cramer MCV (RBC) [Entitic vol] 94.4 fL Normal 81.0-99.0 [facility] Comment on above: Performed By: #### C BC #### [facility] [address] [place] [address] Dr. Danitza Cramer MONO # 0.5 103/ul Normal 0.3-0.8 [facility] Comment on above: Performed By: #### C BC #### [facility] [address] [place] [address] Dr. Danitza Cramer Monocytes/100 WBC (Bld) 6.8 % Normal 1.7-12.0 [facility] Comment on above: Performed By: #### C BC #### [facility] [address] [place] [address] Dr. Danitza Cramer NEUT # 5.4 103/ul Normal 1.4-6.5 [facility] Comment on above: Performed By: #### C BC #### [facility] [address] [place] [address] Dr. Danitza Cramer Neutrophils/100 WBC (Bld) 76.3 % Critically high 43.0-75.0 [facility] Comment on above: Performed By: #### C BC #### [facility] [address] [place] [address] Dr. Danitza Cramer Platelet mean volume (Bld) [Entitic vol] 10.9 fL Normal 9.5-13.5 [facility] Comment on above: Performed By: #### C BC #### [facility] [address] [address] [address] Danitza Cramer PLT 260 103/ul Normal 150-450 [facility] Comment on above: Performed By: #### C BC #### [facility] [address] [address] [address] Danitza Cramer RBC 4.28 106/ul Normal 4.20-5.40 [facility] Comment on above: Performed By: #### C BC #### [facility] [address] [place] [address] Dr. Danitza Cramer WBC 7.1 103/ul Normal 4.0-11.0 [facility] Comment on above: Performed By: #### C BC #### [facility] [address] [place] [address] Dr. Danitza Cramer FREE T3on 07-17-2022 FREE T3 2.21 pg/mlL Normal 2.18-3.98 [facility] Comment on above: Performed By: #### F T4 #### [facility] [address] [place] [address] Dr. Danitza Cramer FREE T4on 07-17-2022 Free T4 [Mass/Vol] 1.67 ng/dL Critically high 0.76-1.46 [facility] Comment on above: Performed By: #### F T4 #### [facility] [address] [place] [address] Dr. Danitza Cramer GLYCOHEMOGLOBIN A1Con 2021 ADA RECOMMENDATION SEE BELOW Normal [facility] Comment on above: Result Comment: ADA RECOMMENDED LIMIT 4.0 - 6.0 ADA THERAPEUTIC TARGET < 7.0 ACTION SUGGESTED > 7.0 Performed By: #### A 1C #### [facility] [address] [place] [address] Dr. Danitza Cramer Glucose [Mass/Vol] 111 mg/dL Normal [facility] Comment on above: Performed By: #### A 1C #### [facility] [address] [place] [address] Dr. Danitza Cramer HbA1c (Bld) [Mass fraction] 5.5 % Normal 4.5-6.2 [facility] Comment on above: Performed By: #### A 1C #### [facility] [address] [place] [address] Dr. Danitza Cramer PROF CHEM 8 (BAS METB)on Anion gap [Moles/Vol] 16.8 mmol/L Normal [facility] Comment on above: Performed By: #### F T3, TSH, BMP #### [facility] [address] [place] [address] Dr. Danitza Cramer Calcium [Mass/Vol] 9.2 mg/dL Normal 8.5-10.1 [facility] Comment on above: Performed By: #### F T3, TSH, BMP #### [facility] [address] [place] [address] Dr. Danitza Cramer Chloride [Moles/Vol] 106 mmol/L Normal 98-107 [facility] Comment on above: Performed By: #### F T3, TSH, BMP #### [facility] [address] [place] [address] Dr. Danitza Cramer CO2 [Moles/Vol] 21.4 mmol/L Normal 21.0-32.0 [facility] Comment on above: Performed By: #### F T3, TSH, BMP #### [facility] [address] [place] [address] Dr. Danitza Cramer Creatinine [Mass/Vol] 1.13 mg/dL Critically high 0.55-1.02 [facility] Comment on above: Performed By: #### F T3, TSH, BMP #### [facility] [address] [place] [address] Dr. Danitza Cramer EGFR-AF CHILEAN 56 mL/min/1.73m2 Critically low >=60 [facility] Comment on above: Performed By: #### F T3, TSH, BMP #### [facility] [address] [place] [address] Dr. Danitza Cramer EGFR-NON AF CHILEAN 46 mL/min/1.73m2 Critically low >=60 [facility] Comment on above: Performed By: #### F T3, TSH, BMP #### [facility] [address] [address] [address] Danitza Cramer Glucose [Mass/Vol] 114 mg/dL Critically high 74-106 [facility] Comment on above: Performed By: #### F T3, TSH, BMP #### [facility] [address] [address] [address] Danitza Cramer Potassium [Moles/Vol] 4.2 mmol/L Normal 3.5-5.1 [facility] Comment on above: Performed By: #### F T3, TSH, BMP #### [facility] [address] [address] [address] Danitza Cramer Sodium [Moles/Vol] 140 mmol/L Normal 136-145 [facility] Comment on above: Performed By: #### F T3, TSH, BMP #### [facility] [address] [address] [address] Danitza Cramer Urea nitrogen [Mass/Vol] 25.0 mg/dL Critically high 7.0-18.0 [facility] Comment on above: Performed By: #### F T3, TSH, BMP #### [facility] [address] [address] [address] Danitza Cramer Urea nitrogen/Creatinine [Mass ratio] 22.1 mg/mg Normal [facility] Comment on above: Performed By: #### F T3, TSH, BMP #### [facility] [address] [address] [address] Danitza Cramer TSHon 07-17-2022 TSH 0.058 uIU/mL Critically low 0.358-3.740 [facility] Comment on above: Performed By: #### F T4 #### [facility] [address] [place] [address] Dr. Danitza Cramer Vital Signs Date Time Vital Sign Value Performing Clinician Facility 08-06-2024 11:42-0400 Body height 154.9 cm Isak Rojas MD Work Phone: [facility] 08-06-2024 11:42-0400 Body mass index (BMI) [Ratio] 30.04 kg/m2 Isak Rojas MD Work Phone: [facility] 08-06-2024 11:42-0400 Body temperature 97.11 [degF] Isak Rojas MD Work Phone: [facility] 08-06-2024 11:42-0400 Body weight 72.12 kg Isak Rojas MD Work Phone: [facility] 08-06-2024 11:42-0400 Diastolic blood pressure 52 mm[Hg] Isak Rojas MD Work Phone: [facility] 08-06-2024 11:42-0400 Heart rate 71 /min Isak Rojas MD Work Phone: [facility] 08-06-2024 11:42-0400 Respiratory rate 20 /min Isak Rojas MD Work Phone: [facility] 08-06-2024 11:42-0400 SaO2% (BldA) [Mass fraction] 99 % Isak Rojas MD Work Phone: [facility] 08-06-2024 11:42-0400 Systolic blood pressure 108 mm[Hg] Isak Rojas MD Work Phone: [facility] 06-09-2024 10:59-0400 Body height 154.9 cm Isak Rojas MD Work Phone: [facility] 06-09-2024 10:59-0400 Body mass index (BMI) [Ratio] 29.66 kg/m2 Isak Rojas MD Work Phone: [facility] 06-09-2024 10:59-0400 Body temperature 97.81 [degF] Isak Rojas MD Work Phone: [facility] 06-09-2024 10:59-0400 Body weight 71.22 kg Isak Rojas MD Work Phone: [facility] 06-09-2024 10:59-0400 Diastolic blood pressure 74 mm[Hg] Isak Rojas MD Work Phone: [facility] 06-09-2024 10:59-0400 Heart rate 66 /min Isak Rojas MD Work Phone: [facility] 06-09-2024 10:59-0400 Respiratory rate 20 /min Isak Rojas MD Work Phone: [facility] 06-09-2024 10:59-0400 SaO2% (BldA) [Mass fraction] 97 % Isak Rojas MD Work Phone: [facility] 06-09-2024 10:59-0400 Systolic blood pressure 140 mm[Hg] Isak Rojas MD Work Phone: [facility] 09-27-2023 17:05-0500 Body height 153.67 cm Jacinta Verna Other [facility] Other 09-27-2023 17:05-0500 Body mass index (BMI) [Ratio] 28.81 kg/m2 Jacinta Castelanmond Other [facility] Other 09-27-2023 17:05-0500 Body temperature 98.6 [degF] Jacinta Castelanmond Other [facility] Other 09-27-2023 17:05-0500 Body weight 68.04 kg Jacinta Verna Other [facility] Other 09-27-2023 17:05-0500 Respiratory rate 18 /min Jacinta Castelanmond Other [facility] Other 09-27-2023 17:05-0500 SaO2% (BldA) [Mass fraction] 98 % Jacinta Verna Other [facility] Other 08-07-2022 14:14-0400 Body height 157.4 cm Koby Juarez APRN.CNP Work Phone: [facility] 08-07-2022 14:14-0400 Body temperature 97.2 [degF] [employer] Work Phone: [facility] 08-07-2022 14:14-0400 Body weight 77.11 kg Van Fagert [employer] Work Phone: [facility] 08-07-2022 14:14-0400 Diastolic blood pressure 82 mm[Hg] Van F[employer]ert [employer] Work Phone: [facility] 08-07-2022 14:14-0400 Heart rate 78 /min Van Fagert [employer] Work Phone: [facility] 08-07-2022 14:14-0400 Respiratory rate 14 /min Van [employer]ert [employer] Work Phone: [facility] 08-07-2022 14:14-0400 SaO2% (BldA) [Mass fraction] 100 % Van Fagert [employer] Work Phone: [facility] 08-07-2022 14:14-0400 Systolic blood pressure 136 mm[Hg] Van F[employer]ert [employer] Work Phone: [facility] Encounters Encounter Date Encounter Type Care Provider Facility Start: 08-06-2024 End: 08-06-2024 Bamboo flowsheet Isak Rojas MD Work Phone: [facility] Start: 08-06-2024 End: 08-06-2024 Bamboo flowsheet Isak Rojas MD Work Phone: [facility] Start: 08-06-2024 End: 08-06-2024 Clinisync Result Encounter Isak Rojas MD Work Phone: [facility] Unsolicited Start: 08-06-2024 End: 08-06-2024 Patient encounter procedure Isak Rojas MD Work Phone: [facility] Work Phone: Start: 08-06-2024 End: 08-06-2024 Postop follow up visit related to original px Isak Rojas MD Work Phone: [facility] Comment on above: Medicare annual well ness visit, subsequent (Primary Dx); Essential hypertension, benign (CMS/HCC); Prediabetes; Adult hypothyroidism (CMS/HCC); Encounter for long-term (current) use of medications; Class 1 obesity due to excess calories with serious comorbidity and body mass index (BMI) of 30.0 to 30.9 in adult; Need for immunization against influenza; Age-related osteoporosis without current pathological fracture (CMS/HCC) Start: 08-06-2024 End: 08-06-2024 ambulatory ISAK ROJAS Not Available Start: 07-28-2024 End: 07-28-2024 Refill Isak Rojas MD Work Phone: [facility] Comment on above: Adult hypothyroidism (CMS/HCC) (Primary Dx); Gastroesophageal reflux disease without esophagitis Start: 06-29-2024 End: 06-29-2024 Refill Isak Rojas MD Work Phone: [facility] Comment on above: Migraine without aur a and without status migrainosus, not intractable (CMS/HCC) Start: 06-09-2024 End: 06-09-2024 Bamjulietteo frank Rojas MD Work Phone: [facility] Start: 06-09-2024 End: 06-09-2024 Bamrao flowsely Rojas MD Work Phone: [facility] Start: 06-09-2024 End: 06-09-2024 ambulatory ISAK ROJAS Not Available Start: 06-09-2024 End: 06-09-2024 Office outpatient visit 25 minutes Isak Rojas MD Work Phone: [facility] Comment on above: Essential hypertensi on, benign (CMS/HCC) (Primary Dx); DDD (degenerative disc disease), lumbar; Osteoarthritis of lower legs, bilateral; Migraine without aura and with status migrainosus, not intractable (CMS/HCC) Start: 06-03-2024 End: 06-04-2024 Emergency department patient visit MAXIMILIAN MIRBORIS [facility] Start: 03-11-2024 End: 03-11-2024 ambulatory ERWIN Gu MCLEOD [facility] Start: 03-10-2024 End: 04-06-2024 ambulatory THANG Small [facility] Start: 02-05-2024 End: 03-07-2024 [facility] Start: 01-06-2024 Telephone encounter Werner Melendrez MD Work Phone: [facility] Comment on above: Follow Up Start: 01-06-2024 End: 02-05-2024 ambulatory THANG Small [facility] Start: 12-17-2023 End: 12-17-2023 ambulatory ISAK ROJAS Not Available Start: 12-10-2023 End: 01-06-2024 ambulatory THANG Staci [facility] Start: 12-09-2023 End: 12-10-2023 [facility] Start: 12-08-2023 End: 12-10-2023 Emergency department patient visit MAXIMILIAN D [facility] Start: 12-08-2023 End: 12-09-2023 [facility] Start: 12-03-2023 Patient Update Koby Juarez APR, N.CNP Work Phone: [facility] Comment on above: Orders Start: 09-27-2023 End: 09-27-2023 ambulatory Jacinta Gillespie Other [facility] Other Start: 09-27-2023 Office outpatient vi sit 15 minutes Jacinta Gillespie [facility] Start: 09-18-2023 End: 09-18-2023 ambulatory Shaikh Miranda Facility:[facility] Start: 09-18-2023 End: 09-18-2023 ambulatory MD Isak Rojas Work Phone: [facility] Work Phone: Start: 09-18-2023 End: 09-18-2023 Patient encounter procedure MD Isak Rojas Work Phone: [facility] [place] Work Phone: Start: 08-16-2023 End: 08-16-2023 ambulatory Shaikh Miranda Facility:[facility] Start: 08-16-2023 End: 08-16-2023 ambulatory MD Isak Rojas Work Phone: [facility] Work Phone: Start: 08-16-2023 End: 08-16-2023 Patient encounter procedure MD Isak Rojas Work Phone: [facility] Start: 02-13-2023 End: 02-14-2023 ambulatory ISAK ROJAS Facility:[facility] Start: 01-22-2023 End: 01-23-2023 ambulatory ISAK ROJAS Facility:[facility] Start: 11-14-2022 End: 11-15-2022 ambulatory ISAK A MEGHANR Facility:[facility] Start: 08-23-2022 End: 08-23-2022 ambulatory [facility] Start: 08-07-2022 End: 08-07-2022 Patient encounter procedure Koby Jagdeepkatie WHARTON Work Phone: [facility] Comment on above: Vertebrobasilar doli choectasia (Primary Dx); Unruptured cerebral aneurysm Start: 07-27-2022 Telephone encounter Werner Melendrez MD Work Phone: [facility] Comment on above: Appointment Reschedu led Start: 07-17-2022 End: 07-18-2022 ambulatory ISAK CHRISTIANSONR Facility:[facility] Start: 07-03-2022 End: 07-04-2022 ambulatory ISAK A MEGHANR Facility:[facility] Procedures Date Procedure Procedure Detail Performing Clinician Start: 08-06-2024 ALL CBC WITH AUTO DIFF Isak Rojas MD Work Phone: Start: 03-11-2024 Follow-up visit Follow-up ERWIN MCLEOD Start: 09-18-2023 MRI of head MD Isak gomes Work Phone: Start: 09-18-2023 Pelvis X-ray MD Isak gomes Work Phone: Start: 08-16-2023 Plain chest X-ray MD Pedro Rojas Work Phone: Plan of Treatment Date Care Activity Detail Author Start: 05-28-2025 Diabetes Screening Diabetes Screenchar g [facility] Start: 02-01-2025 End: 02-01-2025 Patient encounter procedure 02/01/2025 10:30 AM EDT Office Visit [facility] [address] [place] [phone] Isak Rojas MD [address] [place] [phone] [facility] Start: 12-22-2024 DIABETES SCREEN DIABETES SCREEN [facility] Start: 08-11-2024 End: 08-11-2024 Patient encounter procedure 08/11/2024 2:00 PM EST Office Visit [facility] [address] [place] [phone] Isak Rojas MD [address] [place] [phone] [facility] Start: 08-06-2024 End: 08-06-2025 Basic metabolic 1998 panel - Serum or Plasma Basic metabolic panel Lab Routine Essential hypertension, benign (CMS/HCC) Expected: 08/06/2024 (Approximate), Expires: 08/06/2025 [facility] Comment on above: Expected: 08/06/2024 (Approximate), Expires: 08/06/2025 Start: 08-06-2024 End: 08-06-2025 CBC W Auto Differential panel - Blood CBC and differential Lab Routine Encounter for long-term (current) use of medications Expected: 08/06/2024 (Approximate), Expires: 08/06/2025 [facility] Comment on above: Expected: 08/06/2024 (Approximate), Expires: 08/06/2025 Start: 08-06-2024 End: 08-06-2025 Hemoglobin A1c/Hemoglobin.total in Blood Hemoglobin A1c Lab Routine Prediabetes Expected: 08/06/2024 (Approximate), Expires: 08/06/2025 [facility] Work Phone: Comment on above: Expected: 08/06/2024 (Approximate), Expires: 08/06/2025 Start: 08-06-2024 End: 08-06-2025 Hepatic function 2000 panel - Serum or Plasma Hepatic function panel Lab Routine Encounter for long-term (current) use of medications Expected: 08/06/2024 (Approximate), Expires: 08/06/2025 [facility] Comment on above: Expected: 08/06/2024 (Approximate), Expires: 08/06/2025 Start: 08-06-2024 End: 08-06-2025 Lipid 1996 panel - Serum or Plasma Lipid panel Lab Routine Class 1 obesity due to excess calories with serious comorbidity and body mass index (BMI) of 30.0 to 30.9 in adult Expected: 08/06/2024 (Approximate), Expires: 08/06/2025 [facility] Comment on above: Expected: 08/06/2024 (Approximate), Expires: 08/06/2025 Start: 08-06-2024 End: 08-06-2025 Thyrotropin [Units/volume] in Serum or Plasma TSH Lab Routine Adult hypothyroidism (CMS/HCC) Expected: 08/06/2024 (Approximate), Expires: 08/06/2025 [facility] Comment on above: Expected: 08/06/2024 (Approximate), Expires: 08/06/2025 Start: 08-06-2024 End: 08-06-2025 Thyroxine (T4) free [Mass/volume] in Serum or Plasma T4, free Lab Routine Adult hypothyroidism (CMS/HCC) Expected: 08/06/2024 (Approximate), Expires: 08/06/2025 [facility] Comment on above: Expected: 08/06/2024 (Approximate), Expires: 08/06/2025 Start: 08-06-2024 End: 08-06-2024 Patient encounter procedure 08/06/2024 11:30 AM EDT Office Visit [facility] [address] [place] [phone] Isak Rojas MD [address] [place] [phone] Arrived [facility] Comment on above: Arrived Start: 06-07-2024 Influenza vaccination C [facility] Start: 10-07-2023 Advance Directive Discussion Advance Directive Discussion [facility] Start: 10-07-2023 Depression Assessment Depression Ass essment [facility] Start: 06-07-2023 Covid-19 Vaccine () Covid-19 Vaccine ( season) [facility] Start: 06-07-2023 Influenza vaccination Influenza Vacc ine (#1) [facility] Start: 09-28-2022 Urine microalbumin profile DTaP,Tdap,Td Vaccine (2 - Td or Tdap) [facility] Start: 06-07-2022 Influenza vaccination INFLUENZA (#1) [facility] Start: 10-07-2021 ADVANCE DIRECTIVE DISCUSSION ADVANCE DIRECTIVE DISCUSSION [facility] Start: 10-07-2021 DEPRESSION ASSESSMENT DEPRESSION ASS ESSMENT [facility] Start: 09-23-2021 COVID-19 VACCINE (4 - Booster for Pfizer series) COVID-19 VACCINE (4 - Booster for Pfizer series) [facility] Start: 2005 BONE DENSITY BONE DENSITY [facility] Start: 2005 PNEUMOCOCCAL: 65+ (1 - PCV) PNEUMOCOCCAL: 65+ (1 - PCV) [facility] Start: 2005 Screening for osteoporosis Bone Density Screening [facility] Start: 2000 RSV Vaccine (1 - 1-d ose 60+ series) RSV Vaccine (1 - 1-dose 60+ series) [facility] Start: 1990 SHINGRIX VACCINE (1 of 2) SHINGRIX VACCINE (1 of 2) [facility] Start: 1985 DIABETES SCREEN DIABETES SCREEN [facility] Start: 1959 Urine microalbumin profile DTAP,TDAP,TD (1 - Tdap) [facility] Start: 03-13-1941 COVID-19 VACCINE (#1) COVID-19 VACCI NE (#1) [facility] Start: 1940 Medicare Annual Wellness (AWV) Medicare Annual Wellness (AWV) [facility] End: 01-01-2025 MRA Head vessels WO and W contrast IV MRA BRAIN WO/W IVCON Radiology Routine Unruptured cerebral aneurysm Nonruptured cerebral aneurysm 1 Occurrences starting 12/03/2023 until 01/01/2025 [facility] Work Phone: Comment on above: 1 Occurrences starti ng 12/03/2023 until 01/01/2025 [facility] Immun[facility] Immunization Date Immunization Notes Care Provider Fa cili 08-06-2024 influenza, seasonal, injectable, preservative free Isak Rojas MD Work Phone: [facility] 06-22-2023 influenza virus vacc ine, unspecified formulation Isak Rojas MD Work Phone: [facility] 09-20-2021 influenza virus vacc ine, unspecified formulation Koby Juarez APRN.CNP Work Phone: [facility] Payers Date Payer Category Payer Medicare [id number] 2023 Self-pay 2021 Private Health Insurance [employer] [id number] 2021 Unknown MMO MMO MEDICARE SUPPLEMENT [id number] 2021-Present [phone] [address] [place] [address] Indemnity [id number] 2005 Medicare [id number] 1959 Medicare [id number] 1959 Unknown [id number] 1940 Unknown [id number] 2.16.840.1.958531.3.579.2. 593 1940 Unknown [id number] 2.16.840.1.321433.3.579.2. 593 1940 Unknown [id number] 2.16.840.1.494509.3.579.2. 593 1940 Unknown [id number] 2.16.840.1.462432.3.579.2. 593 1940 Unknown [id number] 2.16.840.1.725046.3.579.2. 593 1940 Unknown [id number] 2.16.840.1.283811.3.579.2. 1286 1940 Unknown [id number] 2.16.840.1.177103.3.579.2. 1286 1940 Unknown [id number] 2.16.840.1.127043.3.579.2. 1286 1940 Unknown [id number] 2.16.840.1.188446.3.579.2. 1286 1940 Unknown [id number] 2.16.840.1.399902.3.579.2. 1286 1940 Unknown [id number] 2.16.840.1.127555.3.579.2. 1286 1940 Unknown [id number] 2.16.840.1.682439.3.579.2. 1286 1940 Unknown [id number] 2.16.840.1.338727.3.579.2. 1286 1940 Unknown [id number] 2.16.840.1.999056.3.579.2. 1286 1940 Unknown [id number] 2.16.840.1.064557.3.579.2. 1286 1940 Unknown [id number] 2.16.840.1.346672.3.579.2. 1286 1940 Unknown [id number] 2.16.840.1.986648.3.579.2. 1286 1940 Unknown [id number] 2.16.840.1.485400.3.579.2. 1259 1940 Unknown [id number] 2.16.840.1.501125.3.579.2. 1259 1940 Unknown [id number] 2.16.840.1.898514.3.579.2. 1259 [facility] Health [facility] [id number] Unknown [id number] 2.16.840.1.076852.3.579.2. 531 Unknown [id number] 2.16.840.1.106078.3.579.2. 531 Social History Date Type Detail Facility Start: 02-24-2018 End: 05-21-2023 Tobacco smoking status [facility] Never smoked tobacco [facility] Start: 02-24-2018 End: 05-21-2023 Tobacco use and exposure Smokeless tobacco non-user [facility] Start: 1940 Sex Assigned At Not on file C [facility] Start: 08-13-2022 Alcohol intake Ex-drinker (finding) [facility] Start: 07-28-2022 End: 08-07-2022 Exposure to SARS-CoV-2 (event) Not sure [facility] Start: 1940 Sex Assigned At Female [facility] Start: 08-13-2022 End: 06-09-2024 Sex Assigned At [facility] Start: 08-13-2022 End: 06-09-2024 History of Social function [facility] Adult Depression Screening Assessment 2 [facility] Start: 12-17-2023 End: 06-09-2024 Alcoholic beverage intake Current drinker of alcohol (finding) [facility] Start: 05-17-2023 Alcohol Comment Alcohol: 1 or 2 drinks on a typical day/monthly or less Caffeine: 2-3 cups/day [facility] Clinical Notes 07-27-2022 to 08-06-2024 Isak Rojas MD - 08/06/2024 12:17 PM Nadia Rojas MD - 08/06/2024 11:30 AM Nadia Rojas MD - 06/09/2024 11:24 AM Nadia Rojas MD - 06/09/2024 11:24 AM EDT Note Date & Type Note Facility 08-06-2024 History of Presen t illness Narrative Associated Problem(s): Medicare annual wellness visit, subsequent Due for labs. Discussed proper diet and regular aerobic exercise. Need aerobic exercise 5-6 days a week for 30 minutes at a time. Smaller portions and limit total calories. Tetanus every 10 years. Advised not to smoke. Images from the original note were not included. Subjective Patient ID: Diana Franco is a 83 y.o. female who presents for Medicare Annual Wellness Visit Subsequent (Wellness/). Presents for medicare annual wellness visit. Patient feels well today. Weight up 5 pounds over the past year. Not as active and uses a walker. No regular exercise. Tries to watch diet and eat healthy. Increased fruits and vegetables. Smaller portions and limits snacking. Tries to limit total daily calories. Due for labs. Review of Systems Respiratory: Negative for cough, shortness of breath and wheezing. Cardiovascular: Negative for chest pain and palpitations. Gastrointestinal: Negative for abdominal pain, diarrhea, nausea and vomiting. Genitourinary: Negative for dysuria. Objective Physical Exam Constitutional: General: She is not in acute distress. Appearance: Normal appearance. HENT: Head: Normocephalic. Right Ear: Tympanic membrane normal. Left Ear: Tympanic membrane normal. Eyes: Extraocular Movements: Extraocular movements intact. Pupils: Pupils are equal, round, and reactive to light. Cardiovascular: Rate and Rhythm: Normal rate and regular rhythm. Heart sounds: No murmur heard. No friction rub. No gallop. Pulmonary: Effort: Pulmonary effort is normal. Breath sounds: Normal breath sounds. No wheezing, rhonchi or rales. Abdominal: General: Bowel sounds are normal. There is no distension. Palpations: Abdomen is soft. Tenderness: There is no abdominal tenderness. There is no guarding or rebound. Musculoskeletal: General: No swelling or tenderness. Cervical back: Neck supple. Right lower leg: No edema. Left lower leg: No edema. Skin: Findings: No erythema or rash. Neurological: General: No focal deficit present. Mental Status: She is alert and oriented to person, place, and time. Cranial Nerves: No cranial nerve deficit. Motor: No weakness. Gait: Gait normal. Assessment/Plan Problem List Items Addressed This Visit Essential hypertension, benign (CMS/HCC) Relevant Orders Basic metabolic panel Adult hypothyroidism (CMS/HCC) Relevant Orders TSH T4, free Prediabetes Relevant Orders Hemoglobin A1c Medicare annual wellness visit, subsequent - Primary Due for labs. Discussed proper diet and regular aerobic exercise. Need aerobic exercise 5-6 days a week for 30 minutes at a time. Smaller portions and limit total calories. Tetanus every 10 years. Advised not to smoke. Encounter for long-term (current) use of medications Relevant Orders CBC and differential Hepatic function panel Class 1 obesity due to excess calories with serious comorbidity and body mass index (BMI) of 30.0 to 30.9 in adult Relevant Orders Lipid panel Other Visit Diagnoses Need for immunization against influenza Relevant Orders Flu vaccine greater than or equal to 3 years old, preservative free IM (Completed) documented in this encounter [facility] 06-09-2024 History of Presen t illness Narrative Associated Problem(s): Osteoarthritis of lower legs, bilateral Pain tolerable with OTC and use PRN. Continue PT exercises. Associated Problem(s): Migraine without aura and with status migrainosus, not intractable (CMS/HCC) STEWART stable and continue topamax and inderal. Use zomig PRN. Associated Problem(s): Essential hypertension, benign (CMS/HCC) BP controlled and monitor PRN. Associated Problem(s): DDD (degenerative disc disease), lumbar Pain stable and need to perform home PT exercises. Use OTC PRN. If worsens may need injections. Images from the original note were not included. Subjective Patient ID: Diana Franco is a 83 y.o. female who presents for Follow-up (6m ). Follow up HTN, migraines, back pain, OA knee, and GERD. Patient to ER for weakness. No specific complaints but weakness and BP elevated. Labs normal and BP improved in ER. Stable today. Checking BP PRN and typically controlled. BP normal today. Taking medication daily and tolerating without side effects. Back pain stable. Mild pain in low back and across top hips. No radiation into gluteal region or down legs. At times unsteady when up and moving. Not performing home PT exercises. Using walker for ambulation. Using tylenol or motrin PRN and helps. Migraines improved. STEWART 2-4 times a month. Throbbing pain in entire head associated with photophobia, phonophobia and nausea. Using Zomig PRN which helps. Not having severe migraines. OA knee stable. Using wrap and performing PT exercises. Not unsteady or giving out. OTC helps with pain. Review of Systems Respiratory: Negative for cough, shortness of breath and wheezing. Cardiovascular: Negative for chest pain and palpitations. Gastrointestinal: Negative for abdominal pain, diarrhea, nausea and vomiting. Genitourinary: Negative for dysuria. Objective Physical Exam Constitutional: General: She is not in acute distress. Appearance: Normal appearance. HENT: Head: Normocephalic. Right Ear: Tympanic membrane normal. Left Ear: Tympanic membrane normal. Eyes: Extraocular Movements: Extraocular movements intact. Pupils: Pupils are equal, round, and reactive to light. Cardiovascular: Rate and Rhythm: Normal rate and regular rhythm. Heart sounds: No murmur heard. No friction rub. No gallop. Pulmonary: Effort: Pulmonary effort is normal. Breath sounds: Normal breath sounds. No wheezing, rhonchi or rales. Abdominal: General: Bowel sounds are normal. There is no distension. Palpations: Abdomen is soft. Tenderness: There is no abdominal tenderness. There is no guarding or rebound. Musculoskeletal: Cervical back: Neck supple. Right lower leg: No edema. Left lower leg: No edema. Neurological: Mental Status: She is alert. Assessment/Plan Problem List Items Addressed This Visit Essential hypertension, benign (CMS/HCC) - Primary BP controlled and monitor PRN. Osteoarthritis of lower legs, bilateral Pain tolerable with OTC and use PRN. Continue PT exercises. Migraine without aura and with status migrainosus, not intractable (CMS/HCC) STEWART stable and continue topamax and inderal. Use zomig PRN. DDD (degenerative disc disease), lumbar Pain stable and need to perform home PT exercises. Use OTC PRN. If worsens may need injections. documented in this encounter [facility] 01-06-2024 Miscellaneous Notes Formattin g of this note might be different from the original. Called pt about f/up and she asked that her daughter be called. Spoke with daughter Virgil. She states they have imaging done at [facility] near them and asked if order can be mailed to pt's address. Offered a VV for f/up after imaging and she will try to figure that out to save a trip to [place]. Address verified. Provided her with office number for questions and scheduling number to call after MRA is completed. She appreciated the follow-up. Will mail order tomorrow 01/06. Angelique Jones RN documented in this encounter [facility] 09-27-2023 Evaluation note Encounter Date Diagnosis Assessment Notes Sep, Right ear impacted cerumen (ICD-10 - H61.21) Drink plenty fluids, get plenty of rest. Continue home medications as prescribed. Follow-up with your family physician for any further concerns [facility] Other 11-01-2022 Instructions* Patient Instructions* Koby Juarez APRN.CNP - 08/07/2022 3:00 PM EDT Follow-up appointment due July 2024. Our office will contact you 6-8 weeks prior to schedule. Ifyou do not hear from us, please call [phone] or send a [employer] message to connect with one ofour caregivers. Goal blood pressure is less than 140/90. Notify your PCP with any elevated blood pressure readings. 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 We recommend a low-dose beta-michelle (ie propranolol) to reduce pulsations from the basilar artery on your brainstem - this may be making your symptoms worse. Please discuss with your home help aide todecide if this is safe for someone with [...] with no known cause. 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 PCP: Regino Martinez MD Collaborating Physician: Werner Melendrez MD Referring Provider: Isak Rojas MD [...] concern for stroke, symptoms were attributed to herfall. Facial symptoms improved but she has persistent symptoms of slurred speech, gait imbalance, double vision (since childhood), and occaisonally difficulty with swallowing. Dr. Melendrez recommended continuation of aspirin 81mg, B-michelle to reduce pulsation effect of the dolichoectatic [...] BP today 136/82. Monitoring BP TID for thelast month with ~10 readings > 140, max [...] Take 1 tablet by mouth once daily. rddibtl-reiptgun-vvcastceyl (FIORINAL) capsule Take 1 capsule by mouth [...] tremor. Sensation: Grossly intact light touch. Coordination: Pbeshm-vz-ynza and iick-go-hmrr without dysmetria bilaterally. Gait: Arrives to office [...] and narrowing at this level. There is markedfusiform dilatation or dolichoectasia of the vertebrobasilar system and involving the left vertebral artery and proximal basilar artery as above. 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 Recommend neurosurgical consultation. T2/FLAIR signal abnormalities are identi fied within the periventricular white matter, likely the sequela of chronic microvascular ischemia.Other findings and more details are noted as above. LABS No recent lipid panel or A1C in [facility] or Care Everywhere, last 05/2016. IMPRESSION 81 yof with PMH HTN, hypothyroidism, vertebrobasilar dolichoectasia, and unruptured 3mm left A2/A3 junction aneurysm who was recently admitted for symptomatic bradycardia for which propranolol was held, returns for follow-up due to worsening slurred speech, coordination, and headache. 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 - recommend B-michelle to reduce pulsation effect of the dolichoectatic [...] which included preparing to see the patient, lodp-je-lfnn patient care, completing clinical documentation, obtaining and/or reviewing separately obtained history, performing a medically appropriate examination, counseling and educating the pat ient/family/caregiver, communicating with other HCPs (not separately reported), independently interpreting results (not separately reported), communicating results to the patient/family/caregiver, and care coordination (not separately reported). SIGNATURE Koby Juarez APRN.CNP August 07, 2022 [facility] Miscellaneous Notes* Telephone Encounter - Lia Lagose ADM - 07/27/2022 4:32 PM EDT 1st attempt: Spoke with patient and notified that our new policy for any follow up patients is theyare to see ELIGIO/LIVESTOCK FARM MANAGER instead of provider, unless absolutely necessary. Patient verified understanding that 08/07 appt would be cancelled with Dr. Melendrez. She encouraged me to call daughter, Radha instead to reschedule per her availability--rescheduled on Aug 07 with Koby at 2pm. Gave our direct officenumber if any future questions~ Notified Dr. Melendrez Aug 07 appointment would be cancelled too. Verifying with Carla if that needs kept for CS prior to cancelling~ Updated patient's insurance on file as well since that was coming up rejected: Medicare A&B [id number] MMO MEDICARE SUPPLEMENT Verified #'s are correct, supplement insurance name just needs updated. [id number] Group#: [id number] [facility] Diagnosis Vertebrobasilar dolichoectasia- Primary Occlusion and stenosis of basilar artery without mention of cerebral infarction Unruptured cerebral aneurysm Cerebral aneurysm, nonruptured documented in this encounter [facility] noteNo assessment information availableC[facility]innati [facility] Work Phone: Evaluation note* Diagnosis Unruptured cerebral aneurysm- Primary Cerebral aneurysm, nonruptured Nonruptured cerebral aneurysm Cerebral aneurysm, nonruptured documented in this encounter [facility]* Diagnosis Essential hypertension, benign (CMS/HCC)- Primary Essential [...] esophagitis Esophageal reflux [facility] Diagnosis Essential hypertension, benign (CMS/HCC)- Primary Essential [...] aura and with status migrainosus, not intractable ([facility]/HCC) Medicare annual wellness visit, subsequent- Primary Essential hypertension, benign ([facility]/HCC) Essential hypertension, benign Prediabetes Other abnormal glucose Adult hypothyroidism ([facility]) Unspecified hypothyroidism Encounter for long-term (current) use of medications Encounter for long-term (current) use of other medications Class 1 obesity due to excess calories with serious comorbidity and body mass index (BMI) of 30.0 to 30.9 in adult Need for immunization against influenza Need for prophylactic vaccination and inoculation against influenza Age-related osteoporosis without current pathological fracture ([facility]) [facility]* Diagnosis Essential hypertension, benign ([facility]/HCC)- Primary Essential hypertension, benign DDD (degenerative disc disease), lumbar Degeneration of lumbar or lumbosacral intervertebral disc Osteoarthritis of lower legs, bilateral Migraine without aura and with status migrainosus, not intractable ([facility]/HCC) [facility] in [facility] encounter [facility]* Diagnosis Migraine without aura and without status migrainosus, not intractable ([facility]/HCC) [facility] HealthcareHistory general Narrative - Reported* Type Description Date Medical History HTN Surgical History knee replacement - Surgical History tubal ligation 1971 Surgical History eye lid lift bilateral 2011 Surgical History nose surgery 2012 Surgical History knee replacement 2014 Surgical History torn retina bilateral 2014 Hospitalization History see above [facility] Other Summary Purpose Family History No Family History Records FoundNo Family History Records FoundNo Family History Records FoundNo Family History Records FoundNo Family History Records FoundNo Family History Records FoundNo Family History Records Found Advance Directives Advance Directive Response Recorded Date/ Time Advance Directives No August 13, 2023 3:54pm Documents on File Type Date Recorded 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 Advance Directives and Living Will [...] HEAD W & WO CONTRAST Mira Suarez, CAR CLERK PULLMAN.WOOD GRINDER [address] [place] [address] [place] [id number] Referral ID Status Reason Start Date Expiration Date Visits Requested Visits Authorized [id number] Pending Review Auto-Generat ed Referral 12/03/2023 01/01/2025 1 1 Additional Source Comments Source Comments (unrecognize d section and content) In the event this informatio n is protected by the Federal Confidentiality of Alcohol and Drug Abuse Patient Records regulations: The Federal rules restrict any use of the information to criminally investigate or prosecute any alcohol or drug abuse patient.[facility] Hospital[facility] the event this information is protected by the Federal Confidentiality of Alcohol and Drug Abuse Patient Records regulations: The Federal rules restrict any use of the information to criminally investigate or prosecute any alcohol or drug abuse patient.[facility] HospitalIn the event this information is protected by the Federal Confidentiality of Alcohol and Drug Abuse Patient Records regulations: The Federal rules restrict any use of the information to criminally investigate or prosecute any alcohol or drug abuse patient.[facility] HospitalIn the event this information is protected by the Federal Confidentiality of Alcohol and Drug Abuse Patient Records regulations: The Federal rules restrict any use of the information to criminally investigate or prosecute any alcohol or drug abuse patient.[facility] Reason for Visit (unrecogniz ed section and content) Reason Comments Appointment Rescheduled Reason Comments Established Patient Follow-Up Reason Comments Orders Reason Comments Follow Up Reason Comments Med Refill Reason Comments Medicare Annual Wellness Visit Subsequen t Wellness Reason Comments Follow-up 6m Reason Onset Date Comments Med Refill 06/29/2024 Care Teams (unrecognized sec tion and content) [employer] Superintendent Relationship Specialty Start Date End Date Regino Martinez PCP - General Family Medicine 05/16/17 [employer] Superintendent Relationship Specialty Start Date End Date Regino [...] Primary Care Provider, Attending Pr ovider Active [employer] Superintendent Relationship Specialty Start Date End Date Isak Rojas PCP - General Family Medicine 08/13/22 Russ Schmitt MD [address] [place] [phone] Cardiology 08/13/22 [employer] Superintendent Relationship Specialty Start Date End Date Isak Rojas PCP - General Family Medicine 08/13/22 Russ Schmitt MD [address] [place] [address] Cardiology 08/13/22 [employer] Superintendent Relationship Specialty Start Date End Date Isak Rojas MD [address] [place] [phone] PCP - General Family Medicine 11/11/23 [employer] Superintendent Relationship Specialty Start Date End Date Isak Rojas MD [address] [place] [phone] PCP - General Family Medicine 11/11/23 [employer] Superintendent Relationship Specialty Start Date End Date Isak Rojas MD [address] [place] [phone] PCP - General Family Medicine 11/11/23 [employer] Superintendent Relationship Specialty Start Date End Date Isak Rojas MD [address] [place] [phone] PCP - General Family Medicine 11/11/23 [employer] Superintendent Relationship Specialty Start Date End Date Isak Rojas MD [address] [place] [address] PCP - General Family Medicine 11/11/23 [employer] Superintendent Relationship Specialty Start Date End Date Isak Rojas MD [address] [place] [address] PCP - General Family Medicine 11/11/23 [employer] Superintendent Relationship Specialty Start Date End Date Isak Rojas MD [address] [place] [address] PCP - General Family Medicine 11/11/23 INFORMATION SOURCE (unrecogn ized section and content) DATE CREATED AUTHOR 02/17/2023 [facility] DATE CREATED AUTHOR AUTHOR'S ORGANIZ ATION 11/15/2023 [facility] DATE CREATED AUTHOR AUTHOR'S ORGANIZ ATION 01/07/2024 [facility] DATE CREATED AUTHOR AUTHOR'S ORGANIZ ATION 02/20/2024 [facility] DATE CREATED AUTHOR AUTHOR'S ORGANIZ ATION [facility]/13/2024 [facility] DATE CREATED AUTHOR AUTHOR'S ORGANIZ ATION 06/08/2024 [facility] DATE CREATED AUTHOR AUTHOR'S ORGANIZ ATION 08/08/2024 [facility] EPIC Goals (unrecognized section and [...] BE BASED ON THE PRIMARY CLINICAL RECORDS. [employer] provides no warranty or guarantee of the accuracy or completeness of information in this document.
--- NOTE | 2024-09-28 19:23 | CT_ITS ---
The [address] [address] Patient Name: DIANA PLASCENCIA MRN: [facility]:[id number] date: 1940 Sex: F Assigned Patient Location: ER Current Patient Location: ER Accession/Order Number: [id number] Exam Date: 09/28/2024 19:30 Report Date: 09/28/2024 20:00 At the request of: KEIRY ROSA Procedure: CT stroke head/brain wo con EXAM: CT stroke head/brain wo con HISTORY: Change in speech, generalized weakness COMPARISON: CT sinus including portions of brain 12/09/2012. TECHNIQUE: CT head without contrast. Axial scans with reformatted coronal and sagittal images. Individualized radiation dose reduction used for this exam. FINDINGS: No evidence of hemorrhage, mass lesion or findings suggesting acute cortical edema. Ventricles sulci are prominent increased from previous consistent with atrophy. Areas of deep white matter low-attenuation consistent with chronic small vessel ischemic change noted. There is a calcification basal ganglia. High density material along the right lateral ventricle probably calcification. No extra-axial or subdural collection or hematoma. No mass effect or midline shift. Dominant left vertebral artery posterior fossa with moderate calcification. No suspicious bone lesion. No fracture. Visualized mastoid, middle ear cavities and sinuses clear. CT/CT stroke head/brain wo con IMPRESSION: No hemorrhage or cortical edema or other findings suggesting acute stroke. Atrophy and deep white matter low-attenuation likely age-related chronic. . Electronically authenticated by: BABITA YANG Date: 09/28/2024 20:00
--- NOTE | 2024-09-28 19:25 | XR_ITS ---
The [address] [address] Patient Name: DIANA PLASCENCIA MRN: [id number] date: 1940 Sex: F Assigned Patient Location: ER Current Patient Location: ER Accession/Order Number: [id number] Exam Date: 09/28/2024 19:37 Report Date: 09/28/2024 20:24 At the request of: KEIRY ROSA Procedure: XR chest 1V EXAM: XR chest 1V at 1930 hours HISTORY: Altered mental status COMPARISON: None TECHNIQUE: AP upright portable chest x-ray FINDINGS: The heart is not enlarged and the vasculature is not distended. No acute infiltrate, effusion or pneumothorax is identified. 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 The osseous structures are grossly intact. XR/XR chest 1V IMPRESSION: No acute infiltrate or evidence of cardiac decompensation. Electronically authenticated by: SKYE FONTENOT Date: 09/28/2024 20:24
--- NOTE | 2024-09-28 19:25 | ECG_ITS ---
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
--- NOTE | 2024-09-28 19:29 | ED_ITS ---
HPI HPI - General Adult General Chief complaint: Weakness Stated complaint: weak Time Seen by Provider: 09/28/24 19:08 Source: patient and family Mode of arrival: Wheelchair Limitations: no limitations History of Present Illness HPI narrative: 84-year-old female presents for generalized weakness. Symptoms began yesterday and seem to be worse this morning. A caregiver had a hard time getting her into the shower and then back out of the shower. The patient's daughter went to pick her up for dinner tonight and the patient had trouble getting to a standing position from a seated position. She did not fall and there is no history of any trauma. She is not complaining of a headache. Her speech is slurred but it has been slurred for about 2 years. Family states that it is a bit worse than it has been in the past. The patient does not seem to have any complaints of any localized weakness but rather complains of generalized weakness. Related Data Home Medications ?Medication ?Instructions ?Recorded ?Confirmed aspirin 81 mg capsule 81 mg PO DAILY 09/28/24 09/28/24 levothyroxine 100 mcg tablet mcg 09/28/24 losartan 25 mg tablet mg 09/28/24 pantoprazole 40 mg tablet,delayed mg PO 09/28/24 release topiramate 50 mg tablet mg 09/28/24 zinc 50 mg capsule 50 mg PO DAILY 09/28/24 09/28/24 Allergies Allergy/AdvReac Type Severity Reaction Status Date / Time codeine Allergy Intermediate Vomiting Verified 09/28/24 19:17 Opioid HPI Opioid Management Most Recent Opioid Data: No Data to Display Review of Systems ROS Narrative A ten point review of systems is negative except as noted above. Exam Narrative Exam Narrative: Nurses note and vital signs reviewed and patient is not hypoxic. General: The patient appears well and in no apparent distress. Patient is resting comfortably on cart. Skin: Warm, dry, no pallor noted. There is no rash noted. Head: Normocephalic, atraumatic Eye: Normal conjunctiva, no drainage, EOMI. PERRL Ears, Nose, Mouth, and Throat: oral mucosa is moist. Nares patent. Cardiovascular: Regular Rate and Rhythm Respiratory: Patient is in no distress, no accessory muscle use, lungs are clear to auscultation, no wheezing, rales or rhonchi Back: non-tender GI: no tenderness to palpation, no masses appreciated. No rebound, guarding, or rigidity noted. Musculoskeletal: The patient has no evidence of calf tenderness, no pitting edema, symmetrical pulses noted bilaterally Neurological: A&O x4, her speech is slurred but readily understandable. Cranial nerves II through XII are intact. Upper and lower extremity strength is 5 out of 5 in all muscle groups and is symmetric. No pronator drift. Finger- nose testing is normal. She does not have aphasia but has mild dysarthria. Psychiatric: Cooperative Constitutional Vital Signs, click to edit/add: Last Vital Signs Temp 98.0 F 09/28/24 19:11 Pulse 67 09/28/24 19:11 Resp 18 09/28/24 19:11 BP 144/92 H 09/28/24 19:11 Pulse Ox 100 09/28/24 19:11 O2 Del Method Room Air 09/28/24 19:11 Course Vital Signs Vital signs: Vital Signs Temperature 98.0 F 09/28/24 19:11 Pulse Rate 67 09/28/24 19:11 Respiratory Rate 18 09/28/24 19:11 Blood Pressure 144/92 H 09/28/24 19:11 Pulse Oximetry 100 09/28/24 19:11 Oxygen Delivery Method Room Air 09/28/24 19:11 Temperature 98.0 F 09/28/24 19:11 Pulse Rate 67 09/28/24 19:11 Respiratory Rate 18 09/28/24 19:11 Blood Pressure 144/92 H 09/28/24 19:11 Pulse Oximetry 100 09/28/24 19:11 Oxygen Delivery Method Room Air 09/28/24 19:11 Medical Decision Making [facility] Narrative Medical decision making narrative: CT shows no acute stroke and CTA findings were discussed with the neurology interventionalist at [facility]. He recommends admitting the patient here and obtaining an MRI tomorrow. He recommends maintaining the aspirin that she is on and does not recommend Plavix at this point. Findings are discussed with the patient and the family and she will be admitted here. NIH score is 1. Differential Diagnosis Differential Diagnosis: Stroke, intracranial hemorrhage Lab Data Lab results reviewed: Yes I reviewed the patient's lab results Labs: Lab Results 09/28/24 09/28/24 Range/Units 19:30 19:58 WBC 10.0 (4.0-11.0) 10^3/uL RBC 3.99 L (4.20-5.40) 10^6/uL Hgb 12.5 (12.0-16.0) g/dL Hct 39.1 (36.0-48.0) % MCV 98.0 (81.0-99.0) fL MCH 31.3 (26.7-34.0) pg MCHC 32.0 (29.9-35.2) g/dL RDW 13.7 (11.0-15.0) % Plt Count 259 (150-450) 10^3/uL MPV 9.5 (9.5-13.5) fL Neut % (Auto) 72.2 (43.0-75.0) % Lymph % (Auto) 20.5 (20.5-60.0) % [place] % (Auto) 5.1 (1.7-12.0) % Eos % (Auto) 1.0 (0.9-7.0) % Baso % (Auto) 0.5 (0.2-2.0) % Neut # (Auto) 7.2 H (1.4-6.5) 10^3/uL Lymph # (Auto) 2.0 (1.2-3.8) 10^3/uL [place] # (Auto) 0.5 (0.3-0.8) 10^3/uL Eos # (Auto) 0.1 (0.0-0.7) 10^3/uL Baso # (Auto) 0.1 (0.0-0.1) 10^3/uL Abs Immat Gran (auto) 0.07 H (0.00-0.03) 10^3/uL Imm/Tot Granulo (auto) 0.7 H (0.0-0.5) % Sodium 140 (136-145) mmol/L Potassium 3.6 (3.5-5.1) mmol/L Chloride 108 H (98-107) mmol/L Carbon Dioxide 21.6 (21.0-32.0) mmol/L Anion Gap 14.0 BUN 22.0 H (7.0-18.0) mg/dL Creatinine 1.28 H (0.55-1.02) mg/dL Est GFR ( Amer) 48 L (>=60 mL/min/1.73m^2) Est GFR (Non-Af Amer) 40 L (>=60 mL/min/1.73m^2) BUN/Creatinine Ratio 17.2 Glucose 130 H (74-106) mg/dL Calcium 8.9 (8.5-10.1) mg/dL Urine Color Yellow (YELLOW) Urine Clarity Clear (CLEAR) Urine pH 6.0 (5.0-9.0) Ur Specific [place] 1.020 (1.005-1.025) Urine Protein Trace (NEG/TRACE) mg/dL Urine Glucose (UA) Negative (NEGATIVE) mg/dL Urine Ketones Negative (NEGATIVE) mg/dL Urine Occult Blood Negative (NEGATIVE) Urine Nitrite Negative (NEGATIVE) Urine Bilirubin Negative (NEGATIVE) Urine Urobilinogen 2.0 A (0.2-1.0) EU/dL Ur Leukocyte Esterase Negative (NEGATIVE) Urine RBC 5-10 A (0-2) #/HPF Urine WBC None seen (NONE SEEN) #/HPF Ur Squamous Epith Cells Rare (NONE/RARE) #/LPF Urine Crystals None seen (None Seen) #/HPF Urine Bacteria None seen (NONE SEEN) #/HPF Urine Casts None seen (NONE SEEN) #/LPF Urine Mucus None seen (NONE SEEN) Ur Culture Indicated? No Imaging Data CT scan - head: Radiologist's impression: ITS Impressions Brain CT 09/28/24 19:23 IMPRESSION: No hemorrhage or cortical edema or other findings suggesting acute stroke. Atrophy and deep white matter low-attenuation likely age-related chronic. . Electronically authenticated by: BABITA YANG Date: 09/28/2024 20:00 Chest X-Ray 09/28/24 19:25 IMPRESSION: No acute infiltrate or evidence of cardiac decompensation. Electronically authenticated by: SKYE FONTENOT Date: 09/28/2024 20:24 Head CTA 09/28/24 20:06 IMPRESSION: 1. No large vessel occlusions throughout the anterior, middle, or posterior cerebral arteries 2. 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 3. 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 No significant stenoses or occlusions of these arteries. 4. There is loss of the nondominant right vertebral artery as it enters the foramen magnum. This may be due to its developmentally small size. Chronic occlusion of the artery cannot be excluded. Electronically authenticated by: VAZQUEZ TEJADA Date: 09/28/2024 22:41 Neck CTA 09/28/24 20:06 IMPRESSION: 1. Multilobulated appearance of the cervical ICAs, right greater than left. This can be seen with fibromuscular dysplasia. 2. There is a short intimal flap extending across the anterior aspect of the mid cervical right ICA which may be due to a short segment dissection and/or pseudoaneurysm. No high-grade stenosis or occlusion of the artery. 3. There is a linear band extending across the lumen of the mid left cervical ICA which may represent an old dissection flap. No high-grade stenoses or occlusions. 4. There is loss of the nondominant right vertebral artery as it enters the foramen magnum. This may be due to a developmentally small artery or chronic occlusion of the distal right vertebral artery. The left vertebral artery is patent. Electronically authenticated by: VAZQUEZ TEJADA Date: 09/28/2024 22:22 ECG Data Attestation: I personally reviewed and interpreted this ECG as follows: (EKG on my interpretation shows normal sinus rhythm with a rate of 68. Flipped T waves present in V3 and V4) Discharge Plan Discharge Chief Complaint: Weakness Clinical Impression: Dysarthria Patient Disposition: Admitted as Observation Time of Disposition Decision: 22:47 Condition: Fair Prescriptions / Home Meds: No Action levothyroxine 100 mcg tablet pantoprazole 40 mg tablet,delayed release (DR/EC) PO losartan 25 mg tablet topiramate 50 mg tablet zinc 50 mg capsule 50 mg PO DAILY aspirin 81 mg capsule 81 mg PO DAILY Print Language: Canadian Referrals: Isak Sears MD [Primary Care Provider] - 1 week
[2024-09-28 19:36] LABS: Basophils Absolute Auto 0.1 10^3/uL (0.0-0.1); Basophils Percent Auto 0.5 % (0.2-2.0); Eosinophils Absolute Auto 0.1 10^3/uL (0.0-0.7); Hematocrit 39.1 % (36.0-48.0); Hemoglobin 12.5 g/dL (12.0-16.0); Immature Granulocytes Abs Auto 0.07 10^3/uL (0.00-0.03); Immature Granulocytes Pct Auto 0.7 % (0.0-0.5); Lymphocytes Percent Auto 20.5 % (20.5-60.0); Mean Corpuscular Hemoglobin 31.3 pg (26.7-34.0); Mean Platelet Volume 9.5 fL (9.5-13.5); Monocytes Absolute Auto 0.5 10^3/uL (0.3-0.8); Monocytes Percent Auto 5.1 % (1.7-12.0); Neutrophils Absolute Auto 7.2 10^3/uL (1.4-6.5); Neutrophils Percent Auto 72.2 % (43.0-75.0); Platelet Count 259 10^3/uL (150-450); Red Blood Count 3.99 10^6/uL (4.20-5.40); Red Cell Distribution Width 13.7 % (11.0-15.0)
[2024-09-28 19:45] LABS: BUN Creatinine Ratio 17.2; Calcium 8.9 mg/dL (8.5-10.1); Carbon Dioxide 21.6 mmol/L (21.0-32.0); Chloride 108 mmol/L (98-107); Estimated GFR (African America 48 (>=60 mL/min/1.73m^2); Estimated GFR (Non-African Ame 40 (>=60 mL/min/1.73m^2); Glucose 130 mg/dL (74-106); Potassium 3.6 mmol/L (3.5-5.1); Sodium 140 mmol/L (136-145)
[2024-09-28 20:03] LABS: Bilirubin Urine NEGATIVE (NEGATIVE); Blood Urine NEGATIVE (NEGATIVE); Clarity Urine CLEAR (CLEAR); Color Urine YELLOW (YELLOW); Glucose Urine UA NEGATIVE (NEGATIVE); Ketones Urine NEGATIVE (NEGATIVE); Leukocyte Esterase Urine NEGATIVE (NEGATIVE); Nitrite Urine NEGATIVE (NEGATIVE); Protein Urine TRACE mg/dL (NEG/TRACE)
--- NOTE | 2024-09-28 20:06 | CT_ITS ---
The [address] [address] Patient Name: DIANA PLASCENCIA MRN: [id number] date: 1940 Sex: F Assigned Patient Location: ER Current Patient Location: Accession/Order Number: [id number] Exam Date: 09/28/2024 20:18 Report Date: 09/28/2024 22:22 At the request of: KEIRY ROSA Procedure: CT angio neck EXAMINATION: CT Angiogram Neck TECHNIQUE: Multiple axial images of the neck were obtained during the dynamic intravenous administration of contrast material according to the standard protocol. 3-D volume rendered reformations were created on an independent work station. The amount and type of contrast are recorded in the medical record. QPP DOCUMENTATION: All internal carotid artery percent stenoses are calculated using the distal internal carotid artery diameter as the denominator (NASCET criteria). At least one of the following dose reduction techniques was utilized: Iterative reconstruction, and/or Automatic Exposure Control, and/or mA/kV adjustment based on body size. INDICATION: Slurred speech, generalized weakness COMPARISON: None ENCOUNTER: Not applicable FINDINGS: Aortic Arch/Great Vessels: No aneurysmal dilation or dissection of the aortic arch. The brachiocephalic and subclavian arteries are patent. Right Carotid: There is a multilobulated appearance of the cervical ICA which can be seen with fibromuscular dysplasia. There is a short intimal flap noted along the anterior aspect of the artery which may be due to a short segment dissection and/or pseudoaneurysm. 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 No high-grade stenoses or occlusions of the common carotid or cervical internal carotid arteries. Left Carotid: There is a mild lobulated appearance of the cervical ICA which can be seen with fibromuscular dysplasia. There is a linear low-density lesion structure extending across the lumen of the mid cervical ICA which may represent an old short segment dissection. No high-grade stenoses or occlusions of the common carotid or cervical internal carotid arteries. Right Vertebral: Nondominant. There is loss of the artery as it enters the foramen magnum. This may be due to a developmentally small artery or occlusion of the artery as it enters the foramen magnum. Left Vertebral: Dominant. No flow-limiting stenoses or occlusions throughout the cervical segments. Additional Findings: There are degenerative changes throughout cervical spine. CT/CT angio neck IMPRESSION: 1. Multilobulated appearance of the cervical ICAs, right greater than left. This can be seen with fibromuscular dysplasia. 2. There is a short intimal flap extending across the anterior aspect of the mid cervical right ICA which may be due to a short segment dissection and/or pseudoaneurysm. No high-grade stenosis or occlusion of the artery. 3. There is a linear band extending across the lumen of the mid left cervical ICA which may represent an old dissection flap. No high-grade stenoses or occlusions. 4. There is loss of the nondominant right vertebral artery as it enters the foramen magnum. This may be due to a developmentally small artery or chronic occlusion of the distal right vertebral artery. The left vertebral artery is patent. Electronically authenticated by: VAZQUEZ TEJADA Date: 09/28/2024 22:22
--- NOTE | 2024-09-28 20:06 | CT_ITS ---
The [address] [address] Patient Name: DIANA PLASCENCIA MRN: [id number] date: 1940 Sex: F Assigned Patient Location: ER Current Patient Location: Accession/Order Number: [id number] Exam Date: 09/28/2024 20:18 Report Date: 09/28/2024 22:41 At the request of: KEIRY ROSA Procedure: CT angio head EXAMINATION: CT Angiogram Head TECHNIQUE: Multiple axial images of the head were obtained during the dynamic intravenous administration of contrast material according to the standard protocol. 3-D volume rendered reformations were created on an independent workstation. The amount and type of contrast are recorded in the medical record. QPP DOCUMENTATION: Abbe At least one of the following dose reduction techniques was utilized: Iterative reconstruction, and/or Automatic Exposure Control, and/or mA/kV adjustment based on body size. INDICATION: Slurred speech, generalized weakness COMPARISON: None FINDINGS: ICAs: The petrous, cavernous, and supraclinoid segments are patent. There is mild atherosclerotic plaque along the siphons. ACAs: There is an azygos A2 segment. There is a small irregular saccular aneurysm noted along the distal azygous segment anterior to the genu of the corpus callosum that measures approximately 2.5 mm in diameter. This is best visualized on series 5, image 255 and sagittal series 8, image 104. No large vessel occlusions. MCAs: No large vessel occlusions or high-grade stenoses. animal husbandry worker: No large vessel occlusions or high-grade stenoses. Basilar: Mild dolichoectasia of the basilar artery. No occlusions of the artery. Vertebral Arteries: There is mild dolichoectasia of the dominant left vertebral artery. There is calcified atherosclerotic plaque extending along this segment of the artery. There is loss of the nondominant right vertebral artery as it enters the foramen magnum. This may be due to its developmentally small size. Occlusion of the intracranial segment cannot be excluded. Dural Venous Sinuses: Limited assessment of the dural venous sinuses demonstrates no evidence of thrombosis. Additional Findings: None CT/CT angio head IMPRESSION: 1. No large vessel occlusions throughout the anterior, middle, or posterior cerebral arteries 2. 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 3. 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 No significant stenoses or occlusions of these arteries. 4. There is loss of the nondominant right vertebral artery as it enters the foramen magnum. This may be due to its developmentally small size. Chronic occlusion of the artery cannot be excluded. Electronically authenticated by: VAZQUEZ TEJADA Date: 09/28/2024 22:41
[2024-09-28 20:09] LABS: Bacteria Urine NONE SEEN #/HPF (NONE SEEN); Cast Seen? NONE SEEN #/LPF (NONE SEEN); Crystals Seen? None Seen #/HPF (None Seen); Mucus Urine NONE SEEN (NONE SEEN); Squamous Epithelial Cell Urine RARE #/LPF (NONE/RARE); Urine Culture Indicated NO; WBC Urine NONE SEEN #/HPF (NONE SEEN)
--- OUTSIDE RECORDS SUMMARY | 2024-09-28 23:41 | XMS_ITS | CCD ---
Author Organization [facility] Care Team Providers Care Parachute Accessories Attacher Name Role Phone Regino Martinez Primary Care Provider [phone] CRYSTAL, ISAK A Admitting Unavailable NADERER, ISAK A Attending Unavailable NADERER, ISAK A Primary Care Unavailable NADERER, ISAK A Consulting Unavailable NADERER, ISAK A Admitting Unavailable NADERER, ISAK A Attending Unavailable NADERER, ISAK A Primary Care Unavailable NADERER, ISKA A Consulting Unavailable NADERER, ISAK A Admitting [...] Provider MD Isak Rojas Primary Care Provider [phone] MD Francheska Jean Primary Care Provider Jacinta Gillespie Unavailable Shaikh Jean Attending Unavailable Isak Rojas Primary Care Unavailable Shaikh Jean Admitting Unavailable Shaikh Jean Attending Unavailable Shaikh Jean Admitting Unavailable Shaikh Jean Primary Care Unavailable Naddennis, Isak Keyanna Primary Care Provider [phone] Russ Schmitt MD Unavailable REDD OBANDO Attending [...] Drug Allergy 7 GI Upset, Nausea Only [facility] (14 sources) Iodine Drug Allergy 7 [facility] (1 source) Codeine Drug Allergy 6 [facility] Repository (2 sources) Adhesive Tape; Translations: [adhesive tape] Allergy to substance 3 [facility] (4 sources) Adhesive agent; Translations: [adhesive] Drug allergy 3 [facility] Repository (1 source) Codeine Drug Allergy 3 [facility] Repository (1 source) Iodine Drug Allergy 3 [facility] Repository (2 sources) Codeine; Translations: [CODEINE [...] Per Day) tablet (8 sources) End: 08-06-2024 Uoxdhaoan-Nmediqecxyh-Uur D (Osteo Bi-Flex One Per Day) tablet [...] Drug Class(es) Dates Sig (Normalized) Sig (Original) [id number] actuat albuterol 0.09 mg/actuat metered dose [...] 12-17-2023 Chronic Other aftercare (1 source) Other superintendent terminal (current) drug therapy; Translations: [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 THERAPY] Onset: 3 Episodic Other aftercare (5 sources) Long-term current use of drug therapy; Translations: [Other superintendent terminal (current) drug therapy] Onset: 4 08-06-2024 Episodic [...] WITH AUTO DIFFon BASOPHILS ABSOLUTE AUTO 0 [facility] Basophils/100 WBC (Bld) 0.5 % 0.2 - 2.0 % [facility] Eosinophils/100 WBC (Bld) 1.6 % 0.9 - 7.0 % [facility] Erythrocyte distribution width (RBC) [Ratio] 13.3 % 11.0 - 15.0 % [facility] Hematocrit (Bld) [Volume fraction] 39.6 % 36.0 - 48.0 % [facility] Hemoglobin (Bld) [Mass/Vol] 12.9 g/dL 12.0 - 16.0 g/dL [facility] IMMATURE GRANULOCYTES ABS AUTO 0.05 High [facility] Immature granulocytes/100 WBC (Bld) 0.6 % High 0.0 - 0.5 % [facility] Interpretation and review of laboratory results Abnormal [facility] LYMPHOCYTES ABSOLUTE AUTO 1.8 [facility] Lymphocytes/100 WBC (Bld) 22.2 % 20.5 - 60.0 % [facility] MCH (RBC) [Entitic mass] 32.1 pg 26.7 - 34.0 pg [facility] MCHC (RBC) [Mass/Vol] 32.6 g/dL 29.9 - 35.2 g/dL [facility] MCV (RBC) [Entitic vol] 98.5 fL 81.0 - 99.0 fL [facility] MONOCYTES ABSOLUTE AUTO 0.5 [facility] Monocytes/100 WBC (Bld) 6.1 % 1.7 - 12.0 % [facility] NEUTROPHILS ABSOLUTE AUTO 5.7 [facility] Neutrophils/100 WBC (Bld) 69 % 43.0 - 75.0 % [facility] Platelet mean volume (Bld) [Entitic vol] 9.6 fL 9.5 - 13.5 fL [facility] TBH EO # 0.1 [facility] TB PLT 207 [facility] RBC 4.02 Low [facility] WBC 8.3 [facility] BLOOD CULTUREon 06-03-2024 Bacteria identified Aer cx Nom (Bld) SPECIMEN NOTES RAC CULTURE RESULTS NO GROWTH 5 DAYS Normal [facility] Bacteria identified Aer cx Nom (Bld) SPECIMEN NOTES RAC CULTURE RESULTS NO GROWTH 5 DAYS Normal [facility] CBC AND AUTO DIFFon 06-03-20 ABSOLUTE BASOPHIL 0.0 X10E9/L Normal 0.0-0.2 [facility] Comment on above: Performed By: #### C BCA, CMP, , 90011-3 #### [facility] ([id number]) [address] [place] [address] 31248 ABSOLUTE NEUTROPHIL 5.7 X10E9/L Normal 1.5-6.6 [facility] Comment on above: Performed By: #### C BCA, CMP, , 59723-8 #### [facility] ([id number]) [address] [place] [address] 04247 Basophils/100 WBC (Bld) 0.6 % Normal [facility] Comment on above: Performed By: #### C BCA, CMP, , 39336-6 #### [facility] ([id number]) [address] [place] [address] 23066 Eosinophils (Bld) [#/Vol] 0.1 10*3/uL Normal 0.0-0.4 [facility] Comment on above: Performed By: #### C KATIE, CMP, , 10822-8 #### [facility] ([id number]) [address] [place] [address] 02160 Eosinophils/100 WBC (Bld) 1.0 % Normal [facility] Comment on above: Performed By: #### C KATIE, CMP, , 40848-4 #### [facility] ([id number]) [address] [place] [address] 30402 Erythrocyte distribution width (RBC) [Ratio] 15.2 % High 11.5-15.0 [facility] Comment on above: Performed By: #### C KATIE, CMP, , 66596-6 #### [facility] ([id number]) [address] [place] [address] 53904 Hematocrit (Bld) [Volume fraction] 35.1 % Normal 35-47 [facility] Comment on above: Performed By: #### C KATIE, CMP, , 49205-4 #### [facility] ([id number]) [address] [place] [address] 64095 Hemoglobin (Bld) [Mass/Vol] 12.0 g/dL Normal 11.7-15.5 [facility] Comment on above: Performed By: #### C BCA, CMP, , 73220-5 #### [facility] ([id number]) [address] [place] [address] 91472 Lymphocytes (Bld) [#/Vol] 1.4 10*3/uL Normal 1.0-3.5 [facility] Comment on above: Performed By: #### C KATIE, CMP, , 10653-7 #### [facility] ([id number]) [address] [place] [address] 57360 Lymphocytes/100 WBC (Bld) 18.0 % Normal [facility] Comment on above: Performed By: #### C BCA, CMP, , 96996-8 #### [facility] ([id number]) [address] [place] [address] 03050 MCH (RBC) [Entitic mass] 32.5 pg Normal 27-34 [facility] Comment on above: Performed By: #### C BCA, CMP, , 72142-3 #### [facility] ([id number]) [address] [place] [address] 64935 MCHC (RBC) [Mass/Vol] 34.3 g/dL Normal 32-36 [facility] Comment on above: Performed By: #### C BCA, CMP, , 68307-9 #### [facility] ([id number]) [address] [place] [address] 81963 MCV (RBC) [Entitic vol] 95 fL Normal 80-100 [facility] Comment on above: Performed By: #### Cathy BCA, CMP, , 36904-4 #### [facility] ([id number]) [address] [place] [address] 93517 Monocytes (Bld) [#/Vol] 0.4 10*3/uL Normal 0-0.9 [facility] Comment on above: Performed By: #### C BCA, CMP, , 88103-1 #### [facility] ([id number]) [address] [place] [address] 19551 Monocytes/100 WBC (Bld) 5.1 % Normal [facility] Comment on above: Performed By: #### C BCA, CMP, , 06896-3 #### [facility] ([id number]) [address] [place] [address] 64433 Neutrophils/100 WBC (Bld) 75.3 % Normal [facility] Comment on above: Performed By: #### C BCA, CMP, , 85041-9 #### [facility] ([id number]) [address] [place] [address] 52875 Platelet mean volume (Bld) [Entitic vol] 7.8 fL Normal 7-12 [facility] Comment on above: Performed By: #### C BCA, CMP, , 90948-8 #### [facility] ([id number]) [address] [place] [address] 11071 Platelets (Bld) [#/Vol] 209 10*3/uL Normal 150-450 [facility] Comment on above: Performed By: #### C BCA, CMP, , 91895-5 #### [facility] ([id number]) [address] [place] [address] 43988 RBC COUNT 3.70 X10E12/L Low 3.80-5.20 [facility] Comment on above: Performed By: #### C BCA, CMP, , 47762-1 #### [facility] ([id number]) [address] [place] [address] 46422 WBC (Bld) [#/Vol] 7.5 10*3/uL Normal 4.0-11.0 [facility] Comment on above: Performed By: #### C BCA, CMP, , 61546-1 #### [facility] ([id number]) [address] [place] [address] 47994 COMPREHENSIVE METABOLIC PANE Jarrod 06-03-2024 Albumin [Mass/Vol] 3.9 g/dL Normal 3.2-5.3 [facility] Comment on above: Performed By: #### C BCA, CMP, , 50556-9 #### [facility] ([id number]) [address] [place] [address] 15573 ALP [Catalytic activity/Vol] 118 U/L Normal 39-130 [facility] Comment on above: Performed By: #### C BCA, CMP, , 30651-9 #### [facility] ([id number]) [address] [place] [address] 82886 ALT [Catalytic activity/Vol] 12 U/L Normal 0-31 [facility] Comment on above: Performed By: #### C BCA, CMP, , 33428-3 #### [facility] ([id number]) [address] [place] [address] 11065 Anion gap [Moles/Vol] 6 mmol/L Normal 5-15 [facility] Comment on above: Performed By: #### C BCA, CMP, , 27271-1 #### [facility] ([id number]) [address] [place] [address] 58516 AST [Catalytic activity/Vol] 16 U/L Normal 0-41 [facility] Comment on above: Performed By: #### C BCA, CMP, , 56078-3 #### [facility] ([id number]) [address] [place] [address] 73174 Bilirubin [Mass/Vol] 0.6 mg/dL Normal 0.3-1.2 [facility] Comment on above: Performed By: #### C BCA, CMP, , 74713-8 #### [facility] ([id number]) [address] [place] [address] 93223 Calcium [Mass/Vol] 9.0 mg/dL Normal 8.5-10.5 [facility] Comment on above: Performed By: #### C BCA, CMP, , 46195-1 #### [facility] ([id number]) [address] [place] [address] 01318 Chloride [Moles/Vol] 108 mmol/L Normal 98-109 [facility] Comment on above: Performed By: #### C XI WILSON, , 94794-7 #### [facility] ([id number]) [address] [place] [address] 49874 CO2 [Moles/Vol] 22 mmol/L Normal 22-32 [facility] Comment on above: Performed By: #### C XI WILSON, , 68158-4 #### [facility] ([id number]) [address] [place] [address] 12033 Creatinine [Mass/Vol] 1.26 mg/dL High 0.40-1.00 [facility] Comment on above: Result Comment: METH OD TRACEABLE TO IDMS STANDARD Performed By: #### C XI WILSON, , 64712-1 #### [facility] ([id number]) [address] [place] [address] 24201 GFR/1.73 sq M.predicted among non-blacks MDRD (S/P/Bld) [Vol rate/Area] 42 mL/min/{1.73_m2} Low >59 [facility] Comment on above: Result Comment: Reported eGFR is based on the CKD-EPI 2020 equation that does not use a race coefficient. Performed By: #### C XI WILSON, , 68188-5 #### [facility] ([id number]) [address] [place] [address] 04421 Glucose [Mass/Vol] 105 mg/dL High 65-99 [facility] Comment on above: Performed By: #### C XI WILSON, , 84008-6 #### [facility] ([id number]) [address] [place] [address] 40068 Potassium [Moles/Vol] 4.2 mmol/L Normal 3.5-5.0 [facility] Comment on above: Performed By: #### C BCA, CMP, , 32732-9 #### [facility] ([id number]) [address] [place] [address] 61394 Protein [Mass/Vol] 6.8 g/dL Normal 6.0-8.0 [facility] Comment on above: Performed By: #### C BCA, CMP, , 76121-1 #### [facility] ([id number]) [address] [place] [address] 36616 Sodium [Moles/Vol] 136 mmol/L Normal 134-146 [facility] Comment on above: Performed By: #### C BCA, CMP, , 44769-9 #### [facility] ([id number]) [address] [place] [address] 94245 Urea nitrogen [Mass/Vol] 33 mg/dL High 5-27 [facility] Comment on above: Performed By: #### C BCA, CMP, , 91108-4 #### [facility] ([id number]) [address] [place] [address] 07669 Lactate (P lisset) [Moles/Vol]o n 06-03-2024 LACTATE W/REFLEX 0.9 mmol/L Normal 0.4-2.0 [facility] Comment on above: Result Comment: Result did not trigger repeat Lactate, re-order if needed. Performed By: #### C BCA, CMP, , 72956-8 #### [facility] ([id number]) [address] [place] [address] 59224 MAGNESIUMon 06-03-2024 Magnesium [Mass/Vol] 2.0 mg/dL Normal 1.8-2.6 [facility] Comment on above: Performed By: #### C BCA, CMP, , 91330-9 #### [facility] ([id number]) [address] [facility] [place] [address] SARS/FLU A+B/RSV by NAAT/Mol ianon 06-03-2024 SARS/FLU [...] operators who are performing tests using either [employer] or [employer] systems and is limited to laboratories that [...] repeat. Fact Sheet for Healthcare Providers: https://www.fda.gov/me lindsay/459336/download Fact Sheet for Patients: https://www.fda.gov/me lindsay/831080/download Normal [facility] Comment on above: Performed By: #### C BCA, CMP, , 22899-0 #### [facility] ([id number]) [address] [place] [address] 30987 Troponin I.cardiac High sens itivity method [Mass/Vol]on 06-03-2024 1 HOUR TROP I, HIGH SENSITIVITY 3 ng/L Normal <16 [facility] Comment on above: Performed By: #### C BCA, CMP, , 65416-4 #### [facility] ([id number]) [address] [place] [address] 63132 TROPONIN I, HIGH SENSITIVITY 3 ng/L Normal <16 [facility] Comment on above: Performed By: #### Cathy WILSON, CMP, , 05386-0 #### [facility] ([id number]) [address] [place] [address] 32782 URINE CULTUREon 06-03-2024 Bacteria identified Cx Nom (U) CULTURE RESULTS <10,000 ORGANISMS/ML NORMAL URO GENITAL JANELL Normal [facility] Comment on above: Performed By: #### C KATIE, CMP, , 97134-6 #### [facility] ([id number]) [address] [place] [address] 71013 URN MACROSCOPIC NURon 2023 BILIRUBIN GAURAV Negative Normal NEG [facility] Comment on above: Performed By: #### C BCA, CMP, , 82478-3 #### [facility] ([id number]) [address] [place] [address] 03863 BLOOD/HGB GAURAV Negative Normal NEG [facility] Comment on above: Performed By: #### C BCA, CMP, , 12877-5 #### [facility] ([id number]) [address] [place] [address] 64997 GLUCOSE GAURAV Negative Normal NEG [facility] Comment on above: Performed By: #### C BCA, CMP, , 01314-9 #### [facility] ([id number]) [address] [place] [address] 33894 KETONES GAURAV Negative Normal NEG [facility] Comment on above: Performed By: #### C BCA, CMP, , 27271-6 #### [facility] ([id number]) [address] [place] [address] 23609 LEUKOCYTE ESTERASE GAURAV Trace Abnormal NEG [facility] Comment on above: Performed By: #### C BCA, CMP, , 82079-6 #### [facility] ([id number]) [address] [place] [address] 20071 NITRITE GAURAV Negative Normal NEG [facility] Comment on above: Performed By: #### C BCA, CMP, , 55591-1 #### [facility] ([id number]) [address] [place] [address] 17242 PH GAURAV 6.0 Normal 5.0-8.5 [facility] Comment on above: Performed By: #### C BCA, CMP, , 53416-4 #### [facility] ([id number]) [address] [place] [address] 27145 PROTEIN GAURAV Negative Normal NEG [facility] Comment on above: Performed By: #### C BCA, CMP, , 10408-9 #### [facility] ([id number]) [address] [place] [address] 67907 SPECIFIC GRAVITY GAURAV 1.015 Normal 1.003-1.035 [facility] Comment on above: Performed By: #### C BCA, CMP, , 19948-2 #### [facility] ([id number]) [address] [place] [address] 96710 UROBILINOGEN GAURAV 0.2 eu/dL Normal <1.1 [facility] Comment on above: Performed By: #### C KATIE, [facility], 86147-4, 62006-1 #### [facility] ([id number]) [address] [facility], [place] [address] XR CHEST 1 VWon 06-03-2024 XR CHEST [...] David Callaway on 06/03/2024 2:10 PM Normal [facility] Mal 01-06-2024 [facility] Telephone ([facility]) DIANA FRANCO ([id number]) 1940 F Date Time Provider Department 01/06/24 WERNER MELENDREZ [facility] During your visit today, we recorded the following information about you: Angelique Jones RN 01/06/2024 4:56 PM Signed Called pt about f/up and she asked that her daughter be called. Spoke with daughter Virgil. She states they have imaging done at [facility] near them and asked if order can be mailed to pt's address. Offered a VV for f/up after imaging and she will try to figure that out to save a trip to [place]. Address verified. Provided her with office number [...] 1 tablet by mouth once daily. - vbmyees-mzlhojuv-suhei bital (FIORINAL) capsule Take 1 capsule by [...] by ANGELIQUE JONES on 01/06/24 Normal [facility] CBC AND AUTO DIFFon 12-09-19 24 ABSOLUTE BASOPHIL 0.0 X10E9/L Normal 0.0-0.2 [facility] Comment on above: Performed By: #### C KATIE CMP, , 70274-7 #### [facility] ([id number]) [address] [place] [address] 37212 ABSOLUTE NEUTROPHIL 8.6 X10E9/L High 1.5-6.6 [facility] Comment on above: Performed By: #### C KATIE CMP, , 21218-5 #### [facility] ([id number]) [address] [place] [address] 12804 Basophils/100 WBC (Bld) 0.4 % Normal [facility] Comment on above: Performed By: #### C KATIE CMP, , 61660-3 #### [facility] ([id number]) [address] [place] [address] 35824 Eosinophils (Bld) [#/Vol] 0.0 10*3/uL Normal 0.0-0.4 [facility] Comment on above: Performed By: #### C BCA, CMP, , 35267-2 #### [facility] ([id number]) [address] [place] [address] 54928 Eosinophils/100 WBC (Bld) 0.1 % Normal [facility] Comment on above: Performed By: #### C BCA, CMP, , 75559-8 #### [facility] ([id number]) [address] [place] [address] 91082 Erythrocyte distribution width (RBC) [Ratio] 14.6 % Normal 11.5-15.0 [facility] Comment on above: Performed By: #### C BCA, CMP, , 43230-5 #### [facility] ([id number]) [address] [place] [address] 80888 Hematocrit (Bld) [Volume fraction] 36.6 % Normal 35-47 [facility] Comment on above: Performed By: #### C BCA, CMP, , 12798-5 #### [facility] ([id number]) [address] [place] [address] 14091 Hemoglobin (Bld) [Mass/Vol] 12.5 g/dL Normal 11.7-15.5 [facility] Comment on above: Performed By: #### C BCA, CMP, , 90884-2 #### [facility] ([id number]) [address] [place] [address] 46556 Lymphocytes (Bld) [#/Vol] 0.8 10*3/uL Low 1.0-3.5 [facility] Comment on above: Performed By: #### C BCA, CMP, , 53917-4 #### [facility] ([id number]) [address] [place] [address] 33591 Lymphocytes/100 WBC (Bld) 7.9 % Normal [facility] Comment on above: Performed By: #### C BCA, CMP, , 45686-7 #### [facility] ([id number]) [address] [place] [address] 65619 MCH (RBC) [Entitic mass] 32.5 pg Normal 27-34 [facility] Comment on above: Performed By: #### C BCA, CMP, , 15488-6 #### [facility] ([id number]) [address] [place] [address] 42102 MCHC (RBC) [Mass/Vol] 34.3 g/dL Normal 32-36 [facility] Comment on above: Performed By: #### C BCA, CMP, , 42492-2 #### [facility] ([id number]) [address] [place] [address] 66091 MCV (RBC) [Entitic vol] 95 fL Normal 80-100 [facility] Comment on above: Performed By: #### C BCA, CMP, , 70040-0 #### [facility] ([id number]) [address] [place] [address] 73472 Monocytes (Bld) [#/Vol] 0.8 10*3/uL Normal 0-0.9 [facility] Comment on above: Performed By: #### C BCA, CMP, , 01762-8 #### [facility] ([id number]) [address] [place] [address] 81875 Monocytes/100 WBC (Bld) 7.5 % Normal [facility] Comment on above: Performed By: #### C BCA, CMP, , 19401-5 #### [facility] ([id number]) [address] [place] [address] 52736 Neutrophils/100 WBC (Bld) 84.1 % Normal [facility] Comment on above: Performed By: #### C BCA, CMP, , 66667-6 #### [facility] ([id number]) [address] [place] [address] 31853 Platelet mean volume (Bld) [Entitic vol] 8.3 fL Normal 7-12 [facility] Comment on above: Performed By: #### C KATIE, CMP, , 65779-1 #### [facility] ([id number]) [address] [place] [address] 50761 Platelets (Bld) [#/Vol] 178 10*3/uL Normal 150-450 [facility] Comment on above: Performed By: #### Cathy BCA, CMP, , 64375-9 #### [facility] ([id number]) [address] [place] [address] 37806 RBC COUNT 3.86 X10E12/L Normal 3.80-5.20 [facility] Comment on above: Performed By: #### Cathy WILSON, CMP, , 05125-4 #### [facility] ([id number]) [address] [place] [address] 71376 WBC (Bld) [#/Vol] 10.2 10*3/uL Normal 4.0-11.0 [facility] Comment on above: Performed By: #### Cathy BCA, CMP, , 35836-8 #### [facility] ([id number]) [address] [place] [address] 62824 COMPREHENSIVE METABOLIC PANE Jarrod 12-09-2023 Albumin [Mass/Vol] 3.9 g/dL Normal 3.2-5.3 [facility] Comment on above: Performed By: #### C NOEMY, , CBCA #### [facility] ([id number]) [address] [place] [address] [id number] ALP [Catalytic activity/Vol] 114 U/L Normal 39-130 [facility] Comment on above: Performed By: #### C NOEMY, , CBCA #### [facility] ([id number]) [address] [place] [address] [id number] ALT [Catalytic activity/Vol] 20 U/L Normal 0-31 [facility] Comment on above: Performed By: #### Cathy SALGUERO, , CBCA #### [facility] ([id number]) [address] [place] [address] [id number] Anion gap [Moles/Vol] 10 mmol/L Normal 5-15 [facility] Comment on above: Performed By: #### Cathy SALGUERO, , CBCA #### [facility] ([id number]) [address] [place] [address] [id number] AST [Catalytic activity/Vol] 22 U/L Normal 0-41 [facility] Comment on above: Performed By: #### Cathy SALGUERO, , CBCA #### [facility] ([id number]) [address] [place] [address] [id number] Bilirubin [Mass/Vol] 0.8 mg/dL Normal 0.3-1.2 [facility] Comment on above: Performed By: #### C NOEMY, , CBCA #### [facility] ([id number]) [address] [place] [address] 21094 Calcium [Mass/Vol] 9.0 mg/dL Normal 8.5-10.5 [facility] Comment on above: Performed By: #### Cathy SALGUERO, , CBCA #### [facility] ([id number]) [address] [place] [address] 00036 Chloride [Moles/Vol] 108 mmol/L Normal 98-109 [facility] Comment on above: Performed By: #### C NOEMY, , CBCA #### [facility] ([id number]) [address] [place] [address] 33620 CO2 [Moles/Vol] 18 mmol/L Low 22-32 [facility] Comment on above: Performed By: #### C NOEMY, , CBCA #### [facility] ([id number]) [address] [place] [address] 97518 Creatinine [Mass/Vol] 0.90 mg/dL Normal 0.40-1.00 [facility] Comment on above: Result Comment: METH OD TRACEABLE TO IDMS STANDARD Performed By: #### C NOEMY, , CBCA #### [facility] ([id number]) [address] [place] [address] 76577 GFR/1.73 sq M.predicted among non-blacks MDRD (S/P/Bld) [Vol rate/Area] 63 mL/min/{1.73_m2} Normal >59 [facility] Comment on above: Result Comment: Reported eGFR is based on the CKD-EPI 2020 equation that does not use a race coefficient. Performed By: #### C NOEMY, , CBCA #### [facility] ([id number]) [address] [place] [address] 10629 Glucose [Mass/Vol] 109 mg/dL High 65-99 [facility] Comment on above: Performed By: #### Cathy SALGUERO, , CBCA #### [facility] ([id number]) [address] [place] [address] 72520 Potassium [Moles/Vol] 3.8 mmol/L Normal 3.5-5.0 [facility] Comment on above: Performed By: #### C NOEMY, , CBCA #### [facility] ([id number]) [address] [place] [address] 06687 Protein [Mass/Vol] 6.7 g/dL Normal 6.0-8.0 [facility] Comment on above: Performed By: #### C NOEMY, , CBCA #### [facility] ([id number]) [address] [place] [address] 31527 Sodium [Moles/Vol] 136 mmol/L Normal 134-146 [facility] Comment on above: Performed By: #### C NOEMY, , CBCA #### [facility] ([id number]) [address] [place] [address] 57603 Urea nitrogen [Mass/Vol] 25 mg/dL Normal 5-27 [facility] Comment on above: Performed By: #### C NOEMY, , CBCA #### [facility] ([id number]) [address] [place] [address] 99558 MAGNESIUMon 12-09-2023 Magnesium [Mass/Vol] 2.0 mg/dL Normal 1.8-2.6 [facility] Comment on above: Performed By: #### C NOEMY, , CBCA #### [facility] ([id number]) [address] [place] [address] 88525 MR LUMBAR SPINE WO CONTon MR LUMBAR [...] Wilde MD on 12/09/2023 1:00 PM Normal [facility] CBC AND AUTO DIFFon 12-08-19 24 ABSOLUTE BASOPHIL 0.1 X10E9/L Normal 0.0-0.2 [facility] Comment on above: Performed By: #### C BCA, CMP, 99248-7, 00748-0 #### [facility] ([id number]) [address] [place] [address] [place] [address] ABSOLUTE NEUTROPHIL 10.1 X10E9/L High 1.5-6.6 [facility] Comment on above: Performed By: #### C BCA, CMP, , 11944-5 #### [facility] ([id number]) [address] [place] [address] 96781 Basophils/100 WBC (Bld) 0.5 % Normal [facility] Comment on above: Performed By: #### C BCA, CMP, , 40042-2 #### [facility] ([id number]) [address] [place] [address] 15152 Eosinophils (Bld) [#/Vol] 0.0 10*3/uL Normal 0.0-0.4 [facility] Comment on above: Performed By: #### C BCA, CMP, , #### [facility] ([id number]) [address] [place] [address] 99415 Eosinophils/100 WBC (Bld) 0.1 % Normal [facility] Comment on above: Performed By: #### Cathy BCA, CMP, , 23473-4 #### [facility] ([id number]) [address] [place] [address] 07715 Erythrocyte distribution width (RBC) [Ratio] 14.0 % Normal 11.5-15.0 [facility] Comment on above: Performed By: #### C BCA, CMP, , 23982-2 #### [facility] ([id number]) [address] [place] [address] 55416 Hematocrit (Bld) [Volume fraction] 37.9 % Normal 35-47 [facility] Comment on above: Performed By: #### C BCA, CMP, , 84729-9 #### [facility] ([id number]) [address] [place] [address] 31109 Hemoglobin (Bld) [Mass/Vol] 12.7 g/dL Normal 11.7-15.5 [facility] Comment on above: Performed By: #### C XI WILSON, , 81106-9 #### [facility] ([id number]) [address] [place] [address] 49652 Lymphocytes (Bld) [#/Vol] 0.6 10*3/uL Low 1.0-3.5 [facility] Comment on above: Performed By: #### Cathy WILSON CMP, , 71147-0 #### [facility] ([id number]) [address] [place] [address] 84721 Lymphocytes/100 WBC (Bld) 5.2 % Normal [facility] Comment on above: Performed By: #### Cathy WILSON CMP, , 58267-1 #### [facility] ([id number]) [address] [place] [address] 96074 MCH (RBC) [Entitic mass] 31.8 pg Normal 27-34 [facility] Comment on above: Performed By: #### Cathy WILSON CMP, , 66345-0 #### [facility] ([id number]) [address] [place] [address] 05800 MCHC (RBC) [Mass/Vol] 33.6 g/dL Normal 32-36 [facility] Comment on above: Performed By: #### Cathy WILSON CMP, , 36139-3 #### [facility] ([id number]) [address] [place] [address] 79070 MCV (RBC) [Entitic vol] 95 fL Normal 80-100 [facility] Comment on above: Performed By: #### Cathy WILSON CMP, , 77877-6 #### [facility] ([id number]) [address] [place] [address] 86127 Monocytes (Bld) [#/Vol] 0.8 10*3/uL Normal 0-0.9 [facility] Comment on above: Performed By: #### C BCA, CMP, , 61081-3 #### [facility] ([id number]) [address] [place] [address] 07030 Monocytes/100 WBC (Bld) 6.5 % Normal [facility] Comment on above: Performed By: #### C BCA, CMP, , 35913-0 #### [facility] ([id number]) [address] [place] [address] 99981 Neutrophils/100 WBC (Bld) 87.7 % Normal [facility] Comment on above: Performed By: #### Cathy BCA, CMP, , 12954-8 #### [facility] ([id number]) [address] [place] [address] 28603 Platelet mean volume (Bld) [Entitic vol] 8.0 fL Normal 7-12 [facility] Comment on above: Performed By: #### Cathy BCA, CMP, , 06762-4 #### [facility] ([id number]) [address] [place] [address] 35175 Platelets (Bld) [#/Vol] 183 10*3/uL Normal 150-450 [facility] Comment on above: Performed By: #### C BCA, CMP, , 16425-2 #### [facility] ([id number]) [address] [place] [address] 44033 RBC COUNT 4.00 X10E12/L Normal 3.80-5.20 [facility] Comment on above: Performed By: #### C BCA, CMP, , 24338-8 #### [facility] ([id number]) [address] [place] [address] 55043 WBC (Bld) [#/Vol] 11.5 10*3/uL High 4.0-11.0 [facility] Comment on above: Performed By: #### C BCA, CMP, , 19186-3 #### [facility] ([id number]) [address] [place] [address] 15026 COMPREHENSIVE METABOLIC PANE Jarrod 12-08-2023 Albumin [Mass/Vol] 4.1 g/dL Normal 3.2-5.3 [facility] Comment on above: Performed By: #### C BCA, CMP, , 31592-4 #### [facility] ([id number]) [address] [place] [address] 02002 ALP [Catalytic activity/Vol] 128 U/L Normal 39-130 [facility] Comment on above: Performed By: #### C BCA, CMP, , 01789-8 #### [facility] ([id number]) [address] [place] [address] 86380 ALT [Catalytic activity/Vol] 22 U/L Normal 0-31 [facility] Comment on above: Performed By: #### C BCA, CMP, , 30724-4 #### [facility] ([id number]) [address] [place] [address] 80005 Anion gap [Moles/Vol] 9 mmol/L Normal 5-15 [facility] Comment on above: Performed By: #### C BCA, CMP, , 77193-4 #### [facility] ([id number]) [address] [place] [address] 41381 AST [Catalytic activity/Vol] 26 U/L Normal 0-41 [facility] Comment on above: Performed By: #### C BCA, CMP, , 06025-0 #### [facility] ([id number]) [address] [place] [address] 23561 Bilirubin [Mass/Vol] 0.9 mg/dL Normal 0.3-1.2 [facility] Comment on above: Performed By: #### C BCA, CMP, , 26624-0 #### [facility] ([id number]) [address] [place] [address] 08652 Calcium [Mass/Vol] 9.2 mg/dL Normal 8.5-10.5 [facility] Comment on above: Performed By: #### C BCA, CMP, , 31029-6 #### [facility] ([id number]) [address] [place] [address] 81394 Chloride [Moles/Vol] 107 mmol/L Normal 98-109 [facility] Comment on above: Performed By: #### C BCA, CMP, , 81292-8 #### [facility] ([id number]) [address] [place] [address] 84455 CO2 [Moles/Vol] 19 mmol/L Low 22-32 [facility] Comment on above: Performed By: #### C BCA, CMP, , 27439-0 #### [facility] ([id number]) [address] [place] [address] 27177 Creatinine [Mass/Vol] 0.96 mg/dL Normal 0.40-1.00 [facility] Comment on above: Result Comment: METH OD TRACEABLE TO IDMS STANDARD Performed By: #### C BCA, CMP, , 33870-4 #### [facility] ([id number]) [address] [place] [address] 67156 GFR/1.73 sq M.predicted among non-blacks MDRD (S/P/Bld) [Vol rate/Area] 59 mL/min/{1.73_m2} Low >59 [facility] Comment on above: Result Comment: Reported eGFR is based on the CKD-EPI 2020 equation that does not use a race coefficient. Performed By: #### C XI WILSON, , 55477-5 #### [facility] ([id number]) [address] [place] [address] 89855 Glucose [Mass/Vol] 121 mg/dL High 65-99 [facility] Comment on above: Performed By: #### C XI WILSON, , 95584-9 #### [facility] ([id number]) [address] [place] [address] 57493 Potassium [Moles/Vol] 4.1 mmol/L Normal 3.5-5.0 [facility] Comment on above: Performed By: #### C XI WILSON, , 32389-5 #### [facility] ([id number]) [address] [place] [address] 58558 Protein [Mass/Vol] 7.1 g/dL Normal 6.0-8.0 [facility] Comment on above: Performed By: #### C XI WILSON, , 70987-7 #### [facility] ([id number]) [address] [place] [address] 19441 Sodium [Moles/Vol] 135 mmol/L Normal 134-146 [facility] Comment on above: Performed By: #### C XI WILSON, , 61266-5 #### [facility] ([id number]) [address] [place] [address] 97668 Urea nitrogen [Mass/Vol] 24 mg/dL Normal 5-27 [facility] Comment on above: Performed By: #### C XI WILSON, , 10868-0 #### [facility] ([id number]) [address] [place] [address] 31293 MAGNESIUMon 03-03-2024 Magnesium [Mass/Vol] 2.0 mg/dL Normal 1.8-2.6 [facility] Comment on above: Performed By: #### C KATIE, [facility], 06265-7, 72226-4 #### [facility] ([id number]) [address] [facility], [place] [address] SARS/FLU A+B/RSV by NAAT/Mol ecularon 12-08-2023 SARS/FLU [...] operators who are performing tests using either [facility] or [employer] systems and is limited to laboratories that [...] repeat. Fact Sheet for Healthcare Providers: https://www.fda.gov/me lindsay/035642/download Fact Sheet for Patients: https://www.fda.gov/wa lindsay/284671/download Normal [facility] Comment on above: Performed By: #### C OVFLR #### [facility] ([id number]) [address] [place] [address] 98166 TROPONIN Ion 12-08-2023 Troponin I.cardiac [Mass/Vol] ng/mL Normal 0.00-0.04 [facility] Comment on above: Performed By: #### C BCA, CMP, 60221-9, 69284-4 #### [facility] ([id number]) [address] [place] [address] 93249 XR CHEST 1 VWon 12-08-2023 XR CHEST 1 VW XR CHEST 1 VW Portable chest: HISTORY: Cough. Single view of the chest was obtained. Cardiac and mediastinal contours are unchanged. There is no pneumothorax. No focal consolidation or effusion. Pulmonary vasculature appears stable. IMPRESSION: No significant change. Finalized by Cleve Francis MD on 12/08/2023 9:04 PM Normal [facility] XR PELVIS 1 OR 2 [...] Zuniga MD on 12/08/2023 9:03 PM Normal [facility] XR SPINE LUMBAR 2 OR [...] indeterminate L2 compression deformity. Finalized by Cleve Franics MD on 12/08/2023 9:03 PM Normal [facility] MR head/brain wo conon 09-18 MR head/brain wo con [facility] [place] [address] [place] [address] MRI Report Signed Patient: Diana Franco I MR#: [id number] : 1940 Acct:[id number] Age/Sex: 83 / F ADM Date: 09/18/23 Loc: MR Room: Type: [facility] Attending Dr: Shaikh Miranda [place] Copies to: [...] Cholo Castillo M.D.09/18/2023 11:24 AM Dictation Location: [facility] Transcribed By: [facility] 09/18/23 1124 Dictated By: Cholo Castillo II, MD 09/18/23 112 Signed By: 09/18/23 1124 Normal [facility] XR pelvis 1-2Von 09-18-2023 XR pelvis 1-2V [facility] [place] [address] XRay Report Signed Patient: Diana Franco I MR#: [id number] : 1940 Acct:[id number] Age/Sex: 83 / F ADM Date: 09/18/23 Loc: Room: Type: [facility] Attending Dr: Shaikh Miranda [place] Copies to: [...] Damian Jr., D.OCarolyn09/18/2023 3:15 PM Dictation Location: [facility]08 Transcribed By: [facility] 09/18/23 3605 Dictated By: Ernst Damian Jr, DO 09/18/23 1514 Signed By: 09/18/23 1515 [facility] XR chest 2V*on 08-16-2023 XR chest 2V* [facility] [place] [address] [place] [address] XRay Report Signed Patient: Lacey Franco I MR#: [id number] : 1940 Acct:[id number] Age/Sex: 82 / F ADM Date: 08/16/23 Loc: [facility] Room: Type: [facility] Attending Dr: Shaikh Miranda [place] Copies to: [...] Yunier Ibanez M.D.08/16/2023 5:18 PM Dictation Location: [place] [address] Transcribed By: [facility] 08/16/231717 Dictated By: Yunier Ibanez DO 08/16/231716 Signed By: 08/16/231717 [facility] US SINGLE QUAD RT UPPERon US [...] GILL LIRA Date: 2023-02-13 09:45 Normal [facility] HEPATITIS PANEL, ACUTEon HBsAg Screen Negative Normal Negative [facility] Comment on above: Performed By: #### H EPACUT #### [facility] [address] [place] [address] Dr. Danitza Cramer HCV AB Non-Reactive Normal Non Reactive [facility] Comment on above: Performed By: #### H EPACUT #### [facility] [address] [address] [address] Danitza Cramer Hep A Ab, IgM Negative Normal Negative [facility] Comment on above: Performed By: #### H EPACUT #### [facility] [address] [address] [address] Danitza Cramer Hep B Core Ab, IgM Negative Normal Negative [facility] Comment on above: Performed By: #### H EPACUT #### [facility] [address] [address] [address] Danitza Cramer Interpretation: Comment Normal [facility] Comment on above: Result Comment: Not infected with HCV unless early or acute infection is suspected (which may be delayed in an immunocompromised individual), or other evidence exists to indicate HCV infection. Performed By: #### H EPACUT #### [facility] [address] [address] [address] Danitza Cramer CBC AUTO DIFFon 01-22-2023 BASO # 0.1 103/ul Normal 0.0-0.1 [facility] Comment on above: Performed By: #### C BC #### [facility] [address] [address] [address] Danitza Cramer Basophils/100 WBC (Bld) 0.6 % Normal 0.2-2.0 [facility] Comment on above: Performed By: #### C BC #### [facility] [address] [place] [address] Dr. Danitza Cramer EO # 0.1 103/ul Normal 0.0-0.7 [facility] Comment on above: Performed By: #### C BC #### [facility] [address] [place] [address] Dr. Danitza Cramer Eosinophils/100 WBC (Bld) 1.0 % Normal 0.9-7.0 [facility] Comment on above: Performed By: #### C BC #### [facility] [address] [place] [address] Dr. Danitza Cramer Erythrocyte distribution width (RBC) [Ratio] 15.0 % Normal 11.0-15.0 [facility] Comment on above: Performed By: #### C BC #### [facility] [address] [place] [address] Dr. Danitza Cramer Hematocrit (Bld) [Volume fraction] 41.0 % Normal 36.0-48.0 [facility] Comment on above: Performed By: #### C BC #### [facility] [address] [place] [address] Dr. Danitza Cramer Hemoglobin (Bld) [Mass/Vol] 13.2 g/dL Normal 12.0-16.0 [facility] Comment on above: Performed By: #### C BC #### [facility] [address] [place] [address] Dr. Danitza Cramer IG # 0.04 10e3/ul Critically high 0.00-0.03 [facility] Comment on above: Performed By: #### C BC #### [facility] [address] [place] [address] Dr. Danitza Cramer IG % 0.5 % Normal 0.0-0.5 [facility] Comment on above: Performed By: #### C BC #### [facility] [address] [place] [address] Dr. Danitza Cramer LYMPH # 1.1 103/ul Critically low 1.2-3.8 [facility] Comment on above: Performed By: #### C BC #### [facility] [address] [place] [address] Dr. Danitza Cramer Lymphocytes/100 WBC (Bld) 14.7 % Critically low 20.5-60.0 [facility] Comment on above: Performed By: #### C BC #### [facility] [address] [place] [address] Dr. Danitza Cramer MANUAL DIFF REQ NO Normal [facility] Comment on above: Performed By: #### C BC #### [facility] [address] [place] [address] Dr. Danitza Cramer MCH (RBC) [Entitic mass] 30.8 pg Normal 26.7-34.0 [facility] Comment on above: Performed By: #### C BC #### [facility] [address] [place] [address] Dr. Danitza Cramer MCHC (RBC) [Mass/Vol] 32.2 g/dL Normal 29.9-35.2 [facility] Comment on above: Performed By: #### C BC #### [facility] [address] [place] [address] Dr. Danitza Cramer MCV (RBC) [Entitic vol] 95.6 fL Normal 81.0-99.0 [facility] Comment on above: Performed By: #### C BC #### [facility] [address] [place] [address] Dr. Danitza Cramer MONO # 0.5 103/ul Normal 0.3-0.8 [facility] Comment on above: Performed By: #### C BC #### [facility] [address] [place] [address] Dr. Danitza Cramer Monocytes/100 WBC (Bld) 5.8 % Normal 1.7-12.0 [facility] Comment on above: Performed By: #### C BC #### [facility] [address] [place] [address] Dr. Danitza Cramer NEUT # 6.0 103/ul Normal 1.4-6.5 [facility] Comment on above: Performed By: #### C BC #### [facility] [address] [address] [address] Danitza Cramer Neutrophils/100 WBC (Bld) 77.4 % Critically high 43.0-75.0 [facility] Comment on above: Performed By: #### C BC #### [facility] [address] [address] [address] Danitza Cramer Platelet mean volume (Bld) [Entitic vol] 9.7 fL Normal 9.5-13.5 [facility] Comment on above: Performed By: #### C BC #### [facility] [address] [place] [address] Dr. Danitza Cramer PLT 231 103/ul Normal 150-450 [facility] Comment on above: Performed By: #### C BC #### [facility] [address] [place] [address] Dr. Danitza Cramer RBC 4.29 106/ul Normal 4.20-5.40 [facility] Comment on above: Performed By: #### C BC #### [facility] [address] [place] [address] Dr. Danitza Cramer WBC 7.7 103/ul Normal 4.0-11.0 [facility] Comment on above: Performed By: #### C BC #### [facility] [address] [place] [address] Dr. Danitza Cramer LIVER PROFILEon 01-22-2023 Albumin [Mass/Vol] 4.0 g/dL Normal 3.4-5.0 [facility] Comment on above: Performed By: #### L SHAJI BMP #### [facility] [address] [place] [address] Dr. Danitza Cramer Albumin/Globulin [Mass ratio] 1.1 {ratio} Normal [facility] Comment on above: Performed By: #### L SHAJI, BMP #### [facility] [address] [address] [address] Danitza Cramer ALP [Catalytic activity/Vol] 162 U/L Critically high 46-116 [facility] Comment on above: Performed By: #### L IVER, BMP #### [facility] [address] [address] [address] Danitza Cramer ALT [Catalytic activity/Vol] 16 U/L Normal 14-59 [facility] Comment on above: Performed By: #### L IVER, BMP #### [facility] [address] [address] [address] Danitza Cramer AST [Catalytic activity/Vol] 11 U/L Critically low 15-37 [facility] Comment on above: Performed By: #### L IVER, BMP #### [facility] [address] [place] [address] Dr. Danitza Cramer BILI, CONJUGATED 0.2 mg/dL Normal 0.0-0.2 [facility] Comment on above: Performed By: #### L IVER, BMP #### [facility] [address] [place] [address] Dr. Danitza Cramer Bilirubin [Mass/Vol] 0.6 mg/dL Normal 0.2-1.0 [facility] Comment on above: Performed By: #### L IVER, BMP #### [facility] [address] [address] [address] Danitza Cramer Globulin (S) [Mass/Vol] 3.6 g/dL Normal [facility] Comment on above: Performed By: #### L IVER, BMP #### [facility] [address] [address] [address] Danitza Cramer Protein [Mass/Vol] 7.6 g/dL Normal 6.4-8.2 [facility] Comment on above: Performed By: #### L IVER, BMP #### [facility] [address] [address] [address] Danitza Cramer PROF CHEM 8 (BAS METB)on Anion gap [Moles/Vol] 14.2 mmol/L Normal [facility] Comment on above: Performed By: #### L IVER, BMP #### [facility] [facility] [address] [place] [address] Dr. Danitza Cramer Calcium [Mass/Vol] 9.5 mg/dL Normal 8.5-10.1 [facility] Comment on above: Performed By: #### L SHAJI, BMP #### [facility] [address] [address] [address] Danitza Cramer Chloride [Moles/Vol] 109 mmol/L Critically high 98-107 [facility] Comment on above: Performed By: #### L SHAJI, BMP #### [facility] [address] [address] [address] Danitza Cramer CO2 [Moles/Vol] 24.0 mmol/L Normal 21.0-32.0 [facility] Comment on above: Performed By: #### Lizet GIRARD, BMP #### [facility] [address] [place] [address] Dr. Danitza Cramer Creatinine [Mass/Vol] 1.03 mg/dL Critically high 0.55-1.02 [facility] Comment on above: Performed By: #### Lizet GIRARD, BMP #### [facility] [address] [place] [address] Dr. Danitza Cramer EGFR-AF TOGOLESE >60 Normal >=60 [facility] Comment on above: Performed By: #### Lizet GIRARD, BMP #### [facility] [address] [place] [address] Dr. Danitza Cramer EGFR-NON AF TOGOLESE 51 mL/min/1.73m2 Critically low >=60 [facility] Comment on above: Performed By: #### Lizet GIRARD, BMP #### [facility] [address] [place] [address] Dr. Danitza Cramer Glucose [Mass/Vol] 105 mg/dL Normal 74-106 [facility] Comment on above: Performed By: #### L SHAJI, BMP #### [facility] [address] [place] [address] Dr. Danitza Cramer Potassium [Moles/Vol] 4.2 mmol/L Normal 3.5-5.1 [facility] Comment on above: Performed By: #### L SHAJI, BMP #### [facility] [address] [place] [address] Dr. Danitza Cramer Sodium [Moles/Vol] 143 mmol/L Normal 136-145 [facility] Comment on above: Performed By: #### L SHAJI, BMP #### [facility] [address] [place] [address] Dr. Danitza Cramer Urea nitrogen [Mass/Vol] 25.0 mg/dL Critically high 7.0-18.0 [facility] Comment on above: Performed By: #### L SHAJI, BMP #### [facility] [address] [place] [address] Dr. Danitza Cramer Urea nitrogen/Creatinine [Mass ratio] 24.3 mg/mg Normal [facility] Comment on above: Performed By: #### L SHAJI BMP #### [facility] [address] [place] [address] Dr. Danitza Cramer CULTURE URINEon 11-14-2022 CULTURE URINE Culture Observations : LIGHT GROWTH OF MIXED GENITAL JANELL. NO POTENTIAL PATHOGENS SEEN. Normal [facility] Comment on above: Performed By: #### U RCX #### [facility] [address] [place] [address] Dr. Danitza Cramer UA RANDOM W/MICROSCOPICon BACTERIA NONE SEEN Normal NONE SEEN [facility] Comment on above: Performed By: #### F T4 #### [facility] [address] [place] [address] Dr. Danitza Cramer Bilirubin Ql (U) Negative Normal NEGATIVE [facility] Comment on above: Performed By: #### F T4 #### [facility] [address] [place] [address] Dr. Danitza Cramer CAST NONE SEEN Normal NONE SEEN [facility] Comment on above: Performed By: #### F T4 #### [facility] [address] [place] [address] Dr. Danitza Cramer Clarity (U) CLEAR Normal CLEAR [facility] Comment on above: Performed By: #### F T4 #### [facility] [address] [place] [address] Dr. Danitza Cramer Color (U) YELLOW Normal YELLOW [facility] Comment on above: Performed By: #### F T4 #### [facility] [address] [place] [address] Dr. Danitza Cramer Crystals LM Nom (Urine sed) NONE SEEN Normal NONE SEEN [facility] Comment on above: Performed By: #### F T4 #### [facility] [address] [address] [address] Danitza Cramer Epithelial cells LM Ql (Urine sed) NONE SEEN Normal NONE SEEN /RARE [facility] Comment on above: Performed By: #### F T4 #### [facility] [address] [place] [address] Dr. Danitza Cramer Glucose Ql (U) Negative Normal NEGATIVE [facility] Comment on above: Performed By: #### F T4 #### [facility] [address] [place] [address] Dr. Danitza Cramer Hemoglobin Ql (U) Negative Normal NEGATIVE [facility] Comment on above: Performed By: #### F T4 #### [facility] [address] [place] [address] Dr. Danitza Cramer Ketones Ql (U) Negative Normal NEGATIVE [facility] Comment on above: Performed By: #### F T4 #### [facility] [address] [place] [address] Dr. Danitza Cramer LEUKOCYTES SMALL Abnormal NEGATIVE [facility] Comment on above: Performed By: #### F T4 #### [facility] [address] [place] [address] Dr. Danitza Cramer MUCOUS NONE SEEN Normal NONE SEEN [facility] Comment on above: Performed By: #### F T4 #### [facility] [address] [place] [address] Dr. Danitza Cramer Nitrite Ql (U) Negative Normal NEGATIVE [facility] Comment on above: Performed By: #### F T4 #### [facility] [address] [place] [address] Dr. Danitza Cramer pH (U) 6.0 [pH] Normal 5-9 [facility] Comment on above: Performed By: #### F T4 #### [facility] [address] [place] [address] Dr. Danitza Cramer RBC 0-2 Normal 0-2 [facility] Comment on above: Performed By: #### F T4 #### [facility] [address] [place] [address] Dr. Danitza Cramer SPEC GRAVITY 1.020 Normal 1.005-<=1.025 [facility] Comment on above: Performed By: #### F T4 #### [facility] [address] [place] [address] Dr. Danizta Cramer UA PROTEIN Negative Normal NEGATIVE/ TRACE [facility] Comment on above: Performed By: #### F T4 #### [facility] [address] [place] [address] Dr. Danitza Cramer Urobilinogen Qn (U) 0.2 {Mykel'U}/dL Normal 0.2 - 1. 0 [facility] Comment on above: Performed By: #### F T4 #### [facility] [address] [place] [address] Dr. Danitza Cramer WBC 0-2 Abnormal NONE SEEN [facility] Comment on above: Performed By: #### F T4 #### [facility] [address] [place] [address] Dr. Danitza Cramer CBC AUTO DIFFon 07-17-2022 BASO # 0.0 103/ul Normal 0.0-0.1 [facility] Comment on above: Performed By: #### C BC #### [facility] [address] [place] [address] Dr. Danitza Cramer Basophils/100 WBC (Bld) 0.6 % Normal 0.2-2.0 [facility] Comment on above: Performed By: #### C BC #### [facility] [address] [place] [address] Dr. Danitza Cramer EO # 0.1 103/ul Normal 0.0-0.7 [facility] Comment on above: Performed By: #### C BC #### [facility] [address] [place] [address] Dr. Danitza Cramer Eosinophils/100 WBC (Bld) 1.3 % Normal 0.9-7.0 [facility] Comment on above: Performed By: #### C BC #### [facility] [address] [address] [address] Danitza Cramer Erythrocyte distribution width (RBC) [Ratio] 13.9 % Normal 11.0-15.0 [facility] Comment on above: Performed By: #### C BC #### [facility] [address] [place] [address] Dr. Danitza Cramer Hematocrit (Bld) [Volume fraction] 40.4 % Normal 36.0-48.0 [facility] Comment on above: Performed By: #### C BC #### [facility] [address] [place] [address] Dr. Danitza Cramer Hemoglobin (Bld) [Mass/Vol] 12.8 g/dL Normal 12.0-16.0 [facility] Comment on above: Performed By: #### C BC #### [facility] [address] [place] [address] Dr. Danitza Cramer IG # 0.04 10e3/ul Critically high 0.00-0.03 [facility] Comment on above: Performed By: #### C BC #### [facility] [address] [place] [address] Dr. Danitza Cramer IG % 0.6 % Critically high 0.0-0.5 [facility] Comment on above: Performed By: #### C BC #### [facility] [address] [place] [address] Dr. Danitza Cramer LYMPH # 1.0 103/ul Critically low 1.2-3.8 [facility] Comment on above: Performed By: #### C BC #### [facility] [address] [place] [address] Dr. Danitza Cramer Lymphocytes/100 WBC (Bld) 14.4 % Critically low 20.5-60.0 [facility] Comment on above: Performed By: #### C BC #### [facility] [address] [place] [address] Dr. Danitza Cramer MANUAL DIFF REQ NO Normal [facility] Comment on above: Performed By: #### C BC #### [facility] [address] [address] [address] Danitza Cramer MCH (RBC) [Entitic mass] 29.9 pg Normal 26.7-34.0 [facility] Comment on above: Performed By: #### C BC #### [facility] [address] [place] [address] Dr. Danitza Cramer MCHC (RBC) [Mass/Vol] 31.7 g/dL Normal 29.9-35.2 [facility] Comment on above: Performed By: #### C BC #### [facility] [address] [place] [address] Dr. Danitza Cramer MCV (RBC) [Entitic vol] 94.4 fL Normal 81.0-99.0 [facility] Comment on above: Performed By: #### C BC #### [facility] [address] [place] [address] Dr. Danitza Cramer MONO # 0.5 103/ul Normal 0.3-0.8 [facility] Comment on above: Performed By: #### C BC #### [facility] [address] [place] [address] Dr. Danitza Cramer Monocytes/100 WBC (Bld) 6.8 % Normal 1.7-12.0 [facility] Comment on above: Performed By: #### C BC #### [facility] [address] [place] [address] Dr. Danitza Cramer NEUT # 5.4 103/ul Normal 1.4-6.5 [facility] Comment on above: Performed By: #### C BC #### [facility] [address] [place] [address] Dr. Danitza Cramer Neutrophils/100 WBC (Bld) 76.3 % Critically high 43.0-75.0 [facility] Comment on above: Performed By: #### C BC #### [facility] [address] [place] [address] Dr. Danitza Cramer Platelet mean volume (Bld) [Entitic vol] 10.9 fL Normal 9.5-13.5 [facility] Comment on above: Performed By: #### C BC #### [facility] [address] [address] [address] Danitza Cramer PLT 260 103/ul Normal 150-450 [facility] Comment on above: Performed By: #### C BC #### [facility] [address] [address] [address] Danitza Cramer RBC 4.28 106/ul Normal 4.20-5.40 [facility] Comment on above: Performed By: #### C BC #### [facility] [address] [place] [address] Dr. Danitza Cramer WBC 7.1 103/ul Normal 4.0-11.0 [facility] Comment on above: Performed By: #### C BC #### [facility] [address] [place] [address] Dr. Danitza Cramer FREE T3on 07-17-2022 FREE T3 2.21 pg/mlL Normal 2.18-3.98 [facility] Comment on above: Performed By: #### F T4 #### [facility] [address] [place] [address] Dr. Danitza Cramer FREE T4on 07-17-2022 Free T4 [Mass/Vol] 1.67 ng/dL Critically high 0.76-1.46 [facility] Comment on above: Performed By: #### F T4 #### [facility] [address] [place] [address] Dr. Danitza Cramer GLYCOHEMOGLOBIN A1Con 2021 ADA RECOMMENDATION SEE BELOW Normal [facility] Comment on above: Result Comment: ADA RECOMMENDED LIMIT 4.0 - 6.0 ADA THERAPEUTIC TARGET < 7.0 ACTION SUGGESTED > 7.0 Performed By: #### A 1C #### [facility] [address] [place] [address] Dr. Danitza Cramer Glucose [Mass/Vol] 111 mg/dL Normal [facility] Comment on above: Performed By: #### A 1C #### [facility] [address] [place] [address] Dr. Danitza Cramer HbA1c (Bld) [Mass fraction] 5.5 % Normal 4.5-6.2 [facility] Comment on above: Performed By: #### A 1C #### [facility] [address] [place] [address] Dr. Danitza Cramer PROF CHEM 8 (BAS METB)on Anion gap [Moles/Vol] 16.8 mmol/L Normal [facility] Comment on above: Performed By: #### F T3, TSH, BMP #### [facility] [address] [place] [address] Dr. Danitza Cramer Calcium [Mass/Vol] 9.2 mg/dL Normal 8.5-10.1 [facility] Comment on above: Performed By: #### F T3, TSH, BMP #### [facility] [address] [place] [address] Dr. Danitza Cramer Chloride [Moles/Vol] 106 mmol/L Normal 98-107 [facility] Comment on above: Performed By: #### F T3, TSH, BMP #### [facility] [address] [place] [address] Dr. Danitza Cramer CO2 [Moles/Vol] 21.4 mmol/L Normal 21.0-32.0 [facility] Comment on above: Performed By: #### F T3, TSH, BMP #### [facility] [address] [place] [address] Dr. Danitza Cramer Creatinine [Mass/Vol] 1.13 mg/dL Critically high 0.55-1.02 [facility] Comment on above: Performed By: #### F T3, TSH, BMP #### [facility] [address] [place] [address] Dr. Danitza Cramer EGFR-AF TOGOLESE 56 mL/min/1.73m2 Critically low >=60 [facility] Comment on above: Performed By: #### F T3, TSH, BMP #### [facility] [address] [place] [address] Dr. Danitza Cramer EGFR-NON AF TOGOLESE 46 mL/min/1.73m2 Critically low >=60 [facility] Comment on above: Performed By: #### F T3, TSH, BMP #### [facility] [address] [address] [address] Danitza Cramer Glucose [Mass/Vol] 114 mg/dL Critically high 74-106 [facility] Comment on above: Performed By: #### F T3, TSH, BMP #### [facility] [address] [address] [address] Danitza Cramer Potassium [Moles/Vol] 4.2 mmol/L Normal 3.5-5.1 [facility] Comment on above: Performed By: #### F T3, TSH, BMP #### [facility] [address] [address] [address] Danitza Cramer Sodium [Moles/Vol] 140 mmol/L Normal 136-145 [facility] Comment on above: Performed By: #### F T3, TSH, BMP #### [facility] [address] [address] [address] Danitza Cramer Urea nitrogen [Mass/Vol] 25.0 mg/dL Critically high 7.0-18.0 [facility] Comment on above: Performed By: #### F T3, TSH, BMP #### [facility] [address] [address] [address] Danitza Cramer Urea nitrogen/Creatinine [Mass ratio] 22.1 mg/mg Normal [facility] Comment on above: Performed By: #### F T3, TSH, BMP #### [facility] [address] [address] [address] Danitza Cramer TSHon 07-17-2022 TSH 0.058 uIU/mL Critically low 0.358-3.740 [facility] Comment on above: Performed By: #### F T4 #### [facility] [address] [place] [address] Dr. Danitza Cramer Vital Signs Date Time Vital Sign Value Performing Clinician Facility 08-06-2024 11:42-0400 Body height 154.9 cm Isak Rojas MD Work Phone: [facility] 08-06-2024 11:42-0400 Body mass index (BMI) [Ratio] 30.04 kg/m2 Isak Rojas MD Work Phone: [facility] 08-06-2024 11:42-0400 Body temperature 97.11 [degF] Isak Rojas MD Work Phone: [facility] 08-06-2024 11:42-0400 Body weight 72.12 kg Isak Rojas MD Work Phone: [facility] 08-06-2024 11:42-0400 Diastolic blood pressure 52 mm[Hg] Isak Rojas MD Work Phone: [facility] 08-06-2024 11:42-0400 Heart rate 71 /min Isak Rojas MD Work Phone: [facility] 08-06-2024 11:42-0400 Respiratory rate 20 /min Isak Rojas MD Work Phone: [facility] 08-06-2024 11:42-0400 SaO2% (BldA) [Mass fraction] 99 % Isak Rojas MD Work Phone: [facility] 08-06-2024 11:42-0400 Systolic blood pressure 108 mm[Hg] Isak Rojas MD Work Phone: [facility] 06-09-2024 10:59-0400 Body height 154.9 cm Isak Rojas MD Work Phone: [facility] 06-09-2024 10:59-0400 Body mass index (BMI) [Ratio] 29.66 kg/m2 Isak Rojas MD Work Phone: [facility] 06-09-2024 10:59-0400 Body temperature 97.81 [degF] Isak Rojas MD Work Phone: [facility] 06-09-2024 10:59-0400 Body weight 71.22 kg Isak Rojas MD Work Phone: [facility] 06-09-2024 10:59-0400 Diastolic blood pressure 74 mm[Hg] Isak Rojas MD Work Phone: [facility] 06-09-2024 10:59-0400 Heart rate 66 /min Isak Rojas MD Work Phone: [facility] 06-09-2024 10:59-0400 Respiratory rate 20 /min Isak Rojas MD Work Phone: [facility] 06-09-2024 10:59-0400 SaO2% (BldA) [Mass fraction] 97 % Isak Rojas MD Work Phone: [facility] 06-09-2024 10:59-0400 Systolic blood pressure 140 mm[Hg] Isak Rojas MD Work Phone: [facility] 09-27-2023 17:05-0500 Body height 153.67 cm Jacinta Verna Other [facility] Other 09-27-2023 17:05-0500 Body mass index (BMI) [Ratio] 28.81 kg/m2 Jacinta Castelanmond Other [facility] Other 09-27-2023 17:05-0500 Body temperature 98.6 [degF] Jacinta Castelanmond Other [facility] Other 09-27-2023 17:05-0500 Body weight 68.04 kg Jacinta Verna Other [facility] Other 09-27-2023 17:05-0500 Respiratory rate 18 /min Jacinta Castelanmond Other [facility] Other 09-27-2023 17:05-0500 SaO2% (BldA) [Mass fraction] 98 % Jacinta Verna Other [facility] Other 08-07-2022 14:14-0400 Body height 157.4 cm Koby Juarez APRN.CNP Work Phone: [facility] 08-07-2022 14:14-0400 Body temperature 97.2 [degF] Van Fagert DOCK OPERATOR.MARINE SURVEYOR Work Phone: [facility] 08-07-2022 14:14-0400 Body weight 77.11 kg Van Fagert DOCK OPERATOR.MARINE SURVEYOR Work Phone: [facility] 08-07-2022 14:14-0400 Diastolic blood pressure 82 mm[Hg] Van Fagert DOCK OPERATOR.MARINE SURVEYOR Work Phone: [facility] 08-07-2022 14:14-0400 Heart rate 78 /min Van Fagert DOCK OPERATOR.MARINE SURVEYOR Work Phone: [facility] 08-07-2022 14:14-0400 Respiratory rate 14 /min Van Fagert DOCK OPERATOR.MARINE SURVEYOR Work Phone: [facility] 08-07-2022 14:14-0400 SaO2% (BldA) [Mass fraction] 100 % Van Fagert DOCK OPERATOR.MARINE SURVEYOR Work Phone: [facility] 08-07-2022 14:14-0400 Systolic blood pressure 136 mm[Hg] Van Fagert DOCK OPERATOR.MARINE SURVEYOR Work Phone: [facility] Encounters Encounter Date Encounter Type Care [...] original px Isak Rojas MD Work Phone: [facility] Comment on above: Medicare annual well [...] 07-28-2024 Refill Isak Rojas MD Work Phone: [facility] Comment on above: Adult hypothyroidism (CMS/HCC) (Primary Dx); Gastroesophageal reflux disease without esophagitis Start: 06-29-2024 End: 06-29-2024 Refill Isak Rojas MD Work Phone: [facility] Comment on above: Migraine without aur a and without status migrainosus, not intractable (CMS/HCC) Start: 06-09-2024 End: 06-09-2024 Bamjulietteo frank Rojas MD Work Phone: [facility] Start: 06-09-2024 End: 06-09-2024 Bamrao flowsely Rojas MD Work Phone: [facility] Start: 06-09-2024 End: 06-09-2024 ambulatory ISAK ROJAS Not Available Start: 06-09-2024 End: 06-09-2024 Office outpatient visit 25 minutes Isak Rojas MD Work Phone: [facility] Comment on above: Essential hypertensi on, benign (CMS/HCC) (Primary Dx); DDD (degenerative disc disease), lumbar; Osteoarthritis of lower legs, bilateral; Migraine without aura and with status migrainosus, not intractable (CMS/HCC) Start: 06-03-2024 End: 06-04-2024 Emergency department patient visit MAXIMILIAN MIRBORIS [facility] Start: 03-11-2024 End: 03-11-2024 ambulatory ERWIN Gu MCLEOD [facility] Start: 03-10-2024 End: 04-06-2024 ambulatory THANG [facility] Start: 02-05-2024 End: [facility]07[facility] Start[facility] 01-06-[facility]24 Telephone encounter Werner Melendrez MD Work Phone: [facility] Comment on above: Follow Up Start: 01-06-2024 End: 02-05-2024 ambulatory THANG [facility] Start: 12-17-2023 End: 12-17-2023 ambulatory ISAK ROJAS Not Available Start: 12-10-2023 End: 01-06-2024 ambulatory THANG St[facility] Start: 12-09-2023 End: 12-10-2023 [facility] Start: 12-08-2023 End: 12-10-2023 Emergency department patient visit MAXIMILIAN D [facility] Start: 12-08-2023 End: 12-09-2023 [facility] Start: 12-03-2023 Patient Update Koby Juarez APR, N.CNP Work Phone: [facility] Comment on above: Orders Start: 09-27-2023 End: 09-27-2023 ambulatory Jacinta Gillespie Other [employer] Other Start: 09-27-2023 Office outpatient vi sit 15 minutes Jacinta Gillespie [facility] Start: 09-18-2023 End: 09-18-2023 ambulatory Shaikh Miranda Facility:[facility] Start: 09-18-2023 End: 09-18-2023 ambulatory MD Isak Rojas Work Phone: [facility] Work Phone: Start: 09-18-2023 End: 09-18-2023 Patient encounter procedure MD Isak Rojas Work Phone: [facility] [place] Work Phone: Start: 08-16-2023 End: 08-16-2023 ambulatory Shaikh Miranda Facility:[facility] Start: 08-16-2023 End: 08-16-2023 ambulatory MD Isak Rojas Work Phone: [facility] Work Phone: Start: 08-16-2023 End: 08-16-2023 Patient encounter procedure MD Isak Rojas Work Phone: [facility] Start: 02-13-2023 End: 02-14-2023 ambulatory ISAK ROJAS Facility:[facility] Start: 01-22-2023 End: 01-23-2023 ambulatory ISAK ROJAS Facility:[facility] Start: 11-14-2022 End: 11-15-2022 ambulatory ISAK A MEGHANR Facility:[facility] Start: 08-23-2022 End: 08-23-2022 ambulatory [facility] Start: 08-07-2022 End: 08-07-2022 Patient encounter [...] Start: 05-28-2025 Diabetes Screening Diabetes Screenchar g [facility] Start: 02-01-2025 End: 02-01-2025 Patient encounter procedure 02/01/2025 10:30 AM EDT Office Visit [facility] [address] [place] [phone] Isak Rojas MD [address] [place] [phone] [facility] Start: 12-22-2024 DIABETES SCREEN DIABETES SCREEN [facility] Start: 08-11-2024 End: 08-11-2024 Patient encounter procedure 08/11/2024 2:00 PM EST Office Visit [facility] [address] [place] [phone] Isak Rojas MD [address] [place] [phone] [facility] Start: 08-06-2024 End: 08-06-2025 Basic metabolic 1998 panel - Serum or Plasma Basic metabolic panel Lab Routine Essential hypertension, benign (CMS/HCC) Expected: 08/06/2024 (Approximate), Expires: 08/06/2025 [facility] Comment on above: Expected: 08/06/2024 (Approximate), [...] Routine Prediabetes Expected: 08/06/2024 (Approximate), Expires: 08/06/2025 [facility] Work Phone: Comment on above: Expected: 08/06/2024 (Approximate), Expires: 08/06/2025 Start: 08-06-2024 End: 08-06-2025 Hepatic function 2000 panel - Serum or Plasma Hepatic function panel Lab Routine Encounter for long-term (current) use of medications Expected: 08/06/2024 (Approximate), Expires: 08/06/2025 [facility] Comment on above: Expected: 08/06/2024 (Approximate), Expires: 08/06/2025 Start: 08-06-2024 End: 08-06-2025 Lipid 1996 panel - Serum or Plasma Lipid panel Lab Routine Class 1 obesity due to excess calories with serious comorbidity and body mass index (BMI) of 30.0 to 30.9 in adult Expected: 08/06/2024 (Approximate), Expires: 08/06/2025 [facility] Comment on above: Expected: 08/06/2024 (Approximate), Expires: 08/06/2025 Start: 08-06-2024 End: 08-06-2025 Thyrotropin [Units/volume] in Serum or Plasma TSH Lab Routine Adult hypothyroidism (CMS/HCC) Expected: 08/06/2024 (Approximate), Expires: 08/06/2025 [facility] Comment on above: Expected: 08/06/2024 (Approximate), Expires: 08/06/2025 Start: 08-06-2024 End: 08-06-2025 Thyroxine (T4) free [Mass/volume] in Serum or Plasma T4, free Lab Routine Adult hypothyroidism (CMS/HCC) Expected: 08/06/2024 (Approximate), Expires: 08/06/2025 [facility] Comment on above: Expected: 08/06/2024 (Approximate), Expires: 08/06/2025 Start: 08-06-2024 End: 08-06-2024 Patient encounter procedure 08/06/2024 11:30 AM EDT Office Visit [facility] [address] [place] [phone] Isak Rojas MD [address] [place] [phone] Arrived [facility] Comment on above: Arrived Start: 06-07-2024 Influenza vaccination [facility] Start: 10-07-2023 Advance Directive Discussion Advance Directive Discussion [facility] Start: 10-07-2023 Depression Assessment Depression Ass essment [facility] Start: 06-07-2023 Covid-19 Vaccine () Covid-19 Vaccine ( season) [facility] Start: 06-07-2023 Influenza vaccination Influenza Vacc ine (#1) [facility] Start: 09-28-2022 Urine microalbumin profile DTaP,Tdap,Td Vaccine (2 - Td or Tdap) [facility] Start: 06-07-2022 Influenza vaccination INFLUENZA (#1) [facility] Start: 10-07-2021 ADVANCE DIRECTIVE DISCUSSION ADVANCE DIRECTIVE DISCUSSION [facility] Start: 10-07-2021 DEPRESSION ASSESSMENT DEPRESSION ASS ESSMENT [facility] Start: 09-23-2021 COVID-19 VACCINE (4 - Booster for Pfizer series) COVID-19 VACCINE (4 - Booster for Pfizer series) [facility] Start: 2005 BONE DENSITY BONE DENSITY [facility] Start: 2005 PNEUMOCOCCAL: 65+ (1 - PCV) PNEUMOCOCCAL: 65+ (1 - PCV) [facility] Start: 2005 Screening for osteoporosis Bone Density Screening [facility] Start: 2000 RSV Vaccine (1 - 1-d ose 60+ series) RSV Vaccine (1 - 1-dose 60+ series) [facility] Start: 1990 SHINGRIX VACCINE (1 of 2) SHINGRIX VACCINE (1 of 2) [facility] Start: 1985 DIABETES SCREEN DIABETES SCREEN [facility] Start: 1959 Urine microalbumin profile DTAP,TDAP,TD (1 - Tdap) [facility] Start: 03-13-1941 COVID-19 VACCINE (#1) COVID-19 VACCI NE (#1) [facility] Start: 1940 Medicare Annual Wellness (AWV) Medicare Annual Wellness (AWV) [facility] End: 01-01-2025 MRA Head vessels WO and W contrast IV MRA BRAIN WO/W IVCON Radiology Routine Unruptured cerebral aneurysm Nonruptured cerebral aneurysm 1 Occurrences starting 12/03/2023 until 01/01/2025 [facility] Work Phone: Comment on above: 1 Occurrences starti ng 12/03/2023 until 01/01/2025 [facility] Immunizations Immunization Date Immunization Notes Care Provider Fa cili 08-06-2024 influenza, seasonal, injectable, preservative free Isak Rojas MD Work Phone: [facility] 06-22-2023 influenza virus vacc ine, unspecified formulation Isak Rojas MD Work Phone: [facility] 09-20-2021 influenza virus vacc ine, unspecified formulation Koby Juarez APRN.CNP Work Phone: [facility] Payers Date Payer Category Payer Medicare [id number] 2023 Self-pay 2021 Private Health Insurance [employer] [id number] 2021 Unknown MMO MMO MEDICARE SUPPLEMENT [id number] 2021-Present [phone] [address] [place] [address] Indemnity [id number] 2005 Medicare [id number] 1959 Medicare [id number] 1959 Unknown [id number] 1940 Unknown [id number] 2.16.840.1.688542.3.579.2. 593 1940 Unknown [id number] 2.16.840.1.082021.3.579.2. 593 1940 Unknown [id number] 2.16.840.1.798371.3.579.2. 593 1940 Unknown [id number] 2.16.840.1.261092.3.579.2. 593 1940 Unknown [id number] 2.16.840.1.015581.3.579.2. 593 1940 Unknown [id number] 2.16.840.1.324720.3.579.2. 1286 1940 Unknown [id number] 2.16.840.1.488095.3.579.2. 1286 1940 Unknown [id number] 2.16.840.1.049906.3.579.2. 1286 1940 Unknown [id number] 2.16.840.1.182557.3.579.2. 1286 1940 Unknown [id number] 2.16.840.1.902380.3.579.2. 1286 1940 Unknown [id number] 2.16.840.1.511154.3.579.2. 1286 1940 Unknown [id number] 2.16.840.1.725550.3.579.2. 1286 1940 Unknown [id number] 2.16.840.1.252793.3.579.2. 1286 1940 Unknown [id number] 2.16.840.1.483795.3.579.2. 1286 1940 Unknown [id number] 2.16.840.1.780123.3.579.2. 1286 1940 Unknown [id number] 2.16.840.1.959448.3.579.2. 1286 1940 Unknown [id number] 2.16.840.1.483568.3.579.2. 1286 1940 Unknown [id number] 2.16.840.1.248943.3.579.2. 1259 1940 Unknown [id number] 2.16.840.1.639690.3.579.2. 1259 1940 Unknown [id number] 2.16.840.1.069523.3.579.2. 1259 [facility] [id number] Unknown [id number] 2.16.840.1.005964.3.579.2. 531 Unknown [id number] 2.16.840.1.310829.3.579.2. 531 Social History Date Type Detail Facility Start: 02-24-2018 End: 05-21-2023 Tobacco smoking status [facility] Never smoked tobacco [facility] Start: 02-24-2018 End: 05-21-2023 Tobacco use and exposure Smokeless tobacco non-user [facility] Start: 1940 Sex Assigned At Not on file [facility] Start: 08-13-2022 Alcohol intake Ex-drinker (finding) [facility] Start: 07-28-2022 End: 08-07-2022 Exposure to SARS-CoV-2 (event) Not sure [facility] Start: 1940 Sex Assigned At Female [facility] Start: 08-13-2022 End: 06-09-2024 Sex Assigned At [facility] Start: 08-13-2022 End: 06-09-2024 History of Social function [facility] Adult Depression Screening Assessment 2 [facility] Start: 12-17-2023 End: 06-09-2024 Alcoholic beverage intake Current drinker of alcohol (finding) [facility] Start: 05-17-2023 Alcohol Comment Alcohol: 1 or 2 drinks on a typical day/monthly or less Caffeine: 2-3 cups/day [facility] Clinical Notes 07-27-2022 to 08-06-2024 Isak Rojas [...] free IM (Completed) documented in this encounter [facility] 06-09-2024 History of Presen t illness Narrative [...] may need injections. documented in this encounter [facility] 01-06-2024 Miscellaneous Notes Formattin g of this note might be different from the original. Called pt about f/up and she asked that her daughter be called. Spoke with daughter Virgil. She states they have imaging done at [facility] near them and asked if order can be mailed to pt's address. Offered a VV for f/up after imaging and she will try to figure that out to save a trip to [place]. Address verified. Provided her with office number for questions and scheduling number to call after MRA is completed. She appreciated the follow-up. Will mail order tomorrow 01/06. Angelique Jones RN documented in this encounter [facility] 09-27-2023 Evaluation note Encounter Date Diagnosis Assessment Notes Sep, Right ear impacted cerumen (ICD-10 - H61.21) Drink plenty fluids, get plenty of rest. Continue home medications as prescribed. Follow-up with your family physician for any further concerns [facility] Other 11-01-2022 Instructions* Patient Instructions* Koby Juarez APRN.CNP - 08/07/2022 3:00 PM EDT Follow-up appointment due July 2024. Our office will contact you 6-8 weeks prior to schedule. Ifyou do not hear from us, please call [phone] or send a [place] message to connect with one ofour caregivers. Goal blood pressure is less than 140/90. Notify your PCP with any elevated blood pressure readings. 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 We recommend a low-dose beta-michelle (ie propranolol) to reduce pulsations from the basilar artery on your brainstem - this may be making your symptoms worse. Please discuss with your welt trimming machine operator todecide if this is safe for someone [...] with no known cause. [facility] History of Present illness Narrative* Koby Juarez APRN.CNP - 08/07/2022 1:14 PM EDT [facility] Established Visit Diana Franco [facility]#: [id number] Date of Service: 08/07/2022 Primary Care Provider: [...] Take 1 tablet by mouth once daily. xjjlmqs-aidhwwkc-bxkpligtuw (FIORINAL) capsule Take 1 capsule by mouth [...] tremor. Sensation: Grossly intact light touch. Coordination: Ujvanm-bt-datl and pybu-zm-ewml without dysmetria bilaterally. Gait: Arrives to office [...] No recent lipid panel or A1C in [facility] or Care Everywhere, last 05/2016. IMPRESSION 81 [...] which included preparing to see the patient, npbw-ao-eyuf patient care, completing clinical documentation, obtaining and/or reviewing separately obtained history, performing a medically appropriate examination, counseling and educating the pat ient/family/caregiver, communicating with other HCPs (not separately reported), independently interpreting results (not separately reported), communicating results to the patient/family/caregiver, and care coordination (not separately reported). SIGNATURE Koby Juarez APRN.CNP August 07, 2022 [facility] Miscellaneous Notes* Telephone Encounter - Lia Lagose ADM - 07/27/2022 4:32 PM EDT 1st attempt: Spoke with patient and notified that our new policy for any follow up patients is theyare to see ELIGIO/SET UP MECHANIC AUTOMATIC LINE instead of provider, unless absolutely necessary. Patient [...] that was coming up rejected: Medicare A&B [id number] MMO MEDICARE SUPPLEMENT Verified #'s are correct, supplement insurance name just needs updated. 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 Cerebral aneurysm, nonruptured documented [facility] noteNo assessment information availableAcmc [facility] Work Phone: Evaluation note* Diagnosis Unruptured cerebral aneurysm- Primary Cerebral aneurysm, nonruptured Nonruptured cerebral aneurysm Cerebral aneurysm, nonruptured documented [facility]* Diagnosis Essential hypertension, benign (CMS/HCC)- Primary [...] esophagitis Esophageal reflux [facility] Essential hypertension, benign (CMS/HCC)- Primary [...] aura and with status migrainosus, not intractable ([facility]) Medicare annual wellness visit, subsequent- Primary Essential hypertension, benign ([facility]/HCC) Essential hypertension, benign Prediabetes Other abnormal glucose Adult hypothyroidism ([facility]) Unspecified hypothyroidism Encounter for long-term (current) use of medications Encounter for long-term (current) use of other medications Class 1 obesity due to excess calories with serious comorbidity and body mass index (BMI) of 30.0 to 30.9 in adult Need for immunization against influenza Need for prophylactic vaccination and inoculation against influenza Age-related osteoporosis without current pathological fracture ([facility]) [facility]* Diagnosis Essential hypertension, benign ([facility]/HCC)- Primary Essential hypertension, benign DDD (degenerative disc disease), lumbar Degeneration of lumbar or lumbosacral intervertebral disc Osteoarthritis of lower legs, bilateral Migraine without aura and with status migrainosus, not intractable ([facility]/HCC) documented in this encounter [facility]* Diagnosis Migraine without aura and without status migrainosus, not intractable ([facility]/HCC) documented in this encounter [facility] Healthcare[facility] general Narrative - Reported* Type Description Date Medical History HTN Surgical History knee replacement - Surgical History tubal ligation 1971 Surgical History eye lid lift bilateral 2011 Surgical History nose surgery 2012 Surgical History knee replacement 2014 Surgical History torn retina bilateral 2014 Hospitalization History see above [facility] Other Summary Purpose Family History No Family History Records FoundNo Family History Records FoundNo Family History Records FoundNo Family History Records FoundNo Family History Records FoundNo Family History Records FoundNo Family History Records Found Advance Directives Advance Directive Response Recorded Date/ Time Advance Directives No August 13, 2023 3:54pm Documents on File Type Date Recorded 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 Advance Directives and Living Will [...] HEAD W & WO CONTRAST Mira Suarez, DOCK OPERATOR.MARINE SURVEYOR [address] [place] [address] [place] [address] Referral ID Status Reason Start Date Expiration Date Visits Requested Visits Authorized [id number] Pending Review Auto-Generat ed Referral 12/03/2023 01/01/2025 1 1 Additional Source Comments Source Comments (unrecognize d section and content) In the event this informatio n is protected by the Federal Confidentiality of Alcohol and Drug Abuse Patient Records regulations: The Federal rules restrict any use of the information to criminally investigate or prosecute any alcohol or drug abuse patient.[facility] the event this information is protected by the Federal Confidentiality of Alcohol and Drug Abuse Patient Records regulations: The Federal rules restrict any use of the information to criminally investigate or prosecute any alcohol or drug abuse patient.[facility] the event this information is protected by the Federal Confidentiality of Alcohol and Drug Abuse Patient Records regulations: The Federal rules restrict any use of the information to criminally investigate or prosecute any alcohol or drug abuse patient.[facility] Hospital[facility] the event this information is protected by the Federal Confidentiality of Alcohol and Drug Abuse Patient Records regulations: The Federal rules restrict any use of the information to criminally investigate or prosecute any alcohol or drug abuse patient.[facility] Reason for Visit (unrecogniz ed section and content) Reason Comments Appointment Rescheduled Reason Comments Established Patient Follow-Up Reason Comments Orders Reason Comments Follow Up Reason Comments Med Refill Reason Comments Medicare Annual Wellness Visit Subsequen t Wellness Reason Comments Follow-up 6m Reason Onset Date Comments Med Refill 06/29/2024 Care Teams (unrecognized sec tion and content) Parachute Accessories Attacher Relationship Specialty Start Date End Date Regino Martinez PCP - General Family Medicine 05/16/17 Parachute Accessories Attacher Relationship Specialty Start Date End Date Regino [...] Primary Care Provider, Attending Pr ovider Active Parachute Accessories Attacher Relationship Specialty Start Date End Date Isak Rojas PCP - General Family Medicine 08/13/22 Russ Schmitt MD [address] [place] [phone] Cardiology 08/13/22 Parachute Accessories Attacher Relationship Specialty Start Date End Date Isak Rojas PCP - General Family Medicine 08/13/22 Russ Schmitt MD [address] [place] [address] Cardiology 08/13/22 Parachute Accessories Attacher Relationship Specialty Start Date End Date Isak Rojas MD [address] [place] [phone] PCP - General Family Medicine 11/11/23 Parachute Accessories Attacher Relationship Specialty Start Date End Date Isak Rojas MD [address] [place] [phone] PCP - General Family Medicine 11/11/23 Parachute Accessories Attacher Relationship Specialty Start Date End Date Isak Rojas MD [address] [place] [phone] PCP - General Family Medicine 11/11/23 Parachute Accessories Attacher Relationship Specialty Start Date End Date Isak Rojas MD [address] [place] [phone] PCP - General Family Medicine 11/11/23 Parachute Accessories Attacher Relationship Specialty Start Date End Date Isak Rojas MD [address] [place] [address] PCP - General Family Medicine 11/11/23 Parachute Accessories Attacher Relationship Specialty Start Date End Date Isak Rojas MD [address] [place] [address] PCP - General Family Medicine 11/11/23 Parachute Accessories Attacher Relationship Specialty Start Date End Date Isak Rojas MD [address] [place] [address] PCP - General Family Medicine 11/11/23 INFORMATION SOURCE (unrecogn ized section and content) DATE CREATED AUTHOR 02/17/2023 [facility] DATE CREATED AUTHOR AUTHOR'S ORGANIZ ATION 11/15/2023 [facility] DATE CREATED AUTHOR AUTHOR'S ORGANIZ ATION 01/07/2024 [facility] DATE CREATED AUTHOR AUTHOR'S ORGANIZ ATION 02/20/2024 [facility] DATE CREATED AUTHOR AUTHOR'S ORGANIZ ATION 03/13/2024 [facility] DATE CREATED AUTHOR AUTHOR'S ORGANIZ ATION 06/08/2024 [facility] DATE CREATED AUTHOR AUTHOR'S ORGANIZ ATION 08/08/2024 [facility] EPIC Goals (unrecognized section and [...] BE BASED ON THE PRIMARY CLINICAL RECORDS. [employer] provides no warranty or guarantee of the accuracy or completeness of information in this document.
[2024-09-29] VITALS (13 sets, daily range): BP systolic 106–156; BP diastolic 65–94; PULSE 52–74; TEMP 36.4–37.2; O2SAT 95–100; BMI 30.1
--- OUTSIDE RECORDS SUMMARY | 2024-09-29 00:04 | XMS_ITS | CCD ---
Author Organization [facility] Care Team Providers Care Senior Etl Developer Name Role Phone Regino Martinez Primary Care [...] Provider MD Isak Rojas Primary Care Provider MD Francheska Jean Primary Care Provider [phone] Jacinta Gillespie Unavailable Shaikh Jean Attending Unavailable Isak Rojas Primary Care Unavailable Shaikh Jean Admitting Unavailable Shaikh Jean Attending Unavailable Shaikh Jean Admitting Unavailable Shaikh Jean Primary Care Unavailable Naddennis, Isak Keyanna Primary Care Provider [phone] Russ Schmitt MD Unavailable REDD OBANDO Attending [...] Unavailable Isak Rojas MD Primary Care Provider [phone] MEGHANR, ISAK Attending Unavailable NADERER, ISAK Attending Unavailable NADERER, ISAK Attending Unavailable Allergies Allergy Classification Reported Allergen(s) Allergy Type Date of Onset Reaction(s) Facility (16 sources) Codeine; Translations: [CODEINE] Drug Allergy 7 GI Upset, Nausea Only [facility] (14 sources) Iodine Drug Allergy 7 [facility] [place] (1 source) Codeine Drug Allergy 6 [facility] Repository (2 sources) Adhesive Tape; Translations: [adhesive tape] Allergy to substance 3 [facility] (4 sources) Adhesive agent; Translations: [adhesive] Drug allergy 3 [facility] Repository (1 source) Codeine Drug Allergy 3 [facility] Repository (1 source) Iodine Drug Allergy 3 [facility] Repository (2 sources) Codeine; Translations: [CODEINE SULFATE] [...] Per Day) tablet (8 sources) End: 08-06-2024 Dffpnanxs-Netzgucioho-Amf D (Osteo Bi-Flex One Per Day) tablet [...] Drug Class(es) Dates Sig (Normalized) Sig (Original) [id number] actuat albuterol 0.09 mg/actuat metered dose [...] 12-17-2023 Chronic Other aftercare (1 source) 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; 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] Onset: 3 Episodic Other aftercare (5 sources) Long-term current use of drug therapy; Translations: [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] Onset: 4 08-06-2024 Episodic [...] WITH AUTO DIFFon BASOPHILS ABSOLUTE AUTO 0 [facility] Basophils/100 WBC (Bld) 0.5 % 0.2 - 2.0 % [facility] Eosinophils/100 WBC (Bld) 1.6 % 0.9 - 7.0 % [facility] Erythrocyte distribution width (RBC) [Ratio] 13.3 % 11.0 - 15.0 % [facility] Hematocrit (Bld) [Volume fraction] 39.6 % 36.0 - 48.0 % [facility] Hemoglobin (Bld) [Mass/Vol] 12.9 g/dL 12.0 - 16.0 g/dL [facility] IMMATURE GRANULOCYTES ABS AUTO 0.05 High [facility] Immature granulocytes/100 WBC (Bld) 0.6 % High 0.0 - 0.5 % [facility] Interpretation and review of laboratory results Abnormal [facility] LYMPHOCYTES ABSOLUTE AUTO 1.8 [facility] Lymphocytes/100 WBC (Bld) 22.2 % 20.5 - 60.0 % [facility] MCH (RBC) [Entitic mass] 32.1 pg 26.7 - 34.0 pg [facility] MCHC (RBC) [Mass/Vol] 32.6 g/dL 29.9 - 35.2 g/dL [facility] MCV (RBC) [Entitic vol] 98.5 fL 81.0 - 99.0 fL [facility] MONOCYTES ABSOLUTE AUTO 0.5 [facility] Monocytes/100 WBC (Bld) 6.1 % 1.7 - 12.0 % [facility] NEUTROPHILS ABSOLUTE AUTO 5.7 [facility] Neutrophils/100 WBC (Bld) 69 % 43.0 - 75.0 % [facility] Platelet mean volume (Bld) [Entitic vol] 9.6 fL 9.5 - 13.5 fL [facility] TBH EO # 0.1 [facility] TB PLT 207 [facility] RBC 4.02 Low [facility] WBC 8.3 [facility] BLOOD CULTUREon 06-03-2024 Bacteria identified Aer cx Nom (Bld) SPECIMEN NOTES RAC CULTURE RESULTS NO GROWTH 5 DAYS Normal [facility] Bacteria identified Aer cx Nom (Bld) SPECIMEN NOTES RAC CULTURE RESULTS NO GROWTH 5 DAYS Normal [facility] CBC AND AUTO DIFFon 06-03-20 ABSOLUTE BASOPHIL 0.0 X10E9/L Normal 0.0-0.2 [facility] Comment on above: Performed By: #### C BCA, CMP, , 38977-3 #### [facility] ([id number]) [address] [place] [address] 41966 ABSOLUTE NEUTROPHIL 5.7 X10E9/L Normal 1.5-6.6 [facility] Comment on above: Performed By: #### C BCA, CMP, , 28155-8 #### [facility] ([id number]) [address] [place] [address] 54696 Basophils/100 WBC (Bld) 0.6 % Normal [facility] Comment on above: Performed By: #### C BCA, CMP, , 67107-0 #### [facility] ([id number]) [address] [place] [address] 15888 Eosinophils (Bld) [#/Vol] 0.1 10*3/uL Normal 0.0-0.4 [facility] Comment on above: Performed By: #### C KATIE, CMP, , 63857-2 #### [facility] ([id number]) [address] [place] [address] 82926 Eosinophils/100 WBC (Bld) 1.0 % Normal [facility] Comment on above: Performed By: #### C KATIE, CMP, , 75664-3 #### [facility] ([id number]) [address] [place] [address] 71430 Erythrocyte distribution width (RBC) [Ratio] 15.2 % High 11.5-15.0 [facility] Comment on above: Performed By: #### C KATIE, CMP, , 76037-1 #### [facility] ([id number]) [address] [place] [address] 84335 Hematocrit (Bld) [Volume fraction] 35.1 % Normal 35-47 [facility] Comment on above: Performed By: #### C KATIE, CMP, , 87797-9 #### [facility] ([id number]) [address] [place] [address] 69126 Hemoglobin (Bld) [Mass/Vol] 12.0 g/dL Normal 11.7-15.5 [facility] Comment on above: Performed By: #### C BCA, CMP, , 21470-8 #### [facility] ([id number]) [address] [place] [address] 55419 Lymphocytes (Bld) [#/Vol] 1.4 10*3/uL Normal 1.0-3.5 [facility] Comment on above: Performed By: #### C KATIE, CMP, , 27919-7 #### [facility] ([id number]) [address] [place] [address] 82303 Lymphocytes/100 WBC (Bld) 18.0 % Normal [facility] Comment on above: Performed By: #### C BCA, CMP, , 98490-6 #### [facility] ([id number]) [address] [place] [address] 49653 MCH (RBC) [Entitic mass] 32.5 pg Normal 27-34 [facility] Comment on above: Performed By: #### C BCA, CMP, , 73918-0 #### [facility] ([id number]) [address] [place] [address] 88235 MCHC (RBC) [Mass/Vol] 34.3 g/dL Normal 32-36 [facility] Comment on above: Performed By: #### C BCA, CMP, , 06778-9 #### [facility] ([id number]) [address] [place] [address] 38628 MCV (RBC) [Entitic vol] 95 fL Normal 80-100 [facility] Comment on above: Performed By: #### Cathy BCA, CMP, , 85852-1 #### [facility] ([id number]) [address] [place] [address] 44827 Monocytes (Bld) [#/Vol] 0.4 10*3/uL Normal 0-0.9 [facility] Comment on above: Performed By: #### C BCA, CMP, , 06222-1 #### [facility] ([id number]) [address] [place] [address] 22131 Monocytes/100 WBC (Bld) 5.1 % Normal [facility] Comment on above: Performed By: #### C BCA, CMP, , 09977-8 #### [facility] ([id number]) [address] [place] [address] 59900 Neutrophils/100 WBC (Bld) 75.3 % Normal [facility] Comment on above: Performed By: #### C BCA, CMP, , 87080-7 #### [facility] ([id number]) [address] [place] [address] 07301 Platelet mean volume (Bld) [Entitic vol] 7.8 fL Normal 7-12 [facility] Comment on above: Performed By: #### C BCA, CMP, , 07260-8 #### [facility] ([id number]) [address] [place] [address] 57474 Platelets (Bld) [#/Vol] 209 10*3/uL Normal 150-450 [facility] Comment on above: Performed By: #### C BCA, CMP, , 81025-2 #### [facility] ([id number]) [address] [place] [address] 97273 RBC COUNT 3.70 X10E12/L Low 3.80-5.20 [facility] Comment on above: Performed By: #### C BCA, CMP, , 75801-7 #### [facility] ([id number]) [address] [place] [address] 96901 WBC (Bld) [#/Vol] 7.5 10*3/uL Normal 4.0-11.0 [facility] Comment on above: Performed By: #### C BCA, CMP, , 99008-7 #### [facility] ([id number]) [address] [place] [address] 34927 COMPREHENSIVE METABOLIC PANE Jarrod 06-03-2024 Albumin [Mass/Vol] 3.9 g/dL Normal 3.2-5.3 [facility] Comment on above: Performed By: #### C BCA, CMP, , 78992-0 #### [facility] ([id number]) [address] [place] [address] 51642 ALP [Catalytic activity/Vol] 118 U/L Normal 39-130 [facility] Comment on above: Performed By: #### C BCA, CMP, , 18132-0 #### [facility] ([id number]) [address] [place] [address] 15475 ALT [Catalytic activity/Vol] 12 U/L Normal 0-31 [facility] Comment on above: Performed By: #### C BCA, CMP, , 02445-9 #### [facility] ([id number]) [address] [place] [address] 09772 Anion gap [Moles/Vol] 6 mmol/L Normal 5-15 [facility] Comment on above: Performed By: #### C BCA, CMP, , 44746-3 #### [facility] ([id number]) [address] [place] [address] 97559 AST [Catalytic activity/Vol] 16 U/L Normal 0-41 [facility] Comment on above: Performed By: #### C BCA, CMP, , 01247-1 #### [facility] ([id number]) [address] [place] [address] 36028 Bilirubin [Mass/Vol] 0.6 mg/dL Normal 0.3-1.2 [facility] Comment on above: Performed By: #### C BCA, CMP, , 69298-2 #### [facility] ([id number]) [address] [place] [address] 40359 Calcium [Mass/Vol] 9.0 mg/dL Normal 8.5-10.5 [facility] Comment on above: Performed By: #### C BCA, CMP, , 46679-3 #### [facility] ([id number]) [address] [place] [address] 36569 Chloride [Moles/Vol] 108 mmol/L Normal 98-109 [facility] Comment on above: Performed By: #### C XI WILSON, , 97356-2 #### [facility] ([id number]) [address] [place] [address] 17101 CO2 [Moles/Vol] 22 mmol/L Normal 22-32 [facility] Comment on above: Performed By: #### C XI WILSON, , 42437-7 #### [facility] ([id number]) [address] [place] [address] 87602 Creatinine [Mass/Vol] 1.26 mg/dL High 0.40-1.00 [facility] Comment on above: Result Comment: METH OD TRACEABLE TO IDMS STANDARD Performed By: #### C XI WILSON, , 28047-7 #### [facility] ([id number]) [address] [place] [address] 79749 GFR/1.73 sq M.predicted among non-blacks MDRD (S/P/Bld) [Vol rate/Area] 42 mL/min/{1.73_m2} Low >59 [facility] Comment on above: Result Comment: Reported eGFR is based on the CKD-EPI 2020 equation that does not use a race coefficient. Performed By: #### C XI WILSON, , 06149-6 #### [facility] ([id number]) [address] [place] [address] 30241 Glucose [Mass/Vol] 105 mg/dL High 65-99 [facility] Comment on above: Performed By: #### C XI WILSON, , 76945-3 #### [facility] ([id number]) [address] [place] [address] 33467 Potassium [Moles/Vol] 4.2 mmol/L Normal 3.5-5.0 [facility] Comment on above: Performed By: #### C BCA, CMP, , 03532-4 #### [facility] ([id number]) [address] [place] [address] 96404 Protein [Mass/Vol] 6.8 g/dL Normal 6.0-8.0 [facility] Comment on above: Performed By: #### C BCA, CMP, , 11813-6 #### [facility] ([id number]) [address] [place] [address] 91433 Sodium [Moles/Vol] 136 mmol/L Normal 134-146 [facility] Comment on above: Performed By: #### C BCA, CMP, , 58885-5 #### [facility] ([id number]) [address] [place] [address] 82100 Urea nitrogen [Mass/Vol] 33 mg/dL High 5-27 [facility] Comment on above: Performed By: #### C BCA, CMP, , 57006-5 #### [facility] ([id number]) [address] [place] [address] 65842 Lactate (P lisset) [Moles/Vol]o n 06-03-2024 LACTATE W/REFLEX 0.9 mmol/L Normal 0.4-2.0 [facility] Comment on above: Result Comment: Result did not trigger repeat Lactate, re-order if needed. Performed By: #### C BCA, CMP, , 79469-3 #### [facility] ([id number]) [address] [place] [address] 07134 MAGNESIUMon 06-03-2024 Magnesium [Mass/Vol] 2.0 mg/dL Normal 1.8-2.6 [facility] Comment on above: Performed By: #### C BCA, CMP, , 04877-9 #### [facility] ([id number]) [address] [facility] [place] [address] SARS/FLU A+B/RSV by NAAT/Mol ianon 06-03-2024 SARS/FLU [...] operators who are performing tests using either [employer] or [employer] systems and is limited to laboratories that [...] repeat. Fact Sheet for Healthcare Providers: https://www.fda.gov/me lindsay/888975/download Fact Sheet for Patients: https://www.fda.gov/me lindsay/957845/download Normal [facility] Comment on above: Performed By: #### C BCA, CMP, , 36237-4 #### [facility] ([id number]) [address] [place] [address] 26214 Troponin I.cardiac High sens itivity method [Mass/Vol]on 06-03-2024 1 HOUR TROP I, HIGH SENSITIVITY 3 ng/L Normal <16 [facility] Comment on above: Performed By: #### C BCA, CMP, , 92341-1 #### [facility] ([id number]) [address] [place] [address] 45448 TROPONIN I, HIGH SENSITIVITY 3 ng/L Normal <16 [facility] Comment on above: Performed By: #### Cathy WILSON, CMP, , 75371-8 #### [facility] ([id number]) [address] [place] [address] 58154 URINE CULTUREon 06-03-2024 Bacteria identified Cx Nom (U) CULTURE RESULTS <10,000 ORGANISMS/ML NORMAL URO GENITAL JANELL Normal [facility] Comment on above: Performed By: #### C KATIE, CMP, , 68186-9 #### [facility] ([id number]) [address] [place] [address] 53055 URN MACROSCOPIC NURon 2023 BILIRUBIN GAURAV Negative Normal NEG [facility] Comment on above: Performed By: #### C BCA, CMP, , 76117-7 #### [facility] ([id number]) [address] [place] [address] 66590 BLOOD/HGB GAURAV Negative Normal NEG [facility] Comment on above: Performed By: #### C BCA, CMP, , 51878-6 #### [facility] ([id number]) [address] [place] [address] 56404 GLUCOSE GAURAV Negative Normal NEG [facility] Comment on above: Performed By: #### C BCA, CMP, , 35221-2 #### [facility] ([id number]) [address] [place] [address] 42557 KETONES GAURAV Negative Normal NEG [facility] Comment on above: Performed By: #### C BCA, CMP, , 30420-3 #### [facility] ([id number]) [address] [place] [address] 69398 LEUKOCYTE ESTERASE GAURAV Trace Abnormal NEG [facility] Comment on above: Performed By: #### C BCA, CMP, , 80211-5 #### [facility] ([id number]) [address] [place] [address] 13688 NITRITE GAURAV Negative Normal NEG [facility] Comment on above: Performed By: #### C BCA, CMP, , 34732-8 #### [facility] ([id number]) [address] [place] [address] 07403 PH GAURAV 6.0 Normal 5.0-8.5 [facility] Comment on above: Performed By: #### C BCA, CMP, , 49695-0 #### [facility] ([id number]) [address] [place] [address] 31958 PROTEIN GAURAV Negative Normal NEG [facility] Comment on above: Performed By: #### C BCA, CMP, , 06259-1 #### [facility] ([id number]) [address] [place] [address] 66161 SPECIFIC GRAVITY GAURAV 1.015 Normal 1.003-1.035 [facility] Comment on above: Performed By: #### C BCA, CMP, , 90999-1 #### [facility] ([id number]) [address] [place] [address] 38716 UROBILINOGEN GAURAV 0.2 eu/dL Normal <1.1 [facility] Comment on above: Performed By: #### C KATIE, [facility], 73920-2, 55633-6 #### [facility] ([id number]) [address] [facility] [place] [address] XR CHEST 1 VWon 06-03-2024 XR CHEST [...] David Callaway on 06/03/2024 2:10 PM Normal [facility] Mal 01-06-2024 [facility] DIANA FRANCO ([id number]) 1940 F Date Time Provider Department 01/06/24 WERNER MELENDREZ [facility] During your visit today, we recorded the following information about you: Angelique Jones RN 01/06/2024 4:56 PM Signed Called pt about f/up and she asked that her daughter be called. Spoke with daughter Virgil. She states they have imaging done at [facility] [place] them and asked if order can be mailed to pt's address. Offered a VV for f/up after imaging and she will try to figure that out to save a trip to [place]. Address verified. Provided her with office number [...] 1 tablet by mouth once daily. - mvipklb-tutqbovw-yuqsc bital (FIORINAL) capsule Take 1 capsule by [...] Status:Closed by ANGELIQUE JONES on 01/06/24 Normal [facility] CBC AND AUTO DIFFon 12-09-19 24 ABSOLUTE BASOPHIL 0.0 X10E9/L Normal 0.0-0.2 [facility] Comment on above: Performed By: #### C KATIE CMP, , 39631-0 #### [facility] ([id number]) [address] [place] [address] 92144 ABSOLUTE NEUTROPHIL 8.6 X10E9/L High 1.5-6.6 [facility] Comment on above: Performed By: #### C KATIE CMP, , 91048-4 #### [facility] ([id number]) [address] [place] [address] 87996 Basophils/100 WBC (Bld) 0.4 % Normal [facility] Comment on above: Performed By: #### C KATIE CMP, , 85184-2 #### [facility] ([id number]) [address] [place] [address] 83349 Eosinophils (Bld) [#/Vol] 0.0 10*3/uL Normal 0.0-0.4 [facility] Comment on above: Performed By: #### C BCA, CMP, , 43085-2 #### [facility] ([id number]) [address] [place] [address] 41773 Eosinophils/100 WBC (Bld) 0.1 % Normal [facility] Comment on above: Performed By: #### C BCA, CMP, , 22567-4 #### [facility] ([id number]) [address] [place] [address] 92596 Erythrocyte distribution width (RBC) [Ratio] 14.6 % Normal 11.5-15.0 [facility] Comment on above: Performed By: #### C BCA, CMP, , 29858-1 #### [facility] ([id number]) [address] [place] [address] 86457 Hematocrit (Bld) [Volume fraction] 36.6 % Normal 35-47 [facility] Comment on above: Performed By: #### C BCA, CMP, , 36052-2 #### [facility] ([id number]) [address] [place] [address] 13530 Hemoglobin (Bld) [Mass/Vol] 12.5 g/dL Normal 11.7-15.5 [facility] Comment on above: Performed By: #### C BCA, CMP, , 46663-2 #### [facility] ([id number]) [address] [place] [address] 53632 Lymphocytes (Bld) [#/Vol] 0.8 10*3/uL Low 1.0-3.5 [facility] Comment on above: Performed By: #### C BCA, CMP, , 38363-4 #### [facility] ([id number]) [address] [place] [address] 33989 Lymphocytes/100 WBC (Bld) 7.9 % Normal [facility] Comment on above: Performed By: #### C BCA, CMP, , 64696-1 #### [facility] ([id number]) [address] [place] [address] 09444 MCH (RBC) [Entitic mass] 32.5 pg Normal 27-34 [facility] Comment on above: Performed By: #### C BCA, CMP, , 77479-2 #### [facility] ([id number]) [address] [place] [address] 07600 MCHC (RBC) [Mass/Vol] 34.3 g/dL Normal 32-36 [facility] Comment on above: Performed By: #### C BCA, CMP, , 97425-0 #### [facility] ([id number]) [address] [place] [address] 69861 MCV (RBC) [Entitic vol] 95 fL Normal 80-100 [facility] Comment on above: Performed By: #### C BCA, CMP, , 60705-3 #### [facility] ([id number]) [address] [place] [address] 91373 Monocytes (Bld) [#/Vol] 0.8 10*3/uL Normal 0-0.9 [facility] Comment on above: Performed By: #### C BCA, CMP, , 47873-2 #### [facility] ([id number]) [address] [place] [address] 74693 Monocytes/100 WBC (Bld) 7.5 % Normal [facility] Comment on above: Performed By: #### C BCA, CMP, , 33004-0 #### [facility] ([id number]) [address] [place] [address] 09346 Neutrophils/100 WBC (Bld) 84.1 % Normal [facility] Comment on above: Performed By: #### C BCA, CMP, , 83517-0 #### [facility] ([id number]) [address] [place] [address] 01843 Platelet mean volume (Bld) [Entitic vol] 8.3 fL Normal 7-12 [facility] Comment on above: Performed By: #### C KATIE, CMP, , 41842-5 #### [facility] ([id number]) [address] [place] [address] 66659 Platelets (Bld) [#/Vol] 178 10*3/uL Normal 150-450 [facility] Comment on above: Performed By: #### Cathy BCA, CMP, , 42371-9 #### [facility] ([id number]) [address] [place] [address] 55538 RBC COUNT 3.86 X10E12/L Normal 3.80-5.20 [facility] Comment on above: Performed By: #### Cathy WILSON, CMP, , 59832-8 #### [facility] ([id number]) [address] [place] [address] 88618 WBC (Bld) [#/Vol] 10.2 10*3/uL Normal 4.0-11.0 [facility] Comment on above: Performed By: #### Cathy BCA, CMP, , 30480-4 #### [facility] ([id number]) [address] [place] [address] 09830 COMPREHENSIVE METABOLIC PANE Jarrod 12-09-2023 Albumin [Mass/Vol] 3.9 g/dL Normal 3.2-5.3 [facility] Comment on above: Performed By: #### C NOEMY, , CBCA #### [facility] ([id number]) [address] [place] [address] 40148 ALP [Catalytic activity/Vol] 114 U/L Normal 39-130 [facility] Comment on above: Performed By: #### C NOEMY, , CBCA #### [facility] ([id number]) [address] [place] [address] 53703 ALT [Catalytic activity/Vol] 20 U/L Normal 0-31 [facility] Comment on above: Performed By: #### Cathy SALGUERO, , CBCA #### [facility] ([id number]) [address] [place] [address] 55560 Anion gap [Moles/Vol] 10 mmol/L Normal 5-15 [facility] Comment on above: Performed By: #### Cathy SALGUERO, , CBCA #### [facility] ([id number]) [address] [place] [address] 37610 AST [Catalytic activity/Vol] 22 U/L Normal 0-41 [facility] Comment on above: Performed By: #### Cathy SALGUERO, , CBCA #### [facility] ([id number]) [address] [place] [address] 59817 Bilirubin [Mass/Vol] 0.8 mg/dL Normal 0.3-1.2 [facility] Comment on above: Performed By: #### C NOEMY, , CBCA #### [facility] ([id number]) [address] [place] [address] 36141 Calcium [Mass/Vol] 9.0 mg/dL Normal 8.5-10.5 [facility] Comment on above: Performed By: #### Cathy SALGUERO, , CBCA #### [facility] ([id number]) [address] [place] [address] 03998 Chloride [Moles/Vol] 108 mmol/L Normal 98-109 [facility] Comment on above: Performed By: #### C NOEMY, , CBCA #### [facility] ([id number]) [address] [place] [address] 34974 CO2 [Moles/Vol] 18 mmol/L Low 22-32 [facility] Comment on above: Performed By: #### C NOEMY, , CBCA #### [facility] ([id number]) [address] [place] [address] 14832 Creatinine [Mass/Vol] 0.90 mg/dL Normal 0.40-1.00 [facility] Comment on above: Result Comment: METH OD TRACEABLE TO IDMS STANDARD Performed By: #### C NOEMY, , CBCA #### [facility] ([id number]) [address] [place] [address] 13383 GFR/1.73 sq M.predicted among non-blacks MDRD (S/P/Bld) [Vol rate/Area] 63 mL/min/{1.73_m2} Normal >59 [facility] Comment on above: Result Comment: Reported eGFR is based on the CKD-EPI 2020 equation that does not use a race coefficient. Performed By: #### C NOEMY, , CBCA #### [facility] ([id number]) [address] [place] [address] 36898 Glucose [Mass/Vol] 109 mg/dL High 65-99 [facility] Comment on above: Performed By: #### Cathy SALGUERO, , CBCA #### [facility] ([id number]) [address] [place] [address] 54559 Potassium [Moles/Vol] 3.8 mmol/L Normal 3.5-5.0 [facility] Comment on above: Performed By: #### C NOEMY, , CBCA #### [facility] ([id number]) [address] [place] [address] 79026 Protein [Mass/Vol] 6.7 g/dL Normal 6.0-8.0 [facility] Comment on above: Performed By: #### C NOEMY, , CBCA #### [facility] ([id number]) [address] [place] [address] 65400 Sodium [Moles/Vol] 136 mmol/L Normal 134-146 [facility] Comment on above: Performed By: #### C NOEMY, , CBCA #### [facility] ([id number]) [address] [place] [address] 43368 Urea nitrogen [Mass/Vol] 25 mg/dL Normal 5-27 [facility] Comment on above: Performed By: #### C NOEMY, , CBCA #### [facility] ([id number]) [address] [place] [address] 70668 MAGNESIUMon 12-09-2023 Magnesium [Mass/Vol] 2.0 mg/dL Normal 1.8-2.6 [facility] Comment on above: Performed By: #### C NOEMY, , CBCA #### [facility] ([id number]) [address] [place] [address] 18301 MR LUMBAR SPINE WO CONTon MR LUMBAR [...] Wilde MD on 12/09/2023 1:00 PM Normal [facility] CBC AND AUTO DIFFon 12-08-19 24 ABSOLUTE BASOPHIL 0.1 X10E9/L Normal 0.0-0.2 [facility] Comment on above: Performed By: #### C BCA, CMP, 04722-9, 93870-6 #### [facility] ([id number]) [address] [place] [address] [place] [address] ABSOLUTE NEUTROPHIL 10.1 X10E9/L High 1.5-6.6 [facility] Comment on above: Performed By: #### C BCA, CMP, , 38977-8 #### [facility] ([id number]) [address] [place] [address] 78339 Basophils/100 WBC (Bld) 0.5 % Normal [facility] Comment on above: Performed By: #### C BCA, CMP, , 63909-3 #### [facility] ([id number]) [address] [place] [address] 62183 Eosinophils (Bld) [#/Vol] 0.0 10*3/uL Normal 0.0-0.4 [facility] Comment on above: Performed By: #### C BCA, CMP, , #### [facility] ([id number]) [address] [place] [address] 61224 Eosinophils/100 WBC (Bld) 0.1 % Normal [facility] Comment on above: Performed By: #### Cathy BCA, CMP, , 57607-7 #### [facility] ([id number]) [address] [place] [address] 86350 Erythrocyte distribution width (RBC) [Ratio] 14.0 % Normal 11.5-15.0 [facility] Comment on above: Performed By: #### C BCA, CMP, , 90583-8 #### [facility] ([id number]) [address] [place] [address] 25715 Hematocrit (Bld) [Volume fraction] 37.9 % Normal 35-47 [facility] Comment on above: Performed By: #### C BCA, CMP, , 42387-6 #### [facility] ([id number]) [address] [place] [address] 57843 Hemoglobin (Bld) [Mass/Vol] 12.7 g/dL Normal 11.7-15.5 [facility] Comment on above: Performed By: #### C XI WILSON, , 89706-6 #### [facility] ([id number]) [address] [place] [address] 28590 Lymphocytes (Bld) [#/Vol] 0.6 10*3/uL Low 1.0-3.5 [facility] Comment on above: Performed By: #### Cathy WILSON CMP, , 41235-5 #### [facility] ([id number]) [address] [place] [address] 42697 Lymphocytes/100 WBC (Bld) 5.2 % Normal [facility] Comment on above: Performed By: #### Cathy WILSON CMP, , 06127-8 #### [facility] ([id number]) [address] [place] [address] 00221 MCH (RBC) [Entitic mass] 31.8 pg Normal 27-34 [facility] Comment on above: Performed By: #### Cathy WILSON CMP, , 98477-7 #### [facility] ([id number]) [address] [place] [address] 42551 MCHC (RBC) [Mass/Vol] 33.6 g/dL Normal 32-36 [facility] Comment on above: Performed By: #### Cathy WILSON CMP, , 77742-3 #### [facility] ([id number]) [address] [place] [address] 02503 MCV (RBC) [Entitic vol] 95 fL Normal 80-100 [facility] Comment on above: Performed By: #### Cathy WILSON CMP, , 32406-9 #### [facility] ([id number]) [address] [place] [address] 89324 Monocytes (Bld) [#/Vol] 0.8 10*3/uL Normal 0-0.9 [facility] Comment on above: Performed By: #### C BCA, CMP, , 25421-9 #### [facility] ([id number]) [address] [place] [address] 81406 Monocytes/100 WBC (Bld) 6.5 % Normal [facility] Comment on above: Performed By: #### C BCA, CMP, , 13431-8 #### [facility] ([id number]) [address] [place] [address] 91803 Neutrophils/100 WBC (Bld) 87.7 % Normal [facility] Comment on above: Performed By: #### Cathy BCA, CMP, , 44172-0 #### [facility] ([id number]) [address] [place] [address] 34416 Platelet mean volume (Bld) [Entitic vol] 8.0 fL Normal 7-12 [facility] Comment on above: Performed By: #### Cathy BCA, CMP, , 87439-3 #### [facility] ([id number]) [address] [place] [address] 30581 Platelets (Bld) [#/Vol] 183 10*3/uL Normal 150-450 [facility] Comment on above: Performed By: #### C BCA, CMP, , 51351-1 #### [facility] ([id number]) [address] [place] [address] 38463 RBC COUNT 4.00 X10E12/L Normal 3.80-5.20 [facility] Comment on above: Performed By: #### C BCA, CMP, , 02583-9 #### [facility] ([id number]) [address] [place] [address] 04662 WBC (Bld) [#/Vol] 11.5 10*3/uL High 4.0-11.0 [facility] Comment on above: Performed By: #### C BCA, CMP, , 77995-2 #### [facility] ([id number]) [address] [place] [address] 07486 COMPREHENSIVE METABOLIC PANE Jarrod 12-08-2023 Albumin [Mass/Vol] 4.1 g/dL Normal 3.2-5.3 [facility] Comment on above: Performed By: #### C BCA, CMP, , 81994-9 #### [facility] ([id number]) [address] [place] [address] 71898 ALP [Catalytic activity/Vol] 128 U/L Normal 39-130 [facility] Comment on above: Performed By: #### C BCA, CMP, , 00255-7 #### [facility] ([id number]) [address] [place] [address] 49192 ALT [Catalytic activity/Vol] 22 U/L Normal 0-31 [facility] Comment on above: Performed By: #### C BCA, CMP, , 32777-4 #### [facility] ([id number]) [address] [place] [address] 25156 Anion gap [Moles/Vol] 9 mmol/L Normal 5-15 [facility] Comment on above: Performed By: #### C BCA, CMP, , 23363-3 #### [facility] ([id number]) [address] [place] [address] 83702 AST [Catalytic activity/Vol] 26 U/L Normal 0-41 [facility] Comment on above: Performed By: #### C BCA, CMP, , 32469-9 #### [facility] ([id number]) [address] [place] [address] 76808 Bilirubin [Mass/Vol] 0.9 mg/dL Normal 0.3-1.2 [facility] Comment on above: Performed By: #### C BCA, CMP, , 85634-2 #### [facility] ([id number]) [address] [place] [address] 88644 Calcium [Mass/Vol] 9.2 mg/dL Normal 8.5-10.5 [facility] Comment on above: Performed By: #### C BCA, CMP, , 12674-9 #### [facility] ([id number]) [address] [place] [address] 28660 Chloride [Moles/Vol] 107 mmol/L Normal 98-109 [facility] Comment on above: Performed By: #### C BCA, CMP, , 07519-9 #### [facility] ([id number]) [address] [place] [address] 05369 CO2 [Moles/Vol] 19 mmol/L Low 22-32 [facility] Comment on above: Performed By: #### C BCA, CMP, , 82636-4 #### [facility] ([id number]) [address] [place] [address] 25025 Creatinine [Mass/Vol] 0.96 mg/dL Normal 0.40-1.00 [facility] Comment on above: Result Comment: METH OD TRACEABLE TO IDMS STANDARD Performed By: #### C BCA, CMP, , 24158-0 #### [facility] ([id number]) [address] [place] [address] 41849 GFR/1.73 sq M.predicted among non-blacks MDRD (S/P/Bld) [Vol rate/Area] 59 mL/min/{1.73_m2} Low >59 [facility] Comment on above: Result Comment: Reported eGFR is based on the CKD-EPI 2020 equation that does not use a race coefficient. Performed By: #### C XI WILSON, , 83114-2 #### [facility] ([id number]) [address] [place] [address] 70120 Glucose [Mass/Vol] 121 mg/dL High 65-99 [facility] Comment on above: Performed By: #### C XI WILSON, , 29622-7 #### [facility] ([id number]) [address] [place] [address] 36298 Potassium [Moles/Vol] 4.1 mmol/L Normal 3.5-5.0 [facility] Comment on above: Performed By: #### C XI WILSON, , 97190-5 #### [facility] ([id number]) [address] [place] [address] 87916 Protein [Mass/Vol] 7.1 g/dL Normal 6.0-8.0 [facility] Comment on above: Performed By: #### C XI WILSON, , 73130-2 #### [facility] ([id number]) [address] [place] [address] 91387 Sodium [Moles/Vol] 135 mmol/L Normal 134-146 [facility] Comment on above: Performed By: #### C XI WILSON, , 43748-4 #### [facility] ([id number]) [address] [place] [address] 29766 Urea nitrogen [Mass/Vol] 24 mg/dL Normal 5-27 [facility] Comment on above: Performed By: #### C XI WILSON, , 66899-6 #### [facility] ([id number]) [address] [place] [address] 51115 MAGNESIUMon 03-03-2024 Magnesium [Mass/Vol] 2.0 mg/dL Normal 1.8-2.6 [facility] Comment on above: Performed By: #### C KATIE, [facility], 44896-0, 76686-9 #### [facility] ([id number]) [address] [facility], [place] [address] SARS/FLU A+B/RSV by NAAT/Mol ecularon 12-08-2023 SARS/FLU [...] operators who are performing tests using either Sajan DX or Biomoti systems and is limited to laboratories that [...] repeat. Fact Sheet for Healthcare Providers: https://www.fda.gov/me linsday/884192/download Fact Sheet for Patients: https://www.fda.gov/ny lindsay/496878/download Normal [facility] Comment on above: Performed By: #### C OVFLR #### [facility] ([id number]) [address] [place] [address] 41788 TROPONIN Ion 12-08-2023 Troponin I.cardiac [Mass/Vol] ng/mL Normal 0.00-0.04 [facility] Comment on above: Performed By: #### C BCA, CMP, 59445-4, 97418-4 #### [facility] ([id number]) [address] [place] [address] 21218 XR CHEST 1 VWon 12-08-2023 XR CHEST 1 VW XR CHEST 1 VW Portable chest: HISTORY: Cough. Single view of the chest was obtained. Cardiac and mediastinal contours are unchanged. There is no pneumothorax. No focal consolidation or effusion. Pulmonary vasculature appears stable. IMPRESSION: No significant change. Finalized by Cleve Francis MD on 12/08/2023 9:04 PM Normal [facility] XR PELVIS 1 OR 2 [...] Zuniga MD on 12/08/2023 9:03 PM Normal [facility] XR SPINE LUMBAR 2 OR [...] Francis MD on 12/08/2023 9:03 PM Normal [facility] MR head/brain wo conon 09-18 MR head/brain wo con [facility] [place] [address] [place] [address] MRI Report Signed Patient: Diana Franco I MR#: [id number] : 1940 Acct:[id number] Age/Sex: 83 / F ADM Date: 09/18/23 Loc: MR Room: Type: [facility] Attending Dr: Shaikh Miranda [place] Copies [...] Cholo Castillo M.D.09/18/2023 11:24 AM Dictation Location: [facility] Transcribed By: [facility] 09/18/23 1124 Dictated By: Cholo Castillo II, MD 09/18/23 112 Signed By: 09/18/23 1124 Normal [facility] XR pelvis 1-2Von 09-18-2023 XR pelvis 1-2V [facility] [place] [address] XRay Report Signed Patient: Diana Franco I MR#: [id number] : 1940 Acct:[id number] Age/Sex: 83 / F ADM Date: 09/18/23 Loc: Room: Type: [facility] Attending Dr: Shaikh Miranda [place] Copies [...] Damian Jr., D.OCarolyn09/18/2023 3:15 PM Dictation Location: [facility]08 Transcribed By: [facility] 09/18/23 1365 Dictated By: Ernst Damian Jr, DO 09/18/23 1514 Signed By: 09/18/23 1515 [facility] XR chest 2V*on 08-16-2023 XR chest 2V* [facility] [place] [address] [place] [address] XRay Report Signed Patient: Lacey Franco I MR#: [id number] : 1940 Acct:[id number] Age/Sex: 82 / F ADM Date: 08/16/23 Loc: [facility] Room: Type: [facility] Attending Dr: Shaikh Miranda [place] Copies [...] Yunier Ibanez M.D.08/16/2023 5:18 PM Dictation Location: [place] [address] Transcribed By: [facility] 08/16/231717 Dictated By: Yunier Ibanez DO 08/16/231716 Signed By: 08/16/231717 [facility] US SINGLE QUAD RT UPPERon US [...] GILL LIRA Date: 2023-02-13 09:45 Normal [facility] HEPATITIS PANEL, ACUTEon HBsAg Screen Negative Normal Negative [facility] Comment on above: Performed By: #### H EPACUT #### [facility] [address] [place] [address] Dr. Danitza Cramer HCV AB Non-Reactive Normal Non Reactive [facility] Comment on above: Performed By: #### H EPACUT #### [facility] [address] [address] [address] Danitza Cramer Hep A Ab, IgM Negative Normal Negative [facility] Comment on above: Performed By: #### H EPACUT #### [facility] [address] [address] [address] Danitza Cramer Hep B Core Ab, IgM Negative Normal Negative [facility] Comment on above: Performed By: #### H EPACUT #### [facility] [address] [address] [address] Danitza Cramer Interpretation: Comment Normal [facility] Comment on above: Result Comment: Not infected with HCV unless early or acute infection is suspected (which may be delayed in an immunocompromised individual), or other evidence exists to indicate HCV infection. Performed By: #### H EPACUT #### [facility] [address] [address] [address] Danitza Cramer CBC AUTO DIFFon 01-22-2023 BASO # 0.1 103/ul Normal 0.0-0.1 [facility] Comment on above: Performed By: #### C BC #### [facility] [address] [address] [address] Danitza Cramer Basophils/100 WBC (Bld) 0.6 % Normal 0.2-2.0 [facility] Comment on above: Performed By: #### C BC #### [facility] [address] [place] [address] Dr. Danitza Cramer EO # 0.1 103/ul Normal 0.0-0.7 [facility] Comment on above: Performed By: #### C BC #### [facility] [address] [place] [address] Dr. Danitza Cramer Eosinophils/100 WBC (Bld) 1.0 % Normal 0.9-7.0 [facility] Comment on above: Performed By: #### C BC #### [facility] [address] [place] [address] Dr. Danitza Cramer Erythrocyte distribution width (RBC) [Ratio] 15.0 % Normal 11.0-15.0 [facility] Comment on above: Performed By: #### C BC #### [facility] [address] [place] [address] Dr. Danitza Cramer Hematocrit (Bld) [Volume fraction] 41.0 % Normal 36.0-48.0 [facility] Comment on above: Performed By: #### C BC #### [facility] [address] [place] [address] Dr. Danitza Cramer Hemoglobin (Bld) [Mass/Vol] 13.2 g/dL Normal 12.0-16.0 [facility] Comment on above: Performed By: #### C BC #### [facility] [address] [place] [address] Dr. Danitza Cramer IG # 0.04 10e3/ul Critically high 0.00-0.03 [facility] Comment on above: Performed By: #### C BC #### [facility] [address] [place] [address] Dr. Danitza Cramer IG % 0.5 % Normal 0.0-0.5 [facility] Comment on above: Performed By: #### C BC #### [facility] [address] [place] [address] Dr. Danitza Cramer LYMPH # 1.1 103/ul Critically low 1.2-3.8 [facility] Comment on above: Performed By: #### C BC #### [facility] [address] [place] [address] Dr. Danitza Cramer Lymphocytes/100 WBC (Bld) 14.7 % Critically low 20.5-60.0 [facility] Comment on above: Performed By: #### C BC #### [facility] [address] [place] [address] Dr. Danitza Cramer MANUAL DIFF REQ NO Normal [facility] Comment on above: Performed By: #### C BC #### [facility] [address] [place] [address] Dr. Danitza Cramer MCH (RBC) [Entitic mass] 30.8 pg Normal 26.7-34.0 [facility] Comment on above: Performed By: #### C BC #### [facility] [address] [place] [address] Dr. Danitza Cramer MCHC (RBC) [Mass/Vol] 32.2 g/dL Normal 29.9-35.2 [facility] Comment on above: Performed By: #### C BC #### [facility] [address] [place] [address] Dr. Danitza Cramer MCV (RBC) [Entitic vol] 95.6 fL Normal 81.0-99.0 [facility] Comment on above: Performed By: #### C BC #### [facility] [address] [place] [address] Dr. Danitza Cramer MONO # 0.5 103/ul Normal 0.3-0.8 [facility] Comment on above: Performed By: #### C BC #### [facility] [address] [place] [address] Dr. Danitza Cramer Monocytes/100 WBC (Bld) 5.8 % Normal 1.7-12.0 [facility] Comment on above: Performed By: #### C BC #### [facility] [address] [place] [address] Dr. Danitza Cramer NEUT # 6.0 103/ul Normal 1.4-6.5 [facility] Comment on above: Performed By: #### C BC #### [facility] [address] [address] [address] Danitza Cramer Neutrophils/100 WBC (Bld) 77.4 % Critically high 43.0-75.0 [facility] Comment on above: Performed By: #### C BC #### [facility] [address] [address] [address] Danitza Cramer Platelet mean volume (Bld) [Entitic vol] 9.7 fL Normal 9.5-13.5 [facility] Comment on above: Performed By: #### C BC #### [facility] [address] [place] [address] Dr. Danitza Cramer PLT 231 103/ul Normal 150-450 [facility] Comment on above: Performed By: #### C BC #### [facility] [address] [place] [address] Dr. Danitza Cramer RBC 4.29 106/ul Normal 4.20-5.40 [facility] Comment on above: Performed By: #### C BC #### [facility] [address] [place] [address] Dr. Danitza Cramer WBC 7.7 103/ul Normal 4.0-11.0 [facility] Comment on above: Performed By: #### C BC #### [facility] [address] [place] [address] Dr. Danitza Cramer LIVER PROFILEon 01-22-2023 Albumin [Mass/Vol] 4.0 g/dL Normal 3.4-5.0 [facility] Comment on above: Performed By: #### L SHAJI BMP #### [facility] [address] [place] [address] Dr. Danitza Cramer Albumin/Globulin [Mass ratio] 1.1 {ratio} Normal [facility] Comment on above: Performed By: #### L SHAJI, BMP #### [facility] [address] [address] [address] Danitza Cramer ALP [Catalytic activity/Vol] 162 U/L Critically high 46-116 [facility] Comment on above: Performed By: #### L IVER, BMP #### [facility] [address] [address] [address] Danitza Cramer ALT [Catalytic activity/Vol] 16 U/L Normal 14-59 [facility] Comment on above: Performed By: #### L IVER, BMP #### [facility] [address] [address] [address] Danitza Cramer AST [Catalytic activity/Vol] 11 U/L Critically low 15-37 [facility] Comment on above: Performed By: #### L IVER, BMP #### [facility] [address] [place] [address] Dr. Danitza Cramer BILI, CONJUGATED 0.2 mg/dL Normal 0.0-0.2 [facility] Comment on above: Performed By: #### L IVER, BMP #### [facility] [address] [place] [address] Dr. Danitza Cramer Bilirubin [Mass/Vol] 0.6 mg/dL Normal 0.2-1.0 [facility] Comment on above: Performed By: #### L IVER, BMP #### [facility] [address] [address] [address] Danitza Cramer Globulin (S) [Mass/Vol] 3.6 g/dL Normal [facility] Comment on above: Performed By: #### L IVER, BMP #### [facility] [address] [address] [address] Danitza Cramer Protein [Mass/Vol] 7.6 g/dL Normal 6.4-8.2 [facility] Comment on above: Performed By: #### L IVER, BMP #### [facility] [address] [address] [address] Danitza Cramer PROF CHEM 8 (BAS METB)on Anion gap [Moles/Vol] 14.2 mmol/L Normal [facility] Comment on above: Performed By: #### L IVER, BMP #### [facility] [address] [place] [address] Dr. Danitza Cramer Calcium [Mass/Vol] 9.5 mg/dL Normal 8.5-10.1 [facility] Comment on above: Performed By: #### L SHAJI, BMP #### [facility] [address] [address] [address] Danitza Cramer Chloride [Moles/Vol] 109 mmol/L Critically high 98-107 [facility] Comment on above: Performed By: #### L SHAJI, BMP #### [facility] [address] [address] [address] Danitza Cramer CO2 [Moles/Vol] 24.0 mmol/L Normal 21.0-32.0 [facility] Comment on above: Performed By: #### Lizet GIRARD, BMP #### [facility] [address] [place] [address] Dr. Danitza Cramer Creatinine [Mass/Vol] 1.03 mg/dL Critically high 0.55-1.02 [facility] Comment on above: Performed By: #### Lizet GIRARD, BMP #### [facility] [address] [place] [address] Dr. Danitza Cramer EGFR-AF CROATIAN >60 Normal >=60 [facility] Comment on above: Performed By: #### Lizet GIRARD, BMP #### [facility] [address] [place] [address] Dr. Danitza Cramer EGFR-NON AF CROATIAN 51 mL/min/1.73m2 Critically low >=60 [facility] Comment on above: Performed By: #### Lizet GIRARD, BMP #### [facility] [address] [place] [address] Dr. Danitza Cramer Glucose [Mass/Vol] 105 mg/dL Normal 74-106 [facility] Comment on above: Performed By: #### L SHAJI, BMP #### [facility] [address] [place] [address] Dr. Danitza Cramer Potassium [Moles/Vol] 4.2 mmol/L Normal 3.5-5.1 [facility] Comment on above: Performed By: #### L SHAJI, BMP #### [facility] [address] [place] [address] Dr. Danitza Cramer Sodium [Moles/Vol] 143 mmol/L Normal 136-145 [facility] Comment on above: Performed By: #### L SHAJI, BMP #### [facility] [address] [place] [address] Dr. Danitza Cramer Urea nitrogen [Mass/Vol] 25.0 mg/dL Critically high 7.0-18.0 [facility] Comment on above: Performed By: #### L SHAJI, BMP #### [facility] [address] [place] [address] Dr. Danitza Cramer Urea nitrogen/Creatinine [Mass ratio] 24.3 mg/mg Normal [facility] Comment on above: Performed By: #### L SHAJI BMP #### [facility] [address] [place] [address] Dr. Danitza Cramer CULTURE URINEon 11-14-2022 CULTURE URINE Culture Observations : LIGHT GROWTH OF MIXED GENITAL JANELL. NO POTENTIAL PATHOGENS SEEN. Normal [facility] Comment on above: Performed By: #### U RCX #### [facility] [address] [place] [address] Dr. Danitza Cramer UA RANDOM W/MICROSCOPICon BACTERIA NONE SEEN Normal NONE SEEN [facility] Comment on above: Performed By: #### F T4 #### [facility] [address] [place] [address] Dr. Danitza Cramer Bilirubin Ql (U) Negative Normal NEGATIVE [facility] Comment on above: Performed By: #### F T4 #### [facility] [address] [place] [address] Dr. Danitza Cramer CAST NONE SEEN Normal NONE SEEN [facility] Comment on above: Performed By: #### F T4 #### [facility] [address] [place] [address] Dr. Danitza Cramer Clarity (U) CLEAR Normal CLEAR [facility] Comment on above: Performed By: #### F T4 #### [facility] [address] [place] [address] Dr. Danitza Cramer Color (U) YELLOW Normal YELLOW [facility] Comment on above: Performed By: #### F T4 #### [facility] [address] [place] [address] Dr. Danitza Cramer Crystals LM Nom (Urine sed) NONE SEEN Normal NONE SEEN [facility] Comment on above: Performed By: #### F T4 #### [facility] [address] [address] [address] Danitza Cramer Epithelial cells LM Ql (Urine sed) NONE SEEN Normal NONE SEEN /RARE [facility] Comment on above: Performed By: #### F T4 #### [facility] [address] [place] [address] Dr. Danitza Cramer Glucose Ql (U) Negative Normal NEGATIVE [facility] Comment on above: Performed By: #### F T4 #### [facility] [address] [place] [address] Dr. Danitza Cramer Hemoglobin Ql (U) Negative Normal NEGATIVE [facility] Comment on above: Performed By: #### F T4 #### [facility] [address] [place] [address] Dr. Danitza Cramer Ketones Ql (U) Negative Normal NEGATIVE [facility] Comment on above: Performed By: #### F T4 #### [facility] [address] [place] [address] Dr. Danitza Cramer LEUKOCYTES SMALL Abnormal NEGATIVE [facility] Comment on above: Performed By: #### F T4 #### [facility] [address] [place] [address] Dr. Danitza Cramer MUCOUS NONE SEEN Normal NONE SEEN [facility] Comment on above: Performed By: #### F T4 #### [facility] [address] [place] [address] Dr. Danitza Cramer Nitrite Ql (U) Negative Normal NEGATIVE [facility] Comment on above: Performed By: #### F T4 #### [facility] [address] [place] [address] Dr. Danitza Cramer pH (U) 6.0 [pH] Normal 5-9 [facility] Comment on above: Performed By: #### F T4 #### [facility] [address] [place] [address] Dr. Danitza Cramer RBC 0-2 Normal 0-2 [facility] Comment on above: Performed By: #### F T4 #### [facility] [address] [place] [address] Dr. Danitza Cramer SPEC GRAVITY 1.020 Normal 1.005-<=1.025 [facility] Comment on above: Performed By: #### F T4 #### [facility] [address] [place] [address] Dr. Danitza Cramer UA PROTEIN Negative Normal NEGATIVE/ TRACE [facility] Comment on above: Performed By: #### F T4 #### [facility] [address] [place] [address] Dr. Danitza Cramer Urobilinogen Qn (U) 0.2 {Mykel'U}/dL Normal 0.2 - 1. 0 [facility] Comment on above: Performed By: #### F T4 #### [facility] [address] [place] [address] Dr. Danitza Cramer WBC 0-2 Abnormal NONE SEEN [facility] Comment on above: Performed By: #### F T4 #### [facility] [address] [place] [address] Dr. Danitza Cramer CBC AUTO DIFFon 07-17-2022 BASO # 0.0 103/ul Normal 0.0-0.1 [facility] Comment on above: Performed By: #### C BC #### [facility] [address] [place] [address] Dr. Danitza Cramer Basophils/100 WBC (Bld) 0.6 % Normal 0.2-2.0 [facility] Comment on above: Performed By: #### C BC #### [facility] [address] [place] [address] Dr. Danitza Cramer EO # 0.1 103/ul Normal 0.0-0.7 [facility] Comment on above: Performed By: #### C BC #### [facility] [address] [place] [address] Dr. Danitza Cramer Eosinophils/100 WBC (Bld) 1.3 % Normal 0.9-7.0 [facility] Comment on above: Performed By: #### C BC #### [facility] [address] [address] [address] Danitza Cramer Erythrocyte distribution width (RBC) [Ratio] 13.9 % Normal 11.0-15.0 [facility] Comment on above: Performed By: #### C BC #### [facility] [address] [place] [address] Dr. Danitza Cramer Hematocrit (Bld) [Volume fraction] 40.4 % Normal 36.0-48.0 [facility] Comment on above: Performed By: #### C BC #### [facility] [address] [place] [address] Dr. Danitza Cramer Hemoglobin (Bld) [Mass/Vol] 12.8 g/dL Normal 12.0-16.0 [facility] Comment on above: Performed By: #### C BC #### [facility] [address] [place] [address] Dr. Danitza Cramer IG # 0.04 10e3/ul Critically high 0.00-0.03 [facility] Comment on above: Performed By: #### C BC #### [facility] [address] [place] [address] Dr. Danitza Cramer IG % 0.6 % Critically high 0.0-0.5 [facility] Comment on above: Performed By: #### C BC #### [facility] [address] [place] [address] Dr. Danitza Cramer LYMPH # 1.0 103/ul Critically low 1.2-3.8 [facility] Comment on above: Performed By: #### C BC #### [facility] [address] [place] [address] Dr. Danitza Cramer Lymphocytes/100 WBC (Bld) 14.4 % Critically low 20.5-60.0 [facility] Comment on above: Performed By: #### C BC #### [facility] [address] [place] [address] Dr. Danitza Cramer MANUAL DIFF REQ NO Normal [facility] Comment on above: Performed By: #### C BC #### [facility] [address] [address] [address] Danitza Cramer MCH (RBC) [Entitic mass] 29.9 pg Normal 26.7-34.0 [facility] Comment on above: Performed By: #### C BC #### [facility] [address] [place] [address] Dr. Danitza Cramer MCHC (RBC) [Mass/Vol] 31.7 g/dL Normal 29.9-35.2 [facility] Comment on above: Performed By: #### C BC #### [facility] [address] [place] [address] Dr. Danitza Cramer MCV (RBC) [Entitic vol] 94.4 fL Normal 81.0-99.0 [facility] Comment on above: Performed By: #### C BC #### [facility] [address] [place] [address] Dr. Danitza Cramer MONO # 0.5 103/ul Normal 0.3-0.8 [facility] Comment on above: Performed By: #### C BC #### [facility] [address] [place] [address] Dr. Danitza Cramer Monocytes/100 WBC (Bld) 6.8 % Normal 1.7-12.0 [facility] Comment on above: Performed By: #### C BC #### [facility] [address] [place] [address] Dr. Danitza Cramer NEUT # 5.4 103/ul Normal 1.4-6.5 [facility] Comment on above: Performed By: #### C BC #### [facility] [address] [place] [address] Dr. Danitza Cramer Neutrophils/100 WBC (Bld) 76.3 % Critically high 43.0-75.0 [facility] Comment on above: Performed By: #### C BC #### [facility] [address] [place] [address] Dr. Danitza Cramer Platelet mean volume (Bld) [Entitic vol] 10.9 fL Normal 9.5-13.5 [facility] Comment on above: Performed By: #### C BC #### [facility] [address] [address] [address] Danitza Craemr PLT 260 103/ul Normal 150-450 [facility] Comment on above: Performed By: #### C BC #### [facility] [address] [address] [address] Danitza Cramer RBC 4.28 106/ul Normal 4.20-5.40 [facility] Comment on above: Performed By: #### C BC #### [facility] [address] [place] [address] Dr. Danitza Cramer WBC 7.1 103/ul Normal 4.0-11.0 [facility] Comment on above: Performed By: #### C BC #### [facility] [address] [place] [address] Dr. Danitza Cramer FREE T3on 07-17-2022 FREE T3 2.21 pg/mlL Normal 2.18-3.98 [facility] Comment on above: Performed By: #### F T4 #### [facility] [address] [place] [address] Dr. Danitza Cramer FREE T4on 07-17-2022 Free T4 [Mass/Vol] 1.67 ng/dL Critically high 0.76-1.46 [facility] Comment on above: Performed By: #### F T4 #### [facility] [address] [place] [address] Dr. Danitza Cramer GLYCOHEMOGLOBIN A1Con 2021 ADA RECOMMENDATION SEE BELOW Normal [facility] Comment on above: Result Comment: ADA RECOMMENDED LIMIT 4.0 - 6.0 ADA THERAPEUTIC TARGET < 7.0 ACTION SUGGESTED > 7.0 Performed By: #### A 1C #### [facility] [address] [place] [address] Dr. Danitza Cramer Glucose [Mass/Vol] 111 mg/dL Normal [facility] Comment on above: Performed By: #### A 1C #### [facility] [address] [place] [address] Dr. Danitza Cramer HbA1c (Bld) [Mass fraction] 5.5 % Normal 4.5-6.2 [facility] Comment on above: Performed By: #### A 1C #### [facility] [address] [place] [address] Dr. Danitza Cramer PROF CHEM 8 (BAS METB)on Anion gap [Moles/Vol] 16.8 mmol/L Normal [facility] Comment on above: Performed By: #### F T3, TSH, BMP #### [facility] [address] [place] [address] Dr. Danitza Cramer Calcium [Mass/Vol] 9.2 mg/dL Normal 8.5-10.1 [facility] Comment on above: Performed By: #### F T3, TSH, BMP #### [facility] [address] [place] [address] Dr. Danitza Cramer Chloride [Moles/Vol] 106 mmol/L Normal 98-107 [facility] Comment on above: Performed By: #### F T3, TSH, BMP #### [facility] [address] [place] [address] Dr. Danitza Cramer CO2 [Moles/Vol] 21.4 mmol/L Normal 21.0-32.0 [facility] Comment on above: Performed By: #### F T3, TSH, BMP #### [facility] [address] [place] [address] Dr. Danitza Cramer Creatinine [Mass/Vol] 1.13 mg/dL Critically high 0.55-1.02 [facility] Comment on above: Performed By: #### F T3, TSH, BMP #### [facility] [address] [place] [address] Dr. Danitza Cramer EGFR-AF CROATIAN 56 mL/min/1.73m2 Critically low >=60 [facility] Comment on above: Performed By: #### F T3, TSH, BMP #### [facility] [address] [place] [address] Dr. Danitza Cramer EGFR-NON AF CROATIAN 46 mL/min/1.73m2 Critically low >=60 [facility] Comment on above: Performed By: #### F T3, TSH, BMP #### [facility] [address] [address] [address] Danitza Cramer Glucose [Mass/Vol] 114 mg/dL Critically high 74-106 [facility] Comment on above: Performed By: #### F T3, TSH, BMP #### [facility] [address] [address] [address] Danitza Cramer Potassium [Moles/Vol] 4.2 mmol/L Normal 3.5-5.1 [facility] Comment on above: Performed By: #### F T3, TSH, BMP #### [facility] [address] [address] [address] Danitza Cramer Sodium [Moles/Vol] 140 mmol/L Normal 136-145 [facility] Comment on above: Performed By: #### F T3, TSH, BMP #### [facility] [address] [address] [address] Danitza Cramer Urea nitrogen [Mass/Vol] 25.0 mg/dL Critically high 7.0-18.0 [facility] Comment on above: Performed By: #### F T3, TSH, BMP #### [facility] [address] [address] [address] Danitza Cramer Urea nitrogen/Creatinine [Mass ratio] 22.1 mg/mg Normal [facility] Comment on above: Performed By: #### F T3, TSH, BMP #### [facility] [address] [address] [address] Danitza Cramer TSHon 07-17-2022 TSH 0.058 uIU/mL Critically low 0.358-3.740 [facility] Comment on above: Performed By: #### F T4 #### [facility] [address] [place] [address] Dr. Danitza Cramer Vital Signs Date Time Vital Sign Value Performing Clinician Facility 08-06-2024 11:42-0400 Body height 154.9 cm Isak Rojas MD Work Phone: [facility] 08-06-2024 11:42-0400 Body mass index (BMI) [Ratio] 30.04 kg/m2 Isak Rojas MD Work Phone: [facility] 08-06-2024 11:42-0400 Body temperature 97.11 [degF] Isak Rojas MD Work Phone: [facility] 08-06-2024 11:42-0400 Body weight 72.12 kg Isak Rojas MD Work Phone: [facility] 08-06-2024 11:42-0400 Diastolic blood pressure 52 mm[Hg] Isak Rojas MD Work Phone: [facility] 08-06-2024 11:42-0400 Heart rate 71 /min Isak Rojas MD Work Phone: [facility] 08-06-2024 11:42-0400 Respiratory rate 20 /min Isak Rojas MD Work Phone: [facility] 08-06-2024 11:42-0400 SaO2% (BldA) [Mass fraction] 99 % Isak Rojas MD Work Phone: [facility] 08-06-2024 11:42-0400 Systolic blood pressure 108 mm[Hg] Isak Rojas MD Work Phone: [facility] 06-09-2024 10:59-0400 Body height 154.9 cm Isak Rojas MD Work Phone: [facility] 06-09-2024 10:59-0400 Body mass index (BMI) [Ratio] 29.66 kg/m2 Isak Rojas MD Work Phone: [facility] 06-09-2024 10:59-0400 Body temperature 97.81 [degF] Isak Rojas MD Work Phone: [facility] 06-09-2024 10:59-0400 Body weight 71.22 kg Isak Rojas MD Work Phone: [facility] 06-09-2024 10:59-0400 Diastolic blood pressure 74 mm[Hg] Isak Rojas MD Work Phone: [facility] 06-09-2024 10:59-0400 Heart rate 66 /min Isak Rojas MD Work Phone: [facility] 06-09-2024 10:59-0400 Respiratory rate 20 /min Isak Rojas MD Work Phone: [facility] 06-09-2024 10:59-0400 SaO2% (BldA) [Mass fraction] 97 % Isak Rojas MD Work Phone: [facility] 06-09-2024 10:59-0400 Systolic blood pressure 140 mm[Hg] Isak Rojas MD Work Phone: [facility] 09-27-2023 17:05-0500 Body height 153.67 cm Jacinta Verna Other [facility] 09-27-2023 17:05-0500 Body mass index (BMI) [Ratio] 28.81 kg/m2 Jacinta Castelanmond Other [facility] 09-27-2023 17:05-0500 Body temperature 98.6 [degF] Jacinta Castelanmond Other [facility] 09-27-2023 17:05-0500 Body weight 68.04 kg Jacinta Verna Other [facility] 09-27-2023 17:05-0500 Respiratory rate 18 /min Jacinta Castelanmond Other [facility] 09-27-2023 17:05-0500 SaO2% (BldA) [Mass fraction] 98 % Jacinta Verna Other [facility] 08-07-2022 14:14-0400 Body height 157.4 cm Koby Juarez APRN.CNP Work Phone: [facility] 08-07-2022 14:14-0400 Body temperature 97.2 [degF] [place] [employer]ANSFORMER BUILDER.DRUG ABUSE PROGRAM COORDINATOR Work Phone: [facility] 08-07-2022 14:14-0400 Body weight 77.11 kg Van Fagert TRANSFORMER BUILDER.DRUG ABUSE PROGRAM COORDINATOR Work Phone: [facility] 08-07-2022 14:14-0400 Diastolic blood pressure 82 mm[Hg] Van Fagert TRANSFORMER BUILDER.DRUG ABUSE PROGRAM COORDINATOR Work Phone: [facility] 08-07-2022 14:14-0400 Heart rate 78 /min Van Fagert TRANSFORMER BUILDER.DRUG ABUSE PROGRAM COORDINATOR Work Phone: [facility] 08-07-2022 14:14-0400 Respiratory rate 14 /min Van Fagert TRANSFORMER BUILDER.DRUG ABUSE PROGRAM COORDINATOR Work Phone: [facility] 08-07-2022 14:14-0400 SaO2% (BldA) [Mass fraction] 100 % Van Fagert TRANSFORMER BUILDER.DRUG ABUSE PROGRAM COORDINATOR Work Phone: [facility] 08-07-2022 14:14-0400 Systolic blood pressure 136 mm[Hg] Van Fagert TRANSFORMER BUILDER.DRUG ABUSE PROGRAM COORDINATOR Work Phone: [facility] Encounters Encounter Date Encounter Type Care Provider [...] original px Isak Rojas MD Work Phone: [facility] Comment on above: Medicare [...] 07-28-2024 Refill Isak Rojas MD Work Phone: [facility] Comment on above: Adult hypothyroidism (CMS/HCC) (Primary Dx); Gastroesophageal reflux disease without esophagitis Start: 06-29-2024 End: 06-29-2024 Refill Isak Rojas MD Work Phone: [facility] Comment on above: Migraine without aur a and without status migrainosus, not intractable (CMS/HCC) Start: 06-09-2024 End: 06-09-2024 Bamjulietteo frank Rojas MD Work Phone: [facility] Start: 06-09-2024 End: 06-09-2024 Bamrao flowsely Rojas MD Work Phone: [facility] Start: 06-09-2024 End: 06-09-2024 ambulatory ISAK ROJAS Not Available Start: 06-09-2024 End: 06-09-2024 Office outpatient visit 25 minutes Isak Rojas MD Work Phone: [facility] Comment on above: Essential hypertensi on, benign (CMS/HCC) (Primary Dx); DDD (degenerative disc disease), lumbar; Osteoarthritis of lower legs, bilateral; Migraine without aura and with status migrainosus, not intractable (CMS/HCC) Start: 06-03-2024 End: 06-04-2024 Emergency department patient visit MAXIMILIAN MIRBORIS [facility] Start: 03-11-2024 End: 03-11-2024 ambulatory ERWIN Gu MCLEOD [facility] Start: 03-10-2024 End: 04-06-2024 ambulatory THANG Small [facility] Start: 02-05-2024 End: 03-07-[facility] Start: 01-06-2024 Telephone encounter Werner Melendrez MD Work Phone: [facility] Comment on above: Follow Up Start: 01-06-2024 End: 02-05-2024 ambulatory THANG Small [facility] Start: 12-17-2023 End: 12-17-2023 ambulatory ISAK ROJAS Not Available Start: 12-10-2023 End: 01-06-2024 ambulatory THANG Staci [facility] Start: 12-09-2023 End: 12-10-2023 [facility] Start: 12-08-2023 End: 12-10-2023 Emergency department patient visit MAXIMILIAN D [facility] Start: 12-08-2023 End: 12-09-2023 [facility] Start: 12-03-2023 Patient Update Koby Juarez APR, N.CNP Work Phone: [facility] Comment on above: Orders Start: 09-27-2023 End: 09-27-2023 ambulatory Jacinta Gillespie Other [facility] Start: 09-27-2023 Office outpatient vi sit 15 minutes Jacinta Gillespie [facility] Start: 09-18-2023 End: 09-18-2023 ambulatory Shaikh Miranda Facility:[facility] Start: 09-18-2023 End: 09-18-2023 ambulatory MD Isak Rojas Work Phone: [facility] Work Phone: Start: 09-18-2023 End: 09-18-2023 Patient encounter procedure MD Isak Rojas Work Phone: [facility] [place] Work Phone: Start: 08-16-2023 End: 08-16-2023 ambulatory Shaikh Miranda Facility:[facility] Start: 08-16-2023 End: 08-16-2023 ambulatory MD Isak Rojas Work Phone: [facility] Work Phone: Start: 08-16-2023 End: 08-16-2023 Patient encounter procedure MD Isak Rojas Work Phone: [facility] Start: 02-13-2023 End: 02-14-2023 ambulatory ISAK ROJAS Facility:H1 Start: 01-22-2023 End: 01-23-2023 ambulatory ISAK ROJAS Facility:H1 Start: 11-14-2022 End: 11-15-2022 ambulatory ISAK A MEGHANR Facility:H1 Start: 08-23-2022 End: 08-23-2022 ambulatory [facility] Start: 08-07-2022 End: 08-07-2022 Patient encounter procedure [...] Start: 05-28-2025 Diabetes Screening Diabetes Screenchar g [facility] Start: 02-01-2025 End: 02-01-2025 Patient encounter procedure 02/01/2025 10:30 AM EDT Office Visit [facility] [address] [place] [phone] Isak Rojas MD [address] [place] [phone] [facility] Start: 12-22-2024 DIABETES SCREEN DIABETES SCREEN [facility] Start: 08-11-2024 End: 08-11-2024 Patient encounter procedure 08/11/2024 2:00 PM EST Office Visit [facility] [address] [place] [phone] Isak Rojas MD [address] [place] [phone] [facility] Start: 08-06-2024 End: 08-06-2025 Basic metabolic 1998 panel - Serum or Plasma Basic metabolic panel Lab Routine Essential hypertension, benign (CMS/HCC) Expected: 08/06/2024 (Approximate), Expires: 08/06/2025 [facility] Comment on above: Expected: 08/06/2024 [...] Routine Prediabetes Expected: 08/06/2024 (Approximate), Expires: 08/06/2025 [facility] Work Phone: Comment on above: Expected: 08/06/2024 (Approximate), Expires: 08/06/2025 Start: 08-06-2024 End: 08-06-2025 Hepatic function 2000 panel - Serum or Plasma Hepatic function panel Lab Routine Encounter for long-term (current) use of medications Expected: 08/06/2024 (Approximate), Expires: 08/06/2025 [facility] Comment on above: Expected: 08/06/2024 (Approximate), Expires: 08/06/2025 Start: 08-06-2024 End: 08-06-2025 Lipid 1996 panel - Serum or Plasma Lipid panel Lab Routine Class 1 obesity due to excess calories with serious comorbidity and body mass index (BMI) of 30.0 to 30.9 in adult Expected: 08/06/2024 (Approximate), Expires: 08/06/2025 [facility] Comment on above: Expected: 08/06/2024 (Approximate), Expires: 08/06/2025 Start: 08-06-2024 End: 08-06-2025 Thyrotropin [Units/volume] in Serum or Plasma TSH Lab Routine Adult hypothyroidism (CMS/HCC) Expected: 08/06/2024 (Approximate), Expires: 08/06/2025 [facility] Comment on above: Expected: 08/06/2024 (Approximate), Expires: 08/06/2025 Start: 08-06-2024 End: 08-06-2025 Thyroxine (T4) free [Mass/volume] in Serum or Plasma T4, free Lab Routine Adult hypothyroidism (CMS/HCC) Expected: 08/06/2024 (Approximate), Expires: 08/06/2025 [facility] Comment on above: Expected: 08/06/2024 (Approximate), Expires: 08/06/2025 Start: 08-06-2024 End: 08-06-2024 Patient encounter procedure 08/06/2024 11:30 AM EDT Office Visit [facility] [address] [place] [phone] Isak Rojas MD [address] [place] [phone] Arrived [facility] Comment on above: Arrived Start: 06-07-2024 Influenza vaccination C [facility] Start: 10-07-2023 Advance Directive Discussion Advance Directive Discussion [facility] Start: 10-07-2023 Depression Assessment Depression Ass essment [facility] Start: 06-07-2023 Covid-19 Vaccine () Covid-19 Vaccine ( season) [facility] Start: 06-07-2023 Influenza vaccination Influenza Vacc ine (#1) [facility] Start: 09-28-2022 Urine microalbumin profile DTaP,Tdap,Td Vaccine (2 - Td or Tdap) [facility] Start: 06-07-2022 Influenza vaccination INFLUENZA (#1) [facility] Start: 10-07-2021 ADVANCE DIRECTIVE DISCUSSION ADVANCE DIRECTIVE DISCUSSION [facility] Start: 10-07-2021 DEPRESSION ASSESSMENT DEPRESSION ASS ESSMENT [facility] Start: 09-23-2021 COVID-19 VACCINE (4 - Booster for Pfizer series) COVID-19 VACCINE (4 - Booster for Pfizer series) [facility] Start: 2005 BONE DENSITY BONE DENSITY [facility] Start: 2005 PNEUMOCOCCAL: 65+ (1 - PCV) PNEUMOCOCCAL: 65+ (1 - PCV) [facility] Start: 2005 Screening for osteoporosis Bone Density Screening [facility] Start: 2000 RSV Vaccine (1 - 1-d ose 60+ series) RSV Vaccine (1 - 1-dose 60+ series) [facility] Start: 1990 SHINGRIX VACCINE (1 of 2) SHINGRIX VACCINE (1 of 2) [facility] Start: 1985 DIABETES SCREEN DIABETES SCREEN [facility] Start: 1959 Urine microalbumin profile DTAP,TDAP,TD (1 - Tdap) [facility] Start: [birth year]-1941 COVID-19 VACCINE (#1) COVID-19 VACCI NE (#1) [facility] Start: 1940 Medicare Annual Wellness (AWV) Medicare Annual Wellness (AWV) [facility] End: 01-01-2025 MRA Head vessels WO and W contrast IV MRA BRAIN WO/W IVCON Radiology Routine Unruptured cerebral aneurysm Nonruptured cerebral aneurysm 1 Occurrences starting 12/03/2023 until 01/01/2025 [facility] Work Phone: Comment on above: 1 Occurrences starti ng 12/03/2023 until 01/01/2025 [facility] Immunizations Immunization Date Immunization Notes Care Provider Fa cili 08-06-2024 influenza, seasonal, injectable, preservative free Isak Rojas MD Work Phone: [facility] 06-22-2023 influenza virus vacc ine, unspecified formulation Isak Rojas MD Work Phone: [facility] 09-20-2021 influenza virus vacc ine, unspecified formulation Koby Juarez APRN.CNP Work Phone: [facility] Payers Date Payer Category Payer Medicare [id number] 2023 Self-pay 2021 Private Health Insurance [employer] [id number] 2021 Unknown MMO MMO MEDICARE SUPPLEMENT [id number] 2021-Present [phone] [address] [place] [address] Indemnity [id number] 2005 Medicare [id number] 1959 Medicare [id number] 1959 Unknown [id number] 1940 Unknown [id number] 2.16.840.1.084567.3.579.2. 593 1940 Unknown [id number] 2.16.840.1.713538.3.579.2. 593 1940 Unknown [id number] 2.16.840.1.218355.3.579.2. 593 1940 Unknown [id number] 2.16.840.1.429058.3.579.2. 593 1940 Unknown [id number] 2.16.840.1.122073.3.579.2. 593 1940 Unknown [id number] 2.16.840.1.002568.3.579.2. 1286 1940 Unknown [id number] 2.16.840.1.611175.3.579.2. 1286 1940 Unknown [id number] 2.16.840.1.862138.3.579.2. 1286 1940 Unknown [id number] 2.16.840.1.159477.3.579.2. 1286 1940 Unknown [id number] 2.16.840.1.793660.3.579.2. 1286 1940 Unknown [id number] 2.16.840.1.251504.3.579.2. 1286 1940 Unknown [id number] 2.16.840.1.473255.3.579.2. 1286 1940 Unknown [id number] 2.16.840.1.091045.3.579.2. 1286 1940 Unknown [id number] 2.16.840.1.489259.3.579.2. 1286 1940 Unknown [id number] 2.16.840.1.308984.3.579.2. 1286 1940 Unknown [id number] 2.16.840.1.941657.3.579.2. 1286 1940 Unknown [id number] 2.16.840.1.658242.3.579.2. 1286 1940 Unknown [id number] 2.16.840.1.555337.3.579.2. 1259 1940 Unknown [id number] 2.16.840.1.977853.3.579.2. 1259 1940 Unknown [id number] 2.16.840.1.214332.3.579.2. 1259 [id number] Unknown [id number] 2.16.840.1.189429.3.579.2. 531 Unknown [id number] 2.16.840.1.465744.3.579.2. 531 Social History Date Type Detail Facility Start: 02-24-2018 End: 05-21-2023 Tobacco smoking status [facility] Never smoked tobacco [facility] Start: 02-24-2018 End: 05-21-2023 Tobacco use and exposure Smokeless tobacco non-user [facility] Start: 1940 Sex Assigned At Not on file C [facility] Start: 08-13-2022 Alcohol intake Ex-drinker (finding) [facility] Start: 07-28-2022 End: 08-07-2022 Exposure to SARS-CoV-2 (event) Not sure [facility] Start: 1940 Sex Assigned At Female [facility] Start: 08-13-2022 End: 06-09-2024 Sex Assigned At [facility] Start: 08-13-2022 End: 06-09-2024 History of Social function [facility] Adult Depression Screening Assessment 2 [facility] Start: 12-17-2023 End: 06-09-2024 Alcoholic beverage intake Current drinker of alcohol (finding) [facility] Start: 05-17-2023 Alcohol Comment Alcohol: 1 or 2 drinks on a typical day/monthly or less Caffeine: 2-3 cups/day [facility] Clinical Notes 07-27-2022 to 08-06-2024 Isak Rojas [...] free IM (Completed) documented in this encounter [facility] 06-09-2024 History of Presen t illness Narrative [...] may need injections. documented in this encounter [facility] 01-06-2024 Miscellaneous Notes Formattin g of this note might be different from the original. Called pt about f/up and she asked that her daughter be called. Spoke with daughter Virgil. She states they have imaging done at [facility] near them and asked if order can be mailed to pt's address. Offered a VV for f/up after imaging and she will try to figure that out to save a trip to [place]. Address verified. Provided her with office number for questions and scheduling number to call after MRA is completed. She appreciated the follow-up. Will mail order tomorrow 01/06. Angelique Jones RN documented in this encounter [facility] 09-27-2023 Evaluation note Encounter Date Diagnosis Assessment Notes Sep, Right ear impacted cerumen (ICD-10 - H61.21) Drink plenty fluids, get plenty of rest. Continue home medications as prescribed. Follow-up with your family physician for any further concerns [facility] Other 11-01-2022 Instructions* Patient Instructions* Koby Juarez APRN.CNP - 08/07/2022 3:00 PM EDT Follow-up appointment due July 2024. Our office will contact you 6-8 weeks prior to schedule. Ifyou do not hear from us, please call [phone] or send a Pivto message to connect with one ofour caregivers. Goal blood pressure is less than 140/90. Notify your PCP with any elevated blood pressure readings. 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 We recommend a low-dose beta-michelle (ie propranolol) to reduce pulsations from the basilar artery on your brainstem - this may be making your symptoms worse. Please discuss with your body recall instructor todecide if this is safe for someone [...] with no known cause. [facility] History of Present illness Narrative* Koby Juarez APRN.CNP - 08/07/2022 1:14 PM EDT [facility] Established Visit Diana Franco [facility]#: [id number] Date of Service: 08/07/2022 Primary Care Provider: [...] Take 1 tablet by mouth once daily. ufvcyew-efwnrfng-duntgzdqyr (FIORINAL) capsule Take 1 capsule by mouth [...] tremor. Sensation: Grossly intact light touch. Coordination: Jhnfqv-uo-ztnj and rwxc-ep-jmzf without dysmetria bilaterally. Gait: Arrives to office [...] No recent lipid panel or A1C in [facility] or Care Everywhere, last 05/2016. IMPRESSION [...] which included preparing to see the patient, uxmi-nm-onru patient care, completing clinical documentation, obtaining and/or reviewing separately obtained history, performing a medically appropriate examination, counseling and educating the pat ient/family/caregiver, communicating with other HCPs (not separately reported), independently interpreting results (not separately reported), communicating results to the patient/family/caregiver, and care coordination (not separately reported). SIGNATURE Koby Juarez APRN.CNP August 07, 2022 [facility] Miscellaneous Notes* Telephone Encounter - Lia Lagose ADM - 07/27/2022 4:32 PM EDT 1st attempt: Spoke with patient and notified that our new policy for any follow up patients is theyare to see ELIGIO/PILL COATER instead of provider, unless absolutely necessary. Patient [...] that was coming up rejected: Medicare A&B [id number] MMO MEDICARE SUPPLEMENT Verified #'s are correct, supplement insurance name just needs updated. 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 Cerebral aneurysm, nonruptured documented [facility] noteNo assessment information availableOhio [facility] Work Phone: Evaluation note* Diagnosis Unruptured cerebral aneurysm- Primary Cerebral aneurysm, nonruptured Nonruptured cerebral aneurysm Cerebral aneurysm, nonruptured [facility]* Diagnosis Essential hypertension, benign (CMS/HCC)- Primary [...] esophagitis Esophageal reflux [facility] Diagnosis Essential hypertension, benign (CMS/HCC)- Primary [...] aura and with status migrainosus, not intractable ([facility]/HCC) Medicare annual wellness visit, subsequent- Primary Essential hypertension, benign ([facility]/HCC) Essential hypertension, benign Prediabetes Other abnormal glucose Adult hypothyroidism ([facility]) Unspecified hypothyroidism Encounter for long-term (current) use of medications Encounter for long-term (current) use of other medications Class 1 obesity due to excess calories with serious comorbidity and body mass index (BMI) of 30.0 to 30.9 in adult Need for immunization against influenza Need for prophylactic vaccination and inoculation against influenza Age-related osteoporosis without current pathological fracture ([facility]) [facility]* Diagnosis Essential hypertension, benign ([facility]/HCC)- Primary Essential hypertension, benign DDD (degenerative disc disease), lumbar Degeneration of lumbar or lumbosacral intervertebral disc Osteoarthritis of lower legs, bilateral Migraine without aura and with status migrainosus, not intractable ([facility]/HCC) documented in this encounter [facility]* Diagnosis Migraine without aura and without status migrainosus, not intractable ([facility]/HCC) documented in this encounter [facility] HealthcareHistory general Narrative - Reported* Type Description Date Medical History HTN Surgical History knee replacement - Surgical History tubal ligation 1971 Surgical History eye lid lift bilateral 2011 Surgical History nose surgery 2012 Surgical History knee replacement 2014 Surgical History torn retina bilateral 2014 Hospitalization History see above [facility] Other Summary Purpose Family History No Family History Records FoundNo Family History Records FoundNo Family History Records FoundNo Family History Records FoundNo Family History Records FoundNo Family History Records FoundNo Family History Records Found Advance Directives Advance Directive Response Recorded Date/ Time Advance Directives No August 13, 2023 3:54pm Documents on File Type Date Recorded Patient Finish Mixer Expl anation Advance Directives and Living Will [...] HEAD W & WO CONTRAST Mira Suarez, TRANSFORMER BUILDER.DRUG ABUSE PROGRAM COORDINATOR [address] [place] [address] [place] [address] Referral ID Status Reason Start Date Expiration Date Visits Requested Visits Authorized [id number] Pending Review Auto-Generat ed Referral 12/03/2023 01/01/2025 1 1 Additional Source Comments Source Comments (unrecognize d section and content) In the event this informatio n is protected by the Federal Confidentiality of Alcohol and Drug Abuse Patient Records regulations: The Federal rules restrict any use of the information to criminally investigate or prosecute any alcohol or drug abuse patient.[facility] Center[facility] the event this information is protected by the Federal Confidentiality of Alcohol and Drug Abuse Patient Records regulations: The Federal rules restrict any use of the information to criminally investigate or prosecute any alcohol or drug abuse patient.[facility] CenterIn the event this information is protected by the Federal Confidentiality of Alcohol and Drug Abuse Patient Records regulations: The Federal rules restrict any use of the information to criminally investigate or prosecute any alcohol or drug abuse patient.[facility] CenterIn the event this information is protected by the Federal Confidentiality of Alcohol and Drug Abuse Patient Records regulations: The Federal rules restrict any use of the information to criminally investigate or prosecute any alcohol or drug abuse patient.[facility] Reason for Visit (unrecogniz ed section and content) Reason Comments Appointment Rescheduled Reason Comments Established Patient Follow-Up Reason Comments Orders Reason Comments Follow Up Reason Comments Med Refill Reason Comments Medicare Annual Wellness Visit Subsequen t Wellness Reason Comments Follow-up 6m Reason Onset Date Comments Med Refill 06/29/2024 Care Teams (unrecognized sec tion and content) Senior Etl Developer Relationship Specialty Start Date End Date Regino Martinez PCP - General Family Medicine 05/16/17 Senior Etl Developer Relationship Specialty Start Date End Date Regino [...] Primary Care Provider, Attending Pr ovider Active Senior Etl Developer Relationship Specialty Start Date End Date Isak Rojas PCP - General Family Medicine 08/13/22 Russ Schmitt MD [address] [place] [phone] Cardiology 08/13/22 Senior Etl Developer Relationship Specialty Start Date End Date Isak Rojas PCP - General Family Medicine 08/13/22 Russ Schmitt MD [address] [place] [address] Cardiology 08/13/22 Senior Etl Developer Relationship Specialty Start Date End Date Isak Rojas MD [address] [place] [phone] PCP - General Family Medicine 11/11/23 Senior Etl Developer Relationship Specialty Start Date End Date Isak Rojas MD [address] [place] [phone] PCP - General Family Medicine 11/11/23 Senior Etl Developer Relationship Specialty Start Date End Date Isak Rojas MD [address] [place] [phone] PCP - General Family Medicine 11/11/23 Senior Etl Developer Relationship Specialty Start Date End Date Isak Rojas MD [address] [place] [phone] PCP - General Family Medicine 11/11/23 Senior Etl Developer Relationship Specialty Start Date End Date Isak Rojas MD [address] [place] [address] PCP - General Family Medicine 11/11/23 Senior Etl Developer Relationship Specialty Start Date End Date Isak Rojas MD [address] [place] [address] PCP - General Family Medicine 11/11/23 Senior Etl Developer Relationship Specialty Start Date End Date Isak Rojas MD [address] [place] [address] PCP - General Family Medicine 11/11/23 INFORMATION SOURCE (unrecogn ized section and content) DATE CREATED AUTHOR 02/17/2023 [facility] DATE CREATED AUTHOR AUTHOR'S ORGANIZ ATION 11/15/2023 [facility] DATE CREATED AUTHOR AUTHOR'S ORGANIZ ATION 01/07/2024 [facility] DATE CREATED AUTHOR AUTHOR'S ORGANIZ ATION 02/20/2024 [facility] DATE CREATED AUTHOR AUTHOR'S ORGANIZ ATION 03/13/2024 [facility] DATE CREATED AUTHOR AUTHOR'S ORGANIZ ATION 06/08/2024 [facility] DATE CREATED AUTHOR AUTHOR'S ORGANIZ ATION 08/08/[address] [facility] EPIC Goals (unrecognized section and [...] BE BASED ON THE PRIMARY CLINICAL RECORDS. [employer] provides no warranty or guarantee of the accuracy or completeness of information in this document.
[2024-09-29 05:59] LABS: Hematocrit 36.7 % (36.0-48.0); Hemoglobin 11.6 g/dL (12.0-16.0); Mean Corpuscular HGB Conc 31.6 g/dL (29.9-35.2); Mean Corpuscular Hemoglobin 30.7 pg (26.7-34.0); Mean Corpuscular Volume 97.1 fL (81.0-99.0); Mean Platelet Volume 9.7 fL (9.5-13.5); Platelet Count 240 10^3/uL (150-450); Red Blood Count 3.78 10^6/uL (4.20-5.40); Red Cell Distribution Width 13.9 % (11.0-15.0); White Blood Count 9.3 10^3/uL (4.0-11.0)
[2024-09-29 06:20] LABS: Anion Gap 15.4; BUN Creatinine Ratio 17.6; Calcium 8.7 mg/dL (8.5-10.1); Carbon Dioxide 20.4 mmol/L (21.0-32.0); Chloride 109 mmol/L (98-107); Estimated GFR (African America 59 (>=60 mL/min/1.73m^2); Estimated GFR (Non-African Ame 48 (>=60 mL/min/1.73m^2); Glucose 90 mg/dL (74-106); Potassium 3.8 mmol/L (3.5-5.1); Sodium 141 mmol/L (136-145)
--- NOTE | 2024-09-29 09:11 | SWNOTE1 ---
SW received a message from case management and pt will need home health. SW stopped in to speak to pt and OT was in room as well. Pt lives at home alone. She has private caregiver that comes in daily. Her daughter checks on her as well and she usually goes to her daughters for dinner. Pt does have a walker and cane and uses both at times. Pt voiced she has had HH in past. She has no preference on HH company, she voiced she just wants to get out of here. YAW to send referral. Referral sent to [facility]. Referral included face sheet, ED note, and speech therapy notes.
--- NOTE | 2024-09-29 09:45 | CM.NOTE ---
Rounds made with Dr. Sears, pt will discharge to home today and f/u with Dr. Sears for outpatient MRI. Awaiting PT evaluation prior to discharge for planning.
--- NOTE | 2024-09-29 10:13 | SWNOTE1 ---
Important Message from Medicare reviewed and discussed with patient. Pt. verbalized understanding and signed the form. Original given to patient and copy placed in patient?s chart. SW received a call from [facility] and they are able to accept. YAW let pt and daughter in room know that roger should be calling within the next 48 hours to schedule first visit.
--- NOTE | 2024-09-29 10:25 | PM.HP ---
HPI H&P: HPI History of Present Illness Chief complaint: DYSARTHRIA Narrative: 84 y/o female to ER with weakness. History of dysarthria related to prior injury and no history of CVA. Day of admission noted increased weakness. Problems getting in and out of shower and problems getting out of chair. Family thought speech possibly worse and to ER. CT head and CTA head and neck negative for acute change. Discussed with teleneurology who recommended monitoring and MRI. Feels better this am. Strength improved and speech at baseline. No focal weakness in arms or legs and neuro checks have been normal. Opioid HPI Opioid Management Most Recent Pain and Opioid Data: Last Pain Assessment 09/29/24 09:00 Last ORT Total Score 0 09/29/24 00:32 09/29/24 Last ORT Risk Category Low Risk 09/29/24 00:32 09/29/24 Review of Systems ROS Constitutional Denies: fever, chills or fatigue Cardiovascular Denies: chest pain, palpitations or edema Respiratory Denies: shortness of breath, cough or wheezing Gastrointestinal Denies: abdominal pain, nausea, vomiting or diarrhea Genitourinary Denies: painful urination Neurological Reports: slurred speech; Denies: numbness in extremities, weakness in extremities or confusion [facility] Medical History (Updated 09/29/24 @ 09:38 by Isak Sears MD) Dyslipidemia ?E78.5 - Hyperlipidemia, unspecified (ICD-10) Social History Little interest or pleasure in doing things: not at all Feeling down, depressed, or hopeless: several days Meds Home Medications and Allergies Home Medications ?Medication ?Instructions ?Recorded ?Confirmed ?Type aspirin 81 mg capsule 81 mg PO DAILY 09/28/24 09/29/24 History levothyroxine 100 mcg tablet 100 mcg PO .ACB 09/28/24 09/29/24 History losartan 25 mg tablet 25 mg PO .QD 09/28/24 09/29/24 History pantoprazole 40 mg tablet,delayed 40 mg PO .ACB 09/28/24 09/29/24 History release topiramate 50 mg tablet 50 mg PO BID 09/28/24 09/29/24 History zinc 50 mg capsule 50 mg PO DAILY 09/28/24 09/29/24 History alendronate 70 mg tablet 70 mg PO QWEEK 09/29/24 09/29/24 History multivit-iron 18 mg-folic acid 400 1 tab PO DAILY 09/29/24 09/29/24 History mcg-calcium 500 mg-minerals tablet (Daily Multiple For Women) Allergies Allergy/AdvReac Type Severity Reaction Status Date / Time codeine Allergy Intermediate Vomiting Verified 09/28/24 19:17 Exam Constitutional Vital Signs, click to edit/add: Last Vital Signs Temp 99.0 F 09/29/24 08:00 Pulse 68 09/29/24 08:00 Resp 16 09/29/24 08:00 BP 147/94 H 09/29/24 08:00 Pulse Ox 99 09/29/24 08:00 O2 Del Method Room Air 09/29/24 00:15 Documenting provider has reviewed patient's vital signs: yes Common normals: no apparent distress, oriented x3 and alert HENMT Common normals: normocephalic Eye Common normals: PERRL and EOMs intact bilaterally Respiratory Common normals: normal respiratory effort and clear to auscultation bilaterally Cardio Common normals: regular rate, regular rhythm, no gallops, no murmurs and no rub GI Common normals: Normal to inspection, nondistended, normoactive bowel sounds present and non-tender Extremity Common normals: no pedal edema Neuro Common normals: moves all extremities, no focal motor deficits and no sensory deficits noted Motor exam: strength 5/5 throughout Results Labs Labs: Short CBC 09/28/24 09/29/24 Range/Units 19:30 05:09 WBC 10.0 9.3 (4.0-11.0) 10^3/uL Hgb 12.5 11.6 L (12.0-16.0) g/dL Hct 39.1 36.7 (36.0-48.0) % Plt Count 259 240 (150-450) 10^3/uL BMP 09/28/24 09/29/24 19:30 05:09 Sodium 140 141 Potassium 3.6 3.8 Chloride 108 H 109 H Carbon Dioxide 21.6 20.4 L BUN 22.0 H 19.0 H Creatinine 1.28 H 1.08 H Glucose 130 H 90 Calcium 8.9 8.7 Urine 09/28/24 Range/Units 19:58 Urine Color Yellow (YELLOW) Urine Clarity Clear (CLEAR) Urine pH 6.0 (5.0-9.0) Ur Specific Tanner 1.020 (1.005-1.025) Urine Protein Trace (NEG/TRACE) mg/dL Urine Glucose (UA) Negative (NEGATIVE) mg/dL Imaging CT scan - head: Attestation: I have reviewed the pertinent imaging results. Assessment and Plan Assessment and Plan (1) Generalized weakness: (2) Dysarthria: (3) Primary osteoarthritis of knees, bilateral: (4) Benign essential hypertension: (5) Lumbar degenerative disc disease: (6) CKD stage 3b, GFR 30-44 ml/min: (7) Adult hypothyroidism: Plan Presented with weakness of unclear etiology and chronic dysarthria. Speech appears at baseline. Weakness improved and CT without acute change. MRI not available but no history of stroke. Discharge home with home health. Continue aspirin. Follow up in office 10/05 and will arrange for outpatient MRI. Resume home medication as directed.
--- NOTE | 2024-09-29 10:42 | SWNOTE1 ---
[facility] faxed dc med rec, CRF, and H&P to [facility].
--- OUTSIDE RECORDS SUMMARY | 2024-10-01 08:10 | XMS_ITS | CCD ---
Author Organization [facility] Informat ion Partnership [facility] Care Team Providers Care Human Resources Executive Assistant Name Role Phone Regino Martinez Primary Care Provider ISAK ROJAS Admitting Unavailable NADERER, ISAK Briceño Attending Unavailable NADERER, ISAK Briceño Primary Care Unavailable NADERER, ISAK Briceño Consulting Unavailable NADERER, ISAK Briceño Admitting Unavailable NADERER, ISAK Briceño Attending Unavailable NADERER, ISAK Briceño Primary Care Unavailable NADERER, ISAK Briceño Consulting Unavailable NADERER, ISAK Briceño Admitting Unavailable NADERER, ISAK Briceño Attending Unavailable NADERER, ISAK Briceño Primary Care Unavailable NADERER, ISAK Briceño Consulting Unavailable NADERER, ISAK Briceño Admitting Unavailable NADERER, ISAK Briceño Attending Unavailable NADERER, ISAK Briceño Primary Care Unavailable NADERER, ISAK Briceño Consulting Unavailable NADERER, ISAK A Admitting Unavailable NADERER, ISAK Briceño Attending Unavailable NADERER, ISAK A Primary Care Unavailable DR GILL LIRA Consulting Unavailable NADERER, ISAK Briceño Consulting Unavailable MD Francheska eJan Attending Provider MD Isak Rojas Primary Care Provider [phone] MD Francheska Jean Primary Care Provider Jacinta Gillespie Unavailable Shaikh Jean Attending Unavailable Isak Rojas Primary Care Unavailable Shaikh Jean Admitting Unavailable Shaikh Jean Attending Unavailable Miranda, Admitting Unavailable Shaikh Jean Primary Care Unavailable Isak Rojas Primary Care Provider [phone] Russ Schmitt MD Unavailable REDD OBANDO Attending Unavailable NADERER, ISAK Primary Care Unavailable YEN LINK Attending Unavailable TAYLORANDREA Aj Admitting Unavailable VAZQEUZ GARIBAY Consulting Unavailable KARCHNER, MAXIMILIAN Small Attending Unavailable KARCHNER, MAXIMILIAN D Referring Unavailable NADERER, ISAK Primary Care Unavailable VESELKA, MAYRA Hinds Attending Unavailable VESELKA, MAYRA Hinds Referring Unavailable NADERER, ISAK Primary Care Unavailable KROTZER, THANG D Referring Unavailable NADERER, ISAK Primary Care Unavailable KROTZER, THANG D Referring Unavailable NADERER, ISAK Primary Care Unavailable KROTZER, THANG D Referring Unavailable NADERER, ISAK Primary Care Unavailable KROTZER, THANG D Referring Unavailable NADERER, ISAK Primary Care Unavailable NADERER, ISAK Primary Care Unavailable FARIBAYEN Attending Unavailable KARCHNER, MAXIMILIAN D Attending Unavailable KARCHNER, MAXIMILIAN D Referring Unavailable NADERER, ISAK Primary Care Unavailable Caroliner Isak HAMILTON Primary Care Provider [phone] CRYSTAL, ISAK Attending Unavailable NADERER, ISAK Attending Unavailable NADERER, ISAK Attending Unavailable NADERER, ISAK Referring Unavailable NADERER, ISAK Primary Care Unavailable NADERER, ISAK Referring Unavailable NADERER, ISAK Primary Care Unavailable NADERER, ISAK Referring Unavailable NADERER, ISAK Primary Care Unavailable NADERER, ISAK Referring Unavailable NADERER, ISAK Primary Care Unavailable ERWIN MCLEOD Attending Unavailable NADERER, ISAK Referring Unavailable NADERER, ISAK Primary Care Unavailable Allergies Allergy Classification Reported Allergen(s) Allergy Type Date of Onset Reaction(s) Facility (16 sources) Codeine; Translations: [CODEINE] Drug Allergy 7 GI Upset, Nausea Only [facility] (14 sources) Iodine Drug Allergy 7 Rash [facility] (1 source) Codeine Drug Allergy 6 [facility] Repository (2 sources) Adhesive Tape; Translations: [adhesive tape] Allergy to substance 3 [facility] (4 sources) Adhesive agent; Translations: [adhesive] Drug allergy 3 [facility] Repository (1 source) Codeine Drug Allergy 3 [facility] Repository (1 source) Iodine Drug Allergy 3 [facility] Repository (2 sources) Codeine; Translations: [CODEINE SULFATE] [...] Central Nervous System Stimulant, Methylxanthine Start: 06-29-20 24 take 1 tablet by mouth four times daily as needed butalbital-acetamin ophen-caffeine 50-325-40 MG tablet Indications: Migraine without aura and without status migrainosus, not intractable (CMS/HCC) Take 1 tablet by mouth 4 (four) times a day as needed for migraine 30 tablet 1 06/29/2024 Active alendronic acid 70 mg oral tablet (11 sources) Bisphosphonate Start: 08-06-20 24 take 1 tablet by mouth in the [...] Active Start: 08-06-2024 take 1 tablet by juanid th in the morning alendronate (Fosamax) 70 [...] Per Day) tablet (8 sources) End: 08-06-2024 Azldwnogn-Kevpuclesvg-Ycg D (Osteo Bi-Flex One Per Day) tablet [...] Proton Pump Inhibitor Start: 12-24-19 End: 07-28-20 take 1 tablet by mouth once daily pantoprazole (ProtoNix) 40 MG EC tablet Indications: Gastroesophageal reflux disease without esophagitis TAKE ONE TABLET BY MOUTH DAILY 90 tablet 3 07/28/2024 Active Comment on above: Take 1 tablet by junaid th once daily. 24 hr propranolol hydrochloride 60 mg extended release oral capsule (11 sources) beta-Adrenergic Michelle End: 08-06-20 propranolol LA (Inderal LA) 60 MG 24 [...] Drug Class(es) Dates Sig (Normalized) Sig (Original) [id number] actuat albuterol 0.09 mg/actuat metered dose [...] Comment on above: Take 1 capsule by [facility] every 4 hours as needed. Chondroitin Sulfates / Glucosamine (1 source) Glucosamine Chondroitin MSM - Orally Not-Taking/PRN esomeprazole 20 mg delayed release oral capsule (1 source) Proton Pump Inhibitor take 1 capsule by mouth every twenty-four hours NexIUM 20 MG 1 capsule Orally Once a day Not-Taking/PRN GLUCOSAMINE/CHONDR BEVERLY A SOD (OSTEO BI-FLEX ORAL) (4 sources) [...] 12-17-2023 Chronic Other aftercare (1 source) Other childbirth educator (current) drug therapy; Translations: [OTH [facility] CURRENT DRUG THERAPY] Onset: 3 Episodic Other aftercare (5 sources) Long-term current use of drug therapy; Translations: [Other shelter (current) drug therapy] Onset: 4 08-06-2024 Episodic [...] [Scar conditions and fibrosis of skin] Episodic Residual codes; unclassified (1 source) Pain, unspecified; Translations: [Pain, unspecified] Onset: 4 Episodic Spondylosis; intervertebral disc disorders; other back [...] 4 Unclassified (1 source) ill Onset: 4 Viral infection (1 source) COVID-19; Translations: [COVID-19] [...] Translations: [SYNCOPE AND COLLAPSE] Onset: 07-03-2022 Episodic Urinary tract infections (5 sources) Urinary tract infection, site not specified; Translations: [UTI SITE NOT SPECIFIED] Onset: 11-14-2022 Episodic Results Test Name Value Interpretation Reference Range Facility ALL CBC WITH AUTO DIFFon BASOPHILS ABSOLUTE AUTO 0 [facility] Basophils/100 WBC (Bld) 0.5 % 0.2 - 2.0 % [facility] Eosinophils/100 WBC (Bld) 1.6 % 0.9 - 7.0 % [facility] Erythrocyte distribution width (RBC) [Ratio] 13.3 % 11.0 - 15.0 % [facility] Hematocrit (Bld) [Volume fraction] 39.6 % 36.0 - 48.0 % [facility] Hemoglobin (Bld) [Mass/Vol] 12.9 g/dL 12.0 - 16.0 g/dL [facility] IMMATURE GRANULOCYTES ABS AUTO 0.[address] [facility] Immature granulocytes/100 WBC (Bld) 0.6 % High 0.0 - 0.5 % [facility] Interpretation and review of laboratory results Abnormal [facility] LYMPHOCYTES ABSOLUTE AUTO 1.8 [facility] Lymphocytes/100 WBC (Bld) 22.2 % 20.5 - 60.0 % [facility] MCH (RBC) [Entitic mass] 32.1 pg 26.7 - 34.[address] [facility] MCHC (RBC) [Mass/Vol] 32.6 g/dL 29.9 - 35.2 g/dL [facility] MCV (RBC) [Entitic vol] 98.5 fL 81.0 - 99.[address] [facility] MONOCYTES ABSOLUTE AUTO 0.5 [facility] Monocytes/100 WBC (Bld) 6.1 % 1.7 - 12.0 % [facility] NEUTROPHILS ABSOLUTE AUTO 5.7 [facility] Neutrophils/100 WBC (Bld) 69 % 43.0 - 75.0 % [facility] Platelet mean volume (Bld) [Entitic vol] 9.6 fL 9.5 - 13.[address] [facility] TB EO # 0.1 [facility] TB PLT 207 [facility] RBC 4.02 Low [facility] WBC 8.3 [facility]IN[facility] BLOOD CULTUREon 06-03-2024 Bacteria identified Aer cx Nom (Bld) SPECIMEN NOTES RAC CULTURE RESULTS NO GROWTH 5 DAYS Normal [facility] Bacteria identified Aer cx Nom (Bld) SPECIMEN NOTES RAC CULTURE RESULTS NO GROWTH 5 DAYS Normal [facility] CBC AND AUTO DIFFon 06-03-20 24 ABSOLUTE BASOPHIL 0.0 X10E9/L Normal 0.0-0.2 [facility] Comment on above: Performed By: #### C KATIE CMP, 18455-2, 23169-2 #### [facility] ([id number]) [address] [place] [address], [place] [address] ABSOLUTE NEUTROPHIL 5.7 X10E9/L Normal 1.5-6.6 [facility] [place] [facility] Comment on above: Performed By: #### C BCA CMP, 92744-7, 35350-6 #### [facility] ([id number]) [address] [place] [address]420 Basophils/100 WBC (Bld) 0.6 % Normal [facility] Comment on above: Performed By: #### C BCA, CMP, , 91023-6 #### [facility] ([id number]) [address] [place] [address] 54393 Eosinophils (Bld) [#/Vol] 0.1 10*3/uL Normal 0.0-0.4 [facility] Comment on above: Performed By: #### C KATIE, CMP, , 42329-0 #### [facility] ([id number]) [address] [place] [address] 87625 Eosinophils/100 WBC (Bld) 1.0 % Normal [facility] Comment on above: Performed By: #### Cathy WILSON, CMP, , 86654-4 #### [facility] ([id number]) [address] [place] [address] 55325 Erythrocyte distribution width (RBC) [Ratio] 15.2 % High 11.5-15.0 [facility] Comment on above: Performed By: #### C KATIE CMP, , 45732-2 #### [facility] ([id number]) [address] [place] [address] 09771 Hematocrit (Bld) [Volume fraction] 35.1 % Normal 35-47 [facility] Comment on above: Performed By: #### C BCA, CMP, , 69995-9 #### [facility] ([id number]) [address] [place] [address] 52370 Hemoglobin (Bld) [Mass/Vol] 12.0 g/dL Normal 11.7-15.5 [facility] Comment on above: Performed By: #### Cathy BCA, CMP, , 67467-0 #### [facility] ([id number]) [address] [place] [address] 32726 Lymphocytes (Bld) [#/Vol] 1.4 10*3/uL Normal 1.0-3.5 [facility] Comment on above: Performed By: #### C KATIE, CMP, , 37487-9 #### [facility] ([id number]) [address] [place] [address] 91408 Lymphocytes/100 WBC (Bld) 18.0 % Normal [facility] Comment on above: Performed By: #### C XI WILSON, , 22505-6 #### [facility] ([id number]) [address] [place] [address] 62870 MCH (RBC) [Entitic mass] 32.5 pg Normal 27-34 [facility] Comment on above: Performed By: #### C KATIE, CMP, , 94366-0 #### [facility] ([id number]) [address] [place] [address] 21904 MCHC (RBC) [Mass/Vol] 34.3 g/dL Normal 32-36 [facility] Comment on above: Performed By: #### C KATIE CMP, , 94072-0 #### [facility] ([id number]) [address] [place] [address] 57149 MCV (RBC) [Entitic vol] 95 fL Normal 80-100 [facility] Comment on above: Performed By: #### C BCA, CMP, , 74668-2 #### [facility] ([id number]) [address] [place] [address] 84004 Monocytes (Bld) [#/Vol] 0.4 10*3/uL Normal 0-0.9 [facility] Comment on above: Performed By: #### C BCA, CMP, , 68033-3 #### [facility] ([id number]) [address] [place] [address] 36851 Monocytes/100 WBC (Bld) 5.1 % Normal [facility] Comment on above: Performed By: #### C BCA, CMP, , 70725-2 #### [facility] ([id number]) [address] [place] [address] 91952 Neutrophils/100 WBC (Bld) 75.3 % Normal [facility] Comment on above: Performed By: #### C BCA, CMP, , 12202-0 #### [facility] ([id number]) [address] [place] [address] 01101 Platelet mean volume (Bld) [Entitic vol] 7.8 fL Normal 7-12 [facility] Comment on above: Performed By: #### C BCA, CMP, , 04614-9 #### [facility] ([id number]) [address] [place] [address] 34572 Platelets (Bld) [#/Vol] 209 10*3/uL Normal 150-450 [facility] Comment on above: Performed By: #### C BCA, CMP, , 26171-7 #### [facility] ([id number]) [address] [place] [address] 13865 RBC COUNT 3.70 X10E12/L Low 3.80-5.20 [facility] Comment on above: Performed By: #### C BCA, CMP, , 75450-0 #### [facility] ([id number]) [address] [place] [address] 89801 WBC (Bld) [#/Vol] 7.5 10*3/uL Normal 4.0-11.0 [facility] Comment on above: Performed By: #### C BCA, CMP, , 99335-1 #### [facility] ([id number]) [address] [place] [address] 06058 COMPREHENSIVE METABOLIC PANE Jarrod 06-03-2024 Albumin [Mass/Vol] 3.9 g/dL Normal 3.2-5.3 [facility] Comment on above: Performed By: #### C BCA, CMP, , 63141-1 #### [facility] ([id number]) [address] [place] [address] 17613 ALP [Catalytic activity/Vol] 118 U/L Normal 39-130 [facility] Comment on above: Performed By: #### C BCA, CMP, , 62235-9 #### [facility] ([id number]) [address] [place] [address] 41686 ALT [Catalytic activity/Vol] 12 U/L Normal 0-31 [facility] Comment on above: Performed By: #### C BCA, CMP, , 84895-0 #### [facility] ([id number]) [address] [place] [address] 97209 Anion gap [Moles/Vol] 6 mmol/L Normal 5-15 [facility] Comment on above: Performed By: #### C BCA, CMP, , 43244-0 #### [facility] ([id number]) [address] [place] [address] 18978 AST [Catalytic activity/Vol] 16 U/L Normal 0-41 [facility] Comment on above: Performed By: #### C BCA, CMP, , 42823-1 #### [facility] ([id number]) [address] [place] [address] 16429 Bilirubin [Mass/Vol] 0.6 mg/dL Normal 0.3-1.2 [facility] [place] [facility] Comment on above: Performed By: #### C BCA, CMP, , 85357-4 #### [facility] ([id number]) [address] [place] [address] 92346 Calcium [Mass/Vol] 9.0 mg/dL Normal 8.5-10.5 [facility] Comment on above: Performed By: #### C BCA, CMP, , 57526-1 #### [facility] ([id number]) [address] [place] [address] 73741 Chloride [Moles/Vol] 108 mmol/L Normal 98-109 [facility] [place] [facility] Comment on above: Performed By: #### C BCA, CMP, , 62732-4 #### [facility] ([id number]) [address] [place] [address] 47433 CO2 [Moles/Vol] 22 mmol/L Normal 22-32 [facility] Comment on above: Performed By: #### C BCA, CMP, , 43869-1 #### [facility] ([id number]) [address] [place] [address] 50818 Creatinine [Mass/Vol] 1.26 mg/dL High 0.40-1.00 [facility] Comment on above: Result Comment: METH OD TRACEABLE TO IDMS STANDARD Performed By: #### C BCA, CMP, , 45139-8 #### [facility] ([id number]) [address] [place] [address] 79164 GFR/1.73 sq M.predicted among non-blacks MDRD (S/P/Bld) [Vol rate/Area] 42 mL/min/{1.73_m2} Low >59 [facility] Comment on above: Result Comment: Reported eGFR is based on the CKD-EPI 2020 equation that does not use a race coefficient. Performed By: #### C BCA, CMP, , 14114-4 #### [facility] ([id number]) [address] [place] [address] 00776 Glucose [Mass/Vol] 105 mg/dL High 65-99 [facility] Comment on above: Performed By: #### C BCA, CMP, , 05315-4 #### [facility] ([id number]) [address] [place] [address] 11234 Potassium [Moles/Vol] 4.2 mmol/L Normal 3.5-5.0 [facility] Comment on above: Performed By: #### C BCA, CMP, , 71516-9 #### [facility] ([id number]) [address] [place] [address] 67614 Protein [Mass/Vol] 6.8 g/dL Normal 6.0-8.0 [facility] Comment on above: Performed By: #### C BCA, CMP, , 85173-1 #### [facility] ([id number]) [address] [place] [address] 77797 Sodium [Moles/Vol] 136 mmol/L Normal 134-146 [facility] Comment on above: Performed By: #### C BCA, CMP, , 38832-8 #### [facility] ([id number]) [address] [place] [address] 87233 Urea nitrogen [Mass/Vol] 33 mg/dL High 5-27 [facility] Comment on above: Performed By: #### C BCA, CMP, , 77474-9 #### [facility] ([id number]) [address] [place] [address] 22430 Lactate (P lisset) [Moles/Vol]o n 06-03-2024 LACTATE W/REFLEX 0.9 mmol/L Normal 0.4-2.0 [facility] Comment on above: Result Comment: Result did not trigger repeat Lactate, re-order if needed. Performed By: #### C BCA, CMP, , 34777-6 #### [facility] ([id number]) [address], [place] [address] MAGNESIUMon 06-03-2024 Magnesium [Mass/Vol] 2.0 mg/dL Normal 1.8-2.6 [facility] [place] [facility] Comment on above: Performed By: #### C KATIE, CMP, , 13857-3 #### [facility] ([id number]) [address], [place] [address] SARS/FLU A+B/RSV by NAAT/Mol ecularon 06-03-2024 SARS/FLU [...] operators who are performing tests using either GeneXEchovox DX or GeneDokogeo Infinity systems and is limited to laboratories that [...] repeat. Fact Sheet for Healthcare Providers: https://www.fda.gov/me lindsay/863105/download Fact Sheet for Patients: https://www.fda.gov/vt lindsay/501195/download Normal [facility] Comment on above: Performed By: #### C KATIE CMP, , 36974-4 #### [facility] ([id number]) [address] [place] [address] 52855 Troponin I.cardiac High sens itivity method [Mass/Vol]on 06-03-2024 1 HOUR TROP I, HIGH SENSITIVITY 3 ng/L Normal <16 [facility] Comment on above: Performed By: #### Cathy WILSON CMP, , 31757-9 #### [facility] ([id number]) [address] [place] [address] 56085 TROPONIN I, HIGH SENSITIVITY 3 ng/L Normal <16 [facility] Comment on above: Performed By: #### Cathy WILSON CMP, , 94018-5 #### [facility] ([id number]) [address] [place] [address] 59707 URINE CULTUREon 06-03-2024 Bacteria identified Cx Nom (U) CULTURE RESULTS <10,000 ORGANISMS/ML NORMAL URO GENITAL JANELL Normal [facility] Comment on above: Performed By: #### Cathy WILSON CMP, , 59857-2 #### [facility] ([id number]) [address] [place] [address] 48696 URN MACROSCOPIC NURon 2023 BILIRUBIN GAURAV Negative Normal NEG [facility] Comment on above: Performed By: #### Cathy WILSON CMP, , 56781-3 #### [facility] ([id number]) [address] [place] [address] [place] [address] BLOOD/HGB GAURAV Negative Normal NEG [facility] Comment on above: Performed By: #### C BCA, CMP, , 44997-8 #### [facility] ([id number]) [address] [place] [address] [place] [address] GLUCOSE GAURAV Negative Normal NEG [facility] Comment on above: Performed By: #### C BCA, CMP, , 79707-7 #### [facility] ([id number]) [address] [place] [address] 27193 KETONES GAURAV Negative Normal NEG [facility] Comment on above: Performed By: #### C BCA, CMP, , 78270-9 #### [facility] ([id number]) [address] [place] [address] [place] [address] LEUKOCYTE ESTERASE GAURAV Trace Abnormal NEG [facility] Comment on above: Performed By: #### C BCA, CMP, , 64321-5 #### [facility] ([id number]) [address] [place] [address] [place] [address] NITRITE GAURAV Negative Normal NEG [facility] Comment on above: Performed By: #### C BCA, CMP, , 00663-4 #### [facility] ([id number]) [address] [place] [address] [place] [address] PH GAURAV 6.0 Normal 5.0-8.5 [facility] Comment on above: Performed By: #### C BCA, CMP, , 17466-1 #### [facility] ([id number]) [address] [place] [address] [place] [address] PROTEIN GAURAV Negative Normal NEG [facility] Comment on above: Performed By: #### C BCA, CMP, 18152-5, 61495-1 #### [facility] ([id number]) [address] [place] [address] SPECIFIC GRAVITY GAURAV 1.015 Normal 1.003-1.[address] [facility] Comment on above: Performed By: #### C BCA, CMP, 02747-0, 04297-7 #### [facility] ([id number]) [address] [place] [address] UROBILINOGEN GAURAV 0.2 eu/dL Normal <1.1 [facility] Comment on above: Performed By: #### C BCA, CMP, 33043-9, 60247-2 #### [facility] ([id number]) [address] [place] [address] XR CHEST 1 VWon 06-03-2024 XR CHEST [...] David Callaway on 06/03/2024 2:10 PM Normal [facility] DIANA FRANCO ([id number]) 1940 F Date Time Provider Department 01/06/24 WERNER MELENDREZ [facility] During your visit today, we recorded the following information about you: Angelique Jones, RN 01/06/2024 4:56 PM Signed Called pt about f/up and she asked that her daughter be called. Spoke with daughter Virgil. She states they have imaging done at [facility] near them and asked if order can be mailed to pt's address. Offered a VV for f/up after imaging and she will try to figure that out to save a trip to [place]. Address verified. Provided her with office number [...] 1 tablet by mouth once daily. - pzitpqq-ugndfkts-noyyp bital (FIORINAL) capsule Take 1 capsule by [...] Status:Closed by ANGELIQUE JONES on 01/06/24 Normal [facility] CBC AND AUTO DIFFon 12-09-19 ABSOLUTE BASOPHIL 0.0 X10E9/L Normal 0.0-0.2 [facility] Comment on above: Performed By: #### C BCA, CMP, 15257-3, 92664-6 #### [facility] ([id number]) [address] [place] [address], [place] [address] ABSOLUTE NEUTROPHIL 8.6 X10E9/L High 1.5-6.6 [facility] Comment on above: Performed By: #### C KATIE, CMP, , 35238-0 #### [facility] ([id number]) [address] [place] [address] 39738 Basophils/100 WBC (Bld) 0.4 % Normal [facility] Comment on above: Performed By: #### C AKTIE, CMP, , 17685-5 #### [facility] ([id number]) [address] [place] [address] 13548 Eosinophils (Bld) [#/Vol] 0.0 10*3/uL Normal 0.0-0.4 [facility] Comment on above: Performed By: #### Cathy WILSON, CMP, , 72677-6 #### [facility] ([id number]) [address] [place] [address] 66978 Eosinophils/100 WBC (Bld) 0.1 % Normal [facility] [facility] Comment on above: Performed By: #### Cathy WILSON, CMP, , 31890-3 #### [facility] ([id number]) [address] [place] [address] 33904 Erythrocyte distribution width (RBC) [Ratio] 14.6 % Normal 11.5-15.0 [facility] Comment on above: Performed By: #### Cathy WILSON, CMP, , 70627-9 #### [facility] ([id number]) [address] [place] [address] 86599 Hematocrit (Bld) [Volume fraction] 36.6 % Normal 35-47 [facility] Comment on above: Performed By: #### Cathy BCA, CMP, , 82392-7 #### [facility] ([id number]) [address] [place] [address] 69699 Hemoglobin (Bld) [Mass/Vol] 12.5 g/dL Normal 11.7-15.5 [facility] Comment on above: Performed By: #### C KATIE, CMP, , 41528-7 #### [facility] ([id number]) [address] [place] [address] 27410 Lymphocytes (Bld) [#/Vol] 0.8 10*3/uL Low 1.0-3.5 [facility] Comment on above: Performed By: #### C KATIE, CMP, , 99286-5 #### [facility] ([id number]) [address] [place] [address] 80889 Lymphocytes/100 WBC (Bld) 7.9 % Normal [facility] Comment on above: Performed By: #### C KATIE, CMP, , 09728-5 #### [facility] ([id number]) [address] [place] [address] 42921 MCH (RBC) [Entitic mass] 32.5 pg Normal 27-34 [facility] Comment on above: Performed By: #### Cathy WILSON, CMP, , 22435-7 #### [facility] ([id number]) [address] [place] [address] 69781 MCHC (RBC) [Mass/Vol] 34.3 g/dL Normal 32-36 [facility] Comment on above: Performed By: #### Cathy BCA, CMP, , 60711-6 #### [facility] ([id number]) [address] [place] [address] 04807 MCV (RBC) [Entitic vol] 95 fL Normal 80-100 [facility] Comment on above: Performed By: #### Cathy BCA, CMP, , 73879-1 #### [facility] ([id number]) [address] [place] [address] 63198 Monocytes (Bld) [#/Vol] 0.8 10*3/uL Normal 0-0.9 [facility] Comment on above: Performed By: #### C KATIE, CMP, , 80247-0 #### [facility] ([id number]) [address] [place] [address] 85918 Monocytes/100 WBC (Bld) 7.5 % Normal [facility] Comment on above: Performed By: #### C BCA, CMP, , 44449-4 #### [facility] ([id number]) [address] [place] [address] 26599 Neutrophils/100 WBC (Bld) 84.1 % Normal [facility] Comment on above: Performed By: #### C BCA, CMP, , 63243-3 #### [facility] ([id number]) [address] [place] [address] 66386 Platelet mean volume (Bld) [Entitic vol] 8.3 fL Normal 7-12 [facility] Comment on above: Performed By: #### C KATIE, CMP, , 28237-0 #### [facility] ([id number]) [address] [place] [address] 94916 Platelets (Bld) [#/Vol] 178 10*3/uL Normal 150-450 [facility] Comment on above: Performed By: #### C BCA, CMP, , 40729-1 #### [facility] ([id number]) [address] [place] [address] 59345 RBC COUNT 3.86 X10E12/L Normal 3.80-5.20 [facility] Comment on above: Performed By: #### C BCA, CMP, , 31966-4 #### [facility] ([id number]) [address] [place] [address] 51227 WBC (Bld) [#/Vol] 10.2 10*3/uL Normal 4.0-11.0 [facility] Comment on above: Performed By: #### C BCA, CMP, , 15064-3 #### [facility] ([id number]) [address] [place] [address] 44749 COMPREHENSIVE METABOLIC PANE Jarrod 12-09-2023 Albumin [Mass/Vol] 3.9 g/dL Normal 3.2-5.3 [facility] Comment on above: Performed By: #### C MP, , CBCA #### [facility] ([id number]) [address] [place] [address] 43853 ALP [Catalytic activity/Vol] 114 U/L Normal 39-130 [facility] Comment on above: Performed By: #### C MP, , CBCA #### [facility] ([id number]) [address] [place] [address] 53457 ALT [Catalytic activity/Vol] 20 U/L Normal 0-31 [facility] Comment on above: Performed By: #### C NOEMY, , CBCA #### [facility] ([id number]) [address] [place] [address] 20437 Anion gap [Moles/Vol] 10 mmol/L Normal 5-15 [facility] Comment on above: Performed By: #### C NOEMY, , CBCA #### [facility] ([id number]) [address] [place] [address] 46106 AST [Catalytic activity/Vol] 22 U/L Normal 0-41 [facility] Comment on above: Performed By: #### C MP, , CBCA #### [facility] ([id number]) [address] [place] [address] 92827 Bilirubin [Mass/Vol] 0.8 mg/dL Normal 0.3-1.2 [facility] [place] [facility] Comment on above: Performed By: #### C NOEMY, , CBCA #### [facility] ([id number]) [address] [place] [address] 25107 Calcium [Mass/Vol] 9.0 mg/dL Normal 8.5-10.5 [facility] Comment on above: Performed By: #### C NOEMY, , CBCA #### [facility] ([id number]) [address] [place] [address] 13209 Chloride [Moles/Vol] 108 mmol/L Normal 98-109 [facility] [place] [facility] Comment on above: Performed By: #### C NOEMY, , CBCA #### [facility] ([id number]) [address] [place] [address] 88102 CO2 [Moles/Vol] 18 mmol/L Low 22-32 [facility] Comment on above: Performed By: #### C NOEMY, , CBCA #### [facility] ([id number]) [address] [place] [address] 49164 Creatinine [Mass/Vol] 0.90 mg/dL Normal 0.40-1.00 [facility] Comment on above: Result Comment: METH OD TRACEABLE TO IDMS STANDARD Performed By: #### C NOEMY, , CBCA #### [facility] ([id number]) [address] [place] [address] 98188 GFR/1.73 sq M.predicted among non-blacks MDRD (S/P/Bld) [Vol rate/Area] 63 mL/min/{1.73_m2} Normal >59 [facility] Comment on above: Result Comment: Reported eGFR is based on the CKD-EPI 2020 equation that does not use a race coefficient. Performed By: #### C NOEMY, , CBCA #### [facility] ([id number]) [address] [place] [address], [place] [address] Glucose [Mass/Vol] 109 mg/dL High 65-99 [facility] Comment on above: Performed By: #### C NOEMY, , CBCA #### [facility] ([id number]) [address] [place] [address] 57319 Potassium [Moles/Vol] 3.8 mmol/L Normal 3.5-5.0 [facility] Comment on above: Performed By: #### C NOEMY, , CBCA #### [facility] ([id number]) [address] [place] [address] 95791 Protein [Mass/Vol] 6.7 g/dL Normal 6.0-8.0 [facility] Comment on above: Performed By: #### Cathy SALGUERO, , CBCA #### [facility] ([id number]) [address] [place] [address] 85819 Sodium [Moles/Vol] 136 mmol/L Normal 134-146 [facility] Comment on above: Performed By: #### Cathy SALGUERO, , CBCA #### [facility] ([id number]) [address] [place] [address] 50319 Urea nitrogen [Mass/Vol] 25 mg/dL Normal 5-27 [facility] Comment on above: Performed By: #### Cathy SALGUERO, , CBCA #### [facility] ([id number]) [address] [place] [address] 79027 MAGNESIUMon 12-09-2023 Magnesium [Mass/Vol] 2.0 mg/dL Normal 1.8-2.6 [facility] [place] [facility] Comment on above: Performed By: #### C NOEMY, , CBCA #### [facility] ([id number]) [address] [place] [address] 28400 MR LUMBAR SPINE WO CONTon MR LUMBAR [...] Wilde MD on 12/09/2023 1:00 PM Normal [facility] CBC AND AUTO DIFFon 12-08-19 24 ABSOLUTE BASOPHIL 0.1 X10E9/L Normal 0.0-0.2 [facility] Comment on above: Performed By: #### C BCA, CMP, , 85559-9 #### [facility] ([id number]) [address] [place] [address] 41330 ABSOLUTE NEUTROPHIL 10.1 X10E9/L High 1.5-6.6 [facility] Comment on above: Performed By: #### C KATIE, CMP, , 14400-0 #### [facility] ([id number]) [address] [place] [address] 59025 Basophils/100 WBC (Bld) 0.5 % Normal [facility] Comment on above: Performed By: #### Cathy BCA, CMP, , 32284-7 #### [facility] ([id number]) [address] [place] [address] 39604 Eosinophils (Bld) [#/Vol] 0.0 10*3/uL Normal 0.0-0.4 [facility] Comment on above: Performed By: #### C BCA, CMP, , 07836-6 #### [facility] ([id number]) [address] [place] [address] 08010 Eosinophils/100 WBC (Bld) 0.1 % Normal [facility] Comment on above: Performed By: #### C BCA, CMP, , 01097-7 #### [facility] ([id number]) [address] [place] [address] 77058 Erythrocyte distribution width (RBC) [Ratio] 14.0 % Normal 11.5-15.0 [facility] Comment on above: Performed By: #### C BCA, CMP, , 97550-5 #### [facility] ([id number]) [address] [place] [address] 54737 Hematocrit (Bld) [Volume fraction] 37.9 % Normal 35-47 [facility] Comment on above: Performed By: #### C BCA, CMP, , 67216-9 #### [facility] ([id number]) [address] [place] [address] 13569 Hemoglobin (Bld) [Mass/Vol] 12.7 g/dL Normal 11.7-15.5 [facility] Comment on above: Performed By: #### C BCA, CMP, , 09858-2 #### [facility] ([id number]) [address] [place] [address] 14044 Lymphocytes (Bld) [#/Vol] 0.6 10*3/uL Low 1.0-3.5 [facility] Comment on above: Performed By: #### C BCA, CMP, , 59054-0 #### [facility] ([id number]) [address] [place] [address] 16326 Lymphocytes/100 WBC (Bld) 5.2 % Normal [facility] Comment on above: Performed By: #### Cathy BCA, CMP, , 06194-6 #### [facility] ([id number]) [address] [place] [address] 94476 MCH (RBC) [Entitic mass] 31.8 pg Normal 27-34 [facility] Comment on above: Performed By: #### C BCA, CMP, , 46941-3 #### [facility] ([id number]) [address] [place] [address] 78586 MCHC (RBC) [Mass/Vol] 33.6 g/dL Normal 32-36 [facility] Comment on above: Performed By: #### C BCA, CMP, , 38491-4 #### [facility] ([id number]) [address] [place] [address] 36012 MCV (RBC) [Entitic vol] 95 fL Normal 80-100 [facility] Comment on above: Performed By: #### C BCA, CMP, , 81989-8 #### [facility] ([id number]) [address] [place] [address] 93286 Monocytes (Bld) [#/Vol] 0.8 10*3/uL Normal 0-0.9 [facility] Comment on above: Performed By: #### C BCA, CMP, , 60151-6 #### [facility] ([id number]) [address] [place] [address] 70738 Monocytes/100 WBC (Bld) 6.5 % Normal [facility] Comment on above: Performed By: #### C BCA, CMP, , 39959-8 #### [facility] ([id number]) [address] [place] [address] 52082 Neutrophils/100 WBC (Bld) 87.7 % Normal [facility] Comment on above: Performed By: #### C BCA, CMP, , 87427-8 #### [facility] ([id number]) [address] [place] [address] 77788 Platelet mean volume (Bld) [Entitic vol] 8.0 fL Normal 7-12 [facility] Comment on above: Performed By: #### C BCA, CMP, , 40714-8 #### [facility] ([id number]) [address] [place] [address] 28011 Platelets (Bld) [#/Vol] 183 10*3/uL Normal 150-450 [facility] Comment on above: Performed By: #### C BCA, CMP, , 65791-3 #### [facility] ([id number]) [address] [place] [address] 08841 RBC COUNT 4.00 X10E12/L Normal 3.80-5.20 [facility] Comment on above: Performed By: #### C BCA, CMP, , 75680-1 #### [facility] ([id number]) [address] [place] [address] 83926 WBC (Bld) [#/Vol] 11.5 10*3/uL High 4.0-11.0 [facility] Comment on above: Performed By: #### C BCA, CMP, , 93837-8 #### [facility] ([id number]) [address] [place] [address] 34564 COMPREHENSIVE METABOLIC PANE Jarrod 12-08-2023 Albumin [Mass/Vol] 4.1 g/dL Normal 3.2-5.3 [facility] Comment on above: Performed By: #### C BCA, CMP, , 04853-9 #### [facility] ([id number]) [address] [place] [address] 68099 ALP [Catalytic activity/Vol] 128 U/L Normal 39-130 [facility] Comment on above: Performed By: #### C BCA, CMP, , 91433-3 #### [facility] ([id number]) [address] [place] [address] 65893 ALT [Catalytic activity/Vol] 22 U/L Normal 0-31 [facility] Comment on above: Performed By: #### C BCA, CMP, , 60415-7 #### [facility] ([id number]) [address] [place] [address] 49607 Anion gap [Moles/Vol] 9 mmol/L Normal 5-15 [facility] Comment on above: Performed By: #### C BCA, CMP, , 26086-5 #### [facility] ([id number]) [address] [place] [address] 02578 AST [Catalytic activity/Vol] 26 U/L Normal 0-41 [facility] Comment on above: Performed By: #### C BCA, CMP, , 92460-8 #### [facility] ([id number]) [address] [place] [address] 25036 Bilirubin [Mass/Vol] 0.9 mg/dL Normal 0.3-1.2 [facility] [place] [facility] Comment on above: Performed By: #### C BCA, CMP, , 28805-4 #### [facility] ([id number]) [address] [place] [address] 02178 Calcium [Mass/Vol] 9.2 mg/dL Normal 8.5-10.5 [facility] Comment on above: Performed By: #### C BCA, CMP, , 44667-3 #### [facility] ([id number]) [address] [place] [address] 40293 Chloride [Moles/Vol] 107 mmol/L Normal 98-109 [facility] [place] [facility] Comment on above: Performed By: #### C BCA, CMP, , 93485-4 #### [facility] ([id number]) [address] [place] [address] 38244 CO2 [Moles/Vol] 19 mmol/L Low 22-32 [facility] Comment on above: Performed By: #### C BCA, CMP, , 65604-0 #### [facility] ([id number]) [address] [place] [address] 69607 Creatinine [Mass/Vol] 0.96 mg/dL Normal 0.40-1.00 [facility] Comment on above: Result Comment: METH OD TRACEABLE TO IDMS STANDARD Performed By: #### C KATIE, CMP, , 39977-4 #### [facility] ([id number]) [address] [place] [address] 03287 GFR/1.73 sq M.predicted among non-blacks MDRD (S/P/Bld) [Vol rate/Area] 59 mL/min/{1.73_m2} Low >59 [facility] Comment on above: Result Comment: Reported eGFR is based on the CKD-EPI 2020 equation that does not use a race coefficient. Performed By: #### C KATIE, CMP, , 32436-4 #### [facility] ([id number]) [address] [place] [address] 84440 Glucose [Mass/Vol] 121 mg/dL High 65-99 [facility] Comment on above: Performed By: #### C KATIE, CMP, , 90115-3 #### [facility] ([id number]) [address] [place] [address] 53412 Potassium [Moles/Vol] 4.1 mmol/L Normal 3.5-5.0 [facility] Comment on above: Performed By: #### C KATIE, CMP, , 97453-0 #### [facility] ([id number]) [address] [place] [address] 16202 Protein [Mass/Vol] 7.1 g/dL Normal 6.0-8.0 [facility] Comment on above: Performed By: #### C BCA, CMP, , 83748-9 #### [facility] ([id number]) [address] [place] [address] 51590 Sodium [Moles/Vol] 135 mmol/L Normal 134-146 [facility] Comment on above: Performed By: #### C KATIE, CMP, , 01256-4 #### [facility] ([id number]) [address] [place] [address] Urea nitrogen [Mass/Vol] 24 mg/dL Normal 5-27 [facility] Comment on above: Performed By: #### C BCA, CMP, 20405-1, 92807-6 #### [facility] ([id number]) [address] [place] [address] MAGNESIUMon 12-08-2023 Magnesium [Mass/Vol] 2.0 mg/dL Normal 1.8-2.6 [facility] [place] [facility] Comment on above: Performed By: #### C BCA, CMP, 95129-5, 56967-4 #### [facility] ([id number]) [address] [place] [address] SARS/FLU A+B/RSV by NAAT/Mol ecularon 12-08-2023 SARS/FLU [...] operators who are performing tests using either GeneDokogeo DX or GenePatientKeeper systems and is limited to laboratories that [...] specimen repeat. Fact Sheet for Healthcare Providers: https://www.fda.gov/vt lindsay/321389/download Fact Sheet for Patients: https://www.fda.gov/vt lindsay/322562/download Normal [facility] Comment on above: Performed By: #### C OVFLR #### [facility] ([id number]) [address] [place] [address] 37776 TROPONIN Ion 12-08-2023 Troponin I.cardiac [Mass/Vol] ng/mL Normal 0.00-0.04 [facility] Comment on above: Performed By: #### C BCA, CMP, 23950-1, 08352-8 #### [facility] ([id number]) [address] [place] [address] 31225 XR CHEST 1 VWon 12-08-2023 XR CHEST 1 VW XR CHEST 1 VW Portable chest: HISTORY: Cough. Single view of the chest was obtained. Cardiac and mediastinal contours are unchanged. There is no pneumothorax. No focal consolidation or effusion. Pulmonary vasculature appears stable. IMPRESSION: No significant change. Finalized by Cleve Francis MD on 12/08/2023 9:04 PM Normal [facility] XR PELVIS 1 OR 2 VWSon [...] Zuniga MD on 12/08/2023 9:03 PM Normal [facility] XR SPINE LUMBAR 2 OR 3 [...] Francis MD on 12/08/2023 9:03 PM Normal [facility] MR head/brain wo conon 09-18 MR head/brain wo con [facility] [place] [address] MRI Report Signed Patient: Diana Franco I MR#: [id number] : 1940 Acct:[id number] Age/Sex: 83 / F ADM Date: 09/18/23 Loc: MR Room: Type: [facility] Attending Dr: Shaikh Miranda [place] Copies [...] Cholo Castillo M.D.09/18/2023 11:24 AM Dictation Location: [place] [address] Transcribed By: [facility] 09/18/231123 Dictated By: Cholo Castillo II, MD 09/18/231119 Signed By: 09/18/23 1124 Normal [facility] XR pelvis 1-2Von 09-18-2023 XR pelvis 1-2V [facility] [place] [address] [place] [address] XRay Report Signed Patient: Diana Franco I MR#: [id number] : 1940 Acct:[id number] Age/Sex: 83 / F ADM Date: 09/18/23 Loc: Room: Type: [facility] Attending Dr: Shaikh Miranda [place] Copies [...] FINDINGS. Impression dictated by: Ernst Damian Jr., D.O.09/18/2023 3:15 PM Dictation Location: [facility] Transcribed By: [facility] 09/18/231514 Dictated By: Ernst Damian Jr DO 09/18/231513 Signed By: 09/18/231514 [facility] XR chest 2V*on 08-16-2023 XR chest 2V* [facility] [place] [address] XRay Report Signed Patient: Lacey Franco I MR#: [id number] : 1940 Acct:[id number] Age/Sex: 82 / F ADM Date: 08/16/23 Loc: [facility] Room: Type: [facility] Attending Dr: Shaikh Miranda [place] Copies [...] Yunier Ibanez M.D.08/16/2023 5:18 PM Dictation Location: [facility] Transcribed By: [facility] 08/16/231717 Dictated By: Yunier Ibanez DO 08/16/231716 Signed By: 08/16/231717 [facility] US SINGLE QUAD RT UPPERon 05 -10-2023 US SINGLE QUAD RT UPPER EXAMINATION: US [...] GILL LIRA Date: 2023-02-13 09:45 Normal [facility] HEPATITIS PANEL, ACUTEon HBsAg Screen Negative Normal Negative [facility] Comment on above: Performed By: #### H EPACUT #### [facility] [address] [place] [address] [address] Danitza Cramer HCV AB Non-Reactive Normal Non Reactive [facility] Comment on above: Performed By: #### H EPACUT #### [facility] [address] [place] [address] [address] Danitza Cramer Hep A Ab, IgM Negative Normal Negative [facility] Comment on above: Performed By: #### H EPACUT #### [facility] [address] [place] [address] [address] Danitza Cramer Hep B Core Ab, IgM Negative Normal Negative [facility] Comment on above: Performed By: #### H EPACUT #### [facility] [address] [place] [address] [address] Danitza Cramer Interpretation: Comment Normal [facility] Comment on above: Result Comment: Not infected with HCV unless early or acute infection is suspected (which may be delayed in an immunocompromised individual), or other evidence exists to indicate HCV infection. Performed By: #### H EPACUT #### [facility] [address] [place] [address] [address] Danitza Cramer CBC AUTO DIFFon 01-22-2023 BASO # 0.1 103/ul Normal 0.0-0.1 [facility] Comment on above: Performed By: #### C BC #### [facility] [address] [place] [address] [address] Danitza Cramer Basophils/100 WBC (Bld) 0.6 % Normal 0.2-2.0 [facility] Comment on above: Performed By: #### C BC #### [facility] [address] [place] [address] Dr. Danitza Cramer EO # 0.1 103/ul Normal 0.0-0.7 [facility] Comment on above: Performed By: #### C BC #### [facility] [address] [place] [address] Dr. Danitza Cramer Eosinophils/100 WBC (Bld) 1.0 % Normal 0.9-7.0 [facility] Comment on above: Performed By: #### C BC #### [facility] [address] [place] [address] Dr. Danitza Cramer Erythrocyte distribution width (RBC) [Ratio] 15.0 % Normal 11.0-15.0 [facility] Comment on above: Performed By: #### C BC #### [facility] [address] [place] [address] Dr. Danitza Cramer Hematocrit (Bld) [Volume fraction] 41.0 % Normal 36.0-48.0 [facility] Comment on above: Performed By: #### C BC #### [facility] [address] [place] [address] Dr. Danitza Cramer Hemoglobin (Bld) [Mass/Vol] 13.2 g/dL Normal 12.0-16.0 [facility] Comment on above: Performed By: #### C BC #### [facility] [address] [place] [address] Dr. Danitza Cramer IG # 0.04 10e3/ul Critically high 0.00-0.03 [facility] Comment on above: Performed By: #### C BC #### [facility] [address] [place] [address] Dr. Danitza Cramer IG % 0.5 % Normal 0.0-0.5 [facility] Comment on above: Performed By: #### C BC #### [facility] [facility] [address] [address] [address] Danitza Cramer LYMPH # 1.1 103/ul Critically low 1.2-3.8 [facility] Comment on above: Performed By: #### C BC #### [facility] [address] [place] [address] Dr. Danitza Cramer Lymphocytes/100 WBC (Bld) 14.7 % Critically low 20.5-60.0 [facility] Comment on above: Performed By: #### C BC #### [facility] [address] [place] [address] Dr. Danitza Cramer MANUAL DIFF REQ NO Normal [facility] Comment on above: Performed By: #### C BC #### [facility] [address] [place] [address] Dr. Danitza Cramer MCH (RBC) [Entitic mass] 30.8 pg Normal 26.7-34.0 [facility] Comment on above: Performed By: #### C BC #### [facility] [address] [place] [address] Dr. Danitza Cramer MCHC (RBC) [Mass/Vol] 32.2 g/dL Normal 29.9-35.2 [facility] Comment on above: Performed By: #### C BC #### [facility] [address] [place] [address] Dr. Danitza Cramer MCV (RBC) [Entitic vol] 95.6 fL Normal 81.0-99.0 [facility] Comment on above: Performed By: #### C BC #### [facility] [address] [place] [address] Dr. Danitza Cramer MONO # 0.5 103/ul Normal 0.3-0.8 [facility] Comment on above: Performed By: #### C BC #### [facility] [address] [address] [address] Danitza Cramer Monocytes/100 WBC (Bld) 5.8 % Normal 1.7-12.0 [facility] Comment on above: Performed By: #### C BC #### [facility] [address] [place] [address] Dr. Danitza Cramer NEUT # 6.0 103/ul Normal 1.4-6.5 [facility] Comment on above: Performed By: #### C BC #### [facility] [address] [place] [address] Dr. Danitza Cramer Neutrophils/100 WBC (Bld) 77.4 % Critically high 43.0-75.0 [facility] Comment on above: Performed By: #### C BC #### [facility] [address] [place] [address] Dr. Danitza Cramer Platelet mean volume (Bld) [Entitic vol] 9.7 fL Normal 9.5-13.5 [facility] Comment on above: Performed By: #### C BC #### [facility] [address] [place] [address] Dr. Danitza Cramer PLT 231 103/ul Normal 150-450 [facility] Comment on above: Performed By: #### C BC #### [facility] [address] [place] [address] Dr. Danitza Cramer RBC 4.29 106/ul Normal 4.20-5.40 [facility] Comment on above: Performed By: #### C BC #### [facility] [address] [place] [address] Dr. Danitza Cramer WBC 7.7 103/ul Normal 4.0-11.0 [facility] Comment on above: Performed By: #### C BC #### [facility] [address] [place] [address] Dr. Danitza Cramer LIVER PROFILEon 01-22-2023 Albumin [Mass/Vol] 4.0 g/dL Normal 3.4-5.0 [facility] Comment on above: Performed By: #### L IVER, BMP #### [facility] [address] [address] [address] Danitza Cramer Albumin/Globulin [Mass ratio] 1.1 {ratio} Normal [facility] Comment on above: Performed By: #### L IVER, BMP #### [facility] [address] [address] [address] Danitza Cramer ALP [Catalytic activity/Vol] 162 U/L Critically high 46-116 [facility] Comment on above: Performed By: #### L IVER, BMP #### [facility] [address] [address] [address] Danitza Cramer ALT [Catalytic activity/Vol] 16 U/L Normal 14-59 [facility] Comment on above: Performed By: #### L IVER, BMP #### [facility] [address] [place] [address] Dr. Danitza Cramer AST [Catalytic activity/Vol] 11 U/L Critically low 15-37 [facility] Comment on above: Performed By: #### L IVER, BMP #### [facility] [address] [place] [address] Dr. Danitza Cramer BILI, CONJUGATED 0.2 mg/dL Normal 0.0-0.2 [facility] Comment on above: Performed By: #### L IVER, BMP #### [facility] [address] [address] [address] Danitza Cramer Bilirubin [Mass/Vol] 0.6 mg/dL Normal 0.2-1.0 [facility] Comment on above: Performed By: #### L IVER, BMP #### [facility] [address] [address] [address] Danitza Cramer Globulin (S) [Mass/Vol] 3.6 g/dL Normal [facility] Comment on above: Performed By: #### L IVER, BMP #### [facility] [address] [address] [address] Danitza Cramer Protein [Mass/Vol] 7.6 g/dL Normal 6.4-8.2 [facility] Comment on above: Performed By: #### L IVER, BMP #### [facility] [address] [place] [address] Dr. Danitza Cramer PROF CHEM 8 (BAS METB)on Anion gap [Moles/Vol] 14.2 mmol/L Normal [facility] Comment on above: Performed By: #### L IVER, BMP #### [facility] [address] [place] [address] Dr. Danitza Cramer Calcium [Mass/Vol] 9.5 mg/dL Normal 8.5-10.1 [facility] Comment on above: Performed By: #### L IVER, BMP #### [facility] [address] [place] [address] Dr. Danitza Cramer Chloride [Moles/Vol] 109 mmol/L Critically high 98-107 [facility] Comment on above: Performed By: #### L IVER, BMP #### [facility] [address] [place] [address] Dr. Danitza Cramer CO2 [Moles/Vol] 24.0 mmol/L Normal 21.0-32.0 [facility] Comment on above: Performed By: #### L IVER, BMP #### [facility] [address] [place] [address] Dr. Danitza Cramer Creatinine [Mass/Vol] 1.03 mg/dL Critically high 0.55-1.02 [facility] Comment on above: Performed By: #### L IVER, BMP #### [facility] [address] [place] [address] Dr. Danitza Cramer EGFR-AF [place] >60 Normal >=60 [facility] Comment on above: Performed By: #### L IVER, BMP #### [facility] [address] [place] [address] Dr. Danitza Cramer EGFR-NON AF [place] 51 mL/min/1.73m2 Critically low >=60 [facility] Comment on above: Performed By: #### L IVER, BMP #### [facility] [address] [place] [address] Dr. Danitza Cramer Glucose [Mass/Vol] 105 mg/dL Normal 74-106 [facility] Comment on above: Performed By: #### L SHAJI BMP #### [facility] [address] [place] [address] Dr. Danitza Cramer Potassium [Moles/Vol] 4.2 mmol/L Normal 3.5-5.1 [facility] Comment on above: Performed By: #### L SHAJI, BMP #### [facility] [address] [place] [address] Dr. Danitza Cramer Sodium [Moles/Vol] 143 mmol/L Normal 136-145 [facility] Comment on above: Performed By: #### L SHAJI BMP #### [facility] [address] [place] [address] Dr. Danitza Cramer Urea nitrogen [Mass/Vol] 25.0 mg/dL Critically high 7.0-18.0 [facility] Comment on above: Performed By: #### Lizet GIRARD BMP #### [facility] [address] [place] [address] Dr. Danitza Cramer Urea nitrogen/Creatinine [Mass ratio] 24.3 mg/mg Normal [facility] Comment on above: Performed By: #### Lizet GIRARD BMP #### [facility] [address] [place] [address] Dr. Danitza Cramer CULTURE URINEon 11-14-2022 CULTURE URINE Culture Observations : LIGHT GROWTH OF MIXED GENITAL JANELL. NO POTENTIAL PATHOGENS SEEN. Normal [facility] Comment on above: Performed By: #### U RCX #### [facility] [address] [place] [address] Dr. Danitza Cramer UA RANDOM W/MICROSCOPICon BACTERIA NONE SEEN Normal NONE SEEN [facility] Comment on above: Performed By: #### F T4 #### [facility] [address] [place] [address] Dr. Danitza Cramer Bilirubin Ql (U) Negative Normal NEGATIVE [facility] Comment on above: Performed By: #### F T4 #### [facility] [address] [place] [address] Dr. Danitza Cramer CAST NONE SEEN Normal NONE SEEN [facility] Comment on above: Performed By: #### F T4 #### [facility] [address] [place] [address] Dr. Danitza Cramer Clarity (U) CLEAR Normal CLEAR [facility] Comment on above: Performed By: #### F T4 #### [facility] [address] [place] [address] Dr. Danitza Cramer Color (U) YELLOW Normal YELLOW [facility] Comment on above: Performed By: #### F T4 #### [facility] [address] [place] [address] Dr. Danitza Cramer Crystals LM Nom (Urine sed) NONE SEEN Normal NONE SEEN [facility] Comment on above: Performed By: #### F T4 #### [facility] [address] [place] [address] Dr. Danitza Cramer Epithelial cells LM Ql (Urine sed) NONE SEEN Normal NONE SEEN /RARE [facility] Comment on above: Performed By: #### F T4 #### [facility] [address] [place] [address] Dr. Danitza Cramer Glucose Ql (U) Negative Normal NEGATIVE [facility] Comment on above: Performed By: #### F T4 #### [facility] [address] [place] [address] Dr. Danitza Cramer Hemoglobin Ql (U) Negative Normal NEGATIVE [facility] Comment on above: Performed By: #### F T4 #### [facility] [address] [place] [address] Dr. Danitza Cramer Ketones Ql (U) Negative Normal NEGATIVE [facility] Comment on above: Performed By: #### F T4 #### [facility] [address] [place] [address] Dr. Danitza Cramer LEUKOCYTES SMALL Abnormal NEGATIVE [facility] Comment on above: Performed By: #### F T4 #### [facility] [address] [place] [address] Dr. Danitza Cramer MUCOUS NONE SEEN Normal NONE SEEN [facility] Comment on above: Performed By: #### F T4 #### [facility] [address] [place] [address] Dr. Danitza Cramer Nitrite Ql (U) Negative Normal NEGATIVE [facility] Comment on above: Performed By: #### F T4 #### [facility] [address] [place] [address] Dr. Danitza Cramer pH (U) 6.0 [pH] Normal 5-9 [facility] Comment on above: Performed By: #### F T4 #### [facility] [address] [place] [address] Dr. Danitza Cramer RBC 0-2 Normal 0-2 [facility] Comment on above: Performed By: #### F T4 #### [facility] [address] [place] [address] Dr. Danitza Cramer SPEC GRAVITY 1.020 Normal 1.005-<=1.025 [facility] Comment on above: Performed By: #### F T4 #### [facility] [address] [place] [address] Dr. Danitza Cramer UA PROTEIN Negative Normal NEGATIVE/ TRACE [facility] Comment on above: Performed By: #### F T4 #### [facility] [address] [place] [address] Dr. Danitza Cramer Urobilinogen Qn (U) 0.2 {Mykel'U}/dL Normal 0.2 - 1. 0 [facility] Comment on above: Performed By: #### F T4 #### [facility] [address] [place] [address] Dr. Danitza Cramer WBC 0-2 Abnormal NONE SEEN [facility] Comment on above: Performed By: #### F T4 #### [facility] [address] [place] [address] Dr. Danitza Cramer CBC AUTO DIFFon 07-17-2022 BASO # 0.0 103/ul Normal 0.0-0.1 [facility] Comment on above: Performed By: #### C BC #### [facility] [address] [place] [address] Dr. Danitza Cramer Basophils/100 WBC (Bld) 0.6 % Normal 0.2-2.0 [facility] Comment on above: Performed By: #### C BC #### [facility] [address] [address] [address] Danitza Cramer EO # 0.1 103/ul Normal 0.0-0.7 [facility] Comment on above: Performed By: #### C BC #### [facility] [address] [address] [address] Danitza Cramer Eosinophils/100 WBC (Bld) 1.3 % Normal 0.9-7.0 [facility] Comment on above: Performed By: #### C BC #### [facility] [address] [address] [address] Danitza Cramer Erythrocyte distribution width (RBC) [Ratio] 13.9 % Normal 11.0-15.0 [facility] Comment on above: Performed By: #### C BC #### [facility] [address] [place] [address] Dr. Danitza Cramer Hematocrit (Bld) [Volume fraction] 40.4 % Normal 36.0-48.0 [facility] Comment on above: Performed By: #### C BC #### [facility] [address] [address] [address] Danitza Cramer Hemoglobin (Bld) [Mass/Vol] 12.8 g/dL Normal 12.0-16.0 [facility] Comment on above: Performed By: #### C BC #### [facility] [address] [address] [address] Danitza Cramer IG # 0.04 10e3/ul Critically high 0.00-0.03 [facility] Comment on above: Performed By: #### C BC #### [facility] [address] [address] [address] Danitza Cramer IG % 0.6 % Critically high 0.0-0.5 [facility] Comment on above: Performed By: #### C BC #### [facility] [address] [address] [address] Danitza Cramer LYMPH # 1.0 103/ul Critically low 1.2-3.8 [facility] Comment on above: Performed By: #### C BC #### [facility] [address] [place] [address] Dr. Danitza Cramer Lymphocytes/100 WBC (Bld) 14.4 % Critically low 20.5-60.0 [facility] Comment on above: Performed By: #### C BC #### [facility] [address] [place] [address] Dr. Danitza Cramer MANUAL DIFF REQ NO Normal [facility] Comment on above: Performed By: #### C BC #### [facility] [address] [place] [address] Dr. Danitza Cramer MCH (RBC) [Entitic mass] 29.9 pg Normal 26.7-34.0 [facility] Comment on above: Performed By: #### C BC #### [facility] [address] [place] [address] Dr. Danitza Cramer MCHC (RBC) [Mass/Vol] 31.7 g/dL Normal 29.9-35.2 [facility] Comment on above: Performed By: #### C BC #### [facility] [address] [place] [address] Dr. Danitza Cramer MCV (RBC) [Entitic vol] 94.4 fL Normal 81.0-99.0 [facility] Comment on above: Performed By: #### C BC #### [facility] [address] [place] [address] Dr. Danitza Cramer MONO # 0.5 103/ul Normal 0.3-0.8 [facility] Comment on above: Performed By: #### C BC #### [facility] [address] [place] [address] Dr. Danitza Cramer Monocytes/100 WBC (Bld) 6.8 % Normal 1.7-12.0 [facility] Comment on above: Performed By: #### C BC #### [facility] [address] [place] [address] Dr. Danitza Cramer NEUT # 5.4 103/ul Normal 1.4-6.5 [facility] Comment on above: Performed By: #### C BC #### [facility] [address] [address] [address] Danitza Cramer Neutrophils/100 WBC (Bld) 76.3 % Critically high 43.0-75.0 [facility] Comment on above: Performed By: #### C BC #### [facility] [address] [address] [address] Danitza Cramer Platelet mean volume (Bld) [Entitic vol] 10.9 fL Normal 9.5-13.5 [facility] Comment on above: Performed By: #### C BC #### [facility] [address] [place] [address] Dr. Danitza Cramer PLT 260 103/ul Normal 150-450 [facility] Comment on above: Performed By: #### C BC #### [facility] [address] [place] [address] Dr. Danitza Cramer RBC 4.28 106/ul Normal 4.20-5.40 [facility] Comment on above: Performed By: #### C BC #### [facility] [address] [place] [address] Dr. Danitza Cramer WBC 7.1 103/ul Normal 4.0-11.0 [facility] Comment on above: Performed By: #### C BC #### [facility] [address] [place] [address] Dr. Danitza Cramer FREE T3on 07-17-2022 FREE T3 2.21 pg/mlL Normal 2.18-3.98 [facility] Comment on above: Performed By: #### F T4 #### [facility] [address] [place] [address] Dr. Danitza Cramer FREE T4on 07-17-2022 Free T4 [Mass/Vol] 1.67 ng/dL Critically high 0.76-1.46 [facility] Comment on above: Performed By: #### F T4 #### [facility] [address] [place] [address] Dr. Danitza Cramer GLYCOHEMOGLOBIN A1Con 2021 ADA RECOMMENDATION SEE BELOW Normal [facility] Comment on above: Result Comment: ADA RECOMMENDED LIMIT 4.0 - 6.0 ADA THERAPEUTIC TARGET < 7.0 ACTION SUGGESTED > 7.0 Performed By: #### A 1C #### [facility] [address] [place] [address] Dr. Danitza Cramer Glucose [Mass/Vol] 111 mg/dL Normal [facility] Comment on above: Performed By: #### A 1C #### [facility] [address] [place] [address] Dr. Danitza Cramer HbA1c (Bld) [Mass fraction] 5.5 % Normal 4.5-6.2 [facility] Comment on above: Performed By: #### A 1C #### [facility] [address] [place] [address] Dr. Danitza Cramer PROF CHEM 8 (BAS METB)on Anion gap [Moles/Vol] 16.8 mmol/L Normal [facility] Comment on above: Performed By: #### F T3, TSH, BMP #### [facility] [address] [place] [address] Dr. Danitza Cramer Calcium [Mass/Vol] 9.2 mg/dL Normal 8.5-10.1 [facility] Comment on above: Performed By: #### F T3, TSH, BMP #### [facility] [address] [place] [address] Dr. Danitza Cramer Chloride [Moles/Vol] 106 mmol/L Normal 98-107 [facility] Comment on above: Performed By: #### F T3, TSH, BMP #### [facility] [address] [place] [address] Dr. Danitza Cramer CO2 [Moles/Vol] 21.4 mmol/L Normal 21.0-32.0 [facility] Comment on above: Performed By: #### F T3, TSH, BMP #### [facility] [address] [place] [address] Dr. Danitza Cramer Creatinine [Mass/Vol] 1.13 mg/dL Critically high 0.55-1.02 [facility] Comment on above: Performed By: #### F T3, TSH, BMP #### [facility] [address] [address] [address] Danitza Cramer EGFR-AF [place] 56 mL/min/1.73m2 Critically low >=60 [facility] Comment on above: Performed By: #### F T3, TSH, BMP #### [facility] [address] [address] [address] Danitza Cramer EGFR-NON AF [place] 46 mL/min/1.73m2 Critically low >=60 [facility] Comment on above: Performed By: #### F T3, TSH, BMP #### [facility] [address] [address] [address] Danitza Cramer Glucose [Mass/Vol] 114 mg/dL Critically high 74-106 [facility] Comment on above: Performed By: #### F T3, TSH, BMP #### [facility] [address] [address] [address] Danitza Cramer Potassium [Moles/Vol] 4.2 mmol/L Normal 3.5-5.1 [facility] Comment on above: Performed By: #### F T3, TSH, BMP #### [facility] [address] [address] [address] Danitza Cramer Sodium [Moles/Vol] 140 mmol/L Normal 136-145 [facility] Comment on above: Performed By: #### F T3, TSH, BMP #### [facility] [address] [address] [address] Danitza Cramer Urea nitrogen [Mass/Vol] 25.0 mg/dL Critically high 7.0-18.0 [facility] Comment on above: Performed By: #### F T3, TSH, BMP #### [facility] [address] [address] [address] Danitza Cramer Urea nitrogen/Creatinine [Mass ratio] 22.1 mg/mg Normal [facility] Comment on above: Performed By: #### F T3, TSH, BMP #### [facility] [address] [address] [address] Danitza Cramer TSHon 07-17-2022 TSH 0.058 uIU/mL Critically low 0.358-3.740 [facility] Comment on above: Performed By: #### F T4 #### [facility] [address] [place] [address] Dr. Danitza Cramer Vital Signs Date Time Vital Sign Value Performing Clinician Facility 08-06-2024 11:42-0400 Body height 154.9 cm Isak Rojas MD Work Phone: [facility] 08-06-2024 11:42-0400 Body mass index (BMI) [Ratio] 30.04 kg/m2 Isak Rojas MD Work Phone: [facility] 08-06-2024 11:42-0400 Body temperature 97.11 [degF] Isak Rojas MD Work Phone: [facility] 08-06-2024 11:42-0400 Body weight 72.12 kg Isak Rojas MD Work Phone: [facility] 08-06-2024 11:42-0400 Diastolic blood pressure 52 mm[Hg] Isak Rojas MD Work Phone: [facility] 08-06-2024 11:42-0400 Heart rate 71 /min Isak Rojas MD Work Phone: [facility] 08-06-2024 11:42-0400 Respiratory rate 20 /min Isak Rojas MD Work Phone: [facility] 08-06-2024 11:42-0400 SaO2% (BldA) [Mass fraction] 99 % Isak Rojas MD Work Phone: [facility] 08-06-2024 11:42-0400 Systolic blood pressure 108 mm[Hg] Isak Rojas MD Work Phone: [facility] 06-09-2024 10:59-0400 Body height 154.9 cm Isak Rojas MD Work Phone: [facility] 06-09-2024 10:59-0400 Body mass index (BMI) [Ratio] 29.66 kg/m2 Isak Rojas MD Work Phone: [facility] 06-09-2024 10:59-0400 Body temperature 97.81 [degF] Isak Rojas MD Work Phone: [facility] 06-09-2024 10:59-0400 Body weight 71.22 kg Isak Rojas MD Work Phone: [facility] 06-09-2024 10:59-0400 Diastolic blood pressure 74 mm[Hg] Isak Rojas MD Work Phone: [facility] 06-09-2024 10:59-0400 Heart rate 66 /min Isak Rojas MD Work Phone: [facility] 06-09-2024 10:59-0400 Respiratory rate 20 /min Isak Rojas MD Work Phone: [facility] 06-09-2024 10:59-0400 SaO2% (BldA) [Mass fraction] 97 % Isak Rojas MD Work Phone: [facility] 06-09-2024 10:59-0400 Systolic blood pressure 140 mm[Hg] Isak Rojas MD Work Phone: [facility] 09-27-2023 17:05-0500 Body height 153.67 cm Jacinta Gillespie Other [employer] Other 09-27-2023 17:05-0500 Body mass index (BMI) [Ratio] 28.81 kg/m2 Jacinta Gillespie Other [employer] Other 09-27-2023 17:05-0500 Body temperature 98.6 [degF] Jacinta Gillespie Other [employer] Other 09-27-2023 17:05-0500 Body weight 68.04 kg Jacinta Gillespie Other [employer] Other 09-27-2023 17:05-0500 Respiratory rate 18 /min Jacinta Gillespie Other [employer] Other 09-27-2023 17:05-0500 SaO2% (BldA) [Mass fraction] 98 % Jacinta Gillespie Other [employer] Other 08-07-2022 14:14-0400 Body height 157.4 cm Van Fagert SENIOR SUPPLIER QUALITY ENGINEER.DENTURES LAB TECHNICIAN Work Phone: [facility] 08-07-2022 14:14-0400 Body temperature 97.2 [degF] Van Fagert SENIOR SUPPLIER QUALITY ENGINEER.DENTURES LAB TECHNICIAN Work Phone: [facility] 08-07-2022 14:14-0400 Body weight 77.11 kg Van Fagert SENIOR SUPPLIER QUALITY ENGINEER.DENTURES LAB TECHNICIAN Work Phone: [facility] 08-07-2022 14:14-0400 Diastolic blood pressure 82 mm[Hg] Van Fagert SENIOR SUPPLIER QUALITY ENGINEER.DENTURES LAB TECHNICIAN Work Phone: [facility] 08-07-2022 14:14-0400 Heart rate 78 /min Van Fagert SENIOR SUPPLIER QUALITY ENGINEER.DENTURES LAB TECHNICIAN Work Phone: [facility] 08-07-2022 14:14-0400 Respiratory rate 14 /min Van Fagert SENIOR SUPPLIER QUALITY ENGINEER.DENTURES LAB TECHNICIAN Work Phone: [facility] 08-07-2022 14:14-0400 SaO2% (BldA) [Mass fraction] 100 % Van Fagert SENIOR SUPPLIER QUALITY ENGINEER.DENTURES LAB TECHNICIAN Work Phone: [facility] 08-07-2022 14:14-0400 Systolic blood pressure 136 mm[Hg] Van Fagert SENIOR SUPPLIER QUALITY ENGINEER.DENTURES LAB TECHNICIAN Work Phone: [facility] Encounters Encounter Date Encounter Type Care Provider Facility Start: 09-28-2024 ambulatory ISAK ROJAS [facility] Start: 08-06-2024 End: 08-06-2024 Bamboo flowsheet Isak Rojas MD Work Phone: [facility] Start: 08-06-2024 End: 08-06-2024 Bamboo flowsheet Isak Rojas MD Work Phone: [facility] Start: 08-06-2024 End: 08-06-2024 Clinisync Result Encounter Isak Rojas MD Work Phone: [facility] External Department Unsolicited Start: 08-06-2024 End: 08-06-2024 Patient encounter procedure Isak Rojas MD Work Phone: [facility] Healthcare Work Phone: Start: 08-06-2024 End: 08-06-2024 Postop follow up visit related to original px Isak Rojas MD Work Phone: [facility] Comment on above: Medicare annual well ness visit, subsequent (Primary Dx); Essential hypertension, benign ([facility]/HCC); Prediabetes; Adult hypothyroidism ([facility]); Encounter for long-term (current) use of medications; Class 1 obesity due to excess calories with serious comorbidity and body mass index (BMI) of 30.0 to 30.9 in adult; Need for immunization against influenza; Age-related osteoporosis without current pathological fracture ([facility]/HCC) Start: 08-06-2024 End: 08-06-2024 ambulatory ISAK ROJAS Not Available Start: 07-28-2024 End: 07-28-2024 Refill Isak Rojas MD Work Phone: [facility] Comment on above: Adult hypothyroidism (CMS/HCC) (Primary Dx); Gastroesophageal reflux disease without esophagitis Start: 06-29-2024 End: 06-29-2024 Refill Isak Rojas MD Work Phone: [facility] Comment on above: Migraine without aur a and without status migrainosus, not intractable (CMS/HCC) Start: 06-09-2024 End: 06-09-2024 Bamboo flowsheet Isak Rojas MD Work Phone: [facility] Start: 06-09-2024 End: 06-09-2024 Bamboo flowsheet Isak Rojas MD Work Phone: [facility] Start: 06-09-2024 End: 06-09-2024 ambulatory ISAK ROJAS Not Available Start: 06-09-2024 End: 06-09-2024 Office outpatient visit 25 minutes Isak Rojas MD Work Phone: [facility] Comment on above: Essential hypertensi on, benign ([facility]/HCC) (Primary Dx); DDD (degenerative disc disease), lumbar; Osteoarthritis of lower legs, bilateral; Migraine without aura and with status migrainosus, not intractable (CMS/HCC) Start: 06-03-2024 End: 06-04-2024 Emergency department [place] [facility] Start: 03-11-2024 End: 03-11-2024 ambulatory ERWIN Riccardo [facility] Start: 03-10-2024 End: 04-06-2024 ambulatory [facility] Start: 02-05-2024 End: 03-07-2024 ambulatory [facility] Start: 01-06-2024 Telephone encounter Werner Melendrez MD Work Phone: [facility] Comment on above: Follow Up Start: 01-06-2024 End: 02-05-2024 ambulatory [facility] Start: 12-17-2023 End: 12-17-2023 ambulatory ISAK CRYSTAL Not Available Start: 12-10-2023 End: 01-06-2024 ambulatory [facility] Start: 12-09-2023 End: 12-10-2023 ambulatory MAYRA ELIZABETH [facility] Start: 12-08-2023 End: 12-10-2023 Emergency department [place] [facility] [place] [place]: 12-08-2023 End: 12-09-2023 [facility] Start: 12-03-2023 Patient Update Koby Juarez APR, N.CNP Work Phone: [facility] Comment on above: Orders Start: 09-27-2023 End: 09-27-2023 ambulatory Jacinta Gillespie Other [place] [employer] Other Start: 09-27-2023 Office outpatient vi sit 15 minutes Jacinta Gillespie [facility] Start: 09-18-2023 End: 09-18-2023 ambulatory Shaikh Miranda Facility:[facility] [place] Start: 09-18-2023 End: 09-18-2023 ambulatory MD Isak Rojas Work Phone: [facility] Work Phone: Start: 09-18-2023 End: 09-18-2023 Patient encounter procedure MD Isak Rojas Work Phone: [facility] [place] Work Phone: Start: 08-16-2023 End: 08-16-2023 ambulatory Shaikh Miranda Facility:[facility] [place] Start: 08-16-2023 End: 08-16-2023 ambulatory MD Isak Rojas Work Phone: [facility] Work Phone: Start: 08-16-2023 End: 08-16-2023 Patient encounter procedure MD Isak Rojas Work Phone: [facility]-Pacemaker Check Start: 02-13-2023 End: 02-14-2023 ambulatory ISAK ROJAS Facility:[facility] Start: 01-22-2023 End: 01-23-2023 ambulatory ISAK ROJAS Facility:[facility] Start: 11-14-2022 End: 11-15-2022 ambulatory ISAK A CAROLINER Facility:[facility] Start: 08-23-2022 End: 08-23-2022 ambulatory [facility] Start: 08-07-2022 End: 08-07-2022 Patient encounter procedure Koby Juarez APRN.CNP Work Phone: [facility] Comment on above: Vertebrobasilar doli choectasia (Primary Dx); Unruptured cerebral aneurysm Start: 07-27-2022 Telephone encounter Werner Parvin MD Work Phone: [facility] Comment on above: Appointment Reschedu led Start: 07-17-2022 End: 07-18-2022 ambulatory ISAK ROJAS Facility:[facility] Start: 07-03-2022 End: 07-04-2022 ambulatory ISAK ROJAS Facility:[facility] Procedures Date Procedure Procedure Detail Performing [...] Diabetes Screening Diabetes Screenin g [facility] Start: 02-01-2025 End: 02-01-2025 Patient encounter procedure 02/01/2025 10:30 AM EDT Office Visit [facility] [address] [place] [phone] Isak Rojas MD [address] [place] [phone] [facility] Start: 12-22-2024 DIABETES SCREEN DIABETES SCREEN [facility] Start: 08-11-2024 End: 08-11-2024 Patient encounter procedure 08/11/2024 2:00 PM EST Office Visit [facility] [address] [place] [phone] Isak Rojas MD [address] [place] [phone] [facility] Start: 08-06-2024 End: 08-06-2025 Basic metabolic 1998 panel - Serum or Plasma Basic metabolic panel Lab Routine Essential hypertension, benign (CMS/HCC) Expected: 08/06/2024 (Approximate), Expires: 08/06/2025 [facility] Comment on above: Expected: 08/06/2024 (Approximate), Expires: 08/06/2025 Start: 08-06-2024 End: 08-06-2025 CBC W Auto Differential panel - Blood CBC and differential Lab Routine Encounter for long-term (current) use of medications Expected: 08/06/2024 (Approximate), Expires: 08/06/2025 [facility] Comment on above: Expected: 08/06/2024 (Approximate), Expires: 08/06/2025 Start: 08-06-2024 End: 08-06-2025 Hemoglobin A1c/Hemoglobin.total in Blood Hemoglobin A1c Lab Routine Prediabetes Expected: 08/06/2024 (Approximate), Expires: 08/06/2025 [facility] Work Phone: Comment on above: Expected: 08/06/2024 (Approximate), Expires: 08/06/2025 Start: 08-06-2024 End: 08-06-2025 Hepatic function 2000 panel - Serum or Plasma Hepatic function panel Lab Routine Encounter for long-term (current) use of medications Expected: 08/06/2024 (Approximate), Expires: 08/06/2025 [facility] Comment on above: Expected: 08/06/2024 (Approximate), Expires: 08/06/2025 Start: 08-06-2024 End: 08-06-2025 Lipid 1996 panel - Serum or Plasma Lipid panel Lab Routine Class 1 obesity due to excess calories with serious comorbidity and body mass index (BMI) of 30.0 to 30.9 in adult Expected: 08/06/2024 (Approximate), Expires: 08/06/2025 [facility] Comment on above: Expected: 08/06/2024 (Approximate), Expires: 08/06/2025 Start: 08-06-2024 End: 08-06-2025 Thyrotropin [Units/volume] in Serum or Plasma TSH Lab Routine Adult hypothyroidism (CMS/HCC) Expected: 08/06/2024 (Approximate), Expires: 08/06/2025 [facility] Healthcare Comment on above: Expected: 08/06/2024 (Approximate), Expires: 08/06/2025 Start: 08-06-2024 End: 08-06-2025 Thyroxine (T4) free [Mass/volume] in Serum or Plasma T4, free Lab Routine Adult hypothyroidism (CMS/HCC) Expected: 08/06/2024 (Approximate), Expires: 08/06/2025 [facility] Healthcare Comment on above: Expected: 08/06/2024 (Approximate), Expires: 08/06/2025 Start: 08-06-2024 End: 08-06-2024 Patient encounter procedure 08/06/2024 11:30 AM EDT Office Visit [facility] [address] [place] [phone] Isak Rojas MD [address] [place] [phone] Arrived [facility] Comment on above: Arrived Start: 06-07-2024 Influenza vaccination C [facility] Start: 10-07-2023 Advance Directive Discussion Advance Directive Discussion [facility] Start: 10-07-2023 Depression Assessment Depression Ass essment [facility] Start: 06-07-2023 Covid-19 Vaccine ( season) Covid-19 Vaccine ( season) [facility] Start: 06-07-2023 Influenza vaccination Influenza Vacc ine (#1) [facility] Start: 09-28-2022 Urine microalbumin profile DTaP,Tdap,Td Vaccine (2 - Td or Tdap) [facility] Start: 06-07-2022 Influenza vaccination INFLUENZA (#1) [facility] Start: 10-07-2021 ADVANCE DIRECTIVE DISCUSSION ADVANCE DIRECTIVE DISCUSSION [facility] Start: 10-07-2021 DEPRESSION ASSESSMENT DEPRESSION ASS ESSMENT [facility] Start: 09-23-2021 COVID-19 VACCINE (4 - Booster for Pfizer series) COVID-19 VACCINE (4 - Booster for Pfizer series) [facility] Start: 2005 BONE DENSITY BONE DENSITY [facility] Start: 2005 PNEUMOCOCCAL: 65+ (1 - PCV) PNEUMOCOCCAL: 65+ (1 - PCV) [facility] Start: 2005 Screening for osteoporosis Bone Density Screening [facility] Start: 2000 RSV Vaccine (1 - 1-d ose 60+ series) RSV Vaccine (1 - 1-dose 60+ series) [facility] Start: 1990 SHINGRIX VACCINE (1 of 2) SHINGRIX VACCINE (1 of 2) [facility] Start: 1985 DIABETES SCREEN DIABETES SCREEN [facility] Start: 1959 Urine microalbumin profile DTAP,TDAP,TD (1 - Tdap) [facility] Start: 03-13-1941 COVID-19 VACCINE (#1) COVID-19 VACCI NE (#1) [facility] Start: 1940 Medicare Annual Wellness (AWV) Medicare Annual Wellness (AWV) [facility] End: 01-01-2025 MRA Head vessels WO and W contrast IV MRA BRAIN WO/W IVCON Radiology Routine Unruptured cerebral aneurysm Nonruptured cerebral aneurysm 1 Occurrences starting 12/03/2023 until 01/01/2025 [facility] Work Phone: Comment on above: 1 Occurrences starti ng 12/03/2023 until 01/01/2025 [place] [facility] Immunizations Immunization Date Immunization Notes Care Provider [facility] 08-06-2024 influenza, seasonal, injectable, preservative free Isak Rojas MD Work Phone: [facility] 06-22-2023 influenza virus vacc ine, unspecified formulation Isak Rojas MD Work Phone: [facility] 09-20-2021 influenza virus vacc ine, unspecified formulation Koby Juarez APRN.CNP Work Phone: [facility] Payers Date Payer Category Payer Medicare [id number] 2023 Self-pay 2021 Private Health Insurance [employer] [id number] 2021 Unknown MMO MMO MEDICARE SUPPLEMENT [id number] 2021-Present [phone] [address] [place] [address] Indemnity [id number] 2005 Medicare [id number]. [id number] 1959 Medicare [id number] 1959 Unknown [id number] 1940 Unknown [id number] 2.16.840.1.853151.3.579.2. 593 1940 Unknown [id number] 2.16.840.1.159838.3.579.2. 593 1940 Unknown [id number] 2.16.840.1.642807.3.579.2. 593 1940 Unknown [id number] 2.16.840.1.650171.3.579.2. 593 1940 Unknown [id number] 2.16.840.1.870165.3.579.2. 593 1940 Unknown [id number] 2.16.840.1.626416.3.579.2. 1286 1940 Unknown [id number] 2.16.840.1.810857.3.579.2. 1286 1940 Unknown [id number] 2.16.840.1.153515.3.579.2. 1286 1940 Unknown [id number] 2.16.840.1.753692.3.579.2. 1286 1940 Unknown [id number] 2.16.840.1.471117.3.579.2. 1286 1940 Unknown [id number] 2.16.840.1.987006.3.579.2. 1286 1940 Unknown [id number] 2.16.840.1.762064.3.579.2. 1286 1940 Unknown [id number] 2.16.840.1.130348.3.579.2. 1286 1940 Unknown [id number] 2.16.840.1.884904.3.579.2. 128 1940 Unknown [id number] 2.16.840.1.274589.3.579.2. 1286 1940 Unknown [id number] 2.16.840.1.925709.3.579.2. 1286 1940 Unknown [id number] 2.16.840.1.236559.3.579.2. 1259 1940 Unknown [id number] 2.16.840.1.544638.3.579.2. 1259 1940 Unknown [id number] 2.16.840.1.397572.3.579.2. 1259 1940 Unknown [id number] 2.16.840.1.716367.3.579.2. 1286 1940 Unknown [id number] 2.16.840.1.527638.3.579.2. 128 1940 Unknown [id number] 2.16.840.1.645135.3.579.2. 1286 1940 Unknown [id number] 2.16.840.1.065411.3.579.2. 1286 1940 Unknown [id number] 2.16.840.1.229106.3.579.2. 1286 Private Health Insurance [employer] [facility] Op [id number] Unknown [id number] 2.16.840.1.209108.3.579.2. 531 Unknown [id number] 2.16.840.1.650679.3.579.2. 531 Social History Date Type Detail Facility Start: 02-24-2018 End: 05-21-2023 Tobacco smoking status NHIS Never smoked tobacco [facility] Start: 02-24-2018 End: 05-21-2023 Tobacco use and exposure Smokeless tobacco non-user [facility] Start: 1940 Sex Assigned At Not on file C [facility] Start: 08-13-2022 Alcohol intake Ex-drinker (finding) [facility] Start: 07-28-2022 End: 08-07-2022 Exposure to SARS-CoV-2 (event) Not sure [facility] Start: 1940 Sex Assigned At Female F [facility] Start: 08-13-2022 End: 06-09-2024 Sex Assigned At [facility] Start: 08-13-2022 End: 06-09-2024 History of Social function [facility] Adult Depression Screening Assessment 2 [facility] Start: 12-17-2023 End: 06-09-2024 Alcoholic beverage intake Current drinker of alcohol (finding) [facility] Start: 05-17-2023 Alcohol Comment Alcohol: 1 or 2 drinks on a typical day/monthly or less Caffeine: 2-3 cups/day [facility] Clinical Notes 07-27-2022 to 08-06-2024 [...] free IM (Completed) documented in this encounter [facility] 06-09-2024 History of Presen t [...] may need injections. documented in this encounter [facility] 01-06-2024 Miscellaneous Notes Formattin g of this note might be different from the original. Called pt about f/up and she asked that her daughter be called. Spoke with daughter Virgil. She states they have imaging done at [facility] near them and asked if order can be mailed to pt's address. Offered a VV for f/up after imaging and she will try to figure that out to save a trip to [place]. Address verified. Provided her with office number for questions and scheduling number to call after MRA is completed. She appreciated the follow-up. Will mail order tomorrow 01/06. Angelique Jones RN documented in this encounter [facility] 09-27-2023 Evaluation note Encounter Date Diagnosis Assessment Notes Sep, Right ear impacted cerumen (ICD-10 - H61.21) Drink plenty fluids, get plenty of rest. Continue home medications as prescribed. Follow-up with your family physician for any further concerns [employer] Other 11-01-2022 Instructions* Patient Instructions* Koby Juarez APRN.FRAN - 08/07/2022 3:00 PM EDT Follow-up appointment due July 2024. Our office will contact you 6-8 weeks prior to schedule. Ifyou do not hear from us, please call [phone] or send a [employer] Chart message to connect with one ofour caregivers. Goal blood pressure is less than 140/90. Notify your PCP with any elevated blood pressure readings. 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 We recommend a low-dose beta-michelle (ie propranolol) to reduce pulsations from the basilar artery on your brainstem - this may be making your symptoms worse. Please discuss with your civil engineering director todecide if this is safe for someone [...] with no known cause. [facility] History of Present illness Narrative* Koby Juarez APRN.CNP - 08/07/2022 1:14 PM EDT [facility] Established Visit Diana Franco [facility]#: [id number] Date of Service: 08/07/2022 Primary Care Provider: [...] Take 1 tablet by mouth once daily. eifyfkq-ymzgjrrr-utypofomxk (FIORINAL) capsule Take 1 capsule by mouth [...] tremor. Sensation: Grossly intact light touch. Coordination: Lpjkzb-xu-vfyz and kaqq-yr-owcx without dysmetria bilaterally. Gait: Arrives to office [...] No recent lipid panel or A1C in Psychiatric or Care Everywhere, last 05/2016. IMPRESSION 81 [...] which included preparing to see the patient, [id number]-ee-[id number] patient care, completing clinical documentation, obtaining and/or reviewing separately obtained history, performing a medically appropriate examination, counseling and educating the pat ient/family/caregiver, communicating with other HCPs (not separately reported), independently interpreting results (not separately reported), communicating results to the patient/family/caregiver, and care coordination (not separately reported). SIGNATURE Koby Juarez APRN.CNP August 07, 2022 documented in this encounterUniversity [facility]10-21-2022 Miscellaneous Notes* Telephone Encounter - Lia MORALES - 07/27/2022 4:32 PM EDT 1st attempt: Spoke with patient and notified that our new policy for any follow up patients is theyare to see ELIGIO/TELEMETRY REGISTERED NURSE instead of provider, unless absolutely necessary. Patient verified understanding that 08/07 appt would be cancelled with Dr. Melendrez. She encouraged me to call daughterRadha instead to reschedule per her availability--rescheduled on Aug 07 with Koby at 2pm. Gave our direct officenumber if any future questions~ Notified Dr. Melendrez Aug 07 appointment would be cancelled too. Verifying with Carla if that needs kept for CS prior to cancelling~ Updated patient's insurance on file as well since that was coming up rejected: Medicare A&B [id number] MMO MEDICARE SUPPLEMENT Verified #'s are correct, supplement insurance name just needs updated. 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, nonruptured documented in this encounter [facility] noteNo assessment information availableMer[facility] Work Phone: Evaluation note* Diagnosis Unruptured cerebral aneurysm- Primary Cerebral aneurysm, nonruptured Nonruptured cerebral aneurysm Cerebral aneurysm, nonruptured [facility]* Diagnosis Essential hypertension, [...] esophagitis Esophageal reflux documented in this encounter [facility] Healthcare[facility] note* Diagnosis Essential hypertension, benign (CMS/HCC)- Primary [...] and with status migrainosus, not intractable (CMS/HCC) Medicare annual wellness visit, subsequent- Primary Essential hypertension, benign (CMS/HCC) Essential hypertension, benign Prediabetes Other abnormal glucose Adult hypothyroidism (CMS/HCC) Unspecified hypothyroidism Encounter for long-term (current) use of medications Encounter for long-term (current) use of other medications Class 1 obesity due to excess calories with serious comorbidity and body mass index (BMI) of 30.0 to 30.9 in adult Need for immunization against influenza Need for prophylactic vaccination and inoculation against influenza Age-related osteoporosis without current pathological fracture (CMS/HCC) documented in this encounter [facility] HealthcareEvaluation note* Diagnosis Essential hypertension, benign (CMS/HCC)- Primary Essential hypertension, benign DDD (degenerative disc disease), lumbar Degeneration of lumbar or lumbosacral intervertebral disc Osteoarthritis of lower legs, bilateral Migraine without aura and with status migrainosus, not intractable (CMS/HCC) documented in this encounter [facility] HealthcareEvaluation note* Diagnosis Migraine without aura and without status migrainosus, not intractable (CMS/HCC) documented [facility] this encounter [facility] Narrative - Reported* Type Description Date Medical History HTN Surgical History knee replacement 9-12 Surgical History tubal ligation 1972 Surgical History eye lid lift bilateral 2011 Surgical History nose surgery 2013 Surgical History knee replacement 2015 Surgical History torn retina bilateral 2015 Hospitalization History see above HMT Technology Other Summary Purpose Family History No Family History Records FoundNo Family History Records FoundNo Family History Records FoundNo Family History Records FoundNo Family History Records FoundNo Family History Records FoundNo Family History Records Found Advance Directives No Advanced Directives Records Found Advance Directive Response Recorded Date/ Time Advance Directives No August 13, 2023 3:54pm Documents on File Type Date Recorded 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 Advance Directives and Living Will 01/12/2019 2019-01-12 Living Wi ll Advance Directives and Living Will 01/12/2019 2019-01-12 durable P OA Chief Complaint and Reason for Visit Chief Complaint I63.50 Z45.010 Chief Complaint I63.50 Z45.010 r09.89 Reason for Referral Specialty Diagnoses / Procedures Referred By Rupa wilson Referred To Contact MR IMAGING Diagnoses Unruptured cerebral aneurysm Nonruptured cerebral aneurysm Procedures MRA BRAIN WO/W IVCON MRA; HEAD W & WO CONTRAST Mira Suarez, CORNEL.DENTURES LAB TECHNICIAN [address] [place] [id number] [facility] [place] [address] Referral ID Status Reason Start Date Expiration Date Visits Requested Visits Authorized [id number] Pending Review Auto-Generat ed Referral 12/03/2023 01/01/2025 1 1 Additional Source Comments Source Comments (unrecognize d section and content) In the event this informatio n is protected by the Federal Confidentiality of Alcohol and Drug Abuse Patient Records regulations: The Federal rules restrict any use of the information to criminally investigate or prosecute any alcohol or drug abuse patient.[facility] the event this information is protected by the Federal Confidentiality of Alcohol and Drug Abuse Patient Records regulations: The Federal rules restrict any use of the information to criminally investigate or prosecute any alcohol or drug abuse patient.[facility] the event this information is protected by the Federal Confidentiality of Alcohol and Drug Abuse Patient Records regulations: The Federal rules restrict any use of the information to criminally investigate or prosecute any alcohol or drug abuse patient.[facility] the event this information is protected by the Federal Confidentiality of Alcohol and Drug Abuse Patient Records regulations: The Federal rules restrict any use of the information to criminally investigate or prosecute any alcohol or drug abuse patient.[facility] Reason for Visit (unrecogniz ed section and content) Reason Comments Appointment Rescheduled Reason Comments Established Patient Follow-Up Reason Comments Orders Reason Comments Follow Up Reason Comments Med Refill Reason Comments Medicare Annual Wellness Visit Subsequen t Wellness Reason Comments Follow-up 6m Reason Onset Date Comments Med Refill 06/29/2024 Care Teams (unrecognized sec tion and content) Human Resources Executive Assistant Relationship Specialty Start Date End Date Regino Martinez PCP - General Family Medicine 05/16/17 Human Resources Executive Assistant Relationship Specialty Start Date End Date Regino [...] Primary Care Provider, Attending Pr ovider Active Human Resources Executive Assistant Relationship Specialty Start Date End Date Isak Rojas PCP - General Family Medicine 08/13/22 Russ Schmitt MD [address] [place] [phone] Cardiology 08/13/22 Human Resources Executive Assistant Relationship Specialty Start Date End Date Isak Rojas PCP - General Family Medicine 08/13/22 Russ Schmitt MD [address] [place] [phone] Cardiology 08/13/22 Human Resources Executive Assistant Relationship Specialty Start Date End Date Isak Rojas MD [address] [place] [id number] PCP - General Family Medicine 11/11/23 Human Resources Executive Assistant Relationship Specialty Start Date End Date Isak Rojas MD [address] [place] [phone] PCP - General Family Medicine 11/11/23 Human Resources Executive Assistant Relationship Specialty Start Date End Date Isak Rojas MD [address] [place] [phone] PCP - General Family Medicine 11/11/23 Human Resources Executive Assistant Relationship Specialty Start Date End Date Isak Rojas MD [address] [place] [phone] PCP - General Family Medicine 11/11/23 Human Resources Executive Assistant Relationship Specialty Start Date End Date Isak Rojas MD [address] [place] [phone] PCP - General Family Medicine 11/11/23 Human Resources Executive Assistant Relationship Specialty Start Date End Date sIak Rojas MD [address] [place] [phone] PCP - General Family Medicine 11/11/23 Human Resources Executive Assistant Relationship Specialty Start Date End Date Isak Rojas MD [address] [place] [phone] PCP - General Family Medicine 11/11/23 INFORMATION SOURCE (unrecogn ized section and content) DATE CREATED AUTHOR 02/17/2023 [facility] DATE CREATED AUTHOR AUTHOR'S ORGANIZ ATION 11/15/2023 [facility] DATE CREATED AUTHOR AUTHOR'S ORGANIZ ATION 01/07/2024 [facility] DATE CREATED AUTHOR AUTHOR'S ORGANIZ ATION 02/20/2024 [facility] DATE CREATED AUTHOR AUTHOR'S ORGANIZ ATION 06/08/2024 [facility] DATE CREATED AUTHOR AUTHOR'S ORGANIZ ATION 08/08/2024 [facility] DATE CREATED AUTHOR AUTHOR'S ORGANIZ ATION [facility] Goals (unrecognized section and content) Goals may [...] BE BASED ON THE PRIMARY CLINICAL RECORDS. [facility] provides no warranty or guarantee of the accuracy or completeness of information in this document.
--- NOTE | 2024-10-01 12:03 | CM.DCFOLLOWU ---
Person spoke with: patient's daughter, Yenny How are you feeling? still weak How is your pain? none Did you understand your discharge instructions?yes Do you have any questions about your discharge instructions? no questions Were you given any prescriptions at discharge? yes Were you able to get your prescriptions filled?yes Do you understand how to take your medications as ordered?yes Do you have any questions about your follow up appointment and do you plan to keep your follow up appointment? no questions, reviewed follow up Is there anything else that you would like to discuss? had questions in regards to wait time in ED and other questions. YAW sent email to Jacqueline Handley and Pepper Parra to call her back Questions/Comments/Concerns/Other: HH has not come in yet. YAW called [facility] and they will be coming tomorrow. YAW called daughter back and let her know
== END 2024-09-29 10:45 | disposition home health service (06) ==
LOC: ER 22:47 → ICU 09-29 09:36
PROVIDERS: Registered Nurse; Admitting Provider Family Medicine; Emergency Provider Emergency Medicine; PCP Family Medicine; Visit Provider Family Medicine
DX: R53.1 Weakness (principal); R47.1 Dysarthria and anarthria; I12.9 Hypertensive chronic kidney disease with stage 1 through stage 4 chronic kidney disease, or unspecified chronic kidney disease; N18.32 Chronic kidney disease, stage 3b; M51.369 Other intervertebral disc degeneration, lumbar region without mention of lumbar back pain or lower extremity pain; M17.0 Bilateral primary osteoarthritis of knee; E03.9 Hypothyroidism, unspecified; Z79.83 Long term (current) use of bisphosphonates; Z79.82 Long term (current) use of aspirin; Z79.890 Hormone replacement therapy; Z79.899 Other long term (current) drug therapy; Z88.5 Allergy status to narcotic agent
CPT/HCPCS: 36415; 70450; 70496; 70498; 71045; 80048; 81001; 85025; 85027; 92610; 93005; 97165; 99285; G0378; Q9967